=== PATIENT | male | born 1980 | race Two or more races ===

== ENCOUNTER 2023-06-01 08:22 | Inpatient (IN) | payer MEDICAID ==
[~2023-06-01] VITALS: Ht 172.7 cm; Wt 91.0 kg
[2023-06-01] MEDS ORDERED: PANTOPRAZOLE 40 MG/10 ML VIAL INJ IV ONE (08:45)
[2023-06-01] MEDS ORDERED: ONDANSETRON HCL 4 MG/2 ML VIAL IV ONE (08:45)
[2023-06-01] MEDS ORDERED: SODIUM CHLORIDE 0.9% 1,000 ML IVB ONE (08:45)
[2023-06-01] MEDS ORDERED: MORPHINE SULFATE 4 MG/ML SYR/VIAL IV ONE (08:45)
[2023-06-01 09:04] LABS: Basophils # (auto) 0.1 10 ^3/uL (0-0.2); Basophils % (auto) 0.5 % (0.0-2.0); Eosinophils # (auto) 0 10 ^3/uL (0-0.8); Eosinophils % (auto) 0.1 % (0.0-7.0); Hematocrit 43.7 % (41.0-53.0); Hemoglobin 14.5 g/dL (13.5-17.5); Lymphocytes # (auto) 0.9 10 ^3/uL (0.4-5.4); Lymphocytes % (auto) 7.3 % (10.0-50.0); Mean Corpuscular Hemoglobin 30.8 pg (28.0-32.0); Mean Corpuscular Hgb Conc. 33.2 g/dL (32.0-36.0); Monocytes # (auto) 0.7 10 ^3/uL (0-1.3); Monocytes % (auto) 5.5 % (0.0-12.0); Neutrophils # (auto) 10.5 10 ^3/uL (1.6-8.6); Neutrophils % (auto) 86.6 % (37.0-80.0); Red Cell Distribution Width 15.3 % (11.8-14.3); White Blood Cell 12.1 10^3/uL (4.4-10.8)
[2023-06-01 09:20] VITALS: PULSE 106; RESP 17; O2SAT 97
[2023-06-01 09:20] LABS: INR 1.07 (0.9-1.15); Partial Thromboplastin Time 30.1 SEC (24.5-34.5); Prothrombin Time 11.2 sec (9.3-11.8)
[2023-06-01 09:21] LABS: Alanine Aminotransferase 36 U/L (7-40); Albumin 4.3 g/dL (3.2-4.8); Alkaline Phosphatase 159 U/L (46-116); Anion Gap 7 (5-15); Aspartate Aminotransferase 29 U/L (13-40); BUN/Creatinine Ratio 16.1 (10.0-20.0); Blood Urea Nitrogen 15 mg/dL (9-23); Calcium 9.1 mg/dL (8.7-10.4); Carbon Dioxide 25 mmol/L (20-30); Chloride 107 mmol/L (98-107); Glucose 126 mg/dL (74-106); Lipase 380 U/L (12-53); Sodium 139 mmol/L (136-145)
[2023-06-01 09:22] LABS: Total Protein 7.7 g/dL (5.7-8.2)
[2023-06-01] MEDS ORDERED: HYDROmorphone HCL 2 MG/ML VL/or syr IV ONE (11:15)
[2023-06-01 11:57] LABS: Urine Bacteria FEW /hpf (None Seen); Urine Blood 2+ /uL (Negative); Urine Clarity HAZY (Clear); Urine Color Yellow (Yellow); Urine Mucus FEW (None Seen); Urine Protein, UAD 3+ (Negative); Urine Specific Gravity 1.043 (1.001-1.035); Urine WBC 10 /hpf (0 - 3); Urine pH 6.5 (5.0-8.0)
[2023-06-01] MEDS ORDERED: ONDANSETRON HCL 4 MG/2 ML VIAL IV PRN (14:00)
[2023-06-01] MEDS ORDERED: DOCUSATE SOD 100 MG CAP PO PRN (14:00)
[2023-06-01] MEDS: cefTRIAXone 1GM/50ML D5W 50 ML IV SCH (14:13)
[2023-06-01] MEDS: SODIUM CHLORIDE 0.9% 1,000 ML IV SCH ×2 (14:13→22:20)
[2023-06-01] MEDS ORDERED: LORazepam 2MG/ML-1ML VIAL IV PRN (14:15)
[2023-06-01] MEDS: metroNIDAZOLE 500MG/100ML 100 ML IV SCH ×2 (15:58→22:00)
[2023-06-01] MEDS: FOLIC ACID 1 MG, MULTIPLE VITAMIN 10 ML, MAGNESIUM SULF SDV 50% 8 MEQ, THIAMINE INJ 100... INJ SCH ×5 (16:00)
[2023-06-01] MEDS: MORPHINE SULFATE INJ 2 MG/ml SYRG IV PRN ×3 (16:00→23:46)
[2023-06-01 18:18] VITALS: PULSE 74; RESP 19; O2SAT 95
[2023-06-01 20:00] VITALS: PULSE 68; RESP 18; O2SAT 96
[2023-06-01 22:00] VITALS: BP 133/97; PULSE 68; RESP 18; TEMP 97.9; O2SAT 94
[2023-06-01] MEDS: PANTOPRAZOLE 40 MG/10 ML VIAL INJ IV SCH (23:38)
[2023-06-02] MEDS: MORPHINE SULFATE INJ 2 MG/ml SYRG IV PRN ×3 (03:42→11:40)
[2023-06-02 05:00] VITALS: BP 139/96; PULSE 75; RESP 18; TEMP 98.9; O2SAT 93
[2023-06-02] MEDS: metroNIDAZOLE 500MG/100ML 100 ML IV SCH ×3 (05:56→21:42)
[2023-06-02] MEDS: SODIUM CHLORIDE 0.9% 1,000 ML IV SCH ×3 (06:40→23:20)
[2023-06-02 07:10] LABS: Basophils # (auto) 0 10 ^3/uL (0-0.2); Basophils % (auto) 0.2 % (0.0-2.0); Eosinophils # (auto) 0 10 ^3/uL (0-0.8); Eosinophils % (auto) 0.1 % (0.0-7.0); Hemoglobin 13.6 g/dL (13.5-17.5); Lymphocytes # (auto) 0.6 10 ^3/uL (0.4-5.4); Lymphocytes % (auto) 3.9 % (10.0-50.0); Mean Corpuscular Hemoglobin 31.2 pg (28.0-32.0); Mean Corpuscular Hgb Conc. 32.5 g/dL (32.0-36.0); Mean Corpuscular Volume 96.2 fL (80.0-100.0); Monocytes # (auto) 0.9 10 ^3/uL (0-1.3); Monocytes % (auto) 5.9 % (0.0-12.0); Neutrophils # (auto) 13.7 10 ^3/uL (1.6-8.6); Neutrophils % (auto) 89.9 % (37.0-80.0); Red Blood Cells 4.37 10^6/uL (4.5-5.90); Red Cell Distribution Width 16.1 % (11.8-14.3); White Blood Cell 15.3 10^3/uL (4.4-10.8)
[2023-06-02 07:30] LABS: Alanine Aminotransferase 26 U/L (7-40); Albumin 3.9 g/dL (3.2-4.8); Alkaline Phosphatase 131 U/L (46-116); Anion Gap 9 (5-15); Aspartate Aminotransferase 26 U/L (13-40); BUN/Creatinine Ratio 9.1 (10.0-20.0); Bilirubin, Total 0.7 mg/dL (0.2-1.0); Blood Urea Nitrogen 10 mg/dL (9-23); Calcium 8.5 mg/dL (8.7-10.4); Carbon Dioxide 24 mmol/L (20-30); Chloride 106 mmol/L (98-107); Glucose 104 mg/dL (74-106); Lipase 370 U/L (12-53); Potassium 3.6 mmol/L (3.5-5.1); Sodium 139 mmol/L (136-145); Total Protein 7.3 g/dL (5.7-8.2)
[2023-06-02 09:00] VITALS: BP 132/68; PULSE 85; RESP 19; TEMP 98.5; O2SAT 95
[2023-06-02] MEDS: PANTOPRAZOLE 40 MG/10 ML VIAL INJ IV SCH ×2 (09:11→21:42)
[2023-06-02] MEDS: cefTRIAXone 1GM/50ML D5W 50 ML IV SCH (09:12)
[2023-06-02] MEDS: FOLIC ACID 1 MG, MULTIPLE VITAMIN 10 ML, MAGNESIUM SULF SDV 50% 8 MEQ, THIAMINE INJ 100... INJ SCH ×5 (12:46)
[2023-06-02 13:25] VITALS: BP 154/93; PULSE 97; RESP 20; TEMP 98.7; O2SAT 95
[2023-06-02] MEDS: HYDROmorphone HCL 2 MG/ML VL/or syr IV PRN ×3 (14:47→23:02)
[2023-06-02 17:09] VITALS: BP 124/72; PULSE 105; RESP 19; TEMP 99.1; O2SAT 93
[2023-06-02 22:00] VITALS: BP 135/93; PULSE 94; RESP 19; TEMP 99.2; O2SAT 98
[2023-06-03] MEDS: HYDROmorphone HCL 2 MG/ML VL/or syr IV PRN ×6 (03:11→23:46)
[2023-06-03 05:00] VITALS: BP 127/78; PULSE 79; RESP 18; TEMP 98.5; O2SAT 95
[2023-06-03] MEDS: metroNIDAZOLE 500MG/100ML 100 ML IV SCH ×3 (05:07→22:12)
[2023-06-03 06:46] LABS: Basophils # (auto) 0.1 10 ^3/uL (0-0.2); Basophils % (auto) 0.5 % (0.0-2.0); Eosinophils # (auto) 0 10 ^3/uL (0-0.8); Eosinophils % (auto) 0.4 % (0.0-7.0); Hematocrit 39.3 % (41.0-53.0); Lymphocytes # (auto) 0.8 10 ^3/uL (0.4-5.4); Mean Corpuscular Hemoglobin 31.4 pg (28.0-32.0); Monocytes # (auto) 0.8 10 ^3/uL (0-1.3); Monocytes % (auto) 6.5 % (0.0-12.0); Neutrophils % (auto) 85.6 % (37.0-80.0); Red Blood Cells 4.14 10^6/uL (4.5-5.90); Red Cell Distribution Width 15.4 % (11.8-14.3); White Blood Cell 11.7 10^3/uL (4.4-10.8)
[2023-06-03 07:03] LABS: Alanine Aminotransferase 24 U/L (7-40); Albumin 3.6 g/dL (3.2-4.8); Alkaline Phosphatase 142 U/L (46-116); Anion Gap 9 (5-15); Aspartate Aminotransferase 27 U/L (13-40); Blood Urea Nitrogen 11 mg/dL (9-23); Calcium 8.4 mg/dL (8.7-10.4); Carbon Dioxide 24 mmol/L (20-30); Chloride 106 mmol/L (98-107); Glucose 91 mg/dL (74-106); Lipase 90 U/L (12-53); Magnesium 1.9 mg/dL (1.6-2.6); Potassium 3.6 mmol/L (3.5-5.1); Sodium 139 mmol/L (136-145)
[2023-06-03 07:04] LABS: Bilirubin, Total 0.6 mg/dL (0.2-1.0); Total Protein 6.7 g/dL (5.7-8.2)
[2023-06-03] MEDS: SODIUM CHLORIDE 0.9% 1,000 ML IV SCH ×2 (07:40→16:00)
[2023-06-03 08:36] LABS: Triglycerides 67 mg/dL (< 150)
[2023-06-03 08:37] LABS: LDL Cholesterol 67 mg/dL (< 100)
[2023-06-03 08:38] LABS: Cholesterol 125 mg/dL (< 200); HDL Cholesterol 43 mg/dL (40-59)
[2023-06-03] MEDS: PANTOPRAZOLE 40 MG/10 ML VIAL INJ IV SCH ×2 (08:58→22:12)
[2023-06-03] MEDS: cefTRIAXone 1GM/50ML D5W 50 ML IV SCH (08:58)
[2023-06-03 09:00] VITALS: BP 130/85; PULSE 77; RESP 21; TEMP 98.5; O2SAT 94
[2023-06-03] MEDS: FOLIC ACID 1 MG, MULTIPLE VITAMIN 10 ML, MAGNESIUM SULF SDV 50% 8 MEQ, THIAMINE INJ 100... INJ SCH ×5 (11:53)
[2023-06-03 13:00] VITALS: BP 155/93; PULSE 85; RESP 20; TEMP 97.7; O2SAT 95
[2023-06-03 17:10] VITALS: BP 131/88; PULSE 71; RESP 20; TEMP 98; O2SAT 96
[2023-06-03 20:00] VITALS: RESP 18
[2023-06-03 22:00] VITALS: BP 143/93; PULSE 70; RESP 18; TEMP 98.7; O2SAT 93
[2023-06-04] MEDS: HYDROmorphone HCL 2 MG/ML VL/or syr IV PRN ×5 (04:19→22:38)
[2023-06-04] MEDS: SODIUM CHLORIDE 0.9% 1,000 ML IV SCH ×3 (04:54→17:00)
[2023-06-04 05:00] VITALS: BP 140/95; PULSE 62; RESP 18; TEMP 97.7; O2SAT 94
[2023-06-04] MEDS: metroNIDAZOLE 500MG/100ML 100 ML IV SCH ×3 (05:06→22:36)
[2023-06-04 06:18] LABS: Basophils # (auto) 0 10 ^3/uL (0-0.2); Basophils % (auto) 0.4 % (0.0-2.0); Eosinophils # (auto) 0.2 10 ^3/uL (0-0.8); Eosinophils % (auto) 2.7 % (0.0-7.0); Hematocrit 38.7 % (41.0-53.0); Hemoglobin 12.7 g/dL (13.5-17.5); Lymphocytes # (auto) 0.8 10 ^3/uL (0.4-5.4); Lymphocytes % (auto) 9.9 % (10.0-50.0); Mean Corpuscular Hemoglobin 31.2 pg (28.0-32.0); Mean Corpuscular Hgb Conc. 32.7 g/dL (32.0-36.0); Mean Corpuscular Volume 95.5 fL (80.0-100.0); Monocytes # (auto) 0.6 10 ^3/uL (0-1.3); Monocytes % (auto) 7.8 % (0.0-12.0); Neutrophils # (auto) 6.1 10 ^3/uL (1.6-8.6); Neutrophils % (auto) 79.2 % (37.0-80.0); Red Blood Cells 4.05 10^6/uL (4.5-5.90); Red Cell Distribution Width 15.4 % (11.8-14.3); White Blood Cell 7.7 10^3/uL (4.4-10.8)
[2023-06-04 06:46] LABS: Alanine Aminotransferase 18 U/L (7-40); Albumin 3.4 g/dL (3.2-4.8); Alkaline Phosphatase 122 U/L (46-116); Anion Gap 6 (5-15); Aspartate Aminotransferase 20 U/L (13-40); BUN/Creatinine Ratio 8.3 (10.0-20.0); Blood Urea Nitrogen 10 mg/dL (9-23); Calcium 8.2 mg/dL (8.7-10.4); Carbon Dioxide 24 mmol/L (20-30); Chloride 110 mmol/L (98-107); Glucose 92 mg/dL (74-106); Lipase 86 U/L (12-53); Magnesium 2.3 mg/dL (1.6-2.6); Potassium 3.3 mmol/L (3.5-5.1); Sodium 140 mmol/L (136-145)
[2023-06-04 06:47] LABS: Bilirubin, Total 0.4 mg/dL (0.2-1.0); Total Protein 6.3 g/dL (5.7-8.2)
[2023-06-04 08:50] VITALS: BP 152/86; PULSE 61; RESP 16; TEMP 97.9; O2SAT 98
[2023-06-04] MEDS: PANTOPRAZOLE 40 MG/10 ML VIAL INJ IV SCH ×2 (09:09→22:36)
[2023-06-04] MEDS: cefTRIAXone 1GM/50ML D5W 50 ML IV SCH (09:09)
[2023-06-04] MEDS ORDERED: POTASSIUM CHL 20 Meq TABLET PO ONE (10:45)
[2023-06-04 12:40] VITALS: BP_SYST 136; BP_SYST 141; BP_DIAS 88; BP_DIAS 93; PULSE 64; PULSE 86; RESP 16; RESP 18; TEMP 97.6; TEMP 98.4; O2SAT 97; O2SAT 98
[2023-06-04] MEDS: FOLIC ACID 1 MG, MULTIPLE VITAMIN 10 ML, MAGNESIUM SULF SDV 50% 8 MEQ, THIAMINE INJ 100... INJ SCH ×5 (13:30)
[2023-06-04 16:30] VITALS: BP 140/102; PULSE 67; RESP 20; TEMP 98.3; O2SAT 96
[2023-06-04 20:00] VITALS: BP 147/94; PULSE 63; RESP 17; TEMP 98.2; O2SAT 97
[2023-06-04 22:00] VITALS: BP 147/94; PULSE 63; RESP 17; TEMP 98.2; O2SAT 97
[2023-06-05] MEDS: SODIUM CHLORIDE 0.9% 1,000 ML IV SCH ×2 (01:23→09:09)
[2023-06-05] MEDS: HYDROmorphone HCL 2 MG/ML VL/or syr IV PRN ×2 (04:13→09:09)
[2023-06-05] MEDS: metroNIDAZOLE 500MG/100ML 100 ML IV SCH ×2 (05:49→14:00)
[2023-06-05 06:04] VITALS: BP_SYST 103; BP_SYST 141; BP_DIAS 78; BP_DIAS 86; PULSE 60; PULSE 66; RESP 17; TEMP 97.7; TEMP 98.3; O2SAT 96
[2023-06-05 06:36] LABS: Alanine Aminotransferase 19 U/L (7-40); Alkaline Phosphatase 109 U/L (46-116); Anion Gap 7 (5-15); BUN/Creatinine Ratio 5.7 (10.0-20.0); Blood Urea Nitrogen 7 mg/dL (9-23); Calcium 8.5 mg/dL (8.7-10.4); Carbon Dioxide 26 mmol/L (20-30); Chloride 110 mmol/L (98-107); Glucose 95 mg/dL (74-106); Lipase 114 U/L (12-53); Potassium 3.3 mmol/L (3.5-5.1); Sodium 143 mmol/L (136-145)
[2023-06-05 06:37] LABS: Albumin 3.4 g/dL (3.2-4.8); Aspartate Aminotransferase 25 U/L (13-40); Bilirubin, Total 0.4 mg/dL (0.2-1.0); Total Protein 6.3 g/dL (5.7-8.2)
[2023-06-05 09:00] VITALS: BP 131/86; PULSE 47; RESP 18; TEMP 97.6; O2SAT 97
[2023-06-05] MEDS: cefTRIAXone 1GM/50ML D5W 50 ML IV SCH (09:08)
[2023-06-05] MEDS: PANTOPRAZOLE 40 MG/10 ML VIAL INJ IV SCH (09:08)
[2023-06-05] MEDS ORDERED: POTASSIUM CHL 20 Meq TABLET PO ONE (09:15)
[2023-06-05] MEDS: FOLIC ACID 1 MG, MULTIPLE VITAMIN 10 ML, MAGNESIUM SULF SDV 50% 8 MEQ, THIAMINE INJ 100... INJ SCH ×5 (12:00)
[2023-06-05 13:00] VITALS: BP 148/88; PULSE 52; RESP 16; TEMP 98.6; O2SAT 99
[2023-06-05 15:07] VITALS: BP 148/88; PULSE 50; RESP 18; TEMP 98.6; O2SAT 99
== END 2023-06-05 16:05 | disposition home or self-care (01) | DRG 282 ==
LOC: ER 08:22 → OVERFLOW 13:55 → CENTRAL 17:37
PROVIDERS: ADMIT Nurse Practitioner Family; ATTEND Internal Medicine Geriatric Medicine
DX: K85.20 Alcohol induced acute pancreatitis without necrosis or infection (principal); K76.0 Fatty (change of) liver, not elsewhere classified; D72.829 Elevated white blood cell count, unspecified; E86.0 Dehydration; K29.00 Acute gastritis without bleeding; J45.909 Unspecified asthma, uncomplicated; K86.3 Pseudocyst of pancreas; Z90.49 Acquired absence of other specified parts of digestive tract; Z82.0 Family history of epilepsy and other diseases of the nervous system
CPT/HCPCS: 36415; 74176; 74181; 80053; 80061; 80320; 81001; 83690; 83735; 85025; 85610; 85730; C9113; G0378; J0696; J2405; J3490

== ENCOUNTER 2023-09-11 09:11 | Inpatient (IN) | payer MEDICAID ==
[~2023-09-11] VITALS: Ht 170.2 cm; Wt 87.6 kg
[2023-09-11 09:49] LABS: Basophils # (auto) 0 10 ^3/uL (0-0.2); Basophils % (auto) 0.1 % (0.0-2.0); Eosinophils # (auto) 0 10 ^3/uL (0-0.8); Eosinophils % (auto) 0.6 % (0.0-7.0); Hematocrit 43.6 % (41.0-53.0); Hemoglobin 14.3 g/dL (13.5-17.5); Lymphocytes % (auto) 12.7 % (10.0-50.0); Mean Corpuscular Hemoglobin 29.8 pg (28.0-32.0); Mean Corpuscular Hgb Conc. 32.7 g/dL (32.0-36.0); Mean Corpuscular Volume 90.9 fL (80.0-100.0); Monocytes # (auto) 0.5 10 ^3/uL (0-1.3); Neutrophils # (auto) 6.3 10 ^3/uL (1.6-8.6); Neutrophils % (auto) 80.6 % (37.0-80.0); Red Blood Cells 4.79 10^6/uL (4.5-5.90); Red Cell Distribution Width 17.9 % (11.8-14.3); White Blood Cell 7.8 10^3/uL (4.4-10.8)
[2023-09-11 10:05] LABS: Alanine Aminotransferase 62 U/L (7-40); Albumin 4.5 g/dL (3.2-4.8); Alkaline Phosphatase 114 U/L (46-116); Anion Gap 8 (5-15); Aspartate Aminotransferase 54 U/L (13-40); BUN/Creatinine Ratio 8.8 (10.0-20.0); Blood Urea Nitrogen 8 mg/dL (9-23); Carbon Dioxide 26 mmol/L (20-30); Chloride 106 mmol/L (98-107); Glucose 126 mg/dL (74-106); Lipase 555 U/L (12-53); Potassium 4.2 mmol/L (3.5-5.1); Sodium 140 mmol/L (136-145)
[2023-09-11 10:06] LABS: Bilirubin, Total 0.4 mg/dL (0.2-1.0); Total Protein 7.5 g/dL (5.7-8.2)
[2023-09-11 12:19] LABS: Urine Bacteria NONE SEEN /hpf (None Seen); Urine Blood Negative /uL (Negative); Urine Clarity Clear (Clear); Urine Color Yellow (Yellow); Urine Protein, UAD 1+ (Negative); Urine Specific Gravity 1.024 (1.001-1.035); Urine Urobilinogen Normal (Negative); Urine WBC 1 /hpf (0 - 3)
[2023-09-11] MEDS ORDERED: ONDANSETRON HCL 4 MG/2 ML VIAL IV ONE (14:00)
[2023-09-11] MEDS ORDERED: SODIUM CHLORIDE 0.9% 1,000 ML IVB ONE (14:00)
[2023-09-11] MEDS ORDERED: MORPHINE SULFATE 4 MG/ML SYR/VIAL IV ONE (14:00)
[2023-09-11] MEDS ORDERED: SODIUM CHLORIDE 0.9% 1,000 ML IV ONE (14:00)
[2023-09-11] MEDS ORDERED: DOCUSATE SOD 100 MG CAP PO PRN (16:15)
[2023-09-11] MEDS ORDERED: ONDANSETRON HCL 4 MG/2 ML VIAL IV PRN (16:15)
[2023-09-11] MEDS: SODIUM CHLORIDE 0.9% 1,000 ML IV SCH (16:25)
[2023-09-11 17:23] LABS: Triglycerides 89 mg/dL (< 150)
[2023-09-11 17:24] LABS: LDL Cholesterol 107 mg/dL (< 100)
[2023-09-11 17:25] LABS: Cholesterol 190 mg/dL (< 200); HDL Cholesterol 80 mg/dL (40-59)
[2023-09-11] MEDS: PIPERACILLIN-TAZOB 3.375GM 100 ML IV SCH (19:43)
[2023-09-11] MEDS: HYDROmorphone HCL 2 MG/ML VL/or syr IV PRN (19:43)
[2023-09-12] MEDS: PIPERACILLIN-TAZOB 3.375GM 100 ML IV SCH ×2 (00:13→06:23)
[2023-09-12] MEDS: HYDROmorphone HCL 2 MG/ML VL/or syr IV PRN ×6 (00:13→21:36)
[2023-09-12] MEDS: SODIUM CHLORIDE 0.9% 1,000 ML IV SCH ×3 (02:05→15:16)
[2023-09-12 05:00] VITALS: BP 138/94; PULSE 85; RESP 20; TEMP 98.3; O2SAT 100
[2023-09-12 06:54] LABS: Basophils # (auto) 0 10 ^3/uL (0-0.2); Basophils % (auto) 0.2 % (0.0-2.0); Eosinophils # (auto) 0 10 ^3/uL (0-0.8); Eosinophils % (auto) 0.1 % (0.0-7.0); Hematocrit 40.6 % (41.0-53.0); Hemoglobin 13.3 g/dL (13.5-17.5); Lymphocytes # (auto) 0.5 10 ^3/uL (0.4-5.4); Mean Corpuscular Hemoglobin 30.2 pg (28.0-32.0); Mean Corpuscular Hgb Conc. 32.8 g/dL (32.0-36.0); Monocytes # (auto) 0.5 10 ^3/uL (0-1.3); Monocytes % (auto) 5.7 % (0.0-12.0); Neutrophils # (auto) 8.1 10 ^3/uL (1.6-8.6); Red Blood Cells 4.41 10^6/uL (4.5-5.90); Red Cell Distribution Width 18.4 % (11.8-14.3); White Blood Cell 9.1 10^3/uL (4.4-10.8)
[2023-09-12 07:19] LABS: Alanine Aminotransferase 49 U/L (7-40); Albumin 4.4 g/dL (3.2-4.8); Alkaline Phosphatase 104 U/L (46-116); Anion Gap 6 (5-15); Aspartate Aminotransferase 39 U/L (13-40); Bilirubin, Total 0.6 mg/dL (0.2-1.0); Blood Urea Nitrogen 8 mg/dL (9-23); Calcium 8.9 mg/dL (8.7-10.4); Carbon Dioxide 30 mmol/L (20-30); Chloride 104 mmol/L (98-107); Glucose 115 mg/dL (74-106); Lipase 368 U/L (12-53); Potassium 3.9 mmol/L (3.5-5.1); Sodium 140 mmol/L (136-145)
[2023-09-12 07:20] LABS: Total Protein 7.2 g/dL (5.7-8.2)
[2023-09-12 08:45] VITALS: BP 132/89; PULSE 87; RESP 20; TEMP 98; O2SAT 96
[2023-09-12] MEDS: PANTOPRAZOLE 40 MG/10 ML VIAL INJ IV SCH (08:56)
[2023-09-12] MEDS ORDERED: THIAMINE 100mg/ml INJ (200mg/2ml VIAL) IV ONE (09:45)
[2023-09-12] MEDS: FOLIC ACID 1 MG in D5W 5% 50 ML INJ SCH (10:00)
[2023-09-12 12:32] VITALS: BP 145/96; PULSE 92; RESP 20; TEMP 99.2; O2SAT 98
[2023-09-12 17:00] VITALS: BP 128/90; PULSE 97; RESP 18; TEMP 98.5; O2SAT 95
[2023-09-12 22:00] VITALS: BP 130/77; PULSE 96; RESP 18; TEMP 99.5; O2SAT 97
[2023-09-13] VITALS (8 sets, daily range): BP systolic 132–156; BP diastolic 81–108; PULSE 81–108; RESP 15–20; TEMP 98.4–99.3; O2SAT 94–97
[2023-09-13] MEDS: SODIUM CHLORIDE 0.9% 1,000 ML IV SCH ×3 (01:35→15:51)
[2023-09-13] MEDS: HYDROmorphone HCL 2 MG/ML VL/or syr IV PRN ×5 (02:01→20:05)
[2023-09-13 06:40] LABS: Basophils # (auto) 0 10 ^3/uL (0-0.2); Basophils % (auto) 0.3 % (0.0-2.0); Eosinophils # (auto) 0.1 10 ^3/uL (0-0.8); Eosinophils % (auto) 0.9 % (0.0-7.0); Hematocrit 38.2 % (41.0-53.0); Hemoglobin 12.7 g/dL (13.5-17.5); Lymphocytes # (auto) 0.9 10 ^3/uL (0.4-5.4); Lymphocytes % (auto) 11.2 % (10.0-50.0); Mean Corpuscular Hemoglobin 30.4 pg (28.0-32.0); Mean Corpuscular Hgb Conc. 33.2 g/dL (32.0-36.0); Mean Corpuscular Volume 91.4 fL (80.0-100.0); Monocytes # (auto) 0.6 10 ^3/uL (0-1.3); Monocytes % (auto) 7.3 % (0.0-12.0); Neutrophils # (auto) 6.6 10 ^3/uL (1.6-8.6); Neutrophils % (auto) 80.3 % (37.0-80.0); Red Blood Cells 4.19 10^6/uL (4.5-5.90); Red Cell Distribution Width 18.5 % (11.8-14.3); White Blood Cell 8.2 10^3/uL (4.4-10.8)
[2023-09-13 06:48] LABS: INR 1.07 (0.9-1.15); Partial Thromboplastin Time 29.6 SEC (24.5-34.5); Prothrombin Time 11.2 sec (9.3-11.8)
[2023-09-13 06:57] LABS: Alanine Aminotransferase 39 U/L (7-40); Albumin 4.2 g/dL (3.2-4.8); Alkaline Phosphatase 98 U/L (46-116); Anion Gap 6 (5-15); Aspartate Aminotransferase 35 U/L (13-40); Blood Urea Nitrogen 9 mg/dL (9-23); Calcium 8.8 mg/dL (8.7-10.4); Carbon Dioxide 28 mmol/L (20-30); Chloride 103 mmol/L (98-107); Glucose 77 mg/dL (74-106); Lipase 89 U/L (12-53); Potassium 3.2 mmol/L (3.5-5.1); Sodium 137 mmol/L (136-145)
[2023-09-13 06:58] LABS: Bilirubin, Total 0.6 mg/dL (0.2-1.0); Total Protein 6.9 g/dL (5.7-8.2)
[2023-09-13] MEDS ORDERED: POTASSIUM CHL 20 Meq TABLET PO ONE (09:30)
[2023-09-13] MEDS: PANTOPRAZOLE 40 MG/10 ML VIAL INJ IV SCH (10:55)
[2023-09-13] MEDS: FOLIC ACID 1 MG in D5W 5% 50 ML INJ SCH (10:56)
[2023-09-14] MEDS: HYDROmorphone HCL 2 MG/ML VL/or syr IV PRN ×6 (00:21→22:29)
[2023-09-14] MEDS: SODIUM CHLORIDE 0.9% 1,000 ML IV SCH ×3 (00:34→20:41)
[2023-09-14 05:42] VITALS: BP 142/101; PULSE 90; TEMP 98.7; O2SAT 97
[2023-09-14 06:22] LABS: Basophils # (auto) 0 10 ^3/uL (0-0.2); Basophils % (auto) 0.6 % (0.0-2.0); Eosinophils # (auto) 0.2 10 ^3/uL (0-0.8); Eosinophils % (auto) 3.7 % (0.0-7.0); Hematocrit 35.3 % (41.0-53.0); Hemoglobin 11.5 g/dL (13.5-17.5); Lymphocytes % (auto) 17.7 % (10.0-50.0); Mean Corpuscular Hemoglobin 30.4 pg (28.0-32.0); Mean Corpuscular Hgb Conc. 32.7 g/dL (32.0-36.0); Mean Corpuscular Volume 92.8 fL (80.0-100.0); Monocytes # (auto) 0.5 10 ^3/uL (0-1.3); Monocytes % (auto) 8.2 % (0.0-12.0); Neutrophils # (auto) 3.9 10 ^3/uL (1.6-8.6); Neutrophils % (auto) 69.8 % (37.0-80.0); Red Blood Cells 3.81 10^6/uL (4.5-5.90); Red Cell Distribution Width 18.8 % (11.8-14.3); White Blood Cell 5.6 10^3/uL (4.4-10.8)
[2023-09-14 06:24] LABS: Anion Gap 6 (5-15); Carbon Dioxide 27 mmol/L (20-30); Chloride 104 mmol/L (98-107); Potassium 3.2 mmol/L (3.5-5.1); Sodium 137 mmol/L (136-145)
[2023-09-14 06:26] LABS: Calcium 8.4 mg/dL (8.7-10.4)
[2023-09-14 06:30] LABS: BUN/Creatinine Ratio 6.5 (10.0-20.0); Blood Urea Nitrogen 5 mg/dL (9-23); Glucose 93 mg/dL (74-106); Lipase 90 U/L (12-53)
[2023-09-14 08:00] VITALS: PULSE 54; RESP 16; O2SAT 98
[2023-09-14 09:00] VITALS: BP 117/75; PULSE 54; RESP 16; TEMP 98.4; O2SAT 98
[2023-09-14] MEDS ORDERED: POTASSIUM CHL 20 Meq TABLET PO ONE (10:00)
[2023-09-14] MEDS: PANTOPRAZOLE 40 MG/10 ML VIAL INJ IV SCH (10:37)
[2023-09-14] MEDS: FOLIC ACID 1 MG in D5W 5% 50 ML INJ SCH (11:25)
[2023-09-14 13:00] VITALS: BP 137/102; PULSE 78; RESP 18; TEMP 98.6; O2SAT 96
[2023-09-14 17:00] VITALS: BP 141/96; PULSE 87; RESP 18; TEMP 99.1; O2SAT 96
[2023-09-14 22:03] VITALS: BP 142/92; PULSE 82; RESP 16; TEMP 98.4; O2SAT 99
[2023-09-15] MEDS: HYDROmorphone HCL 2 MG/ML VL/or syr IV PRN ×2 (02:36→06:40)
[2023-09-15 05:00] VITALS: BP 133/80; PULSE 72; RESP 17; TEMP 98; O2SAT 98
[2023-09-15 05:42] LABS: Alanine Aminotransferase 61 U/L (7-40); Albumin 3.8 g/dL (3.2-4.8); Alkaline Phosphatase 91 U/L (46-116); Anion Gap 6 (5-15); Aspartate Aminotransferase 62 U/L (13-40); Calcium 8.7 mg/dL (8.7-10.4); Carbon Dioxide 27 mmol/L (20-30); Chloride 104 mmol/L (98-107); Glucose 97 mg/dL (74-106); Potassium 3.6 mmol/L (3.5-5.1); Sodium 137 mmol/L (136-145)
[2023-09-15 05:43] LABS: Bilirubin, Total 0.5 mg/dL (0.2-1.0); Total Protein 6.3 g/dL (5.7-8.2)
[2023-09-15] MEDS: SODIUM CHLORIDE 0.9% 1,000 ML IV SCH (05:45)
[2023-09-15 06:08] LABS: BUN/Creatinine Ratio 6.3 (10.0-20.0); Blood Urea Nitrogen < 5 mg/dL (9-23)
[2023-09-15 08:00] VITALS: PULSE 71; RESP 20; O2SAT 99
[2023-09-15 09:00] VITALS: BP 129/86; PULSE 71; RESP 20; TEMP 98.1; O2SAT 99
[2023-09-15] MEDS ORDERED: HYDROmorphone HCL 2 MG/ML VL/or syr IV PRN (09:15)
[2023-09-15] MEDS ORDERED: TRAM50TA2 PO (09:28)
[2023-09-15] MEDS ORDERED: PANT40TA2 PO (09:28)
[2023-09-15] MEDS ORDERED: MULT-351 PO (09:28)
[2023-09-15] MEDS: PANTOPRAZOLE 40 MG/10 ML VIAL INJ IV SCH (09:47)
[2023-09-15] MEDS: FOLIC ACID 1 MG in D5W 5% 50 ML INJ SCH (09:57)
[2023-09-15 11:18] VITALS: BP 129/86; PULSE 71; RESP 20; TEMP 98.1; O2SAT 99
[2023-09-15 13:00] VITALS: BP 136/87; PULSE 82; RESP 20; TEMP 98.1; O2SAT 96
== END 2023-09-15 13:12 | disposition home or self-care (01) | DRG 282 ==
LOC: ER 09:11 → OVERFLOW 16:04 → CENTRAL 23:59
PROVIDERS: ADMIT Nurse Practitioner Family; ATTEND Internal Medicine
DX: K85.90 Acute pancreatitis without necrosis or infection, unspecified (principal); K76.0 Fatty (change of) liver, not elsewhere classified; E66.9 Obesity, unspecified; K86.89 Other specified diseases of pancreas; E86.0 Dehydration; F10.10 Alcohol abuse, uncomplicated; E87.6 Hypokalemia; M54.50 Low back pain, unspecified; R00.0 Tachycardia, unspecified; R74.01 Elevation of levels of liver transaminase levels; J45.909 Unspecified asthma, uncomplicated; Z79.899 Other long term (current) drug therapy; Z82.0 Family history of epilepsy and other diseases of the nervous system; Z90.49 Acquired absence of other specified parts of digestive tract
CPT/HCPCS: 36415; 74176; 76705; 80048; 80053; 80061; 81001; 83605; 83690; 85025; 85610; 85730; 87040; 96361; 96374; 96375; C9113; G0378; J2405; J2543; J7060

== ENCOUNTER 2023-11-07 07:34 | Inpatient (IN) | payer SELFPAY ==
[~2023-11-07] VITALS: Ht 172.7 cm; Wt 85.8 kg
[~2023-11-07 07:34] MED LIST: MULT-351 PO; PANT40TA2 PO; TRAM50TA2 PO
[2023-11-07 08:04] LABS: Basophils # (auto) 0 10 ^3/uL (0-0.2); Basophils % (auto) 0.4 % (0.0-2.0); Eosinophils # (auto) 0.1 10 ^3/uL (0-0.8); Eosinophils % (auto) 1.3 % (0.0-7.0); Hematocrit 43.2 % (41.0-53.0); Hemoglobin 14.2 g/dL (13.5-17.5); Lymphocytes % (auto) 14.8 % (10.0-50.0); Mean Corpuscular Hgb Conc. 32.9 g/dL (32.0-36.0); Mean Corpuscular Volume 91.4 fL (80.0-100.0); Monocytes # (auto) 0.5 10 ^3/uL (0-1.3); Neutrophils # (auto) 5.3 10 ^3/uL (1.6-8.6); Neutrophils % (auto) 76.5 % (37.0-80.0); Nucleated Red Blood Cells % 0.1 %; Red Blood Cells 4.72 10^6/uL (4.5-5.90); Red Cell Distribution Width 14.4 % (11.8-14.3); White Blood Cell 6.9 10^3/uL (4.4-10.8)
[2023-11-07 08:17] LABS: Alanine Aminotransferase 58 U/L (7-40); Albumin 4.2 g/dL (3.2-4.8); Alkaline Phosphatase 105 U/L (46-116); Anion Gap 6 (5-15); Aspartate Aminotransferase 86 U/L (13-40); Bilirubin, Total 1.1 mg/dL (0.2-1.0); Blood Urea Nitrogen 10 mg/dL (9-23); Calcium 8.6 mg/dL (8.5-10.1); Carbon Dioxide 28 mmol/L (20-30); Chloride 104 mmol/L (98-107); Glucose 96 mg/dL (74-106); Potassium 3.6 mmol/L (3.5-5.1); Sodium 138 mmol/L (136-145)
[2023-11-07] MEDS: SODIUM CHLORIDE 0.9% 1,000 ML IV ONE (08:19)
[2023-11-07 08:31] LABS: Urine Bacteria NONE SEEN /hpf (None Seen); Urine Blood TRACE /uL (Negative); Urine Clarity Clear (Clear); Urine Color Yellow (Yellow); Urine Mucus FEW (None Seen); Urine Protein, UAD 1+ (Negative); Urine Specific Gravity 1.029 (1.001-1.035); Urine WBC <1 /hpf (0 - 3); Urine pH 6.5 (5.0-8.0)
[2023-11-07] MEDS: KETOROLAC TROMETH 30 MG/ML 1ML VIAL IV ONE ×2 (08:45→12:18)
[2023-11-07] MEDS: METOCLOPRAMIDE HCL 5MG/ml INJ 2ml VIAL IV ONE (08:45)
[2023-11-07 09:03] LABS: Magnesium 1.5 mg/dL (1.6-2.6)
[2023-11-07] MEDS ORDERED: ONDANSETRON HCL 4 MG/2 ML VIAL IV PRN (11:00)
[2023-11-07 11:05] LABS: Blood Alcohol < 3.0 mg/dL (<10)
[2023-11-07 11:06] LABS: Bilirubin, Direct 0.4 mg/dL (<0.3)
[2023-11-07] MEDS: SODIUM CHLORIDE 0.9% 2,000 ML IV ONE (11:11)
[2023-11-07 11:12] LABS: Amphetamine Screen, Urine Neg (NEGATIVE); Barbiturate Scree,Urine Neg (NEGATIVE); Benzodiazephine Screen, Urine Neg (NEGATIVE); Cannabinoid Screen, Urine Pos (NEGATIVE); Cocaine Screen, Urine Neg (NEGATIVE); Opiate Scree,Urine Neg (NEGATIVE); Phencyclidine Screen, Urine Neg (NEGATIVE)
[2023-11-07] MEDS: SODIUM CHLORIDE 0.9% 1,000 ML IV SCH (11:24)
[2023-11-07] MEDS ORDERED: ALBUTEROL SULF 2.5 MG/0.5ML(0.5%) NEB SOLN NEB PRN (11:45)
[2023-11-07 12:10] VITALS: O2SAT 98
[2023-11-07] MEDS: MAGNESIUM SULFATE 1GM/100ML 100 ML IV SCH (12:15)
[2023-11-07 13:28] VITALS: BP 136/83; PULSE 68; RESP 18; TEMP 98.2; O2SAT 99
[2023-11-07 16:30] VITALS: BP 143/98; PULSE 70; RESP 17; TEMP 98.2; O2SAT 97
[2023-11-07] MEDS: KETOROLAC TROMETH 30 MG/ML 1ML VIAL IV PRN (17:10)
[2023-11-07 20:25] VITALS: O2SAT 98
[2023-11-07 20:33] VITALS: O2SAT 97
[2023-11-07 22:00] VITALS: BP 131/88; PULSE 74; RESP 18; TEMP 98.1; O2SAT 98
[2023-11-07] MEDS: HYDROcodone-ACET 5/325MG TAB PO ONE (22:19)
[2023-11-08] VITALS (8 sets, daily range): BP systolic 120–154; BP diastolic 66–98; PULSE 56–70; RESP 18–20; TEMP 97.9–98.6; O2SAT 97–99
[2023-11-08 06:42] LABS: Basophils # (auto) 0 10 ^3/uL (0-0.2); Basophils % (auto) 0.8 % (0.0-2.0); Eosinophils # (auto) 0.1 10 ^3/uL (0-0.8); Eosinophils % (auto) 4.9 % (0.0-7.0); Hematocrit 37.9 % (41.0-53.0); Hemoglobin 12.5 g/dL (13.5-17.5); Lymphocytes # (auto) 0.8 10 ^3/uL (0.4-5.4); Lymphocytes % (auto) 25.5 % (10.0-50.0); Mean Corpuscular Hemoglobin 30.3 pg (28.0-32.0); Mean Corpuscular Volume 91.7 fL (80.0-100.0); Monocytes # (auto) 0.3 10 ^3/uL (0-1.3); Monocytes % (auto) 9.7 % (0.0-12.0); Neutrophils # (auto) 1.7 10 ^3/uL (1.6-8.6); Neutrophils % (auto) 59.1 % (37.0-80.0); Red Blood Cells 4.14 10^6/uL (4.5-5.90); Red Cell Distribution Width 14.3 % (11.8-14.3); White Blood Cell 2.9 10^3/uL (4.4-10.8)
[2023-11-08 07:17] LABS: Alanine Aminotransferase 50 U/L (7-40); Albumin 3.5 g/dL (3.2-4.8); Alkaline Phosphatase 98 U/L (46-116); Anion Gap 6 (5-15); Aspartate Aminotransferase 94 U/L (13-40); Blood Urea Nitrogen 6 mg/dL (9-23); Calcium 7.7 mg/dL (8.7-10.4); Carbon Dioxide 25 mmol/L (20-30); Chloride 107 mmol/L (98-107); Glucose 119 mg/dL (74-106); Potassium 3.4 mmol/L (3.5-5.1); Sodium 138 mmol/L (136-145); Total Protein 6.1 g/dL (5.7-8.2)
[2023-11-08] MEDS: PANTOPRAZOLE 40 MG TAB PO SCH (09:35)
[2023-11-08] MEDS: ENOXAPARIN SOD 40 MG/0.4 ML SYRINGE SC SCH (09:36)
[2023-11-08] MEDS: MULTIPLE VITAMINS W/ MINERALS TAB PO SCH (09:37)
[2023-11-08] MEDS: MORPHINE SULFATE INJ 2 MG/ml SYRG IV PRN (11:22)
[2023-11-08] MEDS: ACETAMINOPHEN 325 MG TAB PO PRN (14:08)
[2023-11-08] MEDS: POTASSIUM CHL 20MEQ/100ML 100 ML IV ONE (20:03)
[2023-11-08] MEDS: POTASSIUM EFFERVESENT TAB 25 MEQ PO ONE (20:10)
[2023-11-09 05:00] VITALS: BP 130/93; PULSE 62; RESP 19; TEMP 98.2; O2SAT 97
[2023-11-09 05:59] LABS: Basophils # (auto) 0 10 ^3/uL (0-0.2); Basophils % (auto) 0.7 % (0.0-2.0); Eosinophils # (auto) 0.2 10 ^3/uL (0-0.8); Eosinophils % (auto) 4.5 % (0.0-7.0); Hematocrit 36.7 % (41.0-53.0); Lymphocytes # (auto) 0.9 10 ^3/uL (0.4-5.4); Lymphocytes % (auto) 23.5 % (10.0-50.0); Mean Corpuscular Hemoglobin 30.2 pg (28.0-32.0); Mean Corpuscular Hgb Conc. 32.6 g/dL (32.0-36.0); Mean Corpuscular Volume 92.7 fL (80.0-100.0); Monocytes # (auto) 0.3 10 ^3/uL (0-1.3); Monocytes % (auto) 9.4 % (0.0-12.0); Neutrophils # (auto) 2.3 10 ^3/uL (1.6-8.6); Neutrophils % (auto) 61.9 % (37.0-80.0); Nucleated Red Blood Cells % 0.3 %; Red Blood Cells 3.96 10^6/uL (4.5-5.90); Red Cell Distribution Width 14.1 % (11.8-14.3); White Blood Cell 3.7 10^3/uL (4.4-10.8)
[2023-11-09 06:24] LABS: Alanine Aminotransferase 54 U/L (7-40); Albumin 3.6 g/dL (3.2-4.8); Alkaline Phosphatase 98 U/L (46-116); Anion Gap 7 (5-15); Aspartate Aminotransferase 123 U/L (13-40); Calcium 8.5 mg/dL (8.5-10.1); Carbon Dioxide 25 mmol/L (20-30); Chloride 107 mmol/L (98-107); Glucose 89 mg/dL (74-106); Potassium 3.9 mmol/L (3.5-5.1); Sodium 139 mmol/L (136-145)
[2023-11-09 06:25] LABS: Bilirubin, Total 0.4 mg/dL (0.2-1.0); Total Protein 6.3 g/dL (5.7-8.2)
[2023-11-09 06:31] LABS: BUN/Creatinine Ratio 6.2 (10.0-20.0); Blood Urea Nitrogen < 5 mg/dL (9-23)
[2023-11-09 07:50] VITALS: O2SAT 98
[2023-11-09 09:00] VITALS: BP 146/95; PULSE 63; RESP 18; TEMP 98; O2SAT 95
[2023-11-09 13:00] VITALS: BP 147/89; PULSE 61; RESP 16; TEMP 98.5; O2SAT 98
[2023-11-09 17:06] VITALS: BP 154/90; PULSE 75; RESP 18; TEMP 98.5; O2SAT 97
== END 2023-11-09 17:50 | disposition home or self-care (01) | DRG 440 ==
LOC: ER 07:34 → OVERFLOW 11:00 → WEST WING 15:43
PROVIDERS: ADMIT Internal Medicine Pulmonary Disease; ATTEND Internal Medicine Pulmonary Disease
DX: K85.90 Acute pancreatitis without necrosis or infection, unspecified (principal); J45.909 Unspecified asthma, uncomplicated; R74.01 Elevation of levels of liver transaminase levels; I10 Essential (primary) hypertension; E87.6 Hypokalemia
CPT/HCPCS: 36415; 74176; 76705; 80053; 80307; 80320; 81001; 82248; 83690; 83735; 85025; 96361; 96365; 96375; 96376; G0378; J1885; J3480

== ENCOUNTER 2024-02-13 15:43 | Inpatient (IN) | payer MEDICAID ==
[~2024-02-13] VITALS: Ht 172.7 cm; Wt 94.8 kg
[2024-02-13 17:15] LABS: Basophils # (auto) 0.1 10 ^3/uL (0-0.2); Basophils % (auto) 0.9 % (0.0-2.0); Eosinophils # (auto) 0.1 10 ^3/uL (0-0.8); Eosinophils % (auto) 1.1 % (0.0-7.0); Hematocrit 42.2 % (41.0-53.0); Hemoglobin 13.4 g/dL (13.5-17.5); Lymphocytes # (auto) 1.2 10 ^3/uL (0.4-5.4); Lymphocytes % (auto) 17.2 % (10.0-50.0); Mean Corpuscular Hemoglobin 27.6 pg (28.0-32.0); Mean Corpuscular Hgb Conc. 31.7 g/dL (32.0-36.0); Monocytes # (auto) 0.6 10 ^3/uL (0-1.3); Monocytes % (auto) 8.7 % (0.0-12.0); Neutrophils # (auto) 4.8 10 ^3/uL (1.6-8.6); Neutrophils % (auto) 72.1 % (37.0-80.0); Red Blood Cells 4.86 10^6/uL (4.5-5.90); Red Cell Distribution Width 16.1 % (11.8-14.3); White Blood Cell 6.7 10^3/uL (4.4-10.8)
[2024-02-13 17:22] LABS: Alanine Aminotransferase 70 U/L (7-40); Albumin 4.2 g/dL (3.2-4.8); Alkaline Phosphatase 96 U/L (46-116); Anion Gap 7 (5-15); Aspartate Aminotransferase 77 U/L (13-40); BUN/Creatinine Ratio 6.9 (10.0-20.0); Bilirubin, Total 0.9 mg/dL (0.2-1.0); Blood Urea Nitrogen 7 mg/dL (9-23); Calcium 8.8 mg/dL (8.7-10.4); Carbon Dioxide 29 mmol/L (20-30); Chloride 105 mmol/L (98-107); Glucose 111 mg/dL (74-106); Lipase 160 U/L (12-53); Potassium 3.6 mmol/L (3.5-5.1); Sodium 141 mmol/L (136-145); Total Protein 7.2 g/dL (5.7-8.2)
[2024-02-13 17:39] LABS: INR 1.13 (0.9-1.15); Partial Thromboplastin Time 25.4 SEC (24.5-34.5); Prothrombin Time 11.9 sec (9.3-11.8)
[2024-02-13 17:51] LABS: Lactic Acid w/Reflex 2.1 mmol/L (0.4-2.0)
[2024-02-13] MEDS: HYDROcodone-ACET 10/325MG TAB PO ONE (19:28)
[2024-02-13] MEDS ORDERED: ACETAMINOPHEN 325 MG TAB PO PRN (22:00)
[2024-02-13] MEDS ORDERED: DOCUSATE SOD 100 MG CAP PO PRN (22:00)
[2024-02-13] MEDS ORDERED: ONDANSETRON HCL 4 MG/2 ML VIAL IV PRN (22:00)
[2024-02-13] MEDS ORDERED: MORPHINE SULFATE INJ 2 MG/ml SYRG IV PRN (23:00)
[2024-02-13] MEDS ORDERED: NITROGLYCERIN 0.4 MG SL TAB SL PRN (23:00)
[2024-02-14] VITALS (8 sets, daily range): BP systolic 135–151; BP diastolic 92–102; PULSE 71–103; RESP 13–20; TEMP 97.7–98.8; O2SAT 95–98
[2024-02-14] MEDS: HYDROmorphone HCL 2 MG/ML VL/or syr IV ONE (00:29)
[2024-02-14] MEDS: SODIUM CHLORIDE 0.9% 1,000 ML IV ONE (00:29)
[2024-02-14] MEDS: METOCLOPRAMIDE HCL 5MG/ml INJ 2ml VIAL IV ONE (00:37)
[2024-02-14] MEDS: SODIUM CHLORIDE 0.9% 1,000 ML IVB ONE (02:27)
[2024-02-14] MEDS: HYDROmorphone HCL 2 MG/ML VL/or syr IV PRN (03:49)
[2024-02-14 06:03] LABS: Basophils # (auto) 0 10 ^3/uL (0-0.2); Basophils % (auto) 0.6 % (0.0-2.0); Eosinophils # (auto) 0.1 10 ^3/uL (0-0.8); Eosinophils % (auto) 1.1 % (0.0-7.0); Hematocrit 37.3 % (41.0-53.0); Hemoglobin 11.8 g/dL (13.5-17.5); Lymphocytes # (auto) 0.8 10 ^3/uL (0.4-5.4); Lymphocytes % (auto) 15.1 % (10.0-50.0); Mean Corpuscular Hemoglobin 27.3 pg (28.0-32.0); Mean Corpuscular Hgb Conc. 31.5 g/dL (32.0-36.0); Mean Corpuscular Volume 86.6 fL (80.0-100.0); Monocytes # (auto) 0.6 10 ^3/uL (0-1.3); Monocytes % (auto) 10.5 % (0.0-12.0); Neutrophils # (auto) 3.9 10 ^3/uL (1.6-8.6); Neutrophils % (auto) 72.7 % (37.0-80.0); Nucleated Red Blood Cells % 0.1 %; Red Blood Cells 4.31 10^6/uL (4.5-5.90); White Blood Cell 5.4 10^3/uL (4.4-10.8)
[2024-02-14 06:23] LABS: Alanine Aminotransferase 53 U/L (7-40); Albumin 3.7 g/dL (3.2-4.8); Alkaline Phosphatase 83 U/L (46-116); Anion Gap 4 (5-15); Aspartate Aminotransferase 54 U/L (13-40); Blood Urea Nitrogen 7 mg/dL (9-23); Calcium 8.1 mg/dL (8.5-10.1); Carbon Dioxide 30 mmol/L (20-30); Chloride 106 mmol/L (98-107); Glucose 115 mg/dL (74-106); Potassium 3.5 mmol/L (3.5-5.1); Sodium 140 mmol/L (136-145)
[2024-02-14 06:24] LABS: Total Protein 6.5 g/dL (5.7-8.2)
[2024-02-14 08:59] LABS: Urine Bacteria FEW /hpf (None Seen); Urine Blood Negative /uL (Negative); Urine Clarity Clear (Clear); Urine Color Light-Orange (Yellow); Urine Mucus FEW (None Seen); Urine Protein, UAD 1+ (Negative); Urine Specific Gravity 1.022 (1.001-1.035); Urine Urobilinogen 2 mg/dL (Negative); Urine WBC 2 /hpf (0 - 3); Urine pH 7.5 (5.0-9.0)
[2024-02-14] MEDS: hydrALAZINE HCL 20 MG/ML VL IV PRN (09:25)
[2024-02-14] MEDS: PANTOPRAZOLE 40 MG/10 ML VIAL INJ IV SCH (09:25)
[2024-02-14 11:06] LABS: Amphetamine Screen, Urine Neg (NEGATIVE); Barbiturate Scree,Urine Neg (NEGATIVE); Benzodiazephine Screen, Urine Neg (NEGATIVE); Cocaine Screen, Urine Neg (NEGATIVE)
[2024-02-14 11:07] LABS: Cannabinoid Screen, Urine Neg (NEGATIVE); Opiate Scree,Urine Pos (NEGATIVE); Phencyclidine Screen, Urine Neg (NEGATIVE)
[2024-02-14 12:01] LABS: Blood Alcohol < 3.0 mg/dL (<10); Triglycerides 65 mg/dL (< 150)
[2024-02-14 12:02] LABS: LDL Cholesterol 86 mg/dL (< 100); Magnesium 1.3 mg/dL (1.6-2.6)
[2024-02-14 12:03] LABS: Cholesterol 139 mg/dL (< 200); HDL Cholesterol 42 mg/dL (40-59); Phosphorus 2.3 mg/dL (2.4-5.1)
[2024-02-14 12:11] LABS: INR 1.1 (0.9-1.15); Partial Thromboplastin Time 24.4 SEC (24.5-34.5); Prothrombin Time 11.6 sec (9.3-11.8)
[2024-02-14] MEDS: LORazepam 2MG/ML-1ML VIAL IV PRN (12:11)
[2024-02-14] MEDS ORDERED: METO-158 PO (12:23)
[2024-02-14] MEDS ORDERED: ASPI-325 PO (12:23)
[2024-02-14] MEDS: MAGNESIUM SULFATE 1GM/100ML 100 ML IV ONE (18:23)
[2024-02-14] MEDS: POTASSIUM PHOSPHATE 22 MEQ in SODIUM CHL 0.9% 100 ML IV ONE (20:01)
[2024-02-15] VITALS (8 sets, daily range): BP systolic 131–156; BP diastolic 89–99; PULSE 95–122; RESP 18–20; TEMP 98.2–99.4; O2SAT 94–99
[2024-02-15 07:05] LABS: Basophils # (auto) 0 10 ^3/uL (0-0.2); Basophils % (auto) 0.3 % (0.0-2.0); Eosinophils # (auto) 0.1 10 ^3/uL (0-0.8); Eosinophils % (auto) 1.7 % (0.0-7.0); Hematocrit 36.2 % (41.0-53.0); Hemoglobin 11.6 g/dL (13.5-17.5); Lymphocytes # (auto) 0.8 10 ^3/uL (0.4-5.4); Lymphocytes % (auto) 13.9 % (10.0-50.0); Mean Corpuscular Hemoglobin 27.7 pg (28.0-32.0); Mean Corpuscular Hgb Conc. 31.9 g/dL (32.0-36.0); Mean Corpuscular Volume 86.8 fL (80.0-100.0); Monocytes # (auto) 0.6 10 ^3/uL (0-1.3); Monocytes % (auto) 9.6 % (0.0-12.0); Neutrophils # (auto) 4.4 10 ^3/uL (1.6-8.6); Neutrophils % (auto) 74.5 % (37.0-80.0); Nucleated Red Blood Cells % 0.1 %; Red Blood Cells 4.18 10^6/uL (4.5-5.90); White Blood Cell 5.9 10^3/uL (4.4-10.8)
[2024-02-15 07:21] LABS: Alanine Aminotransferase 67 U/L (7-40); Albumin 3.6 g/dL (3.2-4.8); Alkaline Phosphatase 99 U/L (46-116); Anion Gap 4 (5-15); Aspartate Aminotransferase 102 U/L (13-40); BUN/Creatinine Ratio 9.5 (10.0-20.0); Bilirubin, Total 1.3 mg/dL (0.2-1.0); Blood Urea Nitrogen 10 mg/dL (9-23); Calcium 8.4 mg/dL (8.7-10.4); Carbon Dioxide 32 mmol/L (20-30); Chloride 102 mmol/L (98-107); Glucose 120 mg/dL (74-106); Lipase 161 U/L (12-53); Potassium 3.5 mmol/L (3.5-5.1); Sodium 138 mmol/L (136-145); Total Protein 6.5 g/dL (5.7-8.2)
[2024-02-15] MEDS: COLCHICINE 0.6 MG CAP PO ONE (11:42)
[2024-02-15] MEDS: LACTATED RINGER'S 1,000 ML IV SCH (11:42)
[2024-02-15 19:26] LABS: COVID19 ANTIGEN SOFIA FIA NEGATIVE (NEGATIVE)
[2024-02-16] VITALS (8 sets, daily range): BP systolic 128–157; BP diastolic 72–108; PULSE 86–108; RESP 16–20; TEMP 98–99; O2SAT 98–100
[2024-02-16 06:06] LABS: Basophils # (auto) 0 10 ^3/uL (0-0.2); Basophils % (auto) 1.1 % (0.0-2.0); Eosinophils # (auto) 0.1 10 ^3/uL (0-0.8); Eosinophils % (auto) 2.7 % (0.0-7.0); Hematocrit 33.7 % (41.0-53.0); Hemoglobin 10.8 g/dL (13.5-17.5); Lymphocytes # (auto) 0.9 10 ^3/uL (0.4-5.4); Lymphocytes % (auto) 22.6 % (10.0-50.0); Mean Corpuscular Hemoglobin 27.7 pg (28.0-32.0); Mean Corpuscular Hgb Conc. 32.1 g/dL (32.0-36.0); Mean Corpuscular Volume 86.3 fL (80.0-100.0); Monocytes # (auto) 0.6 10 ^3/uL (0-1.3); Neutrophils # (auto) 2.5 10 ^3/uL (1.6-8.6); Neutrophils % (auto) 59.6 % (37.0-80.0); White Blood Cell 4.1 10^3/uL (4.4-10.8)
[2024-02-16 06:28] LABS: Alanine Aminotransferase 53 U/L (7-40); Albumin 3.7 g/dL (3.2-4.8); Alkaline Phosphatase 87 U/L (46-116); Anion Gap 5 (5-15); Aspartate Aminotransferase 64 U/L (13-40); BUN/Creatinine Ratio 9.2 (10.0-20.0); Bilirubin, Total 0.7 mg/dL (0.2-1.0); Blood Urea Nitrogen 8 mg/dL (9-23); Calcium 8.7 mg/dL (8.7-10.4); Carbon Dioxide 29 mmol/L (20-30); Chloride 102 mmol/L (98-107); Glucose 93 mg/dL (74-106); Lipase 106 U/L (12-53); Magnesium 1.7 mg/dL (1.6-2.6); Phosphorus 2.8 mg/dL (2.4-5.1); Potassium 3.4 mmol/L (3.5-5.1); Sodium 136 mmol/L (136-145); Total Protein 6.6 g/dL (5.7-8.2)
[2024-02-16] MEDS: COLCHICINE 0.6 MG CAP PO SCH (10:54)
[2024-02-16] MEDS: MAGNESIUM SULFATE 1GM/100ML 100 ML IV ONE (10:54)
[2024-02-16] MEDS: ERGOCALCIFEROL 50,000 UNIT(1.25MG) CAP PO SCH (11:33)
[2024-02-16] MEDS: POTASSIUM CHLORIDE 20 MEQ, LIDOCAINE 1% (LOCAL ANESTH.) 2 ML in SODIUM CHL 0.9% 100 ML IV ONE (11:42)
[2024-02-16] MEDS: HYDROcodone-ACET 5/325MG TAB PO PRN (17:08)
[2024-02-17] VITALS (8 sets, daily range): BP systolic 133–149; BP diastolic 88–102; PULSE 82–104; RESP 18–20; TEMP 97.9–98.9; O2SAT 97–99
[2024-02-17 07:10] LABS: Basophils # (auto) 0 10 ^3/uL (0-0.2); Basophils % (auto) 0.9 % (0.0-2.0); Eosinophils # (auto) 0.1 10 ^3/uL (0-0.8); Eosinophils % (auto) 3.4 % (0.0-7.0); Hematocrit 33.3 % (41.0-53.0); Hemoglobin 10.8 g/dL (13.5-17.5); Lymphocytes # (auto) 0.8 10 ^3/uL (0.4-5.4); Lymphocytes % (auto) 22.6 % (10.0-50.0); Mean Corpuscular Hemoglobin 28.1 pg (28.0-32.0); Mean Corpuscular Hgb Conc. 32.4 g/dL (32.0-36.0); Mean Corpuscular Volume 86.6 fL (80.0-100.0); Monocytes # (auto) 0.5 10 ^3/uL (0-1.3); Monocytes % (auto) 14.6 % (0.0-12.0); Neutrophils # (auto) 2.2 10 ^3/uL (1.6-8.6); Neutrophils % (auto) 58.5 % (37.0-80.0); Red Blood Cells 3.85 10^6/uL (4.5-5.90); Red Cell Distribution Width 15.7 % (11.8-14.3); White Blood Cell 3.7 10^3/uL (4.4-10.8)
[2024-02-17 07:22] LABS: Alanine Aminotransferase 63 U/L (7-40); Albumin 3.8 g/dL (3.2-4.8); Alkaline Phosphatase 92 U/L (46-116); Anion Gap 4 (5-15); Aspartate Aminotransferase 84 U/L (13-40); Carbon Dioxide 29 mmol/L (20-30); Chloride 102 mmol/L (98-107); Glucose 92 mg/dL (74-106); Magnesium 1.9 mg/dL (1.6-2.6); Potassium 3.5 mmol/L (3.5-5.1); Sodium 135 mmol/L (136-145)
[2024-02-17 07:23] LABS: Bilirubin, Total 0.6 mg/dL (0.2-1.0); Total Protein 6.6 g/dL (5.7-8.2)
[2024-02-17 07:39] LABS: BUN/Creatinine Ratio 5.8 (10.0-20.0); Blood Urea Nitrogen < 5 mg/dL (9-23)
[2024-02-17 08:45] LABS: Lipase 83 U/L (12-53)
[2024-02-17] MEDS: chlordiazePOXIDE HCL 5 MG CAP PO SCH (12:33)
[2024-02-17] MEDS: HYDROmorphone HCL 2 MG/ML VL/or syr IV PRN (14:17)
[2024-02-18 01:00] VITALS: BP 139/101; PULSE 77; RESP 20; TEMP 98; O2SAT 99
[2024-02-18 05:00] VITALS: BP 134/94; PULSE 73; RESP 20; TEMP 98.3; O2SAT 94
[2024-02-18 06:39] LABS: Basophils # (auto) 0 10 ^3/uL (0-0.2); Basophils % (auto) 1.2 % (0.0-2.0); Eosinophils # (auto) 0.1 10 ^3/uL (0-0.8); Eosinophils % (auto) 4.2 % (0.0-7.0); Hematocrit 35.5 % (41.0-53.0); Hemoglobin 11.2 g/dL (13.5-17.5); Lymphocytes # (auto) 0.8 10 ^3/uL (0.4-5.4); Lymphocytes % (auto) 28.6 % (10.0-50.0); Mean Corpuscular Hemoglobin 27.4 pg (28.0-32.0); Mean Corpuscular Hgb Conc. 31.6 g/dL (32.0-36.0); Mean Corpuscular Volume 86.8 fL (80.0-100.0); Monocytes # (auto) 0.4 10 ^3/uL (0-1.3); Monocytes % (auto) 13.5 % (0.0-12.0); Neutrophils # (auto) 1.4 10 ^3/uL (1.6-8.6); Neutrophils % (auto) 52.5 % (37.0-80.0); Nucleated Red Blood Cells % 0.1 %; Red Cell Distribution Width 16.2 % (11.8-14.3); White Blood Cell 2.6 10^3/uL (4.4-10.8)
[2024-02-18 06:51] LABS: Alanine Aminotransferase 93 U/L (7-40); Albumin 3.8 g/dL (3.2-4.8); Alkaline Phosphatase 89 U/L (46-116); Anion Gap 3 (5-15); Calcium 9.3 mg/dL (8.5-10.1); Carbon Dioxide 31 mmol/L (20-30); Chloride 104 mmol/L (98-107); Glucose 98 mg/dL (74-106); Potassium 3.6 mmol/L (3.5-5.1); Sodium 138 mmol/L (136-145)
[2024-02-18 06:52] LABS: Aspartate Aminotransferase 124 U/L (13-40); Bilirubin, Total 0.4 mg/dL (0.2-1.0); Total Protein 6.7 g/dL (5.7-8.2)
[2024-02-18 07:04] LABS: BUN/Creatinine Ratio 5.4 (10.0-20.0); Blood Urea Nitrogen < 5 mg/dL (9-23)
[2024-02-18 09:00] VITALS: BP 133/90; PULSE 70; RESP 18; TEMP 98.3; O2SAT 98
[2024-02-18 09:20] VITALS: BP 128/82; PULSE 68; RESP 18
== END 2024-02-18 11:47 | disposition home or self-care (01) | DRG 282 ==
LOC: ER 15:43 → TELE 22:47 → TELE-CENTR 02-14 09:04 → CENTRAL 02-14 18:39
PROVIDERS: ADMIT Internal Medicine Pulmonary Disease; ATTEND Internal Medicine Pulmonary Disease
DX: K85.90 Acute pancreatitis without necrosis or infection, unspecified (principal); K76.0 Fatty (change of) liver, not elsewhere classified; E66.9 Obesity, unspecified; F17.290 Nicotine dependence, other tobacco product, uncomplicated; J45.909 Unspecified asthma, uncomplicated; I10 Essential (primary) hypertension; Z20.822 Contact with and (suspected) exposure to COVID-19; F41.9 Anxiety disorder, unspecified; K86.3 Pseudocyst of pancreas; F10.139 Alcohol abuse with withdrawal, unspecified; Y90.9 Presence of alcohol in blood, level not specified; Z79.899 Other long term (current) drug therapy; Z90.49 Acquired absence of other specified parts of digestive tract; Z82.0 Family history of epilepsy and other diseases of the nervous system; Z79.82 Long term (current) use of aspirin; Z68.31 Body mass index [BMI] 31.0-31.9, adult; G47.33 Obstructive sleep apnea (adult) (pediatric); F17.210 Nicotine dependence, cigarettes, uncomplicated
CPT/HCPCS: 36415; 71045; 74176; 74181; 80053; 80061; 80307; 80320; 81001; 82140; 82306; 82607; 83036; 83605; 83690; 83735; 84100; 84443; 84484; 85025; 85379; 85610; 85730; 86141; 87040; 87426; 93306; 93970; C9113; G0378; J2001

== ENCOUNTER 2024-03-27 03:22 | Inpatient (IN) | payer MEDICAID ==
[~2024-03-27] VITALS: Ht 172.7 cm; Wt 86.8 kg
[~2024-03-27 03:22] MED LIST changes: +ASPI-325 PO; +METO-158 PO; -MULT-351 PO; -PANT40TA2 PO; -TRAM50TA2 PO
[2024-03-27] MEDS: LIDOCAINE VISCOUS 2% 15ML UD PO ONE (07:24)
[2024-03-27] MEDS: ONDANSETRON HCL 4 MG/2 ML VIAL IV ONE ×2 (07:31→12:14)
[2024-03-27] MEDS: MORPHINE SULFATE 4 MG/ML SYR/VIAL IV ONE ×2 (07:36→12:15)
[2024-03-27 08:09] LABS: Basophils # (auto) 0 10 ^3/uL (0-0.2); Eosinophils # (auto) 0.1 10 ^3/uL (0-0.8); Hemoglobin 14.3 g/dL (13.5-17.5); Lymphocytes # (auto) 0.9 10 ^3/uL (0.4-5.4); Mean Corpuscular Hemoglobin 26.5 pg (28.0-32.0); Mean Corpuscular Volume 81.7 fL (80.0-100.0); Monocytes # (auto) 0.5 10 ^3/uL (0-1.3); Neutrophils # (auto) 5.7 10 ^3/uL (1.6-8.6); Red Blood Cells 5.39 10^6/uL (4.5-5.90); White Blood Cell 7.2 10^3/uL (4.4-10.8)
[2024-03-27 08:11] LABS: Basophils % (auto) 0.4 % (0.0-2.0); Eosinophils % (auto) 1.3 % (0.0-7.0); Hematocrit 44.1 % (41.0-53.0); Lymphocytes % (auto) 12.9 % (10.0-50.0); Mean Corpuscular Hgb Conc. 32.5 g/dL (32.0-36.0); Monocytes % (auto) 6.8 % (0.0-12.0); Neutrophils % (auto) 78.6 % (37.0-80.0); Nucleated Red Blood Cells % 0.1 %; Red Cell Distribution Width 17.8 % (11.8-14.3)
[2024-03-27 08:24] LABS: Alanine Aminotransferase 265 U/L (7-40); Albumin 4.6 g/dL (3.2-4.8); Alkaline Phosphatase 122 U/L (46-116); Anion Gap 7 (5-15); Aspartate Aminotransferase 224 U/L (13-40); BUN/Creatinine Ratio 12.1 (10.0-20.0); Blood Alcohol < 3.0 mg/dL (<10); Blood Urea Nitrogen 14 mg/dL (9-23); Calcium 9.8 mg/dL (8.5-10.1); Carbon Dioxide 27 mmol/L (20-30); Chloride 103 mmol/L (98-107); Cholesterol 178 mg/dL (< 200); Glucose 107 mg/dL (74-106); INR 1.07 (0.9-1.15); LDL Cholesterol 120 mg/dL (< 100); Partial Thromboplastin Time 26.2 SEC (24.5-34.5); Potassium 3.3 mmol/L (3.5-5.1); Prothrombin Time 11.3 sec (9.3-11.8); Sodium 137 mmol/L (136-145); Triglycerides 87 mg/dL (< 150)
[2024-03-27 08:25] LABS: Bilirubin, Total 0.6 mg/dL (0.2-1.0); HDL Cholesterol 46 mg/dL (40-59); Total Protein 7.8 g/dL (5.7-8.2)
[2024-03-27 10:37] LABS: Lipase 69 U/L (12-53)
[2024-03-27 11:55] VITALS: PULSE 76; RESP 14; O2SAT 97
[2024-03-27] MEDS: diphenhdrAMINE HCL 50 MG/1 ML VL IV ONE (12:14)
[2024-03-27] MEDS: METOCLOPRAMIDE HCL 5MG/ml INJ 2ml VIAL IV ONE (12:16)
[2024-03-27] MEDS ORDERED: IOHEXOL 300 MG/ML 100ML BOTTLE IJ ONE (14:44)
[2024-03-27] MEDS: SODIUM CHLORIDE 0.9% 2,000 ML IV ONE (14:45)
[2024-03-27] MEDS ORDERED: ACETAMINOPHEN 325 MG TAB PO PRN (14:45)
[2024-03-27 16:03] VITALS: O2SAT 97
[2024-03-27 16:30] VITALS: BP 122/84; PULSE 68; RESP 20; TEMP 98; O2SAT 97
[2024-03-27] MEDS: KETOROLAC TROMETH 30 MG/ML 1ML VIAL IV ONE (16:45)
[2024-03-27] MEDS: SODIUM CHLORIDE 0.9% 1,000 ML IV SCH (16:46)
[2024-03-27] MEDS: POTASSIUM EFFERVESENT TAB 25 MEQ PO ONE (16:46)
[2024-03-27] MEDS ORDERED: ALBUTEROL SULF 2.5 MG/0.5ML(0.5%) NEB SOLN NEB PRN (18:00)
[2024-03-27 19:56] VITALS: BP 122/84; PULSE 100; RESP 16; TEMP 98; O2SAT 99
[2024-03-27 21:00] VITALS: BP 127/89; PULSE 86; RESP 16; TEMP 97.8; O2SAT 94
[2024-03-27] MEDS: MORPHINE SULFATE INJ 2 MG/ml SYRG IV PRN (21:01)
[2024-03-27] MEDS: METOPROLOL TARTRATE 50 MG TAB PO SCH (21:05)
[2024-03-28] VITALS (9 sets, daily range): BP systolic 118–136; BP diastolic 67–84; PULSE 64–91; RESP 16–18; TEMP 98–98.9; O2SAT 92–98
[2024-03-28 05:54] LABS: Basophils # (auto) 0 10 ^3/uL (0-0.2); Eosinophils # (auto) 0.1 10 ^3/uL (0-0.8); Hemoglobin 13.2 g/dL (13.5-17.5); Lymphocytes # (auto) 0.9 10 ^3/uL (0.4-5.4); White Blood Cell 6.4 10^3/uL (4.4-10.8)
[2024-03-28 05:55] LABS: Basophils % (auto) 0.3 % (0.0-2.0); Eosinophils % (auto) 1.6 % (0.0-7.0); Hematocrit 40.9 % (41.0-53.0); Lymphocytes % (auto) 13.3 % (10.0-50.0); Mean Corpuscular Hemoglobin 26.6 pg (28.0-32.0); Mean Corpuscular Hgb Conc. 32.2 g/dL (32.0-36.0); Mean Corpuscular Volume 82.6 fL (80.0-100.0); Monocytes # (auto) 0.6 10 ^3/uL (0-1.3); Monocytes % (auto) 9.9 % (0.0-12.0); Neutrophils # (auto) 4.8 10 ^3/uL (1.6-8.6); Neutrophils % (auto) 74.9 % (37.0-80.0); Nucleated Red Blood Cells % 0.1 %; Red Blood Cells 4.95 10^6/uL (4.5-5.90); Red Cell Distribution Width 17.9 % (11.8-14.3)
[2024-03-28 06:12] LABS: Alanine Aminotransferase 180 U/L (7-40); Albumin 4.1 g/dL (3.2-4.8); Alkaline Phosphatase 115 U/L (46-116); Anion Gap 7 (5-15); Aspartate Aminotransferase 106 U/L (13-40); BUN/Creatinine Ratio 13.4 (10.0-20.0); Blood Urea Nitrogen 15 mg/dL (9-23); Calcium 9.5 mg/dL (8.7-10.4); Carbon Dioxide 26 mmol/L (20-30); Chloride 103 mmol/L (98-107); Glucose 105 mg/dL (74-106); Lipase 50 U/L (12-53); Potassium 4.1 mmol/L (3.5-5.1); Sodium 136 mmol/L (136-145)
[2024-03-28 06:13] LABS: Bilirubin, Total 0.8 mg/dL (0.2-1.0); Total Protein 7.1 g/dL (5.7-8.2)
[2024-03-28] MEDS: PANTOPRAZOLE 40 MG/10 ML VIAL INJ IV SCH (09:27)
[2024-03-28 17:29] LABS: Triglycerides 72 mg/dL (< 150)
[2024-03-28 17:30] LABS: LDL Cholesterol 90 mg/dL (< 100)
[2024-03-28 17:31] LABS: Cholesterol 151 mg/dL (< 200); HDL Cholesterol 46 mg/dL (40-59)
[2024-03-28] MEDS: ONDANSETRON HCL 4 MG/2 ML VIAL IV PRN (21:42)
[2024-03-29] VITALS (10 sets, daily range): BP systolic 119–142; BP diastolic 62–94; PULSE 68–75; RESP 16–20; TEMP 97.8–98.5; O2SAT 93–99
[2024-03-29 06:25] LABS: Basophils # (auto) 0 10 ^3/uL (0-0.2); Basophils % (auto) 0.4 % (0.0-2.0); Eosinophils # (auto) 0.1 10 ^3/uL (0-0.8); Hemoglobin 12.3 g/dL (13.5-17.5); Neutrophils # (auto) 3.3 10 ^3/uL (1.6-8.6); Nucleated Red Blood Cells % 0.1 %; Red Cell Distribution Width 17.9 % (11.8-14.3)
[2024-03-29 06:28] LABS: Eosinophils % (auto) 1.3 % (0.0-7.0); Hematocrit 37.3 % (41.0-53.0); Lymphocytes % (auto) 19.1 % (10.0-50.0); Mean Corpuscular Hemoglobin 26.9 pg (28.0-32.0); Mean Corpuscular Hgb Conc. 33.1 g/dL (32.0-36.0); Mean Corpuscular Volume 81.5 fL (80.0-100.0); Monocytes # (auto) 0.8 10 ^3/uL (0-1.3); Monocytes % (auto) 14.8 % (0.0-12.0); Neutrophils % (auto) 64.4 % (37.0-80.0); Red Blood Cells 4.58 10^6/uL (4.5-5.90); White Blood Cell 5.1 10^3/uL (4.4-10.8)
[2024-03-29 06:33] LABS: Anion Gap 1 (5-15); Carbon Dioxide 29 mmol/L (20-30); Chloride 106 mmol/L (98-107); Potassium 4.3 mmol/L (3.5-5.1); Sodium 136 mmol/L (136-145)
[2024-03-29 06:34] LABS: Calcium 9.1 mg/dL (8.7-10.4)
[2024-03-29 06:39] LABS: BUN/Creatinine Ratio 5.5 (10.0-20.0); Blood Urea Nitrogen 6 mg/dL (9-23); Glucose 105 mg/dL (74-106)
[2024-03-30] VITALS (8 sets, daily range): BP systolic 102–134; BP diastolic 57–90; PULSE 57–70; RESP 16–18; TEMP 97.8–99.8; O2SAT 96–99
[2024-03-30 06:31] LABS: Basophils # (auto) 0 10 ^3/uL (0-0.2); Basophils % (auto) 0.9 % (0.0-2.0); Eosinophils # (auto) 0.1 10 ^3/uL (0-0.8); Hematocrit 36.6 % (41.0-53.0); Hemoglobin 12.2 g/dL (13.5-17.5); Lymphocytes % (auto) 22.1 % (10.0-50.0); Mean Corpuscular Hemoglobin 27.1 pg (28.0-32.0); Mean Corpuscular Hgb Conc. 33.2 g/dL (32.0-36.0); Mean Corpuscular Volume 81.4 fL (80.0-100.0); Monocytes # (auto) 0.6 10 ^3/uL (0-1.3); Monocytes % (auto) 14.3 % (0.0-12.0); Neutrophils # (auto) 2.7 10 ^3/uL (1.6-8.6); Neutrophils % (auto) 60.7 % (37.0-80.0); Red Blood Cells 4.49 10^6/uL (4.5-5.90); White Blood Cell 4.4 10^3/uL (4.4-10.8)
[2024-03-30] MEDS: PANTOPRAZOLE 40 MG TAB PO SCH (06:41)
[2024-03-30 07:11] LABS: Alanine Aminotransferase 106 U/L (7-40); Albumin 3.9 g/dL (3.2-4.8); Alkaline Phosphatase 111 U/L (46-116); Anion Gap 7 (5-15); Aspartate Aminotransferase 44 U/L (13-40); BUN/Creatinine Ratio 6.7 (10.0-20.0); Bilirubin, Total 0.6 mg/dL (0.2-1.0); Blood Urea Nitrogen 7 mg/dL (9-23); Calcium 9.5 mg/dL (8.7-10.4); Carbon Dioxide 28 mmol/L (20-30); Chloride 102 mmol/L (98-107); Glucose 129 mg/dL (74-106); Potassium 3.5 mmol/L (3.5-5.1); Sodium 137 mmol/L (136-145); Total Protein 6.7 g/dL (5.7-8.2)
[2024-03-30 07:22] LABS: Magnesium 1.7 mg/dL (1.6-2.6)
[2024-03-31 08:38] LABS: Hepatitis B Surface Antigen Negative (Negative)
[2024-03-31 08:59] LABS: Hepatitis A Ab IgM Negative; Hepatitis B Core IgM Negative
[2024-03-31 09:00] LABS: Hepatitis C Antibody Negative (Negative)
== END 2024-03-30 19:00 | disposition home or self-care (01) | DRG 282 ==
LOC: ER 03:22 → OVERFLOW 14:38 → EAST 15:44
PROVIDERS: ADMIT Nurse Practitioner Family; ATTEND Nurse Practitioner Family
DX: K86.3 Pseudocyst of pancreas (principal); I72.8 Aneurysm of other specified arteries; K76.0 Fatty (change of) liver, not elsewhere classified; E87.6 Hypokalemia; J45.909 Unspecified asthma, uncomplicated; Z90.49 Acquired absence of other specified parts of digestive tract; K85.90 Acute pancreatitis without necrosis or infection, unspecified
CPT/HCPCS: 36415; 71045; 71260; 74176; 74177; 74181; 76705; 80048; 80053; 80061; 80074; 80320; 83036; 83605; 83690; 83735; 84484; 85025; 85610; 85730; 93005; 96374; 96375; 96376; G0378; J1885; J2405; J2470

== ENCOUNTER 2024-04-27 17:31 | Inpatient (IN) | payer MEDICAID ==
[~2024-04-27] VITALS: Ht 170.2 cm; Wt 80.9 kg
[2024-04-27] MEDS: PANTOPRAZOLE 40 MG/10 ML VIAL INJ IV ONE (18:30)
[2024-04-27] MEDS: MORPHINE SULFATE 4 MG/ML SYR/VIAL IV ONE (18:30)
[2024-04-27 19:50] LABS: Eosinophils # (auto) 0.2 10 ^3/uL (0-0.8); Hematocrit 40.5 % (41.0-53.0); Lymphocytes # (auto) 1.2 10 ^3/uL (0.4-5.4); Monocytes # (auto) 0.5 10 ^3/uL (0-1.3)
[2024-04-27 19:52] LABS: Basophils # (auto) 0.1 10 ^3/uL (0-0.2); Basophils % (auto) 0.9 % (0.0-2.0); Eosinophils % (auto) 3.2 % (0.0-7.0); Hemoglobin 13.1 g/dL (13.5-17.5); Lymphocytes % (auto) 20.7 % (10.0-50.0); Mean Corpuscular Hemoglobin 26.7 pg (28.0-32.0); Mean Corpuscular Hgb Conc. 32.4 g/dL (32.0-36.0); Mean Corpuscular Volume 82.5 fL (80.0-100.0); Monocytes % (auto) 8.3 % (0.0-12.0); Neutrophils # (auto) 3.9 10 ^3/uL (1.6-8.6); Neutrophils % (auto) 66.9 % (37.0-80.0); Red Blood Cells 4.91 10^6/uL (4.5-5.90); Red Cell Distribution Width 19.7 % (11.8-14.3); White Blood Cell 5.8 10^3/uL (4.4-10.8)
[2024-04-27] MEDS ORDERED: ACETAMINOPHEN 325 MG TAB PO PRN (20:00)
[2024-04-27] MEDS ORDERED: DOCUSATE SOD 100 MG CAP PO PRN (20:00)
[2024-04-27 20:05] LABS: Alanine Aminotransferase 95 U/L (7-40); Albumin 4.3 g/dL (3.2-4.8); Alkaline Phosphatase 91 U/L (46-116); Anion Gap 4 (5-15); Aspartate Aminotransferase 42 U/L (13-40); BUN/Creatinine Ratio 7.8 (10.0-20.0); Bilirubin, Total 0.3 mg/dL (0.2-1.0); Blood Urea Nitrogen 10 mg/dL (9-23); Calcium 9.4 mg/dL (8.7-10.4); Carbon Dioxide 29 mmol/L (20-30); Chloride 104 mmol/L (98-107); Glucose 101 mg/dL (74-106); Lipase 123 U/L (12-53); Potassium 3.8 mmol/L (3.5-5.1); Sodium 137 mmol/L (136-145); Total Protein 7.4 g/dL (5.7-8.2)
[2024-04-27 21:29] LABS: Triglycerides 97 mg/dL (< 150)
[2024-04-27 21:30] LABS: LDL Cholesterol 92 mg/dL (< 100)
[2024-04-27 21:31] LABS: Cholesterol 147 mg/dL (< 200); HDL Cholesterol 38 mg/dL (40-59)
[2024-04-27] MEDS: SODIUM CHLOR 0.9% PF (SALINE LOCK) 10ML VIAL/SYR IV SCH (22:00)
[2024-04-28] MEDS: ONDANSETRON HCL 4 MG/2 ML VIAL IV ONE (03:42)
[2024-04-28] MEDS: HYDROmorphone HCL 2 MG/ML VL/or syr IV PRN (03:45)
[2024-04-28] MEDS: SODIUM CHLORIDE 0.9% 1,000 ML IVB ONE (03:47)
[2024-04-28 03:50] LABS: Basophils # (auto) 0 10 ^3/uL (0-0.2); Basophils % (auto) 0.6 % (0.0-2.0); Eosinophils # (auto) 0.2 10 ^3/uL (0-0.8); Eosinophils % (auto) 4.1 % (0.0-7.0); Hematocrit 41.3 % (41.0-53.0); Hemoglobin 13.4 g/dL (13.5-17.5); Lymphocytes # (auto) 1.3 10 ^3/uL (0.4-5.4); Mean Corpuscular Hemoglobin 26.9 pg (28.0-32.0); Mean Corpuscular Hgb Conc. 32.6 g/dL (32.0-36.0); Mean Corpuscular Volume 82.6 fL (80.0-100.0); Monocytes # (auto) 0.5 10 ^3/uL (0-1.3); Monocytes % (auto) 8.1 % (0.0-12.0); Neutrophils # (auto) 3.6 10 ^3/uL (1.6-8.6); Neutrophils % (auto) 64.2 % (37.0-80.0); Nucleated Red Blood Cells % 0.1 %; Red Cell Distribution Width 19.3 % (11.8-14.3); White Blood Cell 5.7 10^3/uL (4.4-10.8)
[2024-04-28 03:54] VITALS: PULSE 68; RESP 16; O2SAT 100
[2024-04-28 04:10] LABS: Alanine Aminotransferase 89 U/L (7-40); Albumin 4.4 g/dL (3.2-4.8); Alkaline Phosphatase 95 U/L (46-116); Anion Gap 7 (5-15); Aspartate Aminotransferase 37 U/L (13-40); BUN/Creatinine Ratio 8.4 (10.0-20.0); Bilirubin, Total 0.3 mg/dL (0.2-1.0); Blood Urea Nitrogen 10 mg/dL (9-23); Calcium 9.6 mg/dL (8.7-10.4); Carbon Dioxide 28 mmol/L (20-30); Chloride 105 mmol/L (98-107); Glucose 110 mg/dL (74-106); Potassium 4.1 mmol/L (3.5-5.1); Sodium 140 mmol/L (136-145); Total Protein 7.6 g/dL (5.7-8.2)
[2024-04-28] MEDS: LACTATED RINGER'S 1,000 ML IV ONE ×2 (06:45→20:25)
[2024-04-28 09:10] LABS: Urine Bacteria None Seen /hpf (None Seen)
[2024-04-28 09:43] LABS: Amphetamine Screen, Urine Neg (NEGATIVE); Barbiturate Scree,Urine Neg (NEGATIVE); Benzodiazephine Screen, Urine Neg (NEGATIVE); Cocaine Screen, Urine Neg (NEGATIVE); Opiate Scree,Urine Neg (NEGATIVE); Phencyclidine Screen, Urine Neg (NEGATIVE)
[2024-04-28 09:44] LABS: Cannabinoid Screen, Urine Neg (NEGATIVE)
[2024-04-28 09:50] LABS: Urine Blood Negative /uL (Negative); Urine Clarity Clear (Clear); Urine Color Yellow (Yellow); Urine Mucus FEW (None Seen); Urine Protein, UAD TRACE (Negative); Urine Specific Gravity 1.038 (1.001-1.035); Urine Urobilinogen 3 mg/dL (Negative); Urine WBC 1 /hpf (0 - 3); Urine pH 5.5 (5.0-9.0)
[2024-04-28] MEDS: ENOXAPARIN SOD 40 MG/0.4 ML SYRINGE SC SCH (10:36)
[2024-04-28] MEDS: FOLIC ACID 1 MG TAB PO SCH (10:39)
[2024-04-28] MEDS: THIAMINE HCL 100 MG TAB PO SCH (10:39)
[2024-04-28] MEDS: ONDANSETRON HCL 4 MG/2 ML VIAL IV PRN (12:05)
[2024-04-28 17:27] VITALS: BP 128/83; PULSE 45; RESP 18; TEMP 98.3; O2SAT 95
[2024-04-28 17:30] VITALS: BP 128/83; PULSE 65; RESP 16; TEMP 98.3; O2SAT 100
[2024-04-28] MEDS ORDERED: HYDROmorphone HCL 2 MG/ML VL/or syr IV PRN (17:45)
[2024-04-28] MEDS: KETOROLAC TROMETH 30 MG/ML 1ML VIAL IV ONE (18:01)
[2024-04-28] MEDS: HYDROcodone-ACET 5/325MG TAB PO PRN (20:12)
[2024-04-28 21:00] VITALS: BP 128/80; PULSE 53; RESP 18; TEMP 98; O2SAT 100
[2024-04-28] MEDS: LACTATED RINGER'S 1,000 ML IV SCH (22:43)
[2024-04-29 05:00] VITALS: BP 123/83; PULSE 60; RESP 18; TEMP 98.3; O2SAT 100
[2024-04-29 06:04] LABS: Alanine Aminotransferase 67 U/L (7-40); Albumin 3.6 g/dL (3.2-4.8); Alkaline Phosphatase 78 U/L (46-116); Anion Gap 2 (5-15); Aspartate Aminotransferase 33 U/L (13-40); BUN/Creatinine Ratio 5.7 (10.0-20.0); Bilirubin, Total 0.3 mg/dL (0.2-1.0); Blood Urea Nitrogen 6 mg/dL (9-23); Calcium 9.3 mg/dL (8.7-10.4); Carbon Dioxide 31 mmol/L (20-30); Chloride 108 mmol/L (98-107); Glucose 126 mg/dL (74-106); Potassium 4.5 mmol/L (3.5-5.1); Sodium 141 mmol/L (136-145)
[2024-04-29 06:07] LABS: Basophils # (auto) 0 10 ^3/uL (0-0.2); Basophils % (auto) 0.8 % (0.0-2.0); Eosinophils # (auto) 0.2 10 ^3/uL (0-0.8); Mean Corpuscular Hemoglobin 26.5 pg (28.0-32.0); Mean Corpuscular Hgb Conc. 32.3 g/dL (32.0-36.0); Mean Corpuscular Volume 82.1 fL (80.0-100.0); Monocytes # (auto) 0.3 10 ^3/uL (0-1.3); White Blood Cell 3.3 10^3/uL (4.4-10.8)
[2024-04-29 06:10] LABS: Eosinophils % (auto) 4.9 % (0.0-7.0); Hematocrit 37.5 % (41.0-53.0); Hemoglobin 12.1 g/dL (13.5-17.5); Lymphocytes # (auto) 0.7 10 ^3/uL (0.4-5.4); Lymphocytes % (auto) 22.8 % (10.0-50.0); Monocytes % (auto) 8.5 % (0.0-12.0); Neutrophils # (auto) 2.1 10 ^3/uL (1.6-8.6); Nucleated Red Blood Cells % 0.3 %; Red Blood Cells 4.56 10^6/uL (4.5-5.90); Red Cell Distribution Width 19.5 % (11.8-14.3)
[2024-04-29 08:00] VITALS: PULSE 60
[2024-04-29 08:47] LABS: INR 1.07 (0.9-1.15); Partial Thromboplastin Time 27.8 SEC (24.5-34.5); Prothrombin Time 11.3 sec (9.3-11.8)
[2024-04-29 09:00] VITALS: BP 123/86; PULSE 60; RESP 15; TEMP 98; O2SAT 99
[2024-04-29 09:01] LABS: Platelet Estimate Decreased
[2024-04-29] MEDS ORDERED: GADOTERATE MEG 10 MMOL/20ml INJ (0.5MMOL/ml) IV ONE (11:15)
[2024-04-29] MEDS ORDERED: OXYCODONE W/ ACETAMINOPHEN 5/325MG TABLET PO PRN (12:00)
[2024-04-29 12:31] VITALS: BP 129/93; PULSE 56; RESP 15; TEMP 97.9; O2SAT 97
[2024-04-29] MEDS ORDERED: PERCOT PO (13:50)
[2024-04-29 15:04] VITALS: BP 129/93; PULSE 60; RESP 16; TEMP 36.6; O2SAT 99
== END 2024-04-29 16:50 | disposition home or self-care (01) | DRG 282 ==
LOC: ER 17:31 → OVERFLOW 20:00 → TELE-E-ADS 04-28 17:53 → EAST 04-28 19:04
PROVIDERS: ADMIT Internal Medicine; ATTEND Nurse Practitioner Acute Care
DX: K86.3 Pseudocyst of pancreas (principal); F10.20 Alcohol dependence, uncomplicated; K85.90 Acute pancreatitis without necrosis or infection, unspecified; Z82.0 Family history of epilepsy and other diseases of the nervous system; Z90.49 Acquired absence of other specified parts of digestive tract; Z79.82 Long term (current) use of aspirin; Z79.899 Other long term (current) drug therapy
CPT/HCPCS: 36415; 74176; 74183; 80053; 80061; 80307; 81001; 83690; 85025; 85610; 85730; 86301; 87081; G0378; J1885; J2405; J2470

== ENCOUNTER 2024-05-06 00:11 | Emergency (ER) | payer MEDICAID ==
[~2024-05-06] VITALS: Ht 170.2 cm; Wt 81.2 kg
[~2024-05-06 00:11] MED LIST changes: -ASPI-325 PO; -METO-158 PO; +PERCOT PO
[2024-05-06 01:27] LABS: Basophils # (auto) 0.1 10 ^3/uL (0-0.2); Basophils % (auto) 1.5 % (0.0-2.0); Eosinophils # (auto) 0.1 10 ^3/uL (0-0.8); Eosinophils % (auto) 1.1 % (0.0-7.0); Hematocrit 43.8 % (41.0-53.0); Hemoglobin 14.3 g/dL (13.5-17.5); Lymphocytes # (auto) 1.9 10 ^3/uL (0.4-5.4); Lymphocytes % (auto) 29.8 % (10.0-50.0); Mean Corpuscular Hemoglobin 26.8 pg (28.0-32.0); Mean Corpuscular Hgb Conc. 32.6 g/dL (32.0-36.0); Mean Corpuscular Volume 82.2 fL (80.0-100.0); Monocytes # (auto) 0.3 10 ^3/uL (0-1.3); Monocytes % (auto) 4.1 % (0.0-12.0); Neutrophils # (auto) 4.1 10 ^3/uL (1.6-8.6); Neutrophils % (auto) 63.5 % (37.0-80.0); Platelet Count (auto) 329 10^3/uL (140-450); Red Blood Cells 5.34 10^6/uL (4.5-5.90); White Blood Cell 6.5 10^3/uL (4.4-10.8)
[2024-05-06 01:44] LABS: Alanine Aminotransferase 64 U/L (7-40); Albumin 4.5 g/dL (3.2-4.8); Alkaline Phosphatase 93 U/L (46-116); Anion Gap 10 (5-15); Aspartate Aminotransferase 46 U/L (13-40); BUN/Creatinine Ratio 6.5 (10.0-20.0); Bilirubin, Total 0.3 mg/dL (0.2-1.0); Blood Urea Nitrogen 8 mg/dL (9-23); Calcium 9.4 mg/dL (8.7-10.4); Carbon Dioxide 22 mmol/L (20-30); Chloride 107 mmol/L (98-107); Glucose 133 mg/dL (74-106); Lipase 86 U/L (12-53); Potassium 3.9 mmol/L (3.5-5.1); Sodium 139 mmol/L (136-145); Total Protein 7.9 g/dL (5.7-8.2)
[2024-05-06 02:45] VITALS: PULSE 101; RESP 13; O2SAT 96
[2024-05-06] MEDS: MORPHINE SULFATE 4 MG/ML SYR/VIAL IV ONE ×2 (03:58→07:42)
[2024-05-06] MEDS: ONDANSETRON HCL 4 MG/2 ML VIAL IV ONE ×2 (03:59→07:42)
[2024-05-06 07:35] VITALS: PULSE 75; RESP 16; O2SAT 96
[2024-05-06 09:05] VITALS: BP 114/76; PULSE 64; RESP 16; TEMP 98.1; O2SAT 97
== END 2024-05-06 09:17 | disposition short-term general hospital (02) ==
LOC: ER 00:11
DX: K85.90 Acute pancreatitis without necrosis or infection, unspecified (principal); I10 Essential (primary) hypertension; Z90.49 Acquired absence of other specified parts of digestive tract
CPT/HCPCS: 36415; 74176; 80053; 83690; 85025; 96374; 96375; 96376; 99285; J2270; J2405

== ENCOUNTER 2024-07-07 09:22 | Inpatient (IN) | payer MEDICAID ==
[~2024-07-07] VITALS: Ht 172.7 cm; Wt 81.1 kg
[2024-07-07 09:57] LABS: Urine Bacteria None Seen /hpf (None Seen); Urine WBC None Seen /hpf (0 - 3)
[2024-07-07 09:59] LABS: Basophils # (auto) 0 10 ^3/uL (0-0.2); Eosinophils # (auto) 0.1 10 ^3/uL (0-0.8); Eosinophils % (auto) 3.7 % (0.0-7.0); Hematocrit 35.1 % (41.0-53.0); Hemoglobin 11.4 g/dL (13.5-17.5); Lymphocytes % (auto) 27.9 % (10.0-50.0); Mean Corpuscular Hemoglobin 27.3 pg (28.0-32.0); Mean Corpuscular Hgb Conc. 32.6 g/dL (32.0-36.0); Mean Corpuscular Volume 83.8 fL (80.0-100.0); Monocytes # (auto) 0.2 10 ^3/uL (0-1.3); Monocytes % (auto) 6.7 % (0.0-12.0); Neutrophils # (auto) 2.2 10 ^3/uL (1.6-8.6); Neutrophils % (auto) 60.7 % (37.0-80.0); Platelet Count (auto) 217 10^3/uL (140-450); Red Blood Cells 4.19 10^6/uL (4.5-5.90); White Blood Cell 3.7 10^3/uL (4.4-10.8)
[2024-07-07 10:13] LABS: Chloride 104 mmol/L (98-107); Sodium 136 mmol/L (136-145)
[2024-07-07 10:14] LABS: Anion Gap 6 (5-15); Calcium 9.7 mg/dL (8.7-10.4); Carbon Dioxide 26 mmol/L (20-31)
[2024-07-07 10:19] LABS: BUN/Creatinine Ratio 6.3 (10.0-20.0); Blood Urea Nitrogen 7 mg/dL (9-23); Glucose 137 mg/dL (74-106)
[2024-07-07 10:43] LABS: Urine Blood Negative /uL (Negative); Urine Clarity Clear (Clear); Urine Color Light-Yellow (Yellow); Urine Protein, UAD Negative (Negative); Urine Urobilinogen Normal (Negative)
[2024-07-07] MEDS: IOHEXOL 350 MG/ML 100ML IJ ONE (11:11)
[2024-07-07 11:56] VITALS: PULSE 96; RESP 18; O2SAT 100
[2024-07-07] MEDS: ONDANSETRON HCL 4 MG/2 ML VIAL IV ONE (14:16)
[2024-07-07] MEDS: MORPHINE SULFATE INJ 2 MG/ml SYRG IV ONE (14:16)
[2024-07-07] MEDS ORDERED: ACETAMINOPHEN 325 MG TAB PO PRN (14:45)
[2024-07-07] MEDS ORDERED: DOCUSATE SOD 100 MG CAP PO PRN (14:45)
[2024-07-07 15:30] LABS: Triglycerides 121 mg/dL (< 150)
[2024-07-07 15:31] LABS: LDL Cholesterol 87 mg/dL (< 100)
[2024-07-07 15:32] LABS: Cholesterol 146 mg/dL (< 200); HDL Cholesterol 44 mg/dL (40-59)
[2024-07-07] MEDS: LACTATED RINGER'S 1,000 ML IV ONE (16:14)
[2024-07-07] MEDS: PANTOPRAZOLE 40 MG/10 ML VIAL INJ IV SCH (16:14)
[2024-07-07] MEDS: MORPHINE SULFATE 4 MG/ML SYR/VIAL IV ONE (20:11)
[2024-07-07] MEDS: ONDANSETRON HCL 4 MG/2 ML VIAL IV PRN (20:11)
[2024-07-07] MEDS: SODIUM CHLOR 0.9% PF (SALINE LOCK) 10ML VIAL/SYR IV SCH (21:44)
[2024-07-07 22:39] VITALS: PULSE 93; RESP 13; O2SAT 97
[2024-07-07] MEDS: HYDROcodone-ACET 5/325MG TAB PO PRN (22:41)
[2024-07-08] VITALS (10 sets, daily range): BP systolic 113–147; BP diastolic 75–99; PULSE 58–90; RESP 16–18; TEMP 97.8–98.3; O2SAT 97–100
[2024-07-08] MEDS: HYDROmorphone HCL 2 MG/ML VL/or syr IV PRN (00:43)
[2024-07-08 07:27] LABS: Basophils # (auto) 0.1 10 ^3/uL (0-0.2); Basophils % (auto) 1.3 % (0.0-2.0); Eosinophils # (auto) 0.1 10 ^3/uL (0-0.8); Eosinophils % (auto) 3.3 % (0.0-7.0); Hemoglobin 10.8 g/dL (13.5-17.5); Lymphocytes # (auto) 0.9 10 ^3/uL (0.4-5.4); Lymphocytes % (auto) 21.3 % (10.0-50.0); Mean Corpuscular Hemoglobin 27.2 pg (28.0-32.0); Mean Corpuscular Hgb Conc. 32.6 g/dL (32.0-36.0); Mean Corpuscular Volume 83.4 fL (80.0-100.0); Monocytes # (auto) 0.4 10 ^3/uL (0-1.3); Monocytes % (auto) 9.9 % (0.0-12.0); Neutrophils # (auto) 2.8 10 ^3/uL (1.6-8.6); Neutrophils % (auto) 64.2 % (37.0-80.0); Platelet Count (auto) 173 10^3/uL (140-450); Red Blood Cells 3.96 10^6/uL (4.5-5.90); Red Cell Distribution Width 19.8 % (11.8-14.3); White Blood Cell 4.4 10^3/uL (4.4-10.8)
[2024-07-08 07:47] LABS: Alanine Aminotransferase 31 U/L (7-40); Albumin 4.3 g/dL (3.2-4.8); Alkaline Phosphatase 72 U/L (46-116); Anion Gap 5 (5-15); Aspartate Aminotransferase 23 U/L (13-40); BUN/Creatinine Ratio 8.3 (10.0-20.0); Blood Urea Nitrogen 9 mg/dL (9-23); Calcium 9.9 mg/dL (8.7-10.4); Carbon Dioxide 28 mmol/L (20-31); Chloride 105 mmol/L (98-107); Glucose 100 mg/dL (74-106); Potassium 4.2 mmol/L (3.5-5.1); Sodium 138 mmol/L (136-145)
[2024-07-08 07:48] LABS: Bilirubin, Total 0.5 mg/dL (0.2-1.0); Total Protein 7.2 g/dL (5.7-8.2)
[2024-07-08 08:41] LABS: Lipase 73 U/L (12-53)
[2024-07-08 09:10] LABS: Erythrocyte Sedimentation Rate 13 mm/hr (0-20)
[2024-07-08] MEDS: ENOXAPARIN SOD 40 MG/0.4 ML SYRINGE SC SCH (09:24)
[2024-07-08 11:22] LABS: COVID19 ANTIGEN SOFIA FIA NEGATIVE (NEGATIVE)
[2024-07-08] MEDS: LACTATED RINGER'S 1,000 ML IV ONE (13:09)
[2024-07-08 13:59] LABS: INR 1.06 (0.9-1.15); Partial Thromboplastin Time 27.9 SEC (24.5-34.5); Prothrombin Time 11.2 sec (9.3-11.8)
[2024-07-08] MEDS: ERGOCALCIFEROL 50,000 UNIT(1.25MG) CAP PO SCH (18:19)
[2024-07-08] MEDS ORDERED: ALBUTEROL SULF 2.5 MG/0.5ML(0.5%) NEB SOLN NEB PRN (20:15)
[2024-07-08] MEDS: SUCRALFATE 1 GM TAB PO SCH (22:28)
[2024-07-09 01:00] VITALS: BP 136/82; PULSE 69; RESP 18; TEMP 98.1; O2SAT 99
[2024-07-09 05:00] VITALS: BP 113/77; PULSE 96; RESP 18; TEMP 98.3; O2SAT 97
[2024-07-09 07:20] VITALS: O2SAT 98
[2024-07-09 09:10] VITALS: BP 121/70; PULSE 67; RESP 20; TEMP 98; O2SAT 96
[2024-07-09 10:16] LABS: Basophils # (auto) 0 10 ^3/uL (0-0.2); Eosinophils # (auto) 0.1 10 ^3/uL (0-0.8); Eosinophils % (auto) 3.6 % (0.0-7.0); Hematocrit 33.4 % (41.0-53.0); Hemoglobin 10.9 g/dL (13.5-17.5); Lymphocytes # (auto) 0.9 10 ^3/uL (0.4-5.4); Lymphocytes % (auto) 23.3 % (10.0-50.0); Mean Corpuscular Hemoglobin 27.1 pg (28.0-32.0); Mean Corpuscular Hgb Conc. 32.7 g/dL (32.0-36.0); Mean Corpuscular Volume 82.9 fL (80.0-100.0); Monocytes # (auto) 0.4 10 ^3/uL (0-1.3); Monocytes % (auto) 9.5 % (0.0-12.0); Neutrophils # (auto) 2.5 10 ^3/uL (1.6-8.6); Neutrophils % (auto) 62.6 % (37.0-80.0); Nucleated Red Blood Cells % 0.1 %; Platelet Count (auto) 146 10^3/uL (140-450); Red Blood Cells 4.03 10^6/uL (4.5-5.90); Red Cell Distribution Width 19.6 % (11.8-14.3)
[2024-07-09] MEDS ORDERED: ACET650T12 PO (12:43)
[2024-07-09 13:18] VITALS: BP 117/79; PULSE 74; RESP 20; TEMP 98.2; O2SAT 98
[2024-07-09 14:25] VITALS: BP 117/79; PULSE 74; RESP 20; TEMP 98.2; O2SAT 98
[2024-07-10 10:07] LABS: PSA Free 0.18 ng/mL; Prostate Specific Antigen 0.3 ng/mL (0.0-4.0)
== END 2024-07-09 14:49 | disposition home or self-care (01) | DRG 282 ==
LOC: ER 09:22 → OVERFLOW 14:33 → CENTRAL 14:43
PROVIDERS: ADMIT Internal Medicine; ATTEND Emergency Medicine
DX: K86.3 Pseudocyst of pancreas (principal); K74.60 Unspecified cirrhosis of liver; D63.8 Anemia in other chronic diseases classified elsewhere; K85.10 Biliary acute pancreatitis without necrosis or infection; K80.20 Calculus of gallbladder without cholecystitis without obstruction; G47.33 Obstructive sleep apnea (adult) (pediatric); K76.0 Fatty (change of) liver, not elsewhere classified; Z20.822 Contact with and (suspected) exposure to COVID-19; K86.1 Other chronic pancreatitis; J45.909 Unspecified asthma, uncomplicated; I10 Essential (primary) hypertension; E55.9 Vitamin D deficiency, unspecified; Z82.0 Family history of epilepsy and other diseases of the nervous system; Z79.899 Other long term (current) drug therapy; Z90.49 Acquired absence of other specified parts of digestive tract; Z87.11 Personal history of peptic ulcer disease
CPT/HCPCS: 36415; 74177; 74181; 80048; 80053; 80061; 80320; 81001; 82306; 82607; 82728; 83690; 84154; 84443; 85025; 85610; 85652; 85730; 87426; 96374; 96375; G0378; J2405; J2470

== ENCOUNTER 2024-08-25 17:31 | Inpatient (IN) | payer MEDICAID ==
[~2024-08-25] VITALS: Ht 172.7 cm; Wt 86.6 kg
[~2024-08-25 17:31] MED LIST changes: +ACET650T12 PO
--- NOTE | 2024-08-25 19:18 | ED.PDOC ---
GI ASSESSMENT HPI Comments HPI: Poor Historian. 43-year-old male presents to emergency department for evaluation of abdominal pain with the associated nausea and vomiting nonbilious nonbloody could patient appears in moderate distress. Onset of symptoms earlier today. Denies any use of alcohol or drugs. Patient states having history of pancreatitis and presents with similar symptoms he says. Patient follows up with a orthopedic physical therapist Dr. Espinoza. Pain is constant. No alleviating or precipitating factors. Pain radiates to the right back area. Past Medcial History: Asthma, pancreatitis, pancreatic cyst Past Surgical History: Cholecystectomy REVIEW OF SYSTEMS: CONSTITUTIONAL: Denies acute: fever, diaphoresis, chills, generalized weakness. HEAD: Denies acute: headache, photophobia Eyes: Denies acute: Double vision, vision loss, eye pain, eye discharge. EARS: Denies acute: tinnitus, hearing loss, ear discharge, ear pain, THROAT: Denies acute: sore throat, swelling, difficulty swallowing , pain with swallowing, change in voice. NECK: Denies acute: neck pain, neck swelling, stiff neck. HEART: Denies acute : chest pain, palpitations, LUNGS: Denies acute: SOB, wheezing, cough, hemoptysis ABDOMEN: Denies acute: diarrhea, melena , hematemesis, hematochezia SKIN: Denies acute: rash, redness, lesions, itchiness. EXTREMITIES: Denies acute: calf pain, numbness, tingling, weakness, denies pain in extremity. Neuro: Denies acute: focal neurological deficit, motor or sensory focal neurological deficit, tremors, seizure like activity, confusion, dizziness, change in mental status, loss of bowel or bladder function, cauda equina like symptoms. : Denies acute: dysuria, hematuria, flank pain, increase in urinary frequency. PSYCH: Denies acute: hallucination, suicidal ideation, homicidal ideation. PHYSICAL EXAM: General: Moderate acute distress, awake and alert. Head: normocephalic, atraumatic. Neck: supple, trachea is midline, no swelling. Throat: Normal phonation. Eyes:, no erythema, no purulent discharge, no proptosis, no icterus. Heart: regular rate, regular rhythm, no significant murmur appreciated. Lungs: no apparent respiratory distress, Able to speak in full sentences. No wheezing, no rhonchi, no crackles. No stridors Clear to auscultation bilaterally. Abdomen: Generalized nonspecific tender to palpation, non distended, soft, no guarding, no rebound, + bowel sounds. Neuro: Awake, Alert, oriented to name, self, situation, follows commands GCS=15. Speech is normal. Skin: no petechia, no purpura, no cyanosis, non-pale, not jaundice. Lower extremities: --no - Pitting edema no deformity, no focal swelling, no calf TTP. Makes eye contact. moves all four extremities. Face: no apparent facial droop. Ambulating in the ED independently. Chief Complaint: Abdominal Pain Time Seen by MD: 17:50 Primary Care Provider: UNKNOWN Reviewed Notes: Nurses Notes, Medications, Allergies Allergies: Coded Allergies: NO KNOWN ALLERGIES (Unverified , 06/01/23) Home Meds Active Scripts Acetaminophen (Acetaminophen Er) 650 Mg Tab, 650 MG PO Q6HPRN PRN for 10 Days, #40 TAB Prov:VANDANA POE RESIDENT 07/09/24 Oxycodone W/ Acetaminophen (Percocet 5/325MG) 1 Tab Tb, 1 TAB PO TID for 5 Days, #15 TAB Prov:DIEGO AMOS PATIENT SERVICE COORDINATOR 04/29/24 Information Source: Patient Mode of Arrival: Ambulatory Past Medical History PAST MEDICAL HISTORY: HTN Surgical History: Cholecystectomy Family History Family History: Reviewed,noncontributory to illness Social History Smoker: Non-Smoker Alcohol: Sober Drugs: Denies Drug Use Lives In: Home X-Ray, Labs, Meds, VS Vital Signs Date Time Temp Pulse Resp B/P (MAP) Pulse Ox O2 Delivery O2 Flow Rate FiO2 08/25/24 20:22 98.7 85 16 153/86 (108) 99 98.7 08/25/24 20:22 85 16 99 Room Air* 0 21 08/25/24 20:17 153/86 08/25/24 18:54 97.6 80 19 142/97 (112) 100 Lab Test 08/25/24 20:00 Range/Units White Blood Count 6.2 4.4-10.8 10^3/uL Red Blood Count 4.81 4.5-5.90 10^6/uL Hemoglobin 11.8 L 13.5-17.5 g/dL Hematocrit 36.7 L 41.0-53.0 % Mean Corpuscular Volume 76.2 L 80.0-100.0 fL Mean Corpuscular Hemoglobin 24.5 L 28.0-32.0 pg Mean Corpuscular Hemoglobin Concent 32.2 32.0-36.0 g/dL Red Cell Distribution Width 19.8 H 11.8-14.3 % Platelet Count 210 140-450 10^3/uL Mean Platelet Volume 8.7 6.9-10.8 fL Neutrophils (%) (Auto) 74.2 37.0-80.0 % Lymphocytes (%) (Auto) 17.5 10.0-50.0 % Monocytes (%) (Auto) 5.3 0.0-12.0 % Eosinophils (%) (Auto) 2.0 0.0-7.0 % Basophils (%) (Auto) 1.0 0.0-2.0 % Neutrophils # (Auto) 4.6 1.6-8.6 10 ^3/uL Lymphocytes # (Auto) 1.1 0.4-5.4 10 ^3/uL Monocytes # (Auto) 0.3 0-1.3 10 ^3/uL Eosinophils # (Auto) 0.1 0-0.8 10 ^3/uL Basophils # (Auto) 0.1 0-0.2 10 ^3/uL Nucleated Red Blood Cells 0.0 % Sodium Level Pending Potassium Level Pending Chloride Level Pending Carbon Dioxide Level Pending Anion Gap Pending Blood Urea Nitrogen Pending Creatinine Pending Glomerular Filtration Rate Calc Pending BUN/Creatinine Ratio Pending Serum Glucose Pending Lactic Acid Level 1.1 0.4-2.0 mmol/L Calcium Level Pending Total Bilirubin Pending Aspartate Amino Transferase (AST) Pending Alanine Aminotransferase (ALT) Pending Alkaline Phosphatase Pending Troponin I High Sensitivity Pending Total Protein Pending Albumin Pending Lipase Pending Current Medications Medications (Trade) Dose Ordered Sig/Shelli Route Start Time Stop Time Status Last Admin Sodium Chloride 1,000 ml @ 1,000 mls/hr Q1H ONCE IV 08/25/24 19:15 08/25/24 20:14 DC 08/25/24 20:14 Ondansetron HCl (Zofran) 8 mg ONCE ONCE IV 08/25/24 19:15 08/25/24 19:16 DC 08/25/24 20:15 Fentanyl Citrate 100 mcg ONCE ONCE IV 08/25/24 19:15 08/25/24 19:16 DC 08/25/24 20:17 Departure 1 Departure Time of Disposition: 20:57 Impression: Primary Impression: Acute pancreatitis Disposition: ADMITTED INPATIENT Admit to: Tele Condition: Guarded Discharged With: Self KHANH CRAIG DO Aug 25, 2024 19:18
[2024-08-25] MEDS: SODIUM CHLORIDE 0.9% 1,000 ML IV ONE (20:14)
[2024-08-25] MEDS: ONDANSETRON HCL 4 MG/2 ML VIAL IV ONE (20:15)
[2024-08-25] MEDS: fentaNYL CITRATE 100 MCG/2 ML VL IV ONE (20:17)
[2024-08-25 20:22] VITALS: PULSE 85; RESP 16; O2SAT 99
[2024-08-25 20:32] LABS: Basophils # (auto) 0.1 10 ^3/uL (0-0.2); Eosinophils # (auto) 0.1 10 ^3/uL (0-0.8); Hematocrit 36.7 % (41.0-53.0); Hemoglobin 11.8 g/dL (13.5-17.5); Lymphocytes # (auto) 1.1 10 ^3/uL (0.4-5.4); Lymphocytes % (auto) 17.5 % (10.0-50.0); Mean Corpuscular Hemoglobin 24.5 pg (28.0-32.0); Mean Corpuscular Hgb Conc. 32.2 g/dL (32.0-36.0); Mean Corpuscular Volume 76.2 fL (80.0-100.0); Monocytes # (auto) 0.3 10 ^3/uL (0-1.3); Monocytes % (auto) 5.3 % (0.0-12.0); Neutrophils # (auto) 4.6 10 ^3/uL (1.6-8.6); Neutrophils % (auto) 74.2 % (37.0-80.0); Platelet Count (auto) 210 10^3/uL (140-450); Red Blood Cells 4.81 10^6/uL (4.5-5.90); Red Cell Distribution Width 19.8 % (11.8-14.3); White Blood Cell 6.2 10^3/uL (4.4-10.8)
--- NOTE | 2024-08-25 20:34 | DVH ---
Exam: CT CT AB PEL WO CON-NO ORAL OR IV History: abd pain n/v Comparison Study: CT abdomen and pelvis 07/07/2024 TECHNIQUE: Multidetector CT of the abdomen and pelvis without contrast. Axial, coronal and sagittal m ultiplanar reformats were obtained from the axial data set by the technologist. Radiation Dose Information: CT Dose: CTDI volume is 14.89 mGy. Dose-length product is 859.52 mGy*cm FINDINGS: Lung bases are clear. Partially visualized heart is unremarkable. Liver, spleen, and adrenal glands unremarkable. Status post cholecystectomy. 6 x 5.7 x 6 cm cystic structure of the pancreatic head. There is mild peripancreatic fat stranding wi th nonspecific foci of calcification of the pancreatic tail. There is additional 5.5 x 4.9 by 5 cm cy stic structure abutting the gastric fundus and spleen which appears to be connected to the pancreatic tail. The multiple small pancreatic cystic lesions are not well evaluated There is left upper abdominal and epigastric region fat stranding with trace amount of fluid adjacent to the distal esophagus. Kidneys, ureters and urinary bladder unremarkable. Measures 4 x 4.7 by 4.5 cm. Mild gastric wall thickening. Mild wall thickening of the duodenal. The remainder of the small bowel loops unremarkable. Appendix is unremarkable. Mild pancolonic wall thickening. No evidence of intraperitoneal free air. No evidence of aortic aneurysm. Multiple upper abdominal varicose veins most prominent over the left upper abdominal quadrant. The soft tissues unremarkable. No destructive osseous lesions are noted. Sclerotic focus of the bilat eral acetabulum which may represent bone [place] blastic lesions not excluded. IMPRESSION: Redemonstration of the large pancreatic head cystic lesion with a cystic lesion of the left upper abd ominal quadrant which appear slightly increased in size compared to imaging of 07/07/2024. The smalle r cystic lesions within the pancreas are not well evaluated on current noncontrast study. Mild fat stranding adjacent to the pancreas with mild fat stranding over the upper abdomen and trace amount of free fluid adjacent to the distal esophagus. Correlate with lipase for acute pancreatitis. Mild gastric and duodenal wall thickening. Correlate for possible gastro duodenitis. Pancolitis. 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
[2024-08-25 20:57] LABS: Alanine Aminotransferase 37 U/L (7-40); Albumin 4.5 g/dL (3.2-4.8); Anion Gap 6 (5-15); BUN/Creatinine Ratio 9.2 (10.0-20.0); Bilirubin, Total 0.4 mg/dL (0.2-1.0); Blood Urea Nitrogen 11 mg/dL (9-23); Calcium 9.9 mg/dL (8.7-10.4); Carbon Dioxide 25 mmol/L (20-31); Potassium 4.2 mmol/L (3.5-5.1); Sodium 139 mmol/L (136-145); Total Protein 7.5 g/dL (5.7-8.2)
[2024-08-25 20:58] LABS: Alkaline Phosphatase 130 U/L (46-116); Aspartate Aminotransferase 46 U/L (13-40); Chloride 108 mmol/L (98-107); Glucose 112 mg/dL (74-106)
[2024-08-25] MEDS ORDERED: MORPHINE SULFATE INJ 2 MG/ml SYRG IV PRN (21:15)
[2024-08-25] MEDS ORDERED: ACETAMINOPHEN 325 MG TAB PO PRN (21:15)
[2024-08-25] MEDS ORDERED: NITROGLYCERIN 0.4 MG SL TAB SL PRN (21:15)
[2024-08-25 21:18] LABS: Lipase 292 U/L (12-53)
[2024-08-25] MEDS: MORPHINE SULFATE INJ 2 MG/ml SYRG IV PRN (21:58)
[2024-08-25] MEDS: SODIUM CHLOR 0.9% PF (SALINE LOCK) 10ML VIAL/SYR IV SCH (22:01)
[2024-08-25] MEDS: PANTOPRAZOLE 40 MG/10 ML VIAL INJ IV ONE (22:19)
[2024-08-25] MEDS: LACTATED RINGER'S 1,000 ML IV SCH (22:29)
[2024-08-25 23:03] LABS: Blood Alcohol < 3.0 mg/dL (<10); Magnesium 1.9 mg/dL (1.6-2.6)
--- NOTE | 2024-08-25 23:06 | DVHHPRES ---
History of Present Illness Resident Creating Document: VETO ALEXANDRE RESIDENT History of Present Illness Patient is 43 years old male with PMHx of multiple hospitalizations from last year for acute pancreatitis, history of gallstone pancreatitis and alcoholic pancreatitis, questionable cirrhosis, history of asthma (not on inhalers), history of peptic ulcer disease, anemia, hypertension came with a complaint of abdominal pain. As per patient started he having pain yesterday around in the morning epigastric region, sudden onset, sharp, 10/10, radiating to the back, some relief with leaning forward, not good relief with pain medication [place]. Patient also endorsed nausea and vomiting almost 10 times, watery with some food but no blood. On further discussion patient also reported having diarrhea since morning around 4 times, no blood mainly watery. Patient denied any fever, dysuria, chest pain or shortness of breath, dysarthria, acute joint pain or swel ling or taking unusual food. Lab workup revealed elevated lipase 292, mildly elevated AST 46, elevated alkaline phosphatase 130, WBC 6.2, hemoglobin 11.8, platelet 210, sodium 1319, potassium 4.2, serum creatinine 1.9, blood sugar 112, lactic acid 1.1, ALT 37, negative for troponin I. CT abdomen revealed- Redemonstration of the large pancreatic head cystic lesion with a cystic lesion of the left upper abdominal quadrant which appear slightly increased in size compared to imaging of 07/07/2024. The smaller cystic lesions within the pancreas are not well evaluated on current noncontrast study. mMild fat stranding adjacent to the pancreas with mild fat stranding over the upper abdomen and trace amount of free fluid adjacent to the distal esophagus. Correlate with lipase for acute pancreatitis. Mild gastric and duodenal wall thickening. Correlate for possible gastro duodenitis. Pancolitis. 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 Patient reported that he went to [facility] for 1 before per the could not drain the pancreatic abscess as it was too small to be drained. Follow up with Dr. Espinoza for chronic care. MRI with MRCP of abdomen on 07/07/2024 revealed- Pancreas: Mildly atrophic pancreatic parenchyma. Mild dilation of the main pancreatic duct measuring up to 0.6 cm. Redemonstration of multiple cystic pancreatic lesions some of which communicate with the main pancreatic duct measuring up to 5.3 cm in the pancreatic head. There is a 3.3 cm cystic structure at the splenic hilum abut ting the gastric fundus. CT abdomen on 03/27/2024 revealed- 4 cm cystic area extending from the tail of the pancreas to the splenic hilum and compressing of the greater curvature of the stomach most likely a pancreatic pseudocyst. There is enlargement of the pancreatic head measuring 4.3 cm with dilatation of the pancreatic duct. This may represent a pseudocyst or cystic neoplasm consider further Past Medical History history of gallstone pancreatitis and alcoholic pancreatitis, questionable cirrhosis, history of asthma (not on inhalers), history of peptic ulcer disease, anemia, hypertension Past Surgical History Cholecystectomy Past Social History Patient denies smoking, sober, denies using drugs lives at home Review of Systems Review of Systems Allergy- NKDA Patient was seen today at the bedside. Cardiovascular- deny acute chest pain or shortness of breath or cough or palpitation Respiratory- denies cough or short of breath or wheezing Musculoskeletal-denies acute joint swelling or tenderness or redness Neurological- denies acute dysarthria, dysphagia, change in vision Psychiatry- denies depression or SI or HI Skin- denies acute rash or purpura Allergies: Coded Allergies: NO KNOWN ALLERGIES (Unverified , 06/01/23) Medications Current Medications Medications Dose Ordered Sig/Shelli Route Start Time Stop Time Status Last Admin Dose Admin Sodium Chloride 10 ml Q8HR IV 08/25/24 22:00 08/25/24 22:01 10 ML Acetaminophen 650 mg Q6HP PRN PO 08/25/24 21:15 Morphine Sulfate 2 mg Q4HPRN PRN IV 08/25/24 21:15 08/25/24 21:58 2 MG Nitroglycerin 0.4 mg Q5MINP PRN SL 08/25/24 21:15 Morphine Sulfate 2 mg Q30M PRN IV 08/25/24 21:15 Lactated Ringer's 1,000 ml @ 150 mls/hr Q6H40M IV 08/25/24 21:30 08/25/24 22:29 150 MLS/HR Pantoprazole Sodium 40 mg DAILY IV 08/26/24 10:00 Exam Vital Signs Vital Signs Date Time Temp Pulse Resp B/P (MAP) Pulse Ox O2 Delivery O2 Flow Rate FiO2 08/25/24 22:19 70 08/25/24 21:58 18 139/95 08/25/24 20:22 98.7 99 98.7 08/25/24 20:22 Room Air* 0 21 Exam General examination- awake, alert, oriented, conversant HEENT- PEERLA, no acute nasal discharge Cardiovascular- S1-S2 audible, rate and rhythm regular, no murmur Respiratory- CTAB, no wheeze or rhonchi Gastrointestinal-mild epigastric tenderness+, bowel sound+. Nondistended Musculoskeletal-no acute joint swelling or tenderness or redness# Lower extremity- no leg edema Neurological- cranial nerves intact, no acute dysarthria or dysphagia Psychiatry- denies depression or SI or HI Skin- no acute rash or purpura Labs/Xrays Labs Test 08/25/24 21:58 08/25/24 20:00 Range/Units Troponin I High Sensitivity < 3 L </=54 ng/L White Blood Count 6.2 4.4-10.8 10^3/uL Red Blood Count 4.81 4.5-5.90 10^6/uL Hemoglobin 11.8 L 13.5-17.5 g/dL Hematocrit 36.7 L 41.0-53.0 % Mean Corpuscular Volume 76.2 L 80.0-100.0 fL Mean Corpuscular Hemoglobin 24.5 L 28.0-32.0 pg Mean Corpuscular Hemoglobin Concent 32.2 32.0-36.0 g/dL Red Cell Distribution Width 19.8 H 11.8-14.3 % Platelet Count 210 140-450 10^3/uL Mean Platelet Volume 8.7 6.9-10.8 fL Neutrophils (%) (Auto) 74.2 37.0-80.0 % Lymphocytes (%) (Auto) 17.5 10.0-50.0 % Monocytes (%) (Auto) 5.3 0.0-12.0 % Eosinophils (%) (Auto) 2.0 0.0-7.0 % Basophils (%) (Auto) 1.0 0.0-2.0 % Neutrophils # (Auto) 4.6 1.6-8.6 10 ^3/uL Lymphocytes # (Auto) 1.1 0.4-5.4 10 ^3/uL Monocytes # (Auto) 0.3 0-1.3 10 ^3/uL Eosinophils # (Auto) 0.1 0-0.8 10 ^3/uL Basophils # (Auto) 0.1 0-0.2 10 ^3/uL Nucleated Red Blood Cells 0.0 % Sodium Level 139 136-145 mmol/L Potassium Level 4.2 3.5-5.1 mmol/L Chloride Level 108 H 98-107 mmol/L Carbon Dioxide Level 25 20-31 mmol/L Anion Gap 6 5-15 Blood Urea Nitrogen 11 9-23 mg/dL Creatinine 1.19 0.700-1.30 mg/dL Glomerular Filtration Rate Calc 79 >90 mL/min BUN/Creatinine Ratio 9.2 L 10.0-20.0 Serum Glucose 112 H 74-106 mg/dL Lactic Acid Level 1.1 0.4-2.0 mmol/L Calcium Level 9.9 8.7-10.4 mg/dL Total Bilirubin 0.4 0.2-1.0 mg/dL Aspartate Amino Transferase (AST) 46 H 13-40 U/L Alanine Aminotransferase (ALT) 37 7-40 U/L Alkaline Phosphatase 130 H 46-116 U/L Total Protein 7.5 5.7-8.2 g/dL Albumin 4.5 3.2-4.8 g/dL Lipase 292 H 12-53 U/L Thyroid Stimulating Hormone (TSH) 1.33 0.55-4.78 uIU/mL Assessment/Plan Assessment/Plan # Acute abdominal pain likely due to acute on chronic pancreatitis -lipase 292 - CT abdomen revealed-6 x 5.7 x 6 cm cystic structure of the pancreatic head. -There is mild peripancreatic fat stranding with nonspecific foci of calcification of the pancreatic tail. -There is additional 5.5 x 4.9 by 5 cm cystic structure abutting the gastric fundus and spleen which appears to be connected to the pancreatic tail. -The multiple small pancreatic cystic lesions are not well evaluated - Mild fat stranding adjacent to the pancreas with mild fat stranding over the upper abdomen and trace amount of free fluid adjacent to the distal esophagus. Correlate with lipase for acute pancreatitis. - Mild gastric and duodenal wall thickening. Correlate for possible gastro duodenitis. - Pancolitis. 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 -continue Ringer lactate solution 125 mL/hour as prescribed -continue pain medication as prescribed # Acute gastroenteritis -continue IV fluid as prescribed --continue ceftriaxone 1 g IV daily -continue metronidazole 500 mg t.i.d. #Pancolitis -continue ceftriaxone 1 g IV daily -continue metronidazole 500 mg t.i.d. # chronic pancreatitis with pancreatic cyst -continue current management #anemia, -monitor CBC -pending iron panel # hypertension -continue hydralazine 10 mg q.6h p.r.n. monitor BP #history of asthma, no acute exacerbation -nebulization p.r.n. #Peptic ulcer disease -continue pantoprazole 40 mg IV daily #history of gallstone pancreatitis and alcoholic pancreatitis -follow up outpatient #questionable cirrhosis -follow up outpatient Goals of care/advance care planning; FULL CODE; discussed with the patient >15 minutes PUD prophylaxis: Pantoprazole DVT prophylaxis: PCP-Dr. Cifuentes -motor vehicle light assembler-Dr. Espinoza Plan discussed with Dr. Vásquez, nursing staff, patient Total time spent on patient evaluation, chart review, assessment and plan, discussion discussion >30 minutes Plan discussed with: Patient Plan discussed with: Patient (RN), Other My Orders Orders - VETO ALEXANDRE RESIDENT Procedure Category Date Status Time Admit ADMIT 08/25/24 Transmitted 21:09 Code Status CODE 08/25/24 Transmitted 21:09 Sodium Chloride Lock PHA 08/25/24 In Process (Saline Lock Ns) 22:00 Complete Blood Count LAB 08/26/24 Verified 04:00 Comprehensive LAB 08/26/24 Verified Metabolic Panel 04:00 Npo (Nothing By DIET 08/26/24 Transmitted Mouth) Diet Breakfast Acetaminophen Tablet PHA 08/25/24 In Process (Tylenol Tablet) 21:15 Morphine Sulfate PHA 08/25/24 In Process Injection 21:15 Nitroglycerin PHA 08/25/24 In Process Sublingual (Ntrostat 21:15 Morphine Sulfate PHA 08/25/24 In Process Injection 21:15 Oxygen By Nasal RT 08/25/24 Transmitted Cannula 21:09 Stat Ekg For Chest LISA 08/25/24 In Process Pain 21:09 Notify Of Changes [facility] 08/25/24 In Process From Base 21:09 Space Planner For [facility] 08/25/24 In Process 24 Hours 21:09 Emergency Dysrhythmia [facility] 08/25/24 In Process Protocol 21:09 Rhythm Strips Once [facility] 08/25/24 In Process Every Shift 21:09 Drug Screen LAB 08/25/24 Logged 21:09 Blood Alcohol LAB 08/25/24 In Process 21:09 Magnesium LAB 08/25/24 In Process 21:09 Lactated Ringer's PHA 08/25/24 In Process 21:30 Pantoprazole PHA 08/26/24 In Process (Protonix) 10:00 Date of Service: Aug 25, 2024 Billing Provider: AAYUSH VÁSQUEZ MD Common Visit Codes: [id number] INP/OBS CARE (HIGH) VETO ALEXANDRE RESIDENT Aug 25, 2024 23:06 AAYUSH VÁSQUEZ MD Aug 26, 2024 08:06
[2024-08-26] MEDS: cefTRIAXone 1GM/50ML D5W 50 ML IV ONE (02:07)
[2024-08-26] MEDS: metroNIDAZOLE 500MG/100ML 100 ML IV ONE (02:40)
[2024-08-26 05:53] LABS: Basophils # (auto) 0 10 ^3/uL (0-0.2); Basophils % (auto) 0.7 % (0.0-2.0); Eosinophils # (auto) 0.1 10 ^3/uL (0-0.8); Hemoglobin 11.1 g/dL (13.5-17.5); Lymphocytes # (auto) 1.2 10 ^3/uL (0.4-5.4); Monocytes % (auto) 8.3 % (0.0-12.0); Nucleated Red Blood Cells % 0.1 %
[2024-08-26 05:54] LABS: Eosinophils % (auto) 2.3 % (0.0-7.0); Lymphocytes % (auto) 23.2 % (10.0-50.0); Mean Corpuscular Hemoglobin 24.2 pg (28.0-32.0); Mean Corpuscular Hgb Conc. 31.8 g/dL (32.0-36.0); Mean Corpuscular Volume 76.3 fL (80.0-100.0); Monocytes # (auto) 0.4 10 ^3/uL (0-1.3); Neutrophils # (auto) 3.5 10 ^3/uL (1.6-8.6); Neutrophils % (auto) 65.5 % (37.0-80.0); Platelet Count (auto) 205 10^3/uL (140-450); Red Blood Cells 4.58 10^6/uL (4.5-5.90); Red Cell Distribution Width 19.8 % (11.8-14.3); White Blood Cell 5.3 10^3/uL (4.4-10.8)
[2024-08-26 06:10] LABS: % Iron Saturation 7.4 % (20-55)
[2024-08-26 06:11] LABS: Alanine Aminotransferase 36 U/L (7-40); Albumin 4.6 g/dL (3.2-4.8); Anion Gap 10 (5-15); Aspartate Aminotransferase 37 U/L (13-40); BUN/Creatinine Ratio 8.5 (10.0-20.0); Blood Urea Nitrogen 9 mg/dL (9-23); Calcium 9.8 mg/dL (8.7-10.4); Carbon Dioxide 25 mmol/L (20-31); Chloride 106 mmol/L (98-107); Glucose 102 mg/dL (74-106); Potassium 4.2 mmol/L (3.5-5.1); Sodium 141 mmol/L (136-145)
[2024-08-26 06:12] LABS: Bilirubin, Total 0.4 mg/dL (0.2-1.0); Total Protein 7.6 g/dL (5.7-8.2)
[2024-08-26] MEDS: metroNIDAZOLE 500MG/100ML 100 ML IV SCH (06:14)
[2024-08-26 06:18] LABS: Alkaline Phosphatase 124 U/L (46-116)
--- NOTE | 2024-08-26 07:01 | ECG ---
[facility] Test Date: 2024-08-25 Test Time: 22:19:48 Pat Name: MAYRA ALBARADO Department: ED Room: [address] [place] [address] Gender: M Account Support Specialist: KATHY : 1980 Requested By: KHANH CRAIG Order Number: [id number] Reading MD: Measurements Intervals [place] Rate: 70 P: 23 GA: 161 QRS: -5 QRSD: 86 T: 29 QT: 409 QTc: 442 Interpretive Statements Sinus rhythm Please click the below link to view image of tracing.
[2024-08-26 08:01] VITALS: PULSE 65; RESP 17; O2SAT 98
[2024-08-26 09:14] LABS: Urine Bacteria FEW /hpf (None Seen); Urine Blood Negative /uL (Negative); Urine Clarity Clear (Clear); Urine Color Yellow (Yellow); Urine Protein, UAD TRACE (Negative); Urine Specific Gravity 1.025 (1.001-1.035); Urine Urobilinogen Normal (Negative); Urine WBC 2 /hpf (0 - 3)
[2024-08-26] MEDS: cefTRIAXone 1GM/50ML D5W 50 ML IV SCH (09:14)
[2024-08-26] MEDS: PANTOPRAZOLE 40 MG/10 ML VIAL INJ IV SCH (09:14)
[2024-08-26 09:25] LABS: Amphetamine Screen, Urine Neg (NEGATIVE); Barbiturate Scree,Urine Neg (NEGATIVE); Benzodiazephine Screen, Urine Neg (NEGATIVE); Cannabinoid Screen, Urine Neg (NEGATIVE); Cocaine Screen, Urine Neg (NEGATIVE); Opiate Scree,Urine Pos (NEGATIVE)
[2024-08-26 09:26] LABS: Phencyclidine Screen, Urine Neg (NEGATIVE)
[2024-08-26 14:00] VITALS: BP 124/80; PULSE 61; RESP 20; TEMP 97.7; O2SAT 99
[2024-08-26 14:50] VITALS: BP 134/87; PULSE 77; RESP 17; TEMP 98.1; O2SAT 96
[2024-08-26 17:00] VITALS: BP 121/71; PULSE 58; RESP 20; TEMP 97.8; O2SAT 97
--- NOTE | 2024-08-26 20:16 | DVHINCON2 ---
Date of service: Aug 26, [address] Aparicio Reason for Consultation Recurrent pancreatitis History of Present Illness 43-year-old male presents to emergency department for evaluation of abdominal pain with the associated nausea and vomiting nonbilious nonbloody could patient appears in moderate distress. Onset of symptoms earlier today after eating food.. Denies any use of alcohol or drugs. Patient has had previous episodes of pancreatitis with development of complex pancreatic pseudocyst. Patient is feeling better today and he was able to ambulate in the hallway. There was no nausea vomiting or abdominal pain Patient had an outpatient referral for EUS with drainage of pancreatic pseudocyst Past Medical History Past Medcial History: Asthma, pancreatitis, pancreatic cyst Gastritis Previous history of alcohol abuse Past Surgical History Past Surgical History: Cholecystectomy Recent endoscopy at [facility] for suspected GI bleed Family History: FH: Parkinson's disease G8 FATHER, Onset:Unknown Allergies: Coded Allergies: NO KNOWN ALLERGIES (Unverified , 06/01/23) Home Meds Active Scripts Acetaminophen (Acetaminophen Er) 650 Mg Tab, 650 MG PO Q6HPRN PRN for 10 Days, #40 TAB Prov:VANDANA POE RESIDENT 07/09/24 Oxycodone W/ Acetaminophen (Percocet 5/325MG) 1 Tab Tb, 1 TAB PO TID for 5 Days, #15 TAB Prov:DIEGO AMOS [employer]PORATE DIRECTOR OF PHARMACY 04/29/24 Current Medications Current Medications Medications (Trade) Dose Ordered Sig/Shelli Route PRN Reason Start Time Stop Time Status Last Admin Sodium Chloride (Saline Lock Ns) 10 ml Q8HR IV 08/25/24 22:00 08/26/24 16:35 Acetaminophen (Tylenol Tablet) 650 mg Q6HP PRN PO PAIN SCALE 1-3 OR TEMP>100.4 08/25/24 21:15 Morphine Sulfate 2 mg Q4HPRN PRN IV SEVERE PAIN (7-10 PAIN SCALE) 08/25/24 21:15 08/26/24 15:39 Nitroglycerin (Ntrostat Sublingual) 0.4 mg Q5MINP PRN SL FOR CHEST PAIN 08/25/24 21:15 Morphine Sulfate 2 mg Q30M PRN IV FOR CHEST PAIN 08/25/24 21:15 Lactated Ringer's 1,000 ml @ 150 mls/hr Q6H40M IV 08/25/24 21:30 08/26/24 17:32 Pantoprazole Sodium (Protonix) 40 mg DAILY IV 08/26/24 10:00 08/26/24 09:14 Ceftriaxone Sodium 50 ml @ 100 mls/hr DAILY@09 IV 08/26/24 09:00 08/26/24 09:14 Metronidazole 100 ml @ 100 mls/hr Q8HR IV 08/26/24 06:00 08/26/24 16:30 Vital Signs Vital Signs Date Time Temp Pulse Resp B/P (MAP) Pulse Ox O2 Delivery O2 Flow Rate FiO2 08/26/24 17:00 97.8 58 20 121/71 (88) 97 97.8 08/26/24 14:50 Room Air* 0 21 Physical Exam General examination- awake, alert, oriented, conversant; ambulatory HEENT- PEERLA, no acute nasal discharge Cardiovascular- S1-S2 audible, rate and rhythm regular, no murmur Respiratory- CTAB, no wheeze or rhonchi Gastrointestinal-mild epigastric tenderness+, bowel sound+. Nondistended Musculoskeletal-no acute joint swelling or tenderness or redness# Lower extremity- no leg edema Neurological- cranial nerves intact, no acute dysarthria or dysphagia Psychiatry- denies depression or SI or HI Skin- no acute rash or purpura Labs/Diagnostic Data Labs Test 08/26/24 05:30 08/25/24 21:58 08/25/24 20:00 08/25/24 07:59 Range/Units White Blood Count 5.3 4.4-10.8 10^3/uL Red Blood Count 4.58 4.5-5.90 10^6/uL Hemoglobin 11.1 L 13.5-17.5 g/dL Hematocrit 35.0 L 41.0-53.0 % Mean Corpuscular Volume 76.3 L 80.0-100.0 fL Mean Corpuscular Hemoglobin 24.2 L 28.0-32.0 pg Mean Corpuscular Hemoglobin Concent 31.8 L 32.0-36.0 g/dL Red Cell Distribution Width 19.8 H 11.8-14.3 % Platelet Count 205 140-450 10^3/uL Mean Platelet Volume 8.5 6.9-10.8 fL Neutrophils (%) (Auto) 65.5 37.0-80.0 % Lymphocytes (%) (Auto) 23.2 10.0-50.0 % Monocytes (%) (Auto) 8.3 0.0-12.0 % Eosinophils (%) (Auto) 2.3 0.0-7.0 % Basophils (%) (Auto) 0.7 0.0-2.0 % Neutrophils # (Auto) 3.5 1.6-8.6 10 ^3/uL Lymphocytes # (Auto) 1.2 0.4-5.4 10 ^3/uL Monocytes # (Auto) 0.4 0-1.3 10 ^3/uL Eosinophils # (Auto) 0.1 0-0.8 10 ^3/uL Basophils # (Auto) 0 0-0.2 10 ^3/uL Nucleated Red Blood Cells 0.1 % Sodium Level 141 136-145 mmol/L Potassium Level 4.2 3.5-5.1 mmol/L Chloride Level 106 98-107 mmol/L Carbon Dioxide Level 25 20-31 mmol/L Anion Gap 10 5-15 Blood Urea Nitrogen 9 9-23 mg/dL Creatinine 1.06 0.700-1.30 mg/dL Glomerular Filtration Rate Calc 90 >90 mL/min BUN/Creatinine Ratio 8.5 L 10.0-20.0 Serum Glucose 102 74-106 mg/dL Hemoglobin A1c 5.2 <5.7 % A1C Calcium Level 9.8 8.7-10.4 mg/dL Iron Level 37 L 65-175 ug/dL Total Iron Binding Capacity 502 H 250-425 ug/dL Percent Iron Saturation 7.4 L 20-55 % Ferritin 32.4 22-322 ng/mL Total Bilirubin 0.4 0.2-1.0 mg/dL Aspartate Amino Transferase (AST) 37 13-40 U/L Alanine Aminotransferase (ALT) 36 7-40 U/L Alkaline Phosphatase 124 H 46-116 U/L Total Protein 7.6 5.7-8.2 g/dL Albumin 4.6 3.2-4.8 g/dL Vitamin D 25-Hydroxy 10.3 L 30.0-100 ng/mL Troponin I High Sensitivity < 3 L </=54 ng/L Lactic Acid Level 1.1 0.4-2.0 mmol/L Magnesium Level 1.9 1.6-2.6 mg/dL Lipase 292 H 12-53 U/L Thyroid Stimulating Hormone (TSH) 1.33 0.55-4.78 uIU/mL Plasma/Serum Blood Alcohol < 3.0 <10 mg/dL Urine Color Yellow Yellow Urine Clarity Clear Clear Urine pH 5.0 5.0-9.0 Urine Specific [place] 1.025 1.001-1.035 Urine Protein Trace H Negative Urine Ketones Trace Negative Urine Blood Negative Negative /uL Urine Nitrite Negative Negative Urine Bilirubin Negative Negative Urine Urobilinogen Normal Negative mg/dL Urine Leukocyte Esterase Negative Negative /uL Urine RBC None seen 0 - 3 /hpf Urine WBC 2 0 - 3 /hpf Urine Squamous Epithelial Cells Few <5 /hpf Urine Bacteria Few H None Seen /hpf Urine Glucose Normal Normal mg/dL Urine Opiates Screen Pos NEGATIVE Urine Fentanyl Screen Pos NEGATIVE Urine Barbiturates Screen Neg NEGATIVE Urine Phencyclidine Screen Neg NEGATIVE Urine Amphetamines Screen Neg NEGATIVE Urine Benzodiazepines Screen Neg NEGATIVE Urine Cocaine Screen Neg NEGATIVE Urine Cannabinoids Screen Neg NEGATIVE CT SCAN ABD PELVIS IMPRESSION: Redemonstration of the large pancreatic head cystic lesion with a cystic lesion of the left upper abdominal quadrant which appear slightly increased in size compared to imaging of 07/07/2024. The smaller cystic lesions within the pancreas are not well evaluated on current noncontrast study. Mild fat stranding adjacent to the pancreas with mild fat stranding over the upper abdomen and trace amount of free fluid adjacent to the distal esophagus. Correlate with lipase for acute pancreatitis. Mild gastric and duodenal wall thickening. Correlate for possible gastro duodenitis. Pancolitis. 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 Problems(with codes): (1) Acute pancreatitis (2) Acute abdominal pain (3) Intractable abdominal pain (4) Elevated liver enzymes (5) Pancreatic cyst (6) Abnormal finding on GI tract imaging (7) Pancreatic pseudocyst (8) Gastritis Plan/Recommendation Plan Conservative management at this time IV fluid hydration Pain control Monitor labs Once lipase improves we will put him on a clear liquid diet Patient is already scheduled for an outpatient elective EUS with drainage of his pancreatic pseudocyst at [facility] on the Patient was advised to keep his appointment Plan discussed with: Patient YEIMI RODRIGEZ MD Aug 26, 2024 20:16
--- NOTE | 2024-08-26 20:26 | DVHPNRES ---
Progress Note Date Seen: Aug 26, 2024 Resident Creating Document: JHMinnaJJOSE BachALBAROHALEIGH RESIDENT Medical Necessity Reason Pt with a Central, PICC or Fol: No Subjective Review of Systems Patient is a 43-year-old male with a past medical history of multiple episodes of pancreatitis and pancreatic cyst came to the ED with a chief complaint of abdominal pain and vomiting. Patient reported that 1 day prior to admission he started having sudden onset epigastric abdominal pain which was radiating to the back over the flanks, sharp in character, continuous improved on sitting. He also had multiple episodes of vomiting which were mostly yellowish in color, no blood in vomitus. Patient reports that he has stopped alcohol consumption since 1 year since he was 1st diagnosed with acute pancreatitis. Patient reports having diarrhea 3 times daily with the last 3 days which is mostly watery diarrhea no associated blood. Patient does not report history of pale stools. Patient denied recent sick contacts, travel, eating food out of the ordinary. Denied recent antibiotic use. Past medical history: Patient has had multiple episodes of acute pancreatitis pancreatitis starting in August 2023, then in October, February, March, April, June 2024. Patient has a pancreatic cyst which has been increasing in size from 2.7 cm in August 2023 to 5.6 cm in June 2024. Past surgical history: None Social history: Patient denies smoking, alcohol, drug use. Home medications: None Reviewed of systems Patient was seen and examined at the bedside. Alert and oriented x4. At the time of examination patient reports mild abdominal pain, no nausea, no vomiting. Patient is NPO Patient does not report of diarrhea. Objective vital signs Vital Sign Date Time Temp Pulse Resp B/P (MAP) Pulse Ox O2 Delivery O2 Flow Rate FiO2 08/26/24 17:00 97.8 58 20 121/71 (88) 97 97.8 08/26/24 14:50 Room Air* 0 21 medications Current Medications Medications Dose Ordered Sig/Shelli Route Start Time Stop Time Status Last Admin Dose Admin Sodium Chloride 10 ml Q8HR IV 08/25/24 22:00 08/26/24 16:35 10 ML Acetaminophen 650 mg Q6HP PRN PO 08/25/24 21:15 Morphine Sulfate 2 mg Q4HPRN PRN IV 08/25/24 21:15 08/26/24 15:39 2 MG Nitroglycerin 0.4 mg Q5MINP PRN SL 08/25/24 21:15 Morphine Sulfate 2 mg Q30M PRN IV 08/25/24 21:15 Lactated Ringer's 1,000 ml @ 150 mls/hr Q6H40M IV 08/25/24 21:30 08/26/24 17:32 150 MLS/HR Pantoprazole Sodium 40 mg DAILY IV 08/26/24 10:00 08/26/24 09:14 40 MG Ceftriaxone Sodium 50 ml @ 100 mls/hr DAILY@09 IV 08/26/24 09:00 08/26/24 09:14 100 MLS/HR Metronidazole 100 ml @ 100 mls/hr Q8HR IV 08/26/24 06:00 08/26/24 16:30 100 MLS/HR Examination Physical Examination Gen - no pallor, no icterus, no cyanosis, no clubbing, no LAD, no edema . Skin - Patients skin is warm and dry.. HEENT - normocephalic, atraumatic, moist mucous membranes. Neck - full ROM, no LAD, no JVD Pulmonary - B/L vesicular breath sounds. no crackles , no wheezing, no stridor. cardiovascular - normal S1,S2 heard. no murmurs heard. peripheral pulses radial 2+, pedal 2+. capillary refill normal <2 secs. GI - soft abdomen no tenderness to palpation . no hepatospleenomegaly. Bowel sounds normoactive Neurological - Patient is A/O X 3 . Bilateral upper extremity strength 5/5, bilateral lower extremity strength 5/5, no facial droop, normal speech, no tremor, no sensory deficiets. laboratory and microbiology Laboratory Tests 08/26/24 05:30 Test 08/26/24 05:30 Range/Units Serum Glucose 102 74-106 mg/dL Problem List/Assessment/Plan Problem List/Assessment/Plan Assessment and plan # acute abdominal pain # acute pancreatitis # pancreatic cyst - serum lipase 292 - CT abdomen without contrast shows 6 X 5.7 X 6 cm cystic structure of pancreatic head, mild peripancreatic fat stranding, nonspecific foci of calcification of pancreatic tail 5.5 X 4.9 X 5 cm cystic structure abutting the gastric fundus and spleen which appears to be connected to the pancreatic tail - patient kept NPO - IV fluids - pain control - clear liquid diet started from the dinner which the patient tolerated well. - interventional Radiology consulted for drainage of the pancreatic cyst # ?acute gastroduodenitis # pancolitis - CT shows mild gastric and duodenal wall thickening Mild pancolonic wall thickening - on ceftriaxone and metronidazole IV # microcytic hypochromic anemia likely due to iron-deficiency - iron panel shows low iron and low ferritin - monitor H&H Goals of care discussed with the patient for over 33 minutes. Full code. Plan discussed with Dr. Nieves Plan discussed with: Patient My Orders My Orders Orders - KALPANA IBARRA Procedure Category Date Status Time Clear Liq Diet DIET 08/27/24 Transmitted Breakfast Date of Service: Aug 26, 2024 Billing Provider: RASHEED VIERA MD Common Visit Codes: [id number] INP/OBS CARE(HIGH) KALPANA IBARRA Aug 26, 2024 20:26 RASHEED VIERA MD Aug 27, 2024 10:09
[2024-08-26 21:00] VITALS: BP 141/86; PULSE 63; RESP 16; TEMP 97.6; O2SAT 100
[2024-08-27 01:00] VITALS: BP 125/84; PULSE 63; RESP 16; TEMP 97.9; O2SAT 98
[2024-08-27 05:00] VITALS: BP 115/76; PULSE 84; RESP 16; TEMP 97.9; O2SAT 96
[2024-08-27 06:09] LABS: Anion Gap 7 (5-15); Carbon Dioxide 27 mmol/L (20-31); Chloride 106 mmol/L (98-107); Potassium 3.8 mmol/L (3.5-5.1); Sodium 140 mmol/L (136-145)
[2024-08-27 06:10] LABS: Calcium 9.3 mg/dL (8.7-10.4)
[2024-08-27 06:15] LABS: BUN/Creatinine Ratio 6.7 (10.0-20.0); Glucose 98 mg/dL (74-106)
[2024-08-27 06:34] LABS: Blood Urea Nitrogen 6 mg/dL (9-23); Lipase 89 U/L (12-53)
[2024-08-27 08:00] VITALS: PULSE 73; RESP 19
[2024-08-27 08:49] LABS: Basophils # (auto) 0 10 ^3/uL (0-0.2); Eosinophils # (auto) 0.1 10 ^3/uL (0-0.8); Hemoglobin 9.7 g/dL (13.5-17.5); Lymphocytes # (auto) 0.6 10 ^3/uL (0.4-5.4); Monocytes # (auto) 0.2 10 ^3/uL (0-1.3); Red Blood Cells 4.08 10^6/uL (4.5-5.90)
[2024-08-27 08:52] LABS: Basophils % (auto) 0.6 % (0.0-2.0); Eosinophils % (auto) 4.6 % (0.0-7.0); Hematocrit 31.2 % (41.0-53.0); Lymphocytes % (auto) 22.2 % (10.0-50.0); Mean Corpuscular Hemoglobin 23.8 pg (28.0-32.0); Mean Corpuscular Hgb Conc. 31.1 g/dL (32.0-36.0); Mean Corpuscular Volume 76.6 fL (80.0-100.0); Monocytes % (auto) 8.1 % (0.0-12.0); Neutrophils # (auto) 1.8 10 ^3/uL (1.6-8.6); Neutrophils % (auto) 64.5 % (37.0-80.0); Nucleated Red Blood Cells % 0.2 %; Platelet Count (auto) 124 10^3/uL (140-450); Red Cell Distribution Width 19.6 % (11.8-14.3); White Blood Cell 2.8 10^3/uL (4.4-10.8)
[2024-08-27 09:00] VITALS: BP 119/74; PULSE 73; RESP 19; TEMP 98; O2SAT 96
[2024-08-27 09:07] LABS: Platelet Estimate Adequate
[2024-08-27] MEDS ORDERED: HYDR-4902 PO (11:27)
[2024-08-27] MEDS ORDERED: PANT40TA2 PO (11:56)
[2024-08-27] MEDS ORDERED: ZOFR4T PO (11:56)
[2024-08-27] MEDS ORDERED: AUG875T PO (11:56)
[2024-08-27 13:00] VITALS: BP 112/81; PULSE 73; RESP 18; TEMP 97.8; O2SAT 97
--- NOTE | 2024-08-27 14:22 | DVHPN2 ---
Progress Note - Dictate Date Seen: Aug 27, 2024 Medical Necessity Reason Pt with a Central, PICC or Fol: No Subjective No new complaints Tolerating clear liquid diet Lipase level trending down vital signs Vital Sign Date Time Temp Pulse Resp B/P (MAP) Pulse Ox O2 Delivery O2 Flow Rate FiO2 08/27/24 13:00 97.8 73 18 112/81 (91) 97 97.8 08/27/24 08:00 Room Air* 0 21 Total Intake and Output 08/26/24 08/26/24 08/27/24 15:00 23:00 07:00 Intake Total 1000 ml 200 ml 1850 ml Output Total 0 ml Balance 1000 ml 200 ml 1850 ml medications Current Medications Medications Dose Ordered Sig/Shelli Route Start Time Stop Time Status Last Admin Dose Admin Sodium Chloride 10 ml Q8HR IV 08/25/24 22:00 08/27/24 05:06 10 ML Acetaminophen 650 mg Q6HP PRN PO 08/25/24 21:15 Morphine Sulfate 2 mg Q4HPRN PRN IV 08/25/24 21:15 08/27/24 09:49 2 MG Nitroglycerin 0.4 mg Q5MINP PRN SL 08/25/24 21:15 Morphine Sulfate 2 mg Q30M PRN IV 08/25/24 21:15 Lactated Ringer's 1,000 ml @ 150 mls/hr Q6H40M IV 08/25/24 21:30 08/27/24 04:41 150 MLS/HR Pantoprazole Sodium 40 mg DAILY IV 08/26/24 10:00 08/27/24 09:47 40 MG objective General examination- awake, alert, oriented, conversant; ambulatory HEENT- PEERLA, no acute nasal discharge Cardiovascular- S1-S2 audible, rate and rhythm regular, no murmur Respiratory- CTAB, no wheeze or rhonchi Gastrointestinal-mild epigastric tenderness+, bowel sound+. Nondistended Musculoskeletal-no acute joint swelling or tenderness or redness# Lower extremity- no leg edema Neurological- cranial nerves intact, no acute dysarthria or dysphagia Psychiatry- denies depression or SI or HI Skin- no acute rash or purpura laboratory and microbiology Laboratory Tests 08/27/24 08:36 08/27/24 05:30 Test 08/27/24 05:30 Range/Units Serum Glucose 98 74-106 mg/dL Problems(with codes): (1) Intractable abdominal pain (2) Abnormal finding on GI tract imaging (3) Elevated liver enzymes (4) Pancreatic pseudocyst (5) Pancreatic cyst (6) Gastritis Prognosis Plan Advance to full liquid diet Continue to monitor labs Pain control IV fluid hydration Patient is scheduled for a endoscopic ultrasound with drainage of pancreatic cyst at [facility] next week Plan discussed with: Patient YEIMI RODRIGEZ MD Aug 27, 2024 14:22
[2024-08-27 14:36] VITALS: BP 112/81; PULSE 73; RESP 18; TEMP 97.8; O2SAT 97
--- NOTE | 2024-08-27 16:19 | DVHDSRES ---
Discharge Summary Date of Admission Resident Creating Document: KALPANA IBARRA RESIDENT Aug 25, 2024 at 21:09 Date of Discharge: Aug 27, 2024 Admitting Diagnosis # Acute abdominal pain likely due to acute on chronic pancreatitis # Acute gastroenteritis # Pancolitis # chronic pancreatitis with pancreatic cyst # anemia, # hypertension # history of asthma, no acute exacerbation # Peptic ulcer disease # history of gallstone pancreatitis and alcoholic pancreatitis # questionable cirrhosis Wounds: no wounds Labs/Diagnostic Data: Laboratory Results Test 08/27/24 08:36 08/27/24 05:30 08/26/24 05:30 08/25/24 21:58 White Blood Count 2.8 10^3/uL (4.4-10.8) Red Blood Count 4.08 10^6/uL (4.5-5.90) Hemoglobin 9.7 g/dL (13.5-17.5) Hematocrit 31.2 % (41.0-53.0) Mean Corpuscular Volume 76.6 fL (80.0-100.0) Mean Corpuscular Hemoglobin 23.8 pg (28.0-32.0) Mean Corpuscular Hemoglobin Concent 31.1 g/dL (32.0-36.0) Red Cell Distribution Width 19.6 % (11.8-14.3) Platelet Count 124 10^3/uL (140-450) Mean Platelet Volume 8.4 fL (6.9-10.8) Neutrophils (%) (Auto) 64.5 % (37.0-80.0) Lymphocytes (%) (Auto) 22.2 % (10.0-50.0) Monocytes (%) (Auto) 8.1 % (0.0-12.0) Eosinophils (%) (Auto) 4.6 % (0.0-7.0) Basophils (%) (Auto) 0.6 % (0.0-2.0) Neutrophils # (Auto) 1.8 10 ^3/uL (1.6-8.6) Lymphocytes # (Auto) 0.6 10 ^3/uL (0.4-5.4) Monocytes # (Auto) 0.2 10 ^3/uL (0-1.3) Eosinophils # (Auto) 0.1 10 ^3/uL (0-0.8) Basophils # (Auto) 0 10 ^3/uL (0-0.2) Nucleated Red Blood Cells 0.2 % Platelet Estimate Adequate Sodium Level 140 mmol/L (136-145) Potassium Level 3.8 mmol/L (3.5-5.1) Chloride Level 106 mmol/L (98-107) Carbon Dioxide Level 27 mmol/L (20-31) Anion Gap 7 (5-15) Blood Urea Nitrogen 6 mg/dL (9-23) Creatinine 0.89 mg/dL (0.700-1.30) Glomerular Filtration Rate Calc 110 mL/min (>90) BUN/Creatinine Ratio 6.7 (10.0-20.0) Serum Glucose 98 mg/dL (74-106) Calcium Level 9.3 mg/dL (8.7-10.4) Lipase 89 U/L (12-53) Hemoglobin A1c 5.2 % A1C (<5.7) Iron Level 37 ug/dL (65-175) Total Iron Binding Capacity 502 ug/dL (250-425) Percent Iron Saturation 7.4 % (20-55) Ferritin 32.4 ng/mL (22-322) Total Bilirubin 0.4 mg/dL (0.2-1.0) Aspartate Amino Transferase (AST) 37 U/L (13-40) Alanine Aminotransferase (ALT) 36 U/L (7-40) Alkaline Phosphatase 124 U/L (46-116) Total Protein 7.6 g/dL (5.7-8.2) Albumin 4.6 g/dL (3.2-4.8) Vitamin D 25-Hydroxy 10.3 ng/mL (30.0-100) Troponin I High Sensitivity < 3 ng/L (</=54) Test 08/25/24 20:00 08/25/24 07:59 Lactic Acid Level 1.1 mmol/L (0.4-2.0) Magnesium Level 1.9 mg/dL (1.6-2.6) Thyroid Stimulating Hormone (TSH) 1.33 uIU/mL (0.55-4.78) Plasma/Serum Blood Alcohol < 3.0 mg/dL (<10) Urine Color Yellow (Yellow) Urine Clarity Clear (Clear) Urine pH 5.0 (5.0-9.0) Urine Specific [place] 1.025 (1.001-1.035) Urine Protein Trace (Negative) Urine Ketones Trace (Negative) Urine Blood Negative /uL (Negative) Urine Nitrite Negative (Negative) Urine Bilirubin Negative (Negative) Urine Urobilinogen Normal mg/dL (Negative) Urine Leukocyte Esterase Negative /uL (Negative) Urine RBC None seen /hpf (0 - 3) Urine WBC 2 /hpf (0 - 3) Urine Squamous Epithelial Cells Few /hpf (<5) Urine Bacteria Few /hpf (None Seen) Urine Glucose Normal mg/dL (Normal) Urine Opiates Screen Pos (NEGATIVE) Urine Fentanyl Screen Pos (NEGATIVE) Urine Barbiturates Screen Neg (NEGATIVE) Urine Phencyclidine Screen Neg (NEGATIVE) Urine Amphetamines Screen Neg (NEGATIVE) Urine Benzodiazepines Screen Neg (NEGATIVE) Urine Cocaine Screen Neg (NEGATIVE) Urine Cannabinoids Screen Neg (NEGATIVE) Other Laboratory Tests 08/27/24 08:36 08/27/24 05:30 Brief Hx & Hospital Course: Patient is a 43-year-old male with a past medical history of multiple episodes of pancreatitis and pancreatic cyst came to the ED with a chief complaint of abdominal pain and vomiting. Patient reported that 1 day prior to admission he started having sudden onset epigastric abdominal pain which was radiating to the back over the flanks, sharp in character, continuous improved on sitting. He also had multiple episodes of vomiting which were mostly yellowish in color, no blood in vomitus. Patient reports that he has stopped alcohol consumption since 1 year since he was 1st diagnosed with acute pancreatitis. Patient reports having diarrhea 3 times daily with the last 3 days which is mostly watery diarrhea no associated blood. Patient does not report history of pale stools. Patient denied recent sick contacts, travel, eating food out of the ordinary. Denied recent antibiotic use. Past medical history: Patient has had multiple episodes of acute pancreatitis pancreatitis starting in August 2023, then in October, February, March, April, June 2024. Patient has a pancreatic cyst which has been increasing in size from 2.7 cm in August 2023 to 5.6 cm in June 2024. Past surgical history: None Social history: Patient denies smoking, alcohol, drug use. Home medications: None Hospital course Initial labs showed elevated serum lipase, patient had typical abdominal pain in the epigastrium radiating to the back, CT abdomen pelvis showed evidence of acute pancreatitis with redemonstration of large pancreatic head cystic lesion. Patient was kept NPO and IV fluids were started and was put on antiemetics p.r.n.. CT also demonstrated mild gastric and duodenal wall thickening possible for gastroduodenitis for which the patient was started on IV ceftriaxone and metronidazole. Patient was kept NPO for about 24 hours and then was started on clear liquid diet which she tolerated well. GI were consulted with Dr. Espinoza. Patient has a scheduled endoscopic ultrasound with drainage of pancreatic cyst in 1 week at the [facility]. At the time of discharge patient was stable denied nausea, vomiting, abdominal pain. Tolerating clear liquid diet well. Patient was discharged in stable condition to home advised to continue on clear-full liquid diet for 7-10 these under he gets the procedure done at the hospital. Final diagnosis # acute abdominal pain # acute pancreatitis # pancreatic cyst # ?acute gastroduodenitis # pancolitis # microcytic hypochromic anemia likely due to iron-deficiency Discharge plan Discharged home Diet- clear liquid to full liquid for 7-10 days Follow up at the [facility] on his scdeduled appointment on 03 september for pancreatic cyst drainage Follow up with the PCP in 1-2 weeks Medication: Augmentin 875 mg b.i.d. for 5 days, Zofran 4 mg p.r.n. for nausea vomiting, [place] 01/17/2025 p.r.n. for pain, Protonix 40 mg daily Consults/Reason for consult GI consultation for acute on chronic pancreatitis Operations or Procedures CT abdomen pelvis without contrast FINDINGS: Lung bases are clear. Partially visualized heart is unremarkable. Liver, spleen, and adrenal glands unremarkable. Status post cholecystectomy. 6 x 5.7 x 6 cm cystic structure of the pancreatic head. There is mild peripancreatic fat stranding with nonspecific foci of calcification of the pancreatic tail. There is additional 5.5 x 4.9 by 5 cm cystic structure abutting the gastric fundus and spleen which appears to be connected to the pancreatic tail. The multiple small pancreatic cystic lesions are not well evaluated There is left upper abdominal and epigastric region fat stranding with trace amount of fluid adjacent to the distal esophagus. Kidneys, ureters and urinary bladder unremarkable. Measures 4 x 4.7 by 4.5 cm. Mild gastric wall thickening. Mild wall thickening of the duodenal. The remainder of the small bowel loops unremarkable. Appendix is unremarkable. Mild pancolonic wall thickening. No evidence of intraperitoneal free air. No evidence of aortic aneurysm. Multiple upper abdominal varicose veins most prominent over the left upper abdominal quadrant. The soft tissues unremarkable. No destructive osseous lesions are noted. Sclerotic focus of the bilateral acetabulum which may represent bone islands blastic lesions not excluded. IMPRESSION: Redemonstration of the large pancreatic head cystic lesion with a cystic lesion of the left upper abdominal quadrant which appear slightly increased in size compared to imaging of 07/07/2024. The smaller cystic lesions within the pancreas are not well evaluated on current noncontrast study. Mild fat stranding adjacent to the pancreas with mild fat stranding over the upper abdomen and trace amount of free fluid adjacent to the distal esophagus. Correlate with lipase for acute pancreatitis. Mild gastric and duodenal wall thickening. Correlate for possible gastro duodenitis. Pancolitis. 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 Condition at Discharge: Good Final Diagnosis/Problems List # acute abdominal pain # acute pancreatitis # pancreatic cyst # ?acute gastroduodenitis # pancolitis # microcytic hypochromic anemia likely due to iron-deficiency Discharge Disposition: Home Discharge Instruct/Medications Diet: See Comment Diet comment: patient is advised to continue on the clear liquid diet for next 7-10 days. Activity: No Restrictions, As Tolerated Follow Up/Referral: Follow up at the [facility] on his scdeduled appointment on 03 september for pancreatic cyst drainage Follow up with the PCP in 1-2 weeks Follow up in the discharge clinic in 1-2 weeks Medications: as per EMR Discharge Statement: "Patient was advised to return to the ER or call 911 if any headaches, dizziness, shortness of breath, chest pain, abdominal pain, bleeding, fevers, or worsening of medical condition. Patient was counseled about treatment plan, medications, possible side effects, patientverbalized understanding. All questions were answered to the best of my ability. This discharge took greater then 30 minutes in planning, reviewing documentation, counseling the patient, and discussing with other team members." ASSESSMENT ASSESSMENT Assessment # acute abdominal pain # acute pancreatitis # pancreatic cyst # ?acute gastroduodenitis # pancolitis # microcytic hypochromic anemia likely due to iron-deficiency Date of Service: Aug 27, 2024 Billing Provider: RASHEED VIERA MD Common Visit Codes: 69852-OGD/OBS DISCH DAY >30min KALPANA IBARRA RESIDENT Aug 27, 2024 16:19 RASHEED VIERA MD Aug 28, 2024 09:22
== END 2024-08-27 16:30 | disposition home or self-care (01) | DRG 282 ==
LOC: ER 17:31 → OVERFLOW 21:09 → CENTRAL 08-26 14:46
PROVIDERS: ADMIT Student in an Organized Health Care Education/Training Program; ATTEND Emergency Medicine
DX: K85.20 Alcohol induced acute pancreatitis without necrosis or infection (principal); K74.60 Unspecified cirrhosis of liver; D50.9 Iron deficiency anemia, unspecified; I10 Essential (primary) hypertension; J45.909 Unspecified asthma, uncomplicated; F10.10 Alcohol abuse, uncomplicated; K52.9 Noninfective gastroenteritis and colitis, unspecified; Y90.9 Presence of alcohol in blood, level not specified; Z90.49 Acquired absence of other specified parts of digestive tract; Z82.0 Family history of epilepsy and other diseases of the nervous system; Z79.1 Long term (current) use of non-steroidal anti-inflammatories (NSAID); Z79.899 Other long term (current) drug therapy; K86.3 Pseudocyst of pancreas
CPT/HCPCS: 36415; 74176; 80048; 80053; 80307; 80320; 81001; 82306; 82728; 83036; 83540; 83550; 83605; 83690; 83735; 84443; 84484; 85025; 93005; 96374; 96375; G0378; J2405; J2470; J3490

== ENCOUNTER 2024-09-21 00:36 | Emergency (ER) | payer MEDICAID ==
[~2024-09-21] VITALS: Ht 172.7 cm; Wt 88.2 kg
[~2024-09-21 00:36] MED LIST changes: +AUG875T PO; +HYDR-4902 PO; +PANT40TA2 PO; +ZOFR4T PO
--- NOTE | 2024-09-21 02:55 | ED.PDOC ---
GI ASSESSMENT HPI Comments 43-year-old male came to ER due to abdominal pain. Patient has history of pancreatitis, scheduled for surgery at [facility] this September 25. Few hours ago patient started experiencing progressive abdominal pain, epigastric, sharp, radiating to his flanks and back area, associated with nausea. Patient took [place] at home but offered no relief. Chief Complaint: Abdominal Pain Time Seen by MD: 02:54 Primary Care Provider: UNKNOWN Reviewed Notes: Nurses Notes Allergies: Coded Allergies: NO KNOWN ALLERGIES (Unverified , 06/01/23) Home Meds Active Scripts Ondansetron Odt 4MG Tab (ZOFRAN PO) 4 Mg Tb, 4 MG PO TIDPRN PRN for 10 Days, #30 TAB 0 Refills ODT TAB-DISSOLVE IN MOUTH, THEN SWALLOW Prov:KALPANA IBARRA 08/27/24 Amoxicillin & Pot Clavulanate (AUGMENTIN TABLET) 875 Mg Tb, 875 MG PO BID for 5 Days, #10 TAB 0 Refills Prov:KALPANA IBARRA 08/27/24 Pantoprazole Sodium Sesquihydr (Protonix) 40 Mg Tab, 40 MG PO DAILY for 30 Days, #30 TAB 0 Refills Prov:KALPANA IBARRA 08/27/24 Hydrocodone-Acetaminophen (Hydrocodone Bitartrate/AC 5-325 mg) 1 Tab Tab, 1 TAB PO TIDPRN PRN for 5 Days, #15 TAB 0 Refills Prov:RASHEED VIERA MD 08/27/24 Acetaminophen (Acetaminophen Er) 650 Mg Tab, 650 MG PO Q6HPRN PRN for 10 Days, #40 TAB Prov:VANDANA POE 07/09/24 Oxycodone W/ Acetaminophen (Percocet 5/325MG) 1 Tab Tb, 1 TAB PO TID for 5 Days, #15 TAB Prov:DIEGO AMOS NP 04/29/24 Information Source: Patient Mode of Arrival: Ambulatory Timing: Hours Duration: Since onset Prehospital treatment: None Quality: Sharp Vomitus: None Stool: Normal Severity: Moderate Recent: Other (Pancreatitis) Recent Hx of: Abdominal Surgery, Other (Pancreatitis) Pain Location: Epigastric Modifying Factors: Nothing Associated sign and symptoms: Nausea, Abdominal Pain Past Medical History PAST MEDICAL HISTORY: HTN Past Medical History (Other): Pancreatitis Surgical History: Cholecystectomy Family History Family History: Reviewed,noncontributory to illness Social History Smoker: Non-Smoker Alcohol: Sober Drugs: Denies Drug Use Lives In: Home Constitutional: denies: chills, diaphoresis, fatigue, fever, malaise, sweats, weakness, others EENTM: denies: blurred vision, double vision, ear bleeding, ear discharge, ear drainage, ear pain, ear ringing, eye pain, eye redness, hearing loss, mouth pain, mouth swelling, nasal discharge, nose bleeding, nose congestion, nose pain, photophobia, tearing, throat pain, throat swelling, voice changes, others Respiratory: denies: cough, hemoptysis, orthopnea, SOB at rest, shortness of breath, SOB with excertion, stridor, wheezing, others Cardiovascular: denies: chest pain, dizzy spells, diaphoresis, Dyspnea on exertion, edema, irregular heart beat, left arm pain, lightheadedness, palpitations, PND, syncope, others Gastrointestinal: reports: abdominal pain, nausea; denies: abdomen distended, blood streaked bowels, constipated, diarrhea, dysphagia, difficulty swallowing, hematemesis, melena, poor appetite, poor fluid intake, rectal bleeding, rectal pain, vomiting, others Genitourinary: denies: burning, dysuria, flank pain, frequency, hematuria, incontinence, penile discharge, penile sore, pain, testicle pain, testicle swelling, urgency, others Neurological: denies: dizziness, fainting, headache, left sided numbness, left sided weakness, numbness, paresthesia, pre-existing deficit, right sided numbness, right sided weakness, seizure, speech problems, tingling, tremors, weakness, others Musculoskeletal: reports: back pain; denies: gout, joint pain, joint swelling, muscle pain, muscle stiffness, neck pain, others Integumetry: denies: bruises, change in color, change in hair/nails, dryness, laceration, lesions, lumps, rash, wounds, others Allergic/Immunocompromised: denies: Difficulty Healing, Frequent Infections, Hives, Itching, others Hematologic/Lymphatic: denies: anemia, blood clots, easy bleeding, easy bruising, swollen glands, others Endocrine: denies: excessive hunger, excessive sweating, excessive thirst, excessive urination, flushing, intolerance to cold, intolerance to heat, unexplained weight gain, unexplained weight loss, others Psychiatric: denies: anxiety, bipolar disorder, depression, hopeless, panic disorder, schizophrenia, sleepless, suicidal, others Physical Exam General Appearance: Mild Distress, Normal HEENT: Normal ENT Inspection, Pharynx Normal, TMs Normal Neck: Full Range of Motion, Non-Tender, Normal, Normal Inspection Respiratory: Chest Non-Tender, Lungs Clear, No Accessory Muscle Use, No Respiratory Distress, Normal Breath Sounds Cardiovascular: No Edema, No JVD, No Murmur, No Gallop, Normal Peripheral Pulses, Regular Rate/Rhythm Breast Exam: Deferred Gastrointestinal: No Organomegaly, No Pulsatile Mass, Normal Bowel Sounds, Soft, Other (Slight abdominal tenderness.) Genitalia: Deferred Pelvic: Deferred Rectal: Deferred Extremities: No calf tenderness, Normal capillary refill, Normal inspection, Normal range of motion, Non-tender, No pedal edema Musculoskeletal : Apperance: Normal Neurologic: Alert, explosives mixer operator II-XII nml as Tested, No Motor Deficits, Normal Affect, Normal Mood, No Sensory Deficits Cerebellar Function: Normal Reflexes: Normal Skin: Dry, Normal Color, Warm Lymphatic: No Adenopathy Was a procedure done? Was a procedure done?: No GI differential Dx Differential Diagnosis: Diverticular disease, Gastritis/PUD, Gastroenteritis, Hernia, Pancreatitis, UTI, Urolithiasis X-Ray, Labs, Meds, VS Vital Signs Date Time Temp Pulse Resp B/P (MAP) Pulse Ox O2 Delivery O2 Flow Rate FiO2 09/21/24 03:32 103 18 96 Room Air* 0 21 09/21/24 03:32 98.2 103 18 136/103 (114) 96 98.2 09/21/24 01:00 98.0 117 20 137/96 (110) 97 Lab Test 09/21/24 03:39 09/21/24 03:37 Range/Units White Blood Count 6.8 4.4-10.8 10^3/uL Red Blood Count 4.80 4.5-5.90 10^6/uL Hemoglobin 11.0 L 13.5-17.5 g/dL Hematocrit 35.1 L 41.0-53.0 % Mean Corpuscular Volume 73.1 L 80.0-100.0 fL Mean Corpuscular Hemoglobin 23.0 L 28.0-32.0 pg Mean Corpuscular Hemoglobin Concent 31.4 L 32.0-36.0 g/dL Red Cell Distribution Width 19.6 H 11.8-14.3 % Platelet Count 241 140-450 10^3/uL Mean Platelet Volume 8.2 6.9-10.8 fL Neutrophils (%) (Auto) 70.3 37.0-80.0 % Lymphocytes (%) (Auto) 22.1 10.0-50.0 % Monocytes (%) (Auto) 4.9 0.0-12.0 % Eosinophils (%) (Auto) 1.6 0.0-7.0 % Basophils (%) (Auto) 1.1 0.0-2.0 % Neutrophils # (Auto) 4.8 1.6-8.6 10 ^3/uL Lymphocytes # (Auto) 1.5 0.4-5.4 10 ^3/uL Monocytes # (Auto) 0.3 0-1.3 10 ^3/uL Eosinophils # (Auto) 0.1 0-0.8 10 ^3/uL Basophils # (Auto) 0.1 0-0.2 10 ^3/uL Nucleated Red Blood Cells 0.0 % Platelet Estimate Pending Prothrombin Time 11.3 9.3-11.8 sec Prothrombin Time INR 1.07 0.9-1.15 Activated Partial Thromboplast Time 26.2 24.5-34.5 SEC Sodium Level 141 136-145 mmol/L Potassium Level 4.0 3.5-5.1 mmol/L Chloride Level 107 98-107 mmol/L Carbon Dioxide Level 26 20-31 mmol/L Anion Gap 8 5-15 Blood Urea Nitrogen 11 9-23 mg/dL Creatinine 0.99 0.700-1.30 mg/dL Glomerular Filtration Rate Calc 98 >90 mL/min BUN/Creatinine Ratio 11.1 10.0-20.0 Serum Glucose 105 74-106 mg/dL Lactic Acid Level 1.6 0.4-2.0 mmol/L Calcium Level 9.3 8.7-10.4 mg/dL Total Bilirubin 0.3 0.2-1.0 mg/dL Aspartate Amino Transferase (AST) 42 H 13-40 U/L Alanine Aminotransferase (ALT) 44 H 7-40 U/L Alkaline Phosphatase 132 H 46-116 U/L Total Protein 7.4 5.7-8.2 g/dL Albumin 4.4 3.2-4.8 g/dL Lipase Pending Plasma/Serum Blood Alcohol 194.1 H <10 mg/dL Urine Color Light-yellow Yellow Urine Clarity Clear Clear Urine pH 6.0 5.0-9.0 Urine Specific [place] 1.017 1.001-1.035 Urine Protein Negative Negative Urine Ketones Negative Negative Urine Blood Negative Negative /uL Urine Nitrite Negative Negative Urine Bilirubin Negative Negative Urine Urobilinogen Normal Negative mg/dL Urine Leukocyte Esterase Negative Negative /uL Urine RBC 1 0 - 3 /hpf Urine WBC None seen 0 - 3 /hpf Urine Squamous Epithelial Cells None seen <5 /hpf Urine Bacteria None seen None Seen /hpf Urine Glucose Normal Normal mg/dL Urine Opiates Screen Neg NEGATIVE Urine Fentanyl Screen Neg NEGATIVE Urine Barbiturates Screen Neg NEGATIVE Urine Phencyclidine Screen Neg NEGATIVE Urine Amphetamines Screen Neg NEGATIVE Urine Benzodiazepines Screen Neg NEGATIVE Urine Cocaine Screen Neg NEGATIVE Urine Cannabinoids Screen Neg NEGATIVE Current Medications Medications (Trade) Dose Ordered Sig/Shelli Route Start Time Stop Time Status Last Admin Pantoprazole Sodium (Protonix Tablet) 40 mg ONCE ONCE PO 09/21/24 03:15 09/21/24 03:16 DC 09/21/24 03:31 Al Hydrox/Mg Hydrox/Simethicone (Maalox Plus) 30 ml ONCE ONCE PO 09/21/24 03:15 09/21/24 03:16 DC 09/21/24 03:31 Drug screen is negative fear alcohol level is 198. The patient is discharged to follow up with primary care physician. He should continue his current medications for peptic ulcers such as and acid is. Time of 1ST Reevaluation: 02:51 Reevaluation 1ST: Unchanged Patient Education/Counseling: Diagnosis, Treatment Family Education/Counseling: No Family Present Departure 1 Departure Time of Disposition: 05:17 Impression: Primary Impression: Peptic ulcer disease Additional Impression: Acute alcohol intoxication Disposition: 01 HOME / SELF CARE / HOMELESS Condition: Stable Additional Instructions: Reassessed patient, vital signs stable. Denies any new symptoms. Patient is able to tolerate PO and ambulate/be mobile at their baseline without concern. Risks and benefits of all medications given or prescribed, if any, discussed. All lab work, imaging and diagnostic studies were reviewed by me. The patient was counseled extensively on my clinical impression, diagnosis, expected course of the disease, and plan, including their follow-up care. Will discharge patient. Patient instructed to follow up with Primary Care Physician within 24-48 hours. Strict return precautions given for further exacerbation of symptoms or for new symptoms. The patient was given the opportunity to ask questions and all questions were answered by myself and the nursing/tech staff. Patient is in agreement with the care plan. The patient verbally expressed understanding of the discharge instructions, including the reasons to return to the Emergency Department. Discharged With: Self Critical Care Note Critical Care Time?: No Stability Stability form required: No Heart Score Heart Score: Heart Score Response (Comments) Value History N/A 0 EKG N/A 0 Age N/A 0 Risk Factors N/A 0 Troponin N/A 0 Total 0 I personally scribed for RICO MEJIA MD ([email or web address]) on 09/21/24 at 02:55. Electronically submitted by Eric Faye ([email or web address]). RICO MEJIA MD Sep 21, 2024 02:55
[2024-09-21] MEDS: MAALOX PLUS or MAALOX 30 ML PO ONE (03:31)
[2024-09-21] MEDS: PANTOPRAZOLE 40 MG TAB PO ONE (03:31)
[2024-09-21 03:32] VITALS: BP 136/103; PULSE 103; RESP 18; TEMP 98.2; O2SAT 96
[2024-09-21 03:57] LABS: Basophils # (auto) 0.1 10 ^3/uL (0-0.2); Eosinophils # (auto) 0.1 10 ^3/uL (0-0.8)
[2024-09-21 03:58] LABS: Basophils % (auto) 1.1 % (0.0-2.0); Eosinophils % (auto) 1.6 % (0.0-7.0); Hematocrit 35.1 % (41.0-53.0); Lymphocytes # (auto) 1.5 10 ^3/uL (0.4-5.4); Lymphocytes % (auto) 22.1 % (10.0-50.0); Mean Corpuscular Hgb Conc. 31.4 g/dL (32.0-36.0); Mean Corpuscular Volume 73.1 fL (80.0-100.0); Monocytes # (auto) 0.3 10 ^3/uL (0-1.3); Monocytes % (auto) 4.9 % (0.0-12.0); Neutrophils # (auto) 4.8 10 ^3/uL (1.6-8.6); Neutrophils % (auto) 70.3 % (37.0-80.0); Platelet Count (auto) 241 10^3/uL (140-450); Red Cell Distribution Width 19.6 % (11.8-14.3); White Blood Cell 6.8 10^3/uL (4.4-10.8)
[2024-09-21 04:43] LABS: Urine Bacteria None Seen /hpf (None Seen); Urine WBC None Seen /hpf (0 - 3)
[2024-09-21 04:47] LABS: Albumin 4.4 g/dL (3.2-4.8); Anion Gap 8 (5-15); BUN/Creatinine Ratio 11.1 (10.0-20.0); Blood Alcohol 194.1 mg/dL (<10); Blood Urea Nitrogen 11 mg/dL (9-23); Calcium 9.3 mg/dL (8.7-10.4); Carbon Dioxide 26 mmol/L (20-31); Chloride 107 mmol/L (98-107); Glucose 105 mg/dL (74-106); Sodium 141 mmol/L (136-145)
[2024-09-21 04:48] LABS: Total Protein 7.4 g/dL (5.7-8.2)
[2024-09-21 04:50] LABS: Alanine Aminotransferase 44 U/L (7-40); Alkaline Phosphatase 132 U/L (46-116); Aspartate Aminotransferase 42 U/L (13-40); Bilirubin, Total 0.3 mg/dL (0.2-1.0)
[2024-09-21 04:58] LABS: Urine Blood Negative /uL (Negative); Urine Clarity Clear (Clear); Urine Color Light-Yellow (Yellow); Urine Protein, UAD Negative (Negative); Urine Specific Gravity 1.017 (1.001-1.035); Urine Squamous Epithelial Cell None Seen /hpf (<5); Urine Urobilinogen Normal (Negative)
[2024-09-21 05:07] LABS: INR 1.07 (0.9-1.15); Partial Thromboplastin Time 26.2 SEC (24.5-34.5); Prothrombin Time 11.3 sec (9.3-11.8)
[2024-09-21 05:08] LABS: Amphetamine Screen, Urine Neg (NEGATIVE); Cocaine Screen, Urine Neg (NEGATIVE)
[2024-09-21 05:11] LABS: Barbiturate Scree,Urine Neg (NEGATIVE); Benzodiazephine Screen, Urine Neg (NEGATIVE); Cannabinoid Screen, Urine Neg (NEGATIVE); Opiate Scree,Urine Neg (NEGATIVE); Phencyclidine Screen, Urine Neg (NEGATIVE)
[2024-09-21 05:48] LABS: Lipase 53 U/L (12-53)
[2024-09-21 06:17] LABS: Anisocytosis Slight; Hypochromia Slight; Platelet Estimate Adequate
== END 2024-09-21 05:31 | disposition home or self-care (01) ==
LOC: ER 00:36
DX: K27.9 Peptic ulcer, site unspecified, unspecified as acute or chronic, without hemorrhage or perforation (principal); F10.129 Alcohol abuse with intoxication, unspecified; Z79.899 Other long term (current) drug therapy
CPT/HCPCS: 36415; 80053; 80307; 80320; 81001; 83605; 83690; 85025; 85610; 85730

== ENCOUNTER 2024-10-22 22:03 | Inpatient (IN) | payer MEDICAID ==
[~2024-10-22] VITALS: Ht 172.7 cm; Wt 89.6 kg
--- NOTE | 2024-10-22 22:25 | ED.PDOC ---
GI ASSESSMENT HPI Comments HPI: Poor Historian. 44-year-old male presents with a chief complaint of abdominal pain with associated nausea x onset yesterday. Patient states that his pain is localized to his epigastric region, radiates to his back bilaterally, and rates his pain a 9/10. Patient reports that he has a history of pancreastitis with pancreatic cysts. Patient mentions that he is scheduled to have the cysts drained "soon". Patient denies drinking any alcohol prior to onset of symptoms. PMHx: Pancreatitis, Pancreatic Cysts PSHx: Cholecystectomy Allergies: No Known Allergies Initial Vital Signs: BP: 133/90 HR: 96 Temp: SpO2: 99% RR: 18 REVIEW OF SYSTEMS: CONSTITUTIONAL: Denies acute: fever, diaphoresis, chills, generalized weakness. HEAD: Denies acute: headache, photophobia Eyes: Denies acute: Double vision, vision loss, eye pain, eye discharge. EARS: Denies acute: tinnitus, hearing loss, ear discharge, ear pain, THROAT: Denies acute: sore throat, swelling, difficulty swallowing , pain with swallowing, change in voice. NECK: Denies acute: neck pain, neck swelling, stiff neck. HEART: Denies acute : chest pain, palpitations, LUNGS: Denies acute: SOB, wheezing, cough, hemoptysis ABDOMEN: Denies acute: Vomiting, diarrhea, melena , hematemesis, hematochezia SKIN: Denies acute: rash, redness, lesions, itchiness. EXTREMITIES: Denies acute: calf pain, numbness, tingling, weakness, denies pain in extremity. Denies acute: Low back pain. Neuro: Denies acute: focal neurological deficit, motor or sensory focal neurological deficit, tremors, seizure like activity, confusion, dizziness, change in mental status, loss of bowel or bladder function, cauda equina like symptoms. : Denies acute: dysuria, hematuria, flank pain, increase in urinary frequency. PSYCH: Denies acute: hallucination, suicidal ideation, homicidal ideation. PHYSICAL EXAM: General: no acute distress, awake and alert. Head: normocephalic, atraumatic. Neck: supple, trachea is midline, no swelling. Throat: Normal phonation. Eyes:, no erythema, no purulent discharge, no proptosis, no icterus. Heart: regular rate, regular rhythm, no significant murmur appreciated. Lungs: no apparent respiratory distress, Able to speak in full sentences. No wheezing, no rhonchi, no crackles. No stridors Clear to auscultation bilaterally. Abdomen: Epigastric tender to palpation, non distended, soft, no guarding, no rebound, + bowel sounds. Neuro: Awake, Alert, oriented to name, self, situation, follows commands GCS=15. Speech is normal. Skin: no petechia, no purpura, no cyanosis, non-pale, not jaundice. Lower extremities: --no - Pitting edema no deformity, no focal swelling, no calf TTP. Makes eye contact. moves all four extremities. Face: no apparent facial droop. Ambulating in the ED independently. ED COURSE: Chief Complaint: Abdominal Pain Time Seen by MD: 22:13 Primary Care Provider: UNKNOWN Reviewed Notes: Nurses Notes, Medications, Allergies Allergies: Coded Allergies: NO KNOWN ALLERGIES (Unverified , 06/01/23) Home Meds Active Scripts Ondansetron Odt 4MG Tab (ZOFRAN PO) 4 Mg Tb, 4 MG PO TIDPRN PRN for 10 Days, #30 TAB 0 Refills ODT TAB-DISSOLVE IN MOUTH, THEN SWALLOW Prov:KALPANA IBARRA 08/27/24 Amoxicillin & Pot Clavulanate (AUGMENTIN TABLET) 875 Mg Tb, 875 MG PO BID for 5 Days, #10 TAB 0 Refills Prov:KALPANA IBARRA 08/27/24 Pantoprazole Sodium Sesquihydr (Protonix) 40 Mg Tab, 40 MG PO DAILY for 30 Days, #30 TAB 0 Refills Prov:KALPANA IBARRA 08/27/24 Hydrocodone-Acetaminophen (Hydrocodone Bitartrate/AC 5-325 mg) 1 Tab Tab, 1 TAB PO TIDPRN PRN for 5 Days, #15 TAB 0 Refills Prov:RASHEED VIERA MD 08/27/24 Acetaminophen (Acetaminophen Er) 650 Mg Tab, 650 MG PO Q6HPRN PRN for 10 Days, #40 TAB Prov:VANDANA POE 07/09/24 Oxycodone W/ Acetaminophen (Percocet 5/325MG) 1 Tab Tb, 1 TAB PO TID for 5 Days, #15 TAB Prov:DIEGO AMOS IOS PROGRAMMER 04/29/24 Information Source: Patient Mode of Arrival: Ambulatory Past Medical History PAST MEDICAL HISTORY: HTN Surgical History: Cholecystectomy Family History Family History: Reviewed,noncontributory to illness Social History Smoker: Non-Smoker Alcohol: Sober Drugs: Denies Drug Use Lives In: Home Was a procedure done? Was a procedure done?: No GI differential Dx Differential Diagnosis: Other (DDX include but not limited to diverticulitis, colitis, gastroenteritis, acute abdomen, SBO, enteritis, constipation, volvulus, appendicitis, Gallbladder disease, choledocolithiasis, ascending cholangitis, pancreatitis, intraAbdominal mass/neoplasm, hepatitis, UTI, pylonephritis, kidney stone, aneurysm, dissection, Inflammatory bowel disease, gastroparesis, ischemic bowel.) X-Ray, Labs, Meds, VS Vital Signs Date Time Temp Pulse Resp B/P (MAP) Pulse Ox O2 Delivery O2 Flow Rate FiO2 10/22/24 22:15 98.0 96 18 133/90 (104) 99 Lab Test 10/22/24 22:32 Range/Units White Blood Count 5.4 4.4-10.8 10^3/uL Red Blood Count 5.08 4.5-5.90 10^6/uL Hemoglobin 11.9 L 13.5-17.5 g/dL Hematocrit 37.5 L 41.0-53.0 % Mean Corpuscular Volume 73.9 L 80.0-100.0 fL Mean Corpuscular Hemoglobin 23.3 L 28.0-32.0 pg Mean Corpuscular Hemoglobin Concent 31.6 L 32.0-36.0 g/dL Red Cell Distribution Width 20.8 H 11.8-14.3 % Platelet Count 276 140-450 10^3/uL Mean Platelet Volume 8.5 6.9-10.8 fL Neutrophils (%) (Auto) 47.7 37.0-80.0 % Lymphocytes (%) (Auto) 40.7 10.0-50.0 % Monocytes (%) (Auto) 7.0 0.0-12.0 % Eosinophils (%) (Auto) 2.6 0.0-7.0 % Basophils (%) (Auto) 2.0 0.0-2.0 % Neutrophils # (Auto) 2.6 1.6-8.6 10 ^3/uL Lymphocytes # (Auto) 2.2 0.4-5.4 10 ^3/uL Monocytes # (Auto) 0.4 0-1.3 10 ^3/uL Eosinophils # (Auto) 0.1 0-0.8 10 ^3/uL Basophils # (Auto) 0.1 0-0.2 10 ^3/uL Nucleated Red Blood Cells 0.0 % Sodium Level 142 136-145 mmol/L Potassium Level 3.5 3.5-5.1 mmol/L Chloride Level 108 H 98-107 mmol/L Carbon Dioxide Level 23 20-31 mmol/L Anion Gap 11 5-15 Blood Urea Nitrogen 10 9-23 mg/dL Creatinine 1.09 0.700-1.30 mg/dL Glomerular Filtration Rate Calc 87 >90 mL/min BUN/Creatinine Ratio 9.2 L 10.0-20.0 Serum Glucose 103 74-106 mg/dL Lactic Acid Level 1.9 0.4-2.0 mmol/L Calcium Level 9.8 8.7-10.4 mg/dL Magnesium Level 2.1 1.6-2.6 mg/dL Total Bilirubin 0.2 0.2-1.0 mg/dL Aspartate Amino Transferase (AST) 161 H 13-40 U/L Alanine Aminotransferase (ALT) 132 H 7-40 U/L Alkaline Phosphatase 143 H 46-116 U/L Troponin I High Sensitivity 5 </=54 ng/L Total Protein 8.0 5.7-8.2 g/dL Albumin 4.8 3.2-4.8 g/dL Lipase 184 H 12-53 U/L Plasma/Serum Blood Alcohol Pending Current Medications Medications (Trade) Dose Ordered Sig/Shelli Route Start Time Stop Time Status Last Admin Ondansetron HCl (Zofran) 8 mg ONCE ONCE IV 10/22/24 22:30 10/22/24 22:31 DC 10/23/24 01:34 Sodium Chloride 1,000 ml @ 1,000 mls/hr Q1H ONCE IV 10/22/24 22:30 10/22/24 23:29 DC 10/23/24 01:27 Fentanyl Citrate 100 mcg ONCE ONCE IV 10/22/24 22:30 10/22/24 22:31 DC 10/23/24 01:29 [place] [address] Ph: [phone] DIAGNOSTIC IMAGING Diagnostic Imaging Report : [id number] Signed PATIENT: MAYRA ALBARADO ACCT: [id number] UNIT: [id number] : 1980 LOC: ER ROOM / BED: / AGE / SEX: 44 / M ADM STATUS: REG ER SERVICE 18 ORDERING PHYSICIAN: KHANH CRAIG DO PROCEDURE(s): ABPL - CT AB PEL WO CON-NO ORAL OR IV REASON: epig pain/n ORDER NUMBER(s): [id number], ACCESSION NUMBER(s): [id number] Exam: CT CT AB PEL WO CON-NO ORAL OR IV History: epig pain/n Comparison Study: CT CT AB PEL WO CON-NO ORAL OR IV on DOS: 08/25/24, CT CT AB PEL WO CON-NO ORAL OR IV on DOS: 05/06/24, CT CT AB PEL WO CON-NO ORAL OR IV on DOS: 04/27/24, CT CT AB PEL WO CON-NO ORAL OR IV on DOS: 03/27/24, CT CT AB PEL WO CON-NO ORAL OR IV on DOS: 02/13/24 Technique: Multidetector spiral CT of the abdomen was performed from lung bases to pubic symphysis. Imaging was performed without IV contrast. Axial, coronal and sagittal multiplanar reformats were obtained from the axial data set by the technologist. Radiation dose : 1. Abdomen/Pelvis: CTDIvol [CTDIvol] mGy, DLP 702.92 mGy*cm. Findings: Evaluation of solid organs is limited due to lack of intravenous contrast use. Lung Bases: No abnormality demonstrated. Liver: Liver is normal in size. No focal lesions. Gallbladder and Biliary tree: Prior cholecystectomy. No evidence of biliary ductal dilatation. Spleen: Mildly enlarged measuring up to 15.5 cm, stable compared to the prior study. No focal lesion identified. Pancreas: Punctate calcifications again noted in the distal body and tail of the pancreas presumably related to chronic pancreatitis. Redemonstrated is well- circumsribed round low-density/cystic lesion in the region of the pancreatic head measuring up to approximately 7 cm in maximum dimension with mildly thickened wall containing punctate calcification, not significantly changed compared to the prior CT scan from August 2024. Again noted is a smaller round low-density/cystic lesion abutting the gastric fundus and spleen measuring up to 4.5 cm, mildly decreased in size compared to the prior study. Mildly prominent varices again noted in the peripancreatic and perisplenic region. Adrenal Glands: No abnormality demonstrated. Kidneys: Both kidneys demonstrate mild cortical scarring. No evidence of calculus. No hydroureteronephrosis. Bladder: Non distended. Bowel: Stomach appears grossly unremarkable. No dilated or thick-walled loops of large or small bowel noted. Appendix appears unremarkable. Ascites: Absent Lymphadenopathy: No evidence of lymphadenopathy. Abdominal wall and Mesentery: Unremarkable. Vasculature: Unremarkable allowing for lack of intravenous contrast. Pelvic Organs: Unremarkable. Musculoskeletal: No aggressive bony lesions or fracture. IMPRESSION: No acute / new abnormality identified compared to the prior CT scan from 2023. Findings consistent with chronic pancreatitis with 2 low-density / cystic lesions as described above, stable to mildly decreased compared to the prior study Radiation optimization: All CT scans at this facility use at least one of these dose optimization techniques: Automated exposure control mA and/or kV adjustment per patient size (includes targeted exams where dose is matched to clinical indication) or iterative reconstruction. ATED BY: SANTHOSH FAIRBANKS MD DICTATED DATE/TIME: 10/22/242348 SIGNED BY: SANTHOSH FAIRBANKS MD SIGNED DATE/TIME: 10/22/242348 CC: Time of 1ST Reevaluation: 22:43 Reevaluation 1ST: Unchanged Patient Education/Counseling: Diagnosis, Treatment Family Education/Counseling: Diagnosis, Treatment Comments Patient presented with the above HPI.----abdominal pain--workup was initiated. patient was found with the above mentioned diagnosis. the following medications were ordered: please refer to order lists of meds and tests obtained by myself Dr. Craig. Patient ED course and VS have been stabilized. Patient has been reassessed in the ED and remained in a stable condition. Pertinent incidental findings were discussed with the patient and/or family. Patient/family voices understanding and is agreeable with plan. Patient has been observed in the ED adequate length of time to insure improvement/stability. Escalation of care considered: Consideration of escalation to observation or admission Patient was ADMITTED to the medicine team for further evaluation and treatment of their presentation. All the reports of any imaging studies that were ordered by myself were reviewed by myself. Departure 1 Departure Time of Disposition: 23:58 Impression: Primary Impression: Acute pancreatitis Additional Impressions: Elevated LFTs Abnormal finding on CT scan Disposition: ADMITTED INPATIENT Admit to: Tele Condition: Guarded Additional Instructions: [place] [address] Ph: [phone] DIAGNOSTIC IMAGING Diagnostic Imaging Report : [id number] Signed PATIENT: MAYRA ALBARADO ACCT: [id number] UNIT: [id number] : 1980 LOC: ER ROOM / BED: / AGE / SEX: 44 / M ADM STATUS: REG ER SERVICE 2219 ORDERING PHYSICIAN: KHANH CRAIG DO PROCEDURE(s): ABPL - CT AB PEL WO CON-NO ORAL OR IV REASON: epig pain/n ORDER NUMBER(s): [id number], ACCESSION NUMBER(s): [id number] Exam: CT CT AB PEL WO CON-NO ORAL OR IV History: epig pain/n Comparison Study: CT CT AB PEL WO CON-NO ORAL OR IV on DOS: 08/25/24, CT CT AB PEL WO CON-NO ORAL OR IV on DOS: 05/06/24, CT CT AB PEL WO CON-NO ORAL OR IV on DOS: 04/27/24, CT CT AB PEL WO CON-NO ORAL OR IV on DOS: 03/27/24, CT CT AB PEL WO CON-NO ORAL OR IV on DOS: 02/13/24 Technique: Multidetector spiral CT of the abdomen was performed from lung bases to pubic symphysis. Imaging was performed without IV contrast. Axial, coronal and sagittal multiplanar reformats were obtained from the axial data set by the technologist. Radiation dose : 1. Abdomen/Pelvis: CTDIvol [CTDIvol] mGy, DLP 702.92 mGy*cm. Findings: Evaluation of solid organs is limited due to lack of intravenous contrast use. Lung Bases: No abnormality demonstrated. Liver: Liver is normal in size. No focal lesions. Gallbladder and Biliary tree: Prior cholecystectomy. No evidence of biliary ductal dilatation. Spleen: Mildly enlarged measuring up to 15.5 cm, stable compared to the prior study. No focal lesion identified. Pancreas: Punctate calcifications again noted in the distal body and tail of the pancreas presumably related to chronic pancreatitis. Redemonstrated is well- circumsribed round low-density/cystic lesion in the region of the pancreatic head measuring up to approximately 7 cm in maximum dimension with mildly thickened wall containing punctate calcification, not significantly changed compared to the prior CT scan from August 2024. Again noted is a smaller round low-density/cystic lesion abutting the gastric fundus and spleen measuring up to 4.5 cm, mildly decreased in size compared to the prior study. Mildly prominent varices again noted in the peripancreatic and perisplenic region. Adrenal Glands: No abnormality demonstrated. Kidneys: Both kidneys demonstrate mild cortical scarring. No evidence of calculus. No hydroureteronephrosis. Bladder: Non distended. Bowel: Stomach appears grossly unremarkable. No dilated or thick-walled loops of large or small bowel noted. Appendix appears unremarkable. Ascites: Absent Lymphadenopathy: No evidence of lymphadenopathy. Abdominal wall and Mesentery: Unremarkable. Vasculature: Unremarkable allowing for lack of intravenous contrast. Pelvic Organs: Unremarkable. Musculoskeletal: No aggressive bony lesions or fracture. IMPRESSION: No acute / new abnormality identified compared to the prior CT scan from August 2024. Findings consistent with chronic pancreatitis with 2 low-density / cystic l esions as described above, stable to mildly decreased compared to the prior study Radiation optimization: All CT scans at this facility use at least one of these dose optimization techniques: Automated exposure control mA and/or kV adjustment per patient size (includes targeted exams where dose is matched to clinical indication) or iterative reconstruction. ATED BY: SANTHOSH FAIRBANKS MD DICTATED DATE/TIME: 10/22/242348 SIGNED BY: SANTHOSH FAIRBANKS MD SIGNED DATE/TIME: 10/22/242348 CC: Discharged With: Self Critical Care Note Critical Care Time?: Yes (35 min-critical care time only) I personally scribed for KHANH CRAIG DO ([email or web address]) on 10/22/24 at 22:25. Electronically submitted by Gordon Horn ([email or web address]). KHANH CRAIG DO Oct 22, 2024 22:25
[2024-10-22 22:57] LABS: Basophils # (auto) 0.1 10 ^3/uL (0-0.2); White Blood Cell 5.4 10^3/uL (4.4-10.8)
[2024-10-22 22:59] LABS: Eosinophils # (auto) 0.1 10 ^3/uL (0-0.8); Eosinophils % (auto) 2.6 % (0.0-7.0); Hematocrit 37.5 % (41.0-53.0); Hemoglobin 11.9 g/dL (13.5-17.5); Lymphocytes # (auto) 2.2 10 ^3/uL (0.4-5.4); Lymphocytes % (auto) 40.7 % (10.0-50.0); Mean Corpuscular Hemoglobin 23.3 pg (28.0-32.0); Mean Corpuscular Hgb Conc. 31.6 g/dL (32.0-36.0); Mean Corpuscular Volume 73.9 fL (80.0-100.0); Monocytes # (auto) 0.4 10 ^3/uL (0-1.3); Neutrophils # (auto) 2.6 10 ^3/uL (1.6-8.6); Neutrophils % (auto) 47.7 % (37.0-80.0); Platelet Count (auto) 276 10^3/uL (140-450); Red Blood Cells 5.08 10^6/uL (4.5-5.90)
[2024-10-22 23:11] LABS: Albumin 4.8 g/dL (3.2-4.8); Anion Gap 11 (5-15); BUN/Creatinine Ratio 9.2 (10.0-20.0); Blood Urea Nitrogen 10 mg/dL (9-23); Calcium 9.8 mg/dL (8.7-10.4); Carbon Dioxide 23 mmol/L (20-31); Glucose 103 mg/dL (74-106); Magnesium 2.1 mg/dL (1.6-2.6); Potassium 3.5 mmol/L (3.5-5.1); Sodium 142 mmol/L (136-145)
[2024-10-22 23:18] LABS: Red Cell Distribution Width 20.8 % (11.8-14.3)
[2024-10-22 23:19] LABS: Alanine Aminotransferase 132 U/L (7-40); Alkaline Phosphatase 143 U/L (46-116); Aspartate Aminotransferase 161 U/L (13-40); Bilirubin, Total 0.2 mg/dL (0.2-1.0); Chloride 108 mmol/L (98-107); Lipase 184 U/L (12-53)
--- NOTE | 2024-10-22 23:51 | DVH ---
Exam: CT CT AB PEL WO CON-NO ORAL OR IV History: epig pain/n Comparison Study: CT CT AB PEL WO CON-NO ORAL OR IV on DOS: 08/25/24, CT CT AB PEL WO CON-NO ORAL OR IV on DOS: 05/06/24, CT CT AB PEL WO CON-NO ORAL OR IV on DOS: 04/27/24, CT CT AB PEL WO CON-NO ORAL OR IV on DOS: 03/27/24, CT CT AB PEL WO CON-NO ORAL OR IV on DOS: 02/13/24 Technique: Multidetector spiral CT of the abdomen was performed from lung bases to pubic symphysis. Imaging was performed without IV contrast. Axial, coronal and sagittal multiplanar reformats were ob tained from the axial data set by the technologist. Radiation dose : 1. Abdomen/Pelvis: CTDIvol [CTDIvol] mGy, DLP 702.92 mGy*cm. Findings: Evaluation of solid organs is limited due to lack of intravenous contrast use. Lung Bases: No abnormality demonstrated. Liver: Liver is normal in size. No focal lesions. Gallbladder and Biliary tree: Prior cholecystectomy. No evidence of biliary ductal dilatation. Spleen: Mildly enlarged measuring up to 15.5 cm, stable compared to the prior study. No focal lesion identified. Pancreas: Punctate calcifications again noted in the distal body and tail of the pancreas presumably related to chronic pancreatitis. Redemonstrated is well-circumsribed round low-density/cystic lesion in the region of the pancreatic head measuring up to approximately 7 cm in maximum dimension with mil dly thickened wall containing punctate calcification, not significantly changed compared to the prior CT scan from August 2024. Again noted is a smaller round low-density/cystic lesion abutting the gastric fundus and spleen measuring up to 4.5 cm, mildly decreased in size compared to the prior stud y. Mildly prominent varices again noted in the peripancreatic and perisplenic region. Adrenal Glands: No abnormality demonstrated. Kidneys: Both kidneys demonstrate mild cortical scarring. No evidence of calculus. No hydroureteronep hrosis. Bladder: Non distended. Bowel: Stomach appears grossly unremarkable. No dilated or thick-walled loops of large or small bowel noted. Appendix appears unremarkable. Ascites: Absent Lymphadenopathy: No evidence of lymphadenopathy. Abdominal wall and Mesentery: Unremarkable. Vasculature: Unremarkable allowing for lack of intravenous contrast. Pelvic Organs: Unremarkable. Musculoskeletal: No aggressive bony lesions or fracture. IMPRESSION: No acute / new abnormality identified compared to the prior CT scan from August 2024. Findings consistent with chronic pancreatitis with 2 low-density / cystic lesions as described above, stable to mildly decreased compared to the prior study Radiation optimization: All CT scans at this facility use at least one of these dose optimization naomy hniques: Automated exposure control mA and/or kV adjustment per patient size (includes targeted exams where dose is matched to clinical indication) or iterative reconstruction.
--- NOTE | 2024-10-23 01:07 | DVHHPRES ---
History of Present Illness Resident Creating Document: VLADIMIR WHITE RESIDENT Reason for Visit: Abdominal pain and nausea History of Present Illness This is a 44-year-old male who presents to the ED with chief complain of abdominal pain and nausea. He has a past medical history relevant for chronic pancreatitis with pseudocyst, he was last hospitalized here in August, he was due to have an endoscopic drainage in [facility] by the end of August 2024. He has a history of heavy alcohol abuse, smoking, denies any illicit drug use. Patient states that since 24 hours ago he started having severe abdominal pain, epigastric, stabbing like, radiated to the back, associated with nausea and low appetite. Denies any chest pain, shortness of breath, lightheadedness, diarrhea, constipation. Patient currently denies any chills, fever, general malaise, any recent sick contacts. Patient states that he went to [facility] on September 09 however they stated that the pancreatic pseudocysts are diminishing in size , hence, they postponed the endoscopic drainage. The ED patient received 1 L normal saline, Zofran IV and fentanyl IV. He also had a CT abdomen without consult which revealed changes associated with chronic pancreatitis and to pancreatic cysts, which are smaller than last time. Liver enzymes are elevated, lipase is elevated at 185. He has mild anemia. Patient was admitted for further investigation and management. Smoke: <1 pack per day ALCOHOL: heavy Drugs: None Lives: with Family Review of Systems Constitutional: Yes: Malaise Eyes: No: Pain, Vision change, Conjunctivae inflammation, Eyelid inflammation, Other, Redness ENT: No: Ear pain, Ear discharge, Nose pain, Nose discharge, Nose congestion, Mouth pain, Mouth swelling, Throat pain, Throat swelling, Other Respiratory: No: Cough, Dry, Shortness of breath, SOB with excertion, Wheezing, Hemoptysis, Pleuritic Pain, Sputum, Wheezing, Other Cardiovascular: No: Chest Pain, Palpitations, Orthopnea, Paroxysmal Noc. Dyspnea, Edema, Lt Headedness, Other Gastrointestinal: Nausea, Abdominal Pain; No: Vomiting, Diarrhea, Constipation, Melena, Hematochezia, Other Genitourinary: No Dysuria, No Frequency, No Incontinence, No Hematuria, No Retention, No Other Musculoskeletal: No: other, neck pain, shoulder pain, arm pain, back pain, hand pain, leg pain, foot pain Skin: No: Rash, Lesions, Jaundice, Bruising, Other Neurological: No: Weakness, Numbness, Incoordination, Change in speech, Confusion, Seizures, Other Allergies: Coded Allergies: NO KNOWN ALLERGIES (Unverified , 06/01/23) Medications Current Medications Medications Dose Ordered Sig/Shelli Route Start Time Stop Time Status Last Admin Dose Admin Morphine Sulfate 1 mg Q4HP PRN IV 10/23/24 01:15 UNV Ondansetron HCl 4 mg Q4HPRN PRN IV 10/23/24 01:15 UNV Exam Vital Signs Vital Signs Date Time Temp Pulse Resp B/P (MAP) Pulse Ox O2 Delivery O2 Flow Rate FiO2 10/22/24 22:15 98.0 96 18 133/90 (104) 99 General Appearance: Alert, Oriented X3, Cooperative, No acute distress, moderate distress HEENT: Atraumatic, PERRLA, EOMI Respiratory: Clear to auscultation, Normal air movement Cardiovascular: Regular rate, Normal S1, Normal S2, No murmurs Abdominal: Normal bowel sounds, Soft, Other (Three tenderness to palpation in epigastric region) Extremities: No clubbing, No cyanosis, No edema, Normal pulses, No tenderness/swelling Skin: No rashes, No breakdown, No significant lesion Neuro: Normal gait, Normal speech, Strength at 5/5 X4 ext, Normal tone, Sensation intact Psych/Mental Status: Mental status NL, Mood NL Labs/Xrays Labs Test 10/22/24 22:32 Range/Units White Blood Count 5.4 4.4-10.8 10^3/uL Red Blood Count 5.08 4.5-5.90 10^6/uL Hemoglobin 11.9 L 13.5-17.5 g/dL Hematocrit 37.5 L 41.0-53.0 % Mean Corpuscular Volume 73.9 L 80.0-100.0 fL Mean Corpuscular Hemoglobin 23.3 L 28.0-32.0 pg Mean Corpuscular Hemoglobin Concent 31.6 L 32.0-36.0 g/dL Red Cell Distribution Width 20.8 H 11.8-14.3 % Platelet Count 276 140-450 10^3/uL Mean Platelet Volume 8.5 6.9-10.8 fL Neutrophils (%) (Auto) 47.7 37.0-80.0 % Lymphocytes (%) (Auto) 40.7 10.0-50.0 % Monocytes (%) (Auto) 7.0 0.0-12.0 % Eosinophils (%) (Auto) 2.6 0.0-7.0 % Basophils (%) (Auto) 2.0 0.0-2.0 % Neutrophils # (Auto) 2.6 1.6-8.6 10 ^3/uL Lymphocytes # (Auto) 2.2 0.4-5.4 10 ^3/uL Monocytes # (Auto) 0.4 0-1.3 10 ^3/uL Eosinophils # (Auto) 0.1 0-0.8 10 ^3/uL Basophils # (Auto) 0.1 0-0.2 10 ^3/uL Nucleated Red Blood Cells 0.0 % Sodium Level 142 136-145 mmol/L Potassium Level 3.5 3.5-5.1 mmol/L Chloride Level 108 H 98-107 mmol/L Carbon Dioxide Level 23 20-31 mmol/L Anion Gap 11 5-15 Blood Urea Nitrogen 10 9-23 mg/dL Creatinine 1.09 0.700-1.30 mg/dL Glomerular Filtration Rate Calc 87 >90 mL/min BUN/Creatinine Ratio 9.2 L 10.0-20.0 Serum Glucose 103 74-106 mg/dL Lactic Acid Level 1.9 0.4-2.0 mmol/L Calcium Level 9.8 8.7-10.4 mg/dL Magnesium Level 2.1 1.6-2.6 mg/dL Total Bilirubin 0.2 0.2-1.0 mg/dL Aspartate Amino Transferase (AST) 161 H 13-40 U/L Alanine Aminotransferase (ALT) 132 H 7-40 U/L Alkaline Phosphatase 143 H 46-116 U/L Troponin I High Sensitivity 5 </=54 ng/L Total Protein 8.0 5.7-8.2 g/dL Albumin 4.8 3.2-4.8 g/dL Lipase 184 H 12-53 U/L Assessment/Plan Assessment/Plan #Acute on chronic pancreatitis, likely related to alcohol abuse #Pancreatic pseudocysts (2), 1st is around 7cm, 2nd is around 4.5cm CT Abdomen reviewed Lipase at 185 NPO except ice chips Morphine 1 mg q.4 p.r.n. Zofran 4 mg q.4 p.r.n. 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 Full code Case was discussed with Dr. Banuelos Plan discussed with: Patient My Orders Orders - VLADIMIR WHITE RESIDENT Procedure Category Date Status Time Admit ADMIT 10/23/24 Transmitted 01:02 Notify Of Changes LISA 10/23/24 In Process From Base 01:02 Morphine Sulfate PHA 10/23/24 Logged Injection 01:15 Ondansetron Hcl PHA 10/23/24 Logged (Zofran) 01:15 Lactated Ringer's PHA 10/23/24 Logged 01:15 Npo Except Ice Chips ORDERS 10/23/24 Transmitted 01:02 Date of Service: Oct 23, 2024 Billing Provider: THALIA BANUELOS MD Common Visit Codes: [id number] INP/OBS CARE (HIGH) VLADIMIR WHITE RESIDENT Oct 23, 2024 01:07 THALIA BANUELOS MD Oct 26, 2024 14:51
[2024-10-23] MEDS ORDERED: MORPHINE SULFATE INJ 2 MG/ml SYRG IV PRN (01:15)
[2024-10-23] MEDS: SODIUM CHLORIDE 0.9% 1,000 ML IV ONE (01:27)
[2024-10-23] MEDS: fentaNYL CITRATE 100 MCG/2 ML VL IV ONE (01:29)
[2024-10-23] MEDS: ONDANSETRON HCL 4 MG/2 ML VIAL IV ONE (01:34)
[2024-10-23] MEDS: LACTATED RINGER'S 1,000 ML IV ONE ×2 (01:35→04:00)
--- NOTE | 2024-10-23 02:57 | DVH ---
Examination: LIVUS CLINICAL INDICATION: transaminitis COMPARISON: None. TECHNIQUE: Using real-time ultrasonic imaging, the abdomen was examined. FINDINGS: Liver: Liver measures 17.1 cm with heterogeneous coarse echotexture and subtle surface nodularity, l ikely indicative of liver parenchymal disease. No evidence of intrahepatic ductal dilatation. Hepatic veins are patent. Main portal vein shows normal hepatopetal flow. Hepatopetal flow noted in the right femoral vein. Gallbladder: Gallbladder is not visualized. Pancreas: An ill-defined cystic lesion measuring 8.1 x 6.1 x 7.0 cm is seen in the region of the carbajal creas, probable cirrhosis. Further evaluation with contrast-enhanced CT scan is suggested. Right Kidney: Measures 10.9 cm. No renal calculus or hydronephrosis. No renal mass or cyst. IMPRESSION: 1. Hepatomegaly (17.1 cm) with heterogeneous coarse echotexture and subtle surface nodularity, proba ble liver parenchymal disease. 2. Ill-defined cystic lesion in the pancreatic region (8.1 x 6.1 x 7.0 cm), probable cirrhosis. Fur ther evaluation with contrast-enhanced CT scan is recommended. 3. Gallbladder is not visualized. 4. Right kidney is normal in size, with no evidence of calculi, hydronephrosis or masses. Electronically Signed 10/23/2024 02:56 Cecilia Mahmood
[2024-10-23 03:35] LABS: Amphetamine Screen, Urine Neg (NEGATIVE); Barbiturate Scree,Urine Neg (NEGATIVE); Cannabinoid Screen, Urine Neg (NEGATIVE); Cocaine Screen, Urine Neg (NEGATIVE); Opiate Scree,Urine Neg (NEGATIVE); Phencyclidine Screen, Urine Neg (NEGATIVE)
[2024-10-23 03:36] LABS: Urine Bacteria FEW /hpf (None Seen); Urine Blood Negative /uL (Negative); Urine Clarity Clear (Clear); Urine Color Light-Yellow (Yellow); Urine Mucus FEW (None Seen); Urine Protein, UAD Negative (Negative); Urine Specific Gravity 1.018 (1.001-1.035); Urine Squamous Epithelial Cell FEW /hpf (<5); Urine Urobilinogen Normal (Negative); Urine WBC 1 /HPF (0-3)
[2024-10-23 04:04] LABS: Benzodiazephine Screen, Urine Neg (NEGATIVE)
[2024-10-23 04:34] LABS: Basophils # (auto) 0.1 10 ^3/uL (0-0.2); Basophils % (auto) 1.7 % (0.0-2.0); Eosinophils # (auto) 0.1 10 ^3/uL (0-0.8); Eosinophils % (auto) 3.5 % (0.0-7.0); Hematocrit 32.3 % (41.0-53.0); Hemoglobin 10.3 g/dL (13.5-17.5); Lymphocytes # (auto) 1.3 10 ^3/uL (0.4-5.4); Lymphocytes % (auto) 38.3 % (10.0-50.0); Mean Corpuscular Hemoglobin 23.8 pg (28.0-32.0); Mean Corpuscular Hgb Conc. 31.9 g/dL (32.0-36.0); Mean Corpuscular Volume 74.6 fL (80.0-100.0); Monocytes # (auto) 0.3 10 ^3/uL (0-1.3); Monocytes % (auto) 7.6 % (0.0-12.0); Neutrophils # (auto) 1.7 10 ^3/uL (1.6-8.6); Neutrophils % (auto) 48.9 % (37.0-80.0); Nucleated Red Blood Cells % 0.1 %; Platelet Count (auto) 173 10^3/uL (140-450); Red Blood Cells 4.34 10^6/uL (4.5-5.90); White Blood Cell 3.4 10^3/uL (4.4-10.8)
[2024-10-23 04:36] LABS: Red Cell Distribution Width 20.4 % (11.8-14.3)
[2024-10-23 04:47] LABS: Albumin 4.4 g/dL (3.2-4.8); Anion Gap 10 (5-15); BUN/Creatinine Ratio 12.2 (10.0-20.0); Blood Urea Nitrogen 11 mg/dL (9-23); Calcium 9.2 mg/dL (8.7-10.4); Carbon Dioxide 25 mmol/L (20-31); Glucose 96 mg/dL (74-106); Sodium 143 mmol/L (136-145)
[2024-10-23 04:48] LABS: Total Protein 7.2 g/dL (5.7-8.2)
[2024-10-23 04:51] LABS: Alanine Aminotransferase 122 U/L (7-40); Alkaline Phosphatase 120 U/L (46-116); Aspartate Aminotransferase 138 U/L (13-40); Bilirubin, Total 0.2 mg/dL (0.2-1.0); Chloride 108 mmol/L (98-107); Lipase 116 U/L (12-53)
[2024-10-23 07:12] LABS: INR 1.05 (0.9-1.15); Partial Thromboplastin Time 25.6 SEC (24.5-34.5); Prothrombin Time 11.1 sec (9.3-11.8)
[2024-10-23] MEDS: ONDANSETRON HCL 4 MG/2 ML VIAL IV PRN (08:32)
[2024-10-23] MEDS: PANTOPRAZOLE 40 MG/10 ML VIAL INJ IV SCH (10:37)
[2024-10-23] MEDS: MORPHINE SULFATE INJ 2 MG/ml SYRG IV PRN (10:39)
[2024-10-23 14:16] VITALS: BP 132/91; PULSE 73; RESP 22; TEMP 98.2; O2SAT 97
--- NOTE | 2024-10-23 17:20 | DVHDSRES ---
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 #Alcohol abuse #Nicotine dependence #Anemia, microcytic hypochromic, mild Wounds: none Labs/Diagnostic Data: Laboratory Results Test 10/23/24 03:43 10/23/24 01:15 10/22/24 22:32 White Blood Count 3.4 10^3/uL (4.4-10.8) Red Blood Count 4.34 10^6/uL (4.5-5.90) Hemoglobin 10.3 g/dL (13.5-17.5) Hematocrit 32.3 % (41.0-53.0) Mean Corpuscular Volume 74.6 fL (80.0-100.0) Mean Corpuscular Hemoglobin 23.8 pg (28.0-32.0) Mean Corpuscular Hemoglobin Concent 31.9 g/dL (32.0-36.0) Red Cell Distribution Width 20.4 % (11.8-14.3) Platelet Count 173 10^3/uL (140-450) Mean Platelet Volume 8.6 fL (6.9-10.8) Neutrophils (%) (Auto) 48.9 % (37.0-80.0) Lymphocytes (%) (Auto) 38.3 % (10.0-50.0) Monocytes (%) (Auto) 7.6 % (0.0-12.0) Eosinophils (%) (Auto) 3.5 % (0.0-7.0) Basophils (%) (Auto) 1.7 % (0.0-2.0) Neutrophils # (Auto) 1.7 10 ^3/uL (1.6-8.6) Lymphocytes # (Auto) 1.3 10 ^3/uL (0.4-5.4) Monocytes # (Auto) 0.3 10 ^3/uL (0-1.3) Eosinophils # (Auto) 0.1 10 ^3/uL (0-0.8) Basophils # (Auto) 0.1 10 ^3/uL (0-0.2) Nucleated Red Blood Cells 0.1 % Prothrombin Time 11.1 sec (9.3-11.8) Prothrombin Time INR 1.05 (0.9-1.15) Activated Partial Thromboplast Time 25.6 SEC (24.5-34.5) Sodium Level 143 mmol/L (136-145) Potassium Level 4.0 mmol/L (3.5-5.1) Chloride Level 108 mmol/L (98-107) Carbon Dioxide Level 25 mmol/L (20-31) Anion Gap 10 (5-15) Blood Urea Nitrogen 11 mg/dL (9-23) Creatinine 0.90 mg/dL (0.700-1.30) Glomerular Filtration Rate Calc 109 mL/min (>90) BUN/Creatinine Ratio 12.2 (10.0-20.0) Serum Glucose 96 mg/dL (74-106) Calcium Level 9.2 mg/dL (8.7-10.4) Total Bilirubin 0.2 mg/dL (0.2-1.0) Aspartate Amino Transferase (AST) 138 U/L (13-40) Alanine Aminotransferase (ALT) 122 U/L (7-40) Alkaline Phosphatase 120 U/L (46-116) Total Protein 7.2 g/dL (5.7-8.2) Albumin 4.4 g/dL (3.2-4.8) Lipase 116 U/L (12-53) Urine Color Light-yellow (Yellow) Urine Clarity Clear (Clear) Urine pH 5.0 (5.0-9.0) Urine Specific Walker 1.018 (1.001-1.035) Urine Protein Negative (Negative) Urine Ketones Negative (Negative) Urine Blood Negative /uL (Negative) Urine Nitrite Negative (Negative) Urine Bilirubin Negative (Negative) Urine Urobilinogen Normal mg/dL (Negative) Urine Leukocyte Esterase 1+ /uL (Negative) Urine RBC 1 /hpf (0 - 3) Urine Microscopic WBC 1 /HPF (0-3) Urine Squamous Epithelial Cells Few /hpf (<5) Urine Bacteria Few /hpf (None Seen) Urine Mucus Few (None Seen) Urine Glucose Normal mg/dL (Normal) Urine Opiates Screen Neg (NEGATIVE) Urine Fentanyl Screen Pos (NEGATIVE) Urine Barbiturates Screen Neg (NEGATIVE) Urine Phencyclidine Screen Neg (NEGATIVE) Urine Amphetamines Screen Neg (NEGATIVE) Urine Benzodiazepines Screen Neg (NEGATIVE) Urine Cocaine Screen Neg (NEGATIVE) Urine Cannabinoids Screen Neg (NEGATIVE) Lactic Acid Level 1.9 mmol/L (0.4-2.0) Magnesium Level 2.1 mg/dL (1.6-2.6) Troponin I High Sensitivity 5 ng/L (</=54) Plasma/Serum Blood Alcohol 251.8 mg/dL (<10) Other Laboratory Tests 10/23/24 03:43 Brief Hx & Hospital Course: HPI This is a 44-year-old male who presents to the ED with chief complain of abdominal pain and nausea. He has a past medical history relevant for chronic pancreatitis with pseudocyst, he was last hospitalized here in August, he was due to have an endoscopic drainage in [facility] by the end of August 2024. He has a history of heavy alcohol abuse, smoking, denies any illicit drug use. Patient states that since 24 hours ago he started having severe abdominal pain, epigastric, stabbing like, radiated to the back, associated with nausea and low appetite. Denies any chest pain, shortness of breath, lightheadedness, diarrhea, constipation. Patient currently denies any chills, fever, general malaise, any recent sick contacts. Patient states that he went to [facility] on September 09 however they stated that the pancreatic pseudocysts are diminishing in size , hence, they postponed the endoscopic drainage. Hospital course Patient likely has acute on chronic pancreatitis likely alcohol induced with characterstic pain in the epigastrium radiating to the back and lipase levels 3 times the upper limit of normal. patient was put NPO and fluids. patient needed further inpatient monitoring and had to be kept NPO but he Left AMA and understood the risks and was advised to call EMS or go to ER in case of severe pain. Consults/Reason for consult none Operations or Procedures CT abd pelvis without contrast Findings: Evaluation of solid organs is limited due to lack of intravenous contrast use. Lung Bases: No abnormality demonstrated. Liver: Liver is normal in size. No focal lesions. Gallbladder and Biliary tree: Prior cholecystectomy. No evidence of biliary ductal dilatation. Spleen: Mildly enlarged measuring up to 15.5 cm, stable compared to the prior study. No focal lesion identified. Pancreas: Punctate calcifications again noted in the distal body and tail of the pancreas presumably related to chronic pancreatitis. Redemonstrated is well- circumsribed round low-density/cystic lesion in the region of the pancreatic head measuring up to approximately 7 cm in maximum dimension with mildly thickened wall containing punctate calcification, not significantly changed compared to the prior CT scan from August 2024. Again noted is a smaller round low-density/cystic lesion abutting the gastric fundus and spleen measuring up to 4.5 cm, mildly decreased in size compared to the prior study. Mildly prominent varices again noted in the peripancreatic and perisplenic region. Adrenal Glands: No abnormality demonstrated. Kidneys: Both kidneys demonstrate mild cortical scarring. No evidence of calculus. No hydroureteronephrosis. Bladder: Non distended. Bowel: Stomach appears grossly unremarkable. No dilated or thick-walled loops of large or small bowel noted. Appendix appears unremarkable. Ascites: Absent Lymphadenopathy: No evidence of lymphadenopathy. Abdominal wall and Mesentery: Unremarkable. Vasculature: Unremarkable allowing for lack of intravenous contrast. Pelvic Organs: Unremarkable. Musculoskeletal: No aggressive bony lesions or fracture. IMPRESSION: No acute / new abnormality identified compared to the prior CT scan from August 2024. Findings consistent with chronic pancreatitis with 2 low-density / cystic lesions as described above, stable to mildly decreased compared to the prior study Liver US FINDINGS: Liver: Liver measures 17.1 cm with heterogeneous coarse echotexture and subtle surface nodularity, likely indicative of liver parenchymal disease. No evidence of intrahepatic ductal dilatation. Hepatic veins are patent. Main portal vein shows normal hepatopetal flow. Hepatopetal flow noted in the right femoral vein. Gallbladder: Gallbladder is not visualized. Pancreas: An ill-defined cystic lesion measuring 8.1 x 6.1 x 7.0 cm is seen in the region of the pancreas, probable cirrhosis. Further evaluation with contrast-enhanced CT scan is suggested. Right Kidney: Measures 10.9 cm. No renal calculus or hydronephrosis. No renal mass or cyst. IMPRESSION: 1. Hepatomegaly (17.1 cm) with heterogeneous coarse echotexture and subtle surface nodularity, probable liver parenchymal disease. 2. Ill-defined cystic lesion in the pancreatic region (8.1 x 6.1 x 7.0 cm), probable cirrhosis. Further evaluation with contrast-enhanced CT scan is recommended. 3. Gallbladder is not visualized. 4. Right kidney is normal in size, with no evidence of calculi, hydronephrosis or masses. 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 Patient was counseled about treatment plan, medications, possible side effects, patientverbalized understanding. All questions were answered to the best of my ability. This discharge took greater then 30 minutes in planning, reviewing documentation, counseling the patient, and discussing with other team members." ASSESSMENT ASSESSMENT Assessment Date of Service: Oct 23, 2024 Billing Provider: THALIA BANUELOS MD Common Visit Codes: [id number] DISCH DAY >30min KALPANA IBARRA RESIDENT Oct 23, 2024 17:20 THALIA BANUELOS MD Oct 26, 2024 14:52
== END 2024-10-23 14:15 | disposition left against medical advice (07) | DRG 282 ==
LOC: ER 22:03 → OVERFLOW 10-23 01:02
PROVIDERS: ADMIT Student in an Organized Health Care Education/Training Program; ATTEND Emergency Medicine
DX: K85.20 Alcohol induced acute pancreatitis without necrosis or infection (principal); D50.9 Iron deficiency anemia, unspecified; F10.10 Alcohol abuse, uncomplicated; F17.200 Nicotine dependence, unspecified, uncomplicated; I10 Essential (primary) hypertension; K86.1 Other chronic pancreatitis; R74.01 Elevation of levels of liver transaminase levels; Z53.29 Procedure and treatment not carried out because of patient's decision for other reasons; K86.3 Pseudocyst of pancreas; Y90.9 Presence of alcohol in blood, level not specified; Z90.49 Acquired absence of other specified parts of digestive tract
CPT/HCPCS: 36415; 74176; 76705; 80053; 80307; 80320; 81001; 83605; 83690; 83735; 84484; 85025; 85610; 85730; 99291; G0378; J2405; J2470

== ENCOUNTER 2025-05-20 15:27 | Inpatient (IN) | payer MEDICAID ==
[~2025-05-20] VITALS: Ht 172.7 cm; Wt 94.8 kg
--- NOTE | 2025-05-20 16:02 | ED.PDOC ---
GI ASSESSMENT HPI Comments This is a 44 year old male presenting to the ED with chief complaint of abdominal pain. Patient reports that he has been experiencing 8/10 periumbilical abdominal pain with associated nausea since this morning. Patient relays that he has history of pancreatitis from drinking about 2 months ago. Patient denies any vomiting, diarrhea, fever, chills, chest pain, or hematemesis. Chief Complaint: Abdominal Pain Time Seen by MD: 16:00 Primary Care Provider: UNKNOWN Reviewed Notes: Nurses Notes, Medications, Allergies Allergies: Coded Allergies: NO KNOWN ALLERGIES (Unverified , 06/01/23) Home Meds Active Scripts Ondansetron Odt 4MG Tab (ZOFRAN PO) 4 Mg Tb, 4 MG PO TIDPRN PRN for 10 Days, #30 TAB 0 Refills ODT TAB-DISSOLVE IN MOUTH, THEN SWALLOW Prov:KALPANA IBARRA 08/27/24 Amoxicillin & Pot Clavulanate (AUGMENTIN TABLET) 875 Mg Tb, 875 MG PO BID for 5 Days, #10 TAB 0 Refills Prov:KALPANA IBARRA 08/27/24 Pantoprazole Sodium Sesquihydr (Protonix) 40 Mg Tab, 40 MG PO DAILY for 30 Days, #30 TAB 0 Refills Prov:KALPANA IBARRA 08/27/24 Hydrocodone-Acetaminophen (Hydrocodone Bitartrate/AC 5-325 mg) 1 Tab Tab, 1 TAB PO TIDPRN PRN for 5 Days, #15 TAB 0 Refills Prov:RASHEED VIERA MD 08/27/24 Acetaminophen (Acetaminophen Er) 650 Mg Tab, 650 MG PO Q6HPRN PRN for 10 Days, #40 TAB Prov:VANDANA POE 07/09/24 Oxycodone W/ Acetaminophen (Percocet 5/325MG) 1 Tab Tb, 1 TAB PO TID for 5 Days, #15 TAB Prov:DIEGO AMOS NP 04/29/24 Information Source: Patient Mode of Arrival: Ambulatory Timing: Hours Duration: Since onset Prehospital treatment: None Quality: Sharp Vomitus: None Stool: Normal Severity: Moderate Recent: None Recent Hx of: None Pain Location: Periumbilical Modifying Factors: Nothing Associated sign and symptoms: Nausea, Abdominal Pain Past Medical History PAST MEDICAL HISTORY: HTN Past Medical History (Other): Pancreatitis Surgical History: Cholecystectomy Family History Family History: Reviewed,noncontributory to illness Social History Smoker: Non-Smoker Alcohol: Sober Drugs: Denies Drug Use Lives In: Home Constitutional: denies: chills, diaphoresis, fatigue, fever, malaise, sweats, weakness, others EENTM: denies: blurred vision, double vision, ear bleeding, ear discharge, ear drainage, ear pain, ear ringing, eye pain, eye redness, hearing loss, mouth pain, mouth swelling, nasal discharge, nose bleeding, nose congestion, nose pain, photophobia, tearing, throat pain, throat swelling, voice changes, others Respiratory: denies: cough, hemoptysis, orthopnea, SOB at rest, shortness of breath, SOB with excertion, stridor, wheezing, others Cardiovascular: denies: chest pain, dizzy spells, diaphoresis, Dyspnea on exertion, edema, irregular heart beat, left arm pain, lightheadedness, palpitations, PND, syncope, others Gastrointestinal: reports: abdominal pain, nausea; denies: abdomen distended, blood streaked bowels, constipated, diarrhea, dysphagia, difficulty swallowing, hematemesis, melena, poor appetite, poor fluid intake, rectal bleeding, rectal pain, vomiting, others Genitourinary: denies: burning, dysuria, flank pain, frequency, hematuria, incontinence, penile discharge, penile sore, pain, testicle pain, testicle swelling, urgency, others Neurological: denies: dizziness, fainting, headache, left sided numbness, left sided weakness, numbness, paresthesia, pre-existing deficit, right sided numbness, right sided weakness, seizure, speech problems, tingling, tremors, we akness, others Musculoskeletal: denies: back pain, gout, joint pain, joint swelling, muscle pain, muscle stiffness, neck pain, others Integumetry: denies: bruises, change in color, change in hair/nails, dryness, laceration, lesions, lumps, rash, wounds, others Allergic/Immunocompromised: denies: Difficulty Healing, Frequent Infections, Hives, Itching, others Hematologic/Lymphatic: denies: anemia, blood clots, easy bleeding, easy bruising, swollen glands, others Endocrine: denies: excessive hunger, excessive sweating, excessive thirst, excessive urination, flushing, intolerance to cold, intolerance to heat, unexplained weight gain, unexplained weight loss, others Psychiatric: denies: anxiety, bipolar disorder, depression, hopeless, panic disorder, schizophrenia, sleepless, suicidal, others All Other Systems: Reviewed and Negative Physical Exam General Appearance: Mild Distress, Moderate Distress, Normal HEENT: Normal ENT Inspection, Pale Conjuntivae (R), PERRL/EOMI Neck: Full Range of Motion, Non-Tender, Normal, Normal Inspection Respiratory: Chest Non-Tender, Lungs Clear, No Accessory Muscle Use, No Respiratory Distress, Normal Breath Sounds Cardiovascular: No Edema, No JVD, No Murmur, No Gallop, Normal Peripheral Pulses, Regular Rate/Rhythm Breast Exam: Deferred Gastrointestinal: Diffuse, Epigastric, Tenderness Genitalia: Deferred Pelvic: Deferred Rectal: Deferred Extremities: No calf tenderness, Normal capillary refill, Normal inspection, Normal range of motion, Non-tender, No pedal edema Neurologic: Alert, area attendant II-XII nml as Tested, No Motor Deficits, Normal Affect, Normal Mood, No Sensory Deficits Cerebellar Function: Normal Reflexes: Normal Skin: Dry, Normal Color, Warm Peripheral Pulses: 1+ carotid (R), 1+ carotid (L) Lymphatic: No Adenopathy Was a procedure done? Was a procedure done?: No GI differential Dx Differential Diagnosis: Gastritis/PUD, Pancreatitis, Dehydration, Electrolyte Imbalance, Hypovolemia X-Ray, Labs, Meds, VS Vital Signs Date Time Temp Pulse Resp B/P (MAP) Pulse Ox O2 Delivery O2 Flow Rate FiO2 05/20/25 15:31 99.0 102 18 139/94 100 99.0 Lab Test 05/20/25 16:09 Range/Units White Blood Count 8.3 4.4-10.8 10^3/uL Red Blood Count 5.61 4.5-5.90 10^6/uL Hemoglobin 11.2 L 13.5-17.5 g/dL Hematocrit 36.9 L 41.0-53.0 % Mean Corpuscular Volume 65.8 L 80.0-100.0 fL Mean Corpuscular Hemoglobin 20.0 L 28.0-32.0 pg Mean Corpuscular Hemoglobin Concent 30.4 L 32.0-36.0 g/dL Red Cell Distribution Width 20.0 H 11.8-14.3 % Platelet Count 245 140-450 10^3/uL Mean Platelet Volume 8.9 6.9-10.8 fL Neutrophils (%) (Auto) 80.4 H 37.0-80.0 % Lymphocytes (%) (Auto) 10.9 10.0-50.0 % Monocytes (%) (Auto) 7.0 0.0-12.0 % Eosinophils (%) (Auto) 1.0 0.0-7.0 % Basophils (%) (Auto) 0.7 0.0-2.0 % Neutrophils # (Auto) 6.6 1.6-8.6 10 ^3/uL Lymphocytes # (Auto) 0.9 0.4-5.4 10 ^3/uL Monocytes # (Auto) 0.6 0-1.3 10 ^3/uL Eosinophils # (Auto) 0.1 0-0.8 10 ^3/uL Basophils # (Auto) 0.1 0-0.2 10 ^3/uL Nucleated Red Blood Cells 0.0 % Sodium Level 138 136-145 mmol/L Potassium Level 4.1 3.5-5.1 mmol/L Chloride Level 102 98-107 mmol/L Carbon Dioxide Level 26 20-31 mmol/L Anion Gap 10 5-15 Blood Urea Nitrogen 11 9-23 mg/dL Creatinine 1.12 0.700-1.30 mg/dL Glomerular Filtration Rate Calc 84 >90 mL/min BUN/Creatinine Ratio 9.8 L 10.0-20.0 Serum Glucose 103 74-106 mg/dL Calcium Level 8.8 8.7-10.4 mg/dL Lipase 114 H 12-53 U/L X-Ray, Labs, Meds, VS Comment COURSE IN THE EMERGENCY DEPARTMENT EVENTFUL PATIENT CAME IN WITH A ACUTE ABDOMINAL PAIN IN HIS HISTORY OF PANCREATITIS CBC 8300 WITH 80% NEUTROPHILS H&H 11 AND 37 WITH MICROCYTOSIS LIPASE ELEVATED AT 114 PATIENT WILL BE ADMITTED FOR HYDRATION Time of 1ST Reevaluation: 17:00 Reevaluation 1ST: Improved Patient Education/Counseling: Diagnosis, Treatment Family Education/Counseling: No Family Present SEPSIS Sepsis Screen Date sepsis recognized/suspect: May 20, 2025 Time Sepsis recognized/suspect: 1533 Recent Procedure: No On Antibiotic Therapy: No Respiratory Rate >20: No Heart Rate >90: No Temp<36 C (96.8 F) or >38.3 C: No SBP <90 or MAP <65 mmHG: No New Acute Mental Status Change: No Is the patient on CPAP, BIPAP,: No Physician Orders Heplock Iv (05/20/25 15:59) 0.9% Nacl 1 Liter Bolus (05/20/25 17:30) Heplock Iv (05/20/25 17:18) 0.9% Ns 30mls/Kg (05/20/25 17:30) Vital Signs Date Time Temp Pulse Resp B/P (MAP) Pulse Ox O2 Delivery O2 Flow Rate FiO2 05/20/25 15:31 99.0 102 18 139/94 100 99.0 Laboratory Tests Test 05/20/25 16:09 White Blood Count 8.3 10^3/uL (4.4-10.8) Departure 1 Departure Time of Disposition: 17:20 Impression: Primary Impression: Intractable abdominal pain Additional Impression: Acute pancreatitis Disposition: 02 SHORT TERM HOSPITAL Admit to: Med Surg Condition: Fair Critical Care Note Critical Care Time?: No Stability Stability form required: Yes Heart Score Heart Score: Heart Score Response (Comments) Value History N/A 0 EKG N/A 0 Age <45 0 Risk Factors 1 or 2 risk factors 1 Troponin N/A 0 Total 1 I personally scribed for ANGELIA GARCIA MD ([email or web address]) on 05/20/25 at 16:02. Electronically submitted by Pop Sam ([email or web address]). ANGELIA GARCIA MD May 20, 2025 16:02
[2025-05-20 16:26] LABS: Mean Corpuscular Hemoglobin 20.0 pg (28.0-32.0); Nucleated Red Blood Cells % 0.0 %
[2025-05-20 16:28] LABS: Hematocrit 36.9 % (41.0-53.0); Hemoglobin 11.2 g/dL (13.5-17.5); Mean Corpuscular Volume 65.8 fL (80.0-100.0)
[2025-05-20 16:33] LABS: Chloride 102 mmol/L (98-107); Potassium 4.1 mmol/L (3.5-5.1); Sodium 138 mmol/L (136-145)
[2025-05-20 16:34] LABS: Anion Gap 10 (5-15); Calcium 8.8 mg/dL (8.7-10.4); Carbon Dioxide 26 mmol/L (20-31)
[2025-05-20 16:39] LABS: BUN/Creatinine Ratio 9.8 (10.0-20.0); Blood Urea Nitrogen 11 mg/dL (9-23); Glucose 103 mg/dL (74-106)
[2025-05-20 16:40] LABS: Lipase 114 U/L (12-53)
[2025-05-20] MEDS: SODIUM CHLORIDE 0.9% 1,000 ML IVB ONE (17:30)
[2025-05-20] MEDS: SODIUM CHLORIDE 0.9% 1,000 ML IV ONE (17:30)
[2025-05-20] MEDS: KETOROLAC TROMETH 30 MG/ML 1ML VIAL IV ONE (19:24)
[2025-05-20] MEDS: METOCLOPRAMIDE HCL 5MG/ml INJ 2ml VIAL IV ONE (19:25)
[2025-05-20] MEDS ORDERED: ONDANSETRON HCL 4 MG/2 ML VIAL IV PRN (20:00)
[2025-05-20] MEDS: PANTOPRAZOLE 40 MG/10 ML VIAL INJ IV ONE (21:14)
[2025-05-20] MEDS: MORPHINE SULFATE INJ 2 MG/ml SYRG IV PRN (21:15)
--- NOTE | 2025-05-20 22:04 | DVH ---
CLINICAL HISTORY: abd. pain TECHNIQUE: CT of the abdomen and pelvis was performed without IV contrast. This exam was performed ac cording to our departmental dose optimization program. Up-to-date CT equipment and radiation dose red uction techniques are utilized as appropriate. CTDI 9.5 DLP 549.2 COMPARISON: CT ABD/PEL on DOS: 01/03/25, CT CT AB PEL WO CON-NO ORAL OR IV on DOS: 10/22/24, CT CT AB PE L WO CON-NO ORAL OR IV on DOS: 08/25/24, CT CT AB PEL WO CON-NO ORAL OR IV on DOS: 05/06/24, CT CT AB P EL WO CON-NO ORAL OR IV on DOS: 04/27/24 FINDINGS: Abdomen/Pelvis: The adrenal glands, liver, spleen, kidneys, bladder, and prostate gland are grossly unremarkable. The gallbladder is absent. The pancreas demonstrates painter set parenchymal calcifications, compatible with chronic pancreatitis. T here is mild peripancreatic stranding with small amount of pancreas fluid extending into the right pe ricolic gutter. Previous pancreatic head fluid collection has resolved. Insinuating the posterior lateral margin of the stomach and medial margin of the spleen, there is an improving 3.9 cm fluid collection. The abdominal aorta is normal in course and caliber. There are no significant atherosclerotic calcifi cations. There is no free intraperitoneal air. There is no enlarged abdominal pelvic lymph node. There is no bowel wall thickening or dilatation. The appendix is normal. Other: The imaged lower thorax is unremarkable. No acute osseous abnormality is evident. Impression: Chronic pancreatitis with mild peripancreatic stranding and small amount of fluid around the pancreat ic head extending to the right pericolic gutter. Please correlate with amylase/lipase levels for supe rimposed acute pancreatitis. Resolved pseudocyst / walled off necrosis within the pancreatic head. slightly improving 3.8 cm pseud ocyst / walled off necrosis between the stomach and spleen.
--- NOTE | 2025-05-20 22:33 | DVHHP2 ---
History of Present Illness Reason for Visit: Abdominal pain History of Present Illness 44-year-old male presents for evaluation of abdominal pain. Reports a history of pancreatitis secondary to alcohol abuse. He reports being sober for more than six months. He he reports a one day history of diffuse abdominal pain with associated nausea. No fever or chills. No other Past Medical History Hypertension and pancreatitis Past Surgical History Cholecystectomy Family History Noncontributory Smoke: No ALCOHOL: none (Sober) Drugs: None Lives: with Family Review of Systems Review of Systems Review of systems are currently negative otherwise addressed in HPI. Allergies: Coded Allergies: NO KNOWN ALLERGIES (Unverified , 06/01/23) Medications Current Medications Medications Dose Ordered Sig/Shelli Route Start Time Stop Time Status Last Admin Dose Admin Sucralfate 1 gm QIDACHS PO 05/20/25 22:00 Pantoprazole Sodium 40 mg DAILY IV 05/21/25 10:00 Acetaminophen/ Hydrocodone Bitart 1 tab Q4HP PRN PO 05/20/25 20:00 Ondansetron HCl 4 mg Q4HP PRN IV 05/20/25 20:00 Acetaminophen 650 mg Q6HP PRN PO 05/20/25 20:00 Morphine Sulfate 2 mg Q4HPRN PRN IV 05/20/25 20:00 05/20/25 21:15 2 MG Exam Vital Signs Vital Signs Date Time Temp Pulse Resp B/P (MAP) Pulse Ox O2 Delivery O2 Flow Rate FiO2 05/20/25 21:15 105 16 116/86 05/20/25 18:28 100 05/20/25 15:31 99.0 99.0 Exam Gen: 44-year-old male in mild distress Skin: Warm, dry, normal color and texture, no rash. HEENT: Normocephalic atraumatic, mucous membranes moist and pink. Neck: Cervical and supraclavicular nodes normal without enlargement, trachea is midline, thyroid gland is normal without masses. Pulmonary: Clear to auscultation and percussion bilaterally. Cardiac: Regular rate and rhythm. No murmur Abdomen: Soft, diffuse tenderness, nondistended, bowel sounds present all 4 quadrants, no guarding, no rigidity, no organomegaly. Extremities: No cyanosis, clubbing, no edema Neuro: Cranial nerves II through XII grossly intact, normal affect and speech, no focal motor deficits. Labs/Xrays ORDERING PHYSICIAN: JEAN-PAUL CAMILOP PROCEDURE(s): ABPL - CT AB PEL WO CON-NO ORAL OR IV REASON: abd. pain ORDER NUMBER(s): [id number], ACCESSION NUMBER(s): [id number] CLINICAL HISTORY: abd. pain TECHNIQUE: CT of the abdomen and pelvis was performed without IV contrast. This exam was performed according to our departmental dose optimization program. Up-to-date CT equipment and radiation dose reduction techniques are utilized as appropriate. CTDI 9.5 DLP 549.2 COMPARISON: CT ABD/PEL on DOS: 01/03/25, CT CT AB PEL WO CON-NO ORAL OR IV on DOS: 10/22/24, CT CT AB PEL WO CON-NO ORAL OR IV on DOS: 08/25/24, CT CT AB PEL WO CON-NO ORAL OR IV on DOS: 05/06/24, CT CT AB PEL WO CON-NO ORAL OR IV on DOS: 04/27/24 FINDINGS: Abdomen/Pelvis: The adrenal glands, liver, spleen, kidneys, bladder, and prostate gland are grossly unremarkable. The gallbladder is absent. The pancreas demonstrates painter touch up parenchymal calcifications, compatible with chronic pancreatitis. There is mild peripancreatic stranding with small amount of pancreas fluid extending into the right pericolic gutter. Previous pancreatic head fluid collection has resolved. Insinuating the posterior lateral margin of the stomach and medial margin of the spleen, there is an improving 3.9 cm fluid collection. The abdominal aorta is normal in course and caliber. There are no significant atherosclerotic calcifications. There is no free intraperitoneal air. There is no enlarged abdominal pelvic lymph node. There is no bowel wall thickening or dilatation. The appendix is normal. Other: The imaged lower thorax is unremarkable. No acute osseous abnormality is evident. Impression: Chronic pancreatitis with mild peripancreatic stranding and small amount of fluid around the pancreatic head extending to the right pericolic gutter. Please correlate with amylase/lipase levels for superimposed acute pancreatitis. Resolved pseudocyst / walled off necrosis within the pancreatic head. slightly improving 3.8 cm pseudocyst / walled off necrosis between the stomach and spleen. Labs Test 05/20/25 16:09 Range/Units White Blood Count 8.3 4.4-10.8 10^3/uL Red Blood Count 5.61 4.5-5.90 10^6/uL Hemoglobin 11.2 L 13.5-17.5 g/dL Hematocrit 36.9 L 41.0-53.0 % Mean Corpuscular Volume 65.8 L 80.0-100.0 fL Mean Corpuscular Hemoglobin 20.0 L 28.0-32.0 pg Mean Corpuscular Hemoglobin Concent 30.4 L 32.0-36.0 g/dL Red Cell Distribution Width 20.0 H 11.8-14.3 % Platelet Count 245 140-450 10^3/uL Mean Platelet Volume 8.9 6.9-10.8 fL Neutrophils (%) (Auto) 80.4 H 37.0-80.0 % Lymphocytes (%) (Auto) 10.9 10.0-50.0 % Monocytes (%) (Auto) 7.0 0.0-12.0 % Eosinophils (%) (Auto) 1.0 0.0-7.0 % Basophils (%) (Auto) 0.7 0.0-2.0 % Neutrophils # (Auto) 6.6 1.6-8.6 10 ^3/uL Lymphocytes # (Auto) 0.9 0.4-5.4 10 ^3/uL Monocytes # (Auto) 0.6 0-1.3 10 ^3/uL Eosinophils # (Auto) 0.1 0-0.8 10 ^3/uL Basophils # (Auto) 0.1 0-0.2 10 ^3/uL Nucleated Red Blood Cells 0.0 % Sodium Level 138 136-145 mmol/L Potassium Level 4.1 3.5-5.1 mmol/L Chloride Level 102 98-107 mmol/L Carbon Dioxide Level 26 20-31 mmol/L Anion Gap 10 5-15 Blood Urea Nitrogen 11 9-23 mg/dL Creatinine 1.12 0.700-1.30 mg/dL Glomerular Filtration Rate Calc 84 >90 mL/min BUN/Creatinine Ratio 9.8 L 10.0-20.0 Serum Glucose 103 74-106 mg/dL Calcium Level 8.8 8.7-10.4 mg/dL Lipase 114 H 12-53 U/L SEPSIS Sepsis Screen Date sepsis recognized/suspect: May 20, 2025 Time Sepsis recognized/suspect: 1534 Recent Procedure: No On Antibiotic Therapy: No Respiratory Rate >20: No Heart Rate >90: No Temp<36 C (96.8 F) or >38.3 C: No SBP <90 or MAP <65 mmHG: No New Acute Mental Status Change: No Is the patient on CPAP, BIPAP,: No Physician Orders Heplock Iv (05/20/25 15:59) Heplock Iv (05/20/25 17:18) Sodium Chloride 0.9% (05/20/25 17:30) Admit (05/20/25 19:55) Ct Ab Pel Wo Con-No Oral Or Iv (05/20/25 19:55) Sucralfate Tab (Carafate Tab) (05/20/25 22:00) Pantoprazole (Protonix) (05/21/25 10:00) * [facility] [employer] (05/20/25 19:55) Hydrocodone-Acet 5/325mg Tab ([place] 5/32 (05/20/25 20:00) Ondansetron Hcl (Zofran) (05/20/25 20:00) Complete Blood Count (05/21/25 04:00) Comprehensive Metabolic Panel (05/21/25 04:00) Condition: Stable (05/20/25 19:55) Acetaminophen Tablet (Tylenol Tablet) (05/20/25 20:00) Bedrest With Bathroom Privileg (05/20/25 19:55) Morphine Sulfate Injection (05/20/25 20:00) Npo Except For Medications (05/20/25 19:55) Npo (Nothing By Mouth) Diet (05/20/25 Breakfast) Vital Signs Date Time Temp Pulse Resp B/P (MAP) Pulse Ox O2 Delivery O2 Flow Rate FiO2 05/20/25 21:15 105 16 116/86 05/20/25 18:28 95 16 140/80 (100) 100 05/20/25 15:31 99.0 102 18 139/94 100 99.0 Laboratory Tests Test 05/20/25 16:09 White Blood Count 8.3 10^3/uL (4.4-10.8) Medications Medications Dose Ordered Sig/Shelli Route Start Time Stop Time Status Last Admin Dose Admin Ketorolac Tromethamine 30 mg ONCE ONCE IV 05/20/25 16:00 05/20/25 16:02 DC 05/20/25 19:24 30 MG Metoclopramide HCl 10 mg ONCE ONCE IV 05/20/25 16:15 05/20/25 16:16 DC 05/20/25 19:25 10 MG Morphine Sulfate 2 mg Q4HPRN PRN IV 05/20/25 20:00 05/20/25 21:15 2 MG Pantoprazole Sodium 40 mg ONCE ONCE IV 05/20/25 20:00 05/20/25 20:28 DC 05/20/25 21:14 40 MG Sodium Chloride 1,000 ml @ 1,000 mls/hr Q1H ONCE IVB 05/20/25 17:30 05/20/25 18:29 DC 05/20/25 17:30 1,000 MLS/HR Assessment/Plan Assessment/Plan Assessment Acute on chronic pancreatitis Acute abdominal pain Plan Admit the patient to [facility] to the hospitalist GI consultation NPO except medications Pain management Maintenance IV fluids Continue treatment per orders. Plan discussed with: Patient My Orders Orders - JEAN-PAUL CAMILO Procedure Category Date Status Time Admit ADMIT 05/20/25 Transmitted 19:55 Ct Ab Pel Wo Con-No CT 05/20/25 Resulted Oral Or Iv 19:55 Sucralfate Tab PHA 05/20/25 In Process (Carafate Tab) 22:00 Pantoprazole PHA 05/21/25 In Process (Protonix) 10:00 * [employer] CONS 05/20/25 Transmitted 19:55 Hydrocodone-Acet PHA 05/20/25 In Process 5/325mg Tab ([place] 20:00 Ondansetron Hcl PHA 05/20/25 In Process (Zofran) 20:00 Complete Blood Count LAB 05/21/25 Verified 04:00 Comprehensive LAB 05/21/25 Verified Metabolic Panel 04:00 Condition: Stable LISA 05/20/25 In Process 19:55 Acetaminophen Tablet PHA 05/20/25 In Process (Tylenol Tablet) 20:00 Bedrest With Bathroom LISA 05/20/25 In Process Privileg 19:55 Morphine Sulfate PHA 05/20/25 In Process Injection 20:00 Npo Except For LISA 05/20/25 In Process Medications 19:55 Npo (Nothing By DIET 05/20/25 Transmitted Mouth) Diet Breakfast Date of Service: May 20, 2025 Billing Provider: JEAN-PAUL CAMILO Common Visit Codes: [id number] INP/OBS CARE (MOD) JEAN-PAUL CAMILO May 20, 2025 22:33
[2025-05-20 22:38] VITALS: PULSE 100; RESP 18; O2SAT 100
[2025-05-20] MEDS: SUCRALFATE 1 GM TAB PO SCH (22:45)
[2025-05-21] MEDS: ACETAMINOPHEN 325 MG TAB PO PRN (01:40)
[2025-05-21 05:00] VITALS: BP 106/66; PULSE 110; RESP 17; TEMP 99.4; O2SAT 98
[2025-05-21 06:19] LABS: Hemoglobin 9.5 g/dL (13.5-17.5); Nucleated Red Blood Cells % 0.1 %
[2025-05-21 06:23] LABS: Hematocrit 30.4 % (41.0-53.0); Mean Corpuscular Hemoglobin 20.5 pg (28.0-32.0); Mean Corpuscular Volume 66.0 fL (80.0-100.0)
[2025-05-21 06:38] LABS: Alanine Aminotransferase 19 U/L (7-40); Albumin 3.9 g/dL (3.2-4.8); Alkaline Phosphatase 50 U/L (46-116); Anion Gap 10 (5-15); BUN/Creatinine Ratio 12.8 (10.0-20.0); Blood Urea Nitrogen 17 mg/dL (9-23); Carbon Dioxide 25 mmol/L (20-31); Chloride 102 mmol/L (98-107); Glucose 100 mg/dL (74-106); Potassium 4.0 mmol/L (3.5-5.1); Sodium 137 mmol/L (136-145); Total Protein 6.3 g/dL (5.7-8.2)
[2025-05-21 06:39] LABS: Bilirubin, Total 0.8 mg/dL (0.2-1.0)
[2025-05-21 06:45] LABS: Calcium 7.7 mg/dL (8.7-10.4)
[2025-05-21 08:34] VITALS: BP 106/72; PULSE 103; RESP 16; TEMP 99.5; O2SAT 97
[2025-05-21] MEDS: PANTOPRAZOLE 40 MG/10 ML VIAL INJ IV SCH (09:59)
--- NOTE | 2025-05-21 12:22 | DVHINCON2 ---
GI Consult Consult Note GI consult note Date of Consultation: 05/21/2025 Chief Complaint: Pancreatitis Referring Physician: Arturo SWEET H&P: 44-year-old male admitted with complains of abdominal pain for one day. Patient has feeling of bloating. No nausea vomiting no fevers or chills. Patient admits to heavy alcohol use but has been sober for the past six months. Status post EUS at [facility] September 2024 Past Medical History: Hypertension and pancreatitis Past Surgical History: Cholecystectomy Social History: NO smoking, sober for six months Family History: Noncontributory Review of Systems: Constitutional: no fever, chill, weight loss HEENT: no eye pain, no hearing loss, no oral lesion, no scleral icterus Heart: no chest pain, no chest pressure Lung: no cough, no dyspnea with exertion Abdomen: see HPI Physical exam: General: NAD, AAOX3 Chest: lung ennis clear to auscultation Heart: RRR, no murmur Abdomen: Mild left upper quadrant tenderness to palpation, +BS Labs: Labs Test 05/21/25 05:23 05/20/25 16:09 Range/Units White Blood Count 8.9 4.4-10.8 10^3/uL Red Blood Count 4.61 4.5-5.90 10^6/uL Hemoglobin 9.5 #L 13.5-17.5 g/dL Hematocrit 30.4 #L 41.0-53.0 % Mean Corpuscular Volume 66.0 L 80.0-100.0 fL Mean Corpuscular Hemoglobin 20.5 L 28.0-32.0 pg Mean Corpuscular Hemoglobin Concent 31.1 L 32.0-36.0 g/dL Red Cell Distribution Width 19.2 H 11.8-14.3 % Platelet Count 185 140-450 10^3/uL Mean Platelet Volume 8.9 6.9-10.8 fL Neutrophils (%) (Auto) 84.2 H 37.0-80.0 % Lymphocytes (%) (Auto) 8.7 L 10.0-50.0 % Monocytes (%) (Auto) 6.8 0.0-12.0 % Eosinophils (%) (Auto) 0.0 0.0-7.0 % Basophils (%) (Auto) 0.3 0.0-2.0 % Neutrophils # (Auto) 7.5 1.6-8.6 10 ^3/uL Lymphocytes # (Auto) 0.8 0.4-5.4 10 ^3/uL Monocytes # (Auto) 0.6 0-1.3 10 ^3/uL Eosinophils # (Auto) 0 0-0.8 10 ^3/uL Basophils # (Auto) 0 0-0.2 10 ^3/uL Nucleated Red Blood Cells 0.1 % Sodium Level 137 136-145 mmol/L Potassium Level 4.0 3.5-5.1 mmol/L Chloride Level 102 98-107 mmol/L Carbon Dioxide Level 25 20-31 mmol/L Anion Gap 10 5-15 Blood Urea Nitrogen 17 9-23 mg/dL Creatinine 1.33 H 0.700-1.30 mg/dL Glomerular Filtration Rate Calc 68 >90 mL/min BUN/Creatinine Ratio 12.8 10.0-20.0 Serum Glucose 100 74-106 mg/dL Calcium Level 7.7 L 8.7-10.4 mg/dL Total Bilirubin 0.8 0.2-1.0 mg/dL Aspartate Amino Transferase (AST) 24 13-40 U/L Alanine Aminotransferase (ALT) 19 7-40 U/L Alkaline Phosphatase 50 46-116 U/L Total Protein 6.3 5.7-8.2 g/dL Albumin 3.9 3.2-4.8 g/dL Lipase 114 H 12-53 U/L Imaging: CT abdomen pelvis Impression: Chronic pancreatitis with mild peripancreatic stranding and small amount of fluid around the pancreatic head extending to the right pericolic gutter. Please correlate with amylase/lipase levels for superimposed acute pancreatitis. Resolved pseudocyst / walled off necrosis within the pancreatic head. slightly i mproving 3.8 cm pseudocyst / walled off necrosis between the stomach and spleen. Assessment: Acute on chronic pancreatitis Abdominal pain Pseudocyst pancreas History of heavy alcohol use in past Plan: Discussed with Dr. Rain IV fluids Ice chips as symptoms improve Lipase in a.m. Pain management per hospital team We will continue to monitor patient Plan discussed with patient and RN Thank you for this consult Date of Service: May 21, 2025 Billing Provider: TRACI HU Common Visit Codes: CONSULT ONLY Consultation Codes: [id number] CONSULT <60MIN TRACI HU May 21, 2025 12:22
[2025-05-21 12:32] VITALS: BP 113/72; PULSE 106; RESP 18; TEMP 99.1; O2SAT 96
--- NOTE | 2025-05-21 12:52 | DVHPN2 ---
Reviewed: Care Plan, H&P, Labs, Medications, Previous Orders, Radiology Changes from previous H/P or p: No Changes Objective Vitals Vital Signs Date Time Temp Pulse Resp B/P (MAP) Pulse Ox O2 Delivery O2 Flow Rate FiO2 05/21/25 12:32 99.1 106 18 113/72 (86) 96 99.1 05/20/25 22:38 Room Air* 0 21 Intake/Output Intake and Output 05/21/25 07:00 Intake Total 300 ml Balance 300 ml Intake Oral 300 ml # Voids 1 Medications Current Medications Medications Dose Ordered Sig/Shelli Route Start Time Stop Time Status Last Admin Dose Admin Sucralfate 1 gm QIDACHS PO 05/20/25 22:00 05/21/25 12:27 1 GM Pantoprazole Sodium 40 mg DAILY IV 05/21/25 10:00 05/21/25 09:59 40 MG Acetaminophen/ Hydrocodone Bitart 1 tab Q4HP PRN PO 05/20/25 20:00 Ondansetron HCl 4 mg Q4HP PRN IV 05/20/25 20:00 Acetaminophen 650 mg Q6HP PRN PO 05/20/25 20:00 05/21/25 01:40 650 MG Morphine Sulfate 2 mg Q4HPRN PRN IV 05/20/25 20:00 05/21/25 10:01 2 MG Laboratory Results Laboratory Tests 05/21/25 05:23 Chemistry Test 05/20/25 16:09 05/21/25 05:23 Calcium Level 8.8 mg/dL (8.7-10.4) 7.7 mg/dL (8.7-10.4) L Albumin 3.9 g/dL (3.2-4.8) Total Protein 6.3 g/dL (5.7-8.2) Lipid panel Test 05/20/25 16:09 Lipase 114 U/L (12-53) H LFT Test 05/21/25 05:23 Alanine Aminotransferase (ALT) 19 U/L (7-40) Alkaline Phosphatase 50 U/L (46-116) Aspartate Amino Transferase (AST) 24 U/L (13-40) Total Bilirubin 0.8 mg/dL (0.2-1.0) Labs and/or images reviewed: Labs reviewed by me, Image(s) reviewed by me Assessment/Plan Assessment/Plan Acute on chronic pancreatitis: GI consult by Dr. Davie Espinoza appreciated, pantoprazole sucralfate [place] Abdominal pain Pseudocyst pancreas History of heavy alcohol use in past Acute dehydration: LR 15o per hr Plan discussed with: Patient Date of Service: May 21, 2025 Billing Provider: BRICE HU MD Common Visit Codes: [id number] INP/OBS CARE(HIGH) BRICE HU MD May 21, 2025 12:52
[2025-05-21] MEDS: LACTATED RINGER'S 1,000 ML IV SCH (13:00)
[2025-05-21 16:34] VITALS: BP 137/77; PULSE 101; RESP 18; TEMP 99.2; O2SAT 95
[2025-05-21 20:00] VITALS: PULSE 117; RESP 18; O2SAT 94
[2025-05-21 21:00] VITALS: BP 116/77; PULSE 117; RESP 18; TEMP 100.2; O2SAT 94
[2025-05-22] VITALS (8 sets, daily range): BP systolic 103–135; BP diastolic 74–88; PULSE 104–125; RESP 16–18; TEMP 99.1–102; O2SAT 92–94
--- NOTE | 2025-05-22 09:23 | DVHPN2 ---
Reviewed: Care Plan, H&P, Labs, Medications, Previous Orders, Radiology Changes from previous H/P or p: No Changes Objective Vitals Vital Signs Date Time Temp Pulse Resp B/P (MAP) Pulse Ox O2 Delivery O2 Flow Rate FiO2 05/22/25 06:40 104 18 128/88 05/22/25 05:00 99.4 94 99.4 05/21/25 20:00 Room Air* 0 21 Intake/Output Intake and Output 05/22/25 07:00 Intake Total 1830 ml Balance 1830 ml Intake Oral 1830 ml # Voids 5 Medications Current Medications Medications Dose Ordered Sig/Shelli Route Start Time Stop Time Status Last Admin Dose Admin Sucralfate 1 gm QIDACHS PO 05/20/25 22:00 05/22/25 06:07 1 GM Pantoprazole Sodium 40 mg DAILY IV 05/21/25 10:00 05/21/25 09:59 40 MG Acetaminophen/ Hydrocodone Bitart 1 tab Q4HP PRN PO 05/20/25 20:00 Ondansetron HCl 4 mg Q4HP PRN IV 05/20/25 20:00 Acetaminophen 650 mg Q6HP PRN PO 05/20/25 20:00 05/22/25 00:53 650 MG Morphine Sulfate 2 mg Q4HPRN PRN IV 05/20/25 20:00 05/22/25 06:10 2 MG Lactated Ringer's 1,000 ml @ 150 mls/hr Q6H40M IV 05/21/25 13:00 05/21/25 19:40 150 MLS/HR Laboratory Results Laboratory Tests 05/21/25 05:23 Lipid panel Test 05/22/25 06:48 Lipase 293 U/L (12-53) H Labs and/or images reviewed: Labs reviewed by me, Image(s) reviewed by me Assessment/Plan Assessment/Plan Acute on chronic pancreatitis: Lipase went up to 114 to 293 , GI consult by Dr. Davie el, pantoprazole sucralfate [place] Abdominal pain Pseudocyst pancreas History of heavy alcohol use in past Acute dehydration: LR 150 ml per hr Plan discussed with: Patient My Orders Orders - BRICE HU MD Procedure Category Date Status Time Lactated Ringer's PHA 05/21/25 In Process 13:00 Date of Service: May 22, 2025 Billing Provider: BRICE HU MD Common Visit Codes: [id number] INP/OBS CARE(HIGH) BRICE HU MD May 22, 2025 09:23
[2025-05-22] MEDS: HYDROcodone-ACET 5/325MG TAB PO PRN (11:51)
[2025-05-23] VITALS (7 sets, daily range): BP systolic 113–126; BP diastolic 76–85; PULSE 84–111; RESP 15–18; TEMP 97.4–100.7; O2SAT 94–98
--- NOTE | 2025-05-23 09:38 | DVHPN2 ---
Reviewed: Care Plan, H&P, Labs, Medications, Previous Orders, Radiology Changes from previous H/P or p: No Changes Objective Vitals Vital Signs Date Time Temp Pulse Resp B/P (MAP) Pulse Ox O2 Delivery O2 Flow Rate FiO2 05/23/25 08:57 100.0 110 16 119/76 (90) 95 100.0 05/22/25 20:00 Room Air* 0 21 Intake/Output Intake and Output 05/23/25 07:00 Intake Total 2420 ml Balance 2420 ml Intake Oral 1420 ml IV Total 1000 ml # Voids 7 Medications Current Medications Medications Dose Ordered Sig/Shelli Route Start Time Stop Time Status Last Admin Dose Admin Sucralfate 1 gm QIDACHS PO 05/20/25 22:00 05/23/25 06:34 1 GM Pantoprazole Sodium 40 mg DAILY IV 05/21/25 10:00 05/22/25 09:51 40 MG Acetaminophen/ Hydrocodone Bitart 1 tab Q4HP PRN PO 05/20/25 20:00 05/22/25 11:51 1 TAB Ondansetron HCl 4 mg Q4HP PRN IV 05/20/25 20:00 Acetaminophen 650 mg Q6HP PRN PO 05/20/25 20:00 05/22/25 21:41 650 MG Morphine Sulfate 2 mg Q4HPRN PRN IV 05/20/25 20:00 05/23/25 06:34 2 MG Lactated Ringer's 1,000 ml @ 150 mls/hr Q6H40M IV 05/21/25 13:00 05/23/25 02:28 150 MLS/HR Laboratory Results Laboratory Tests 05/21/25 05:23 Labs and/or images reviewed: Labs reviewed by me, Image(s) reviewed by me Assessment/Plan Assessment/Plan Acute on chronic pancreatitis: Lipase went up to 114 to 293 , GI consult by Dr. Davie el, pantoprazole sucralfate [place] Abdominal pain Pseudocyst pancreas History of heavy alcohol use in past Acute dehydration: LR 150 ml per hr Plan discussed with: Patient My Orders Orders - BRICE HU MD Procedure Category Date Status Time Lipase LAB 05/24/25 Verified 04:00 Date of Service: May 23, 2025 Billing Provider: BRICE HU MD Common Visit Codes: [id number] INP/OBS CARE(HIGH) BRICE HU MD May 23, 2025 09:38
[2025-05-24] VITALS (7 sets, daily range): BP systolic 92–138; BP diastolic 65–90; PULSE 73–111; RESP 17–18; TEMP 98.2–100.8; O2SAT 93–100
--- NOTE | 2025-05-24 11:02 | DVHPN2 ---
Reviewed: Care Plan, H&P, Labs, Medications, Previous Orders, Radiology Changes from previous H/P or p: No Changes Objective Vitals Vital Signs Date Time Temp Pulse Resp B/P (MAP) Pulse Ox O2 Delivery O2 Flow Rate FiO2 05/24/25 09:00 98.2 107 18 132/82 (99) 93 98.2 05/24/25 08:00 Room Air* 0 21 Intake/Output Intake and Output 05/24/25 07:00 Intake Total 3900 ml Output Total 800 ml Balance 3100 ml Intake Oral 2300 ml IV Total 1600 ml Output Urine Total 800 ml # Voids 7 # Bowel Movements 4 Medications Current Medications Medications Dose Ordered Sig/Shelli Route Start Time Stop Time Status Last Admin Dose Admin Sucralfate 1 gm QIDACHS PO 05/20/25 22:00 05/24/25 09:57 1 GM Pantoprazole Sodium 40 mg DAILY IV 05/21/25 10:00 05/24/25 09:57 40 MG Acetaminophen/ Hydrocodone Bitart 1 tab Q4HP PRN PO 05/20/25 20:00 05/24/25 09:57 1 TAB Ondansetron HCl 4 mg Q4HP PRN IV 05/20/25 20:00 Acetaminophen 650 mg Q6HP PRN PO 05/20/25 20:00 05/23/25 17:12 650 MG Morphine Sulfate 2 mg Q4HPRN PRN IV 05/20/25 20:00 05/24/25 07:04 2 MG Lactated Ringer's 1,000 ml @ 150 mls/hr Q6H40M IV 05/21/25 13:00 05/24/25 07:40 150 MLS/HR Laboratory Results Laboratory Tests 05/21/25 05:23 Lipid panel Test 05/24/25 05:53 Lipase 229 U/L (12-53) H Labs and/or images reviewed: Labs reviewed by me, Image(s) reviewed by me Assessment/Plan Assessment/Plan Acute on chronic pancreatitis: Lipase went up to 114 to 293 , GI consult by Dr. Davie Espinoza appreciated, pantoprazole sucralfate , patient says morphine is not working: DC morphine, start Dilaudid Abdominal pain Pseudocyst pancreas History of heavy alcohol use in past Acute dehydration: LR 150 ml per hr Plan discussed with: Patient Date of Service: May 24, 2025 Billing Provider: BRICE HU MD Common Visit Codes: [id number] INP/OBS CARE(HIGH) BRICE HU MD May 24, 2025 11:02
[2025-05-24] MEDS: HYDROmorphone HCL 2 MG/ML VL/or syr IV PRN (12:20)
[2025-05-25] VITALS (8 sets, daily range): BP systolic 125–144; BP diastolic 81–99; PULSE 106–119; RESP 17–20; TEMP 98.1–102.1; O2SAT 91–96
--- NOTE | 2025-05-25 11:08 | DVHPN2 ---
Reviewed: Care Plan, H&P, Labs, Medications, Previous Orders, Radiology Changes from previous H/P or p: No Changes Objective Vitals Vital Signs Date Time Temp Pulse Resp B/P (MAP) Pulse Ox O2 Delivery O2 Flow Rate FiO2 05/25/25 09:00 98.1 108 17 131/81 (98) 92 98.1 05/25/25 08:20 Room Air* 0 21 Intake/Output Intake and Output 05/25/25 07:00 Intake Total 3725 ml Balance 3725 ml Intake Oral 1950 ml IV Total 1775 ml # Voids 9 # Bowel Movements 5 Medications Current Medications Medications Dose Ordered Sig/Shelli Route Start Time Stop Time Status Last Admin Dose Admin Sucralfate 1 gm QIDACHS PO 05/20/25 22:00 05/25/25 06:10 1 GM Pantoprazole Sodium 40 mg DAILY IV 05/21/25 10:00 05/25/25 09:33 40 MG Ondansetron HCl 4 mg Q4HP PRN IV 05/20/25 20:00 Acetaminophen 650 mg Q6HP PRN PO 05/20/25 20:00 05/23/25 17:12 650 MG Lactated Ringer's 1,000 ml @ 150 mls/hr Q6H40M IV 05/21/25 13:00 05/25/25 09:34 150 MLS/HR Hydromorphone HCl 2 mg Q4HPRN PRN IV 05/24/25 11:15 05/25/25 06:48 2 MG Laboratory Results Laboratory Tests 05/21/25 05:23 Labs and/or images reviewed: Labs reviewed by me, Image(s) reviewed by me Assessment/Plan Assessment/Plan Acute on chronic pancreatitis: Lipase went up to 114 to 293 , lipase is still elevated at [address] Davie Espinoza appreciated, pantoprazole sucralfate , continue Dilaudid, requested Dr. Davie Espinoza to re-evaluate Abdominal pain Pseudocyst pancreas History of heavy alcohol use in past Acute dehydration: LR 150 ml per hr Repeat CT abdomen pelvis without contrast ordered Plan discussed with: Patient My Orders Orders - BRICE HU MD Procedure Category Date Status Time * Gi Dvh Tur[employer] Operator CONS 05/25/25 Transmitted 11:02 Date of Service: May 25, 2025 Billing Provider: BRICE HU MD Common Visit Codes: [id number] INP/OBS CARE(HIGH) BRICE HU MD May 25, 2025 11:08
--- NOTE | 2025-05-25 13:44 | DVH ---
Exam: CT CT AB PEL WO CON-NO ORAL OR IV History: Pancreatitis with persisting elevated lipase Comparison Study: CT CT AB PEL WO CON-NO ORAL OR IV on DOS: 05/20/25, CT ABD/PEL W - IV on DOS: 03/29/25 , CT ABD/PEL W - IV on DOS: 03/25/25, MRI ABDOMEN W and WO on DOS: 01/05/25, CT ABD/PEL on DOS: 01/03/25 Technique: Multidetector spiral CT of the abdomen was performed from lung bases to pubic symphysis. I maging was performed without IV contrast. Axial, coronal and sagittal multiplanar reformats were obta ined from the axial data set by the technologist. Radiation Dose : 1. Abdomen/Pelvis: CTDIvol 13.44 mGy, DLP 816.93 mGy*cm. Findings: Evaluation of solid organs is limited due to lack of intravenous contrast use. Lung Bases: Emphysema. Small right pleural effusion. Right basilar subsegmental atelectasis. Liver: The liver is normal in size. No focal lesions. Gallbladder and Biliary Tree: Unremarkable Spleen: Splenomegaly. Pancreas: Mild inflammatory changes associated with the pancreas. Unchanged area of hypoattenuation i n the pancreatic head measuring 2.2 cm. Unchanged loculated fluid possibly representing resolving pseudocyst or walled-off necrosis between t he stomach and spleen measures 4.3 cm. Adrenal Glands: Unremarkable Kidneys: Kidneys are grossly normal without calculi or hydronephrosis. Bladder: Grossly unremarkable for degree of distention. Bowel: The stomach is grossly normal in appearance. Increased severe inflammatory change associated w ith the colonic loops at the hepatic flexure. The appendix is not visualized; however, no secondary f indings of acute appendicitis identified. Ascites: Absent Lymphadenopathy: No mesenteric, retroperitoneal or periportal lymphadenopathy. Abdominal Wall and Mesentery: Unremarkable. Vasculature: The visualized abdominal aorta is normal in size and caliber. Evaluation of abdominal a nd pelvic vessels is limited due to lack of intravenous contrast. Pelvic Organs: Unremarkable Musculoskeletal: No aggressive focal bony lesions, acute fractures or dislocation. IMPRESSION: Limited examination secondary to lack of intravenous contrast administration. Findings are suggestive of improving pancreatitis with new/ increased severe inflammatory changes ass ociated with colonic loops at the hepatic flexure. Findings may represent reactive inflammatory colit is . Clinical correlation advised.
[2025-05-26] VITALS (8 sets, daily range): BP systolic 130–152; BP diastolic 78–100; PULSE 92–120; RESP 17–20; TEMP 97.7–102; O2SAT 92–97
--- NOTE | 2025-05-26 08:41 | DVHPN2 ---
Reviewed: Care Plan, H&P, Labs, Medications, Previous Orders, Radiology Changes from previous H/P or p: No Changes Objective Vitals Vital Signs Date Time Temp Pulse Resp B/P (MAP) Pulse Ox O2 Delivery O2 Flow Rate FiO2 05/26/25 07:57 18 Room Air* 0 21 05/26/25 05:57 98 138/82 05/26/25 05:00 97.7 94 97.7 Intake/Output Intake and Output 05/26/25 07:00 Intake Total 2750 ml Balance 2750 ml Intake Oral 1200 ml IV Total 1550 ml # Voids 4 # Bowel Movements 1 Medications Current Medications Medications Dose Ordered Sig/Shelli Route Start Time Stop Time Status Last Admin Dose Admin Sucralfate 1 gm QIDACHS PO 05/20/25 22:00 05/26/25 06:11 1 GM Pantoprazole Sodium 40 mg DAILY IV 05/21/25 10:00 05/25/25 09:33 40 MG Ondansetron HCl 4 mg Q4HP PRN IV 05/20/25 20:00 Acetaminophen 650 mg Q6HP PRN PO 05/20/25 20:00 05/26/25 01:57 650 MG Lactated Ringer's 1,000 ml @ 150 mls/hr Q6H40M IV 05/21/25 13:00 05/26/25 06:35 150 MLS/HR Hydromorphone HCl 2 mg Q4HPRN PRN IV 05/24/25 11:15 05/26/25 05:27 2 MG Laboratory Results Laboratory Tests 05/21/25 05:23 Labs and/or images reviewed: Labs reviewed by me, Image(s) reviewed by me Assessment/Plan Assessment/Plan Acute on chronic pancreatitis: Lipase went up to 114 to 293 , lipase is still elevated at [address] Davie Espinoza appreciated, pantoprazole sucralfate , continue Dilaudid, requested Dr. Davie Espinoza to re-evaluate Abdominal pain Pseudocyst pancreas History of heavy alcohol use in past Acute dehydration: LR 150 ml per hr Repeat CT abdomen pelvis without contrast shows possible reactive colitis Plan discussed with: Patient My Orders Orders - BRICE HU MD Procedure Category Date Status Time * Gi Dvh Customer Care Professional CONS 05/25/25 Transmitted 11:02 Ct Ab Pel Wo Con-No CT 05/25/25 Resulted Oral Or Iv 11:08 Date of Service: May 26, 2025 Billing Provider: BRICE HU MD Common Visit Codes: [id number] INP/OBS CARE(HIGH) BRICE HU MD May 26, 2025 08:41
[2025-05-26 10:10] LABS: Hemoglobin 8.6 g/dL (13.5-17.5)
[2025-05-26 10:15] LABS: Hematocrit 27.3 % (41.0-53.0); Mean Corpuscular Hemoglobin 20.4 pg (28.0-32.0); Mean Corpuscular Volume 64.5 fL (80.0-100.0); Nucleated Red Blood Cells % 0.1 %
[2025-05-26 10:30] LABS: Alanine Aminotransferase 27 U/L (7-40); Albumin 3.8 g/dL (3.2-4.8); Alkaline Phosphatase 61 U/L (46-116); Anion Gap 8 (5-15); BUN/Creatinine Ratio 6.3 (10.0-20.0); Bilirubin, Total 0.4 mg/dL (0.2-1.0); Blood Urea Nitrogen 6 mg/dL (9-23); Calcium 8.5 mg/dL (8.7-10.4); Carbon Dioxide 30 mmol/L (20-31); Chloride 95 mmol/L (98-107); Glucose 123 mg/dL (74-106); Potassium 3.1 mmol/L (3.5-5.1); Sodium 133 mmol/L (136-145); Total Protein 6.4 g/dL (5.7-8.2)
--- NOTE | 2025-05-26 17:51 | DVHPN2 ---
Progress Note Date Seen: May 26, 2025 Resident Creating Document: LALITA BRANNON RESIDENT Medical Necessity Reason Pt with a Central, PICC or Fol: No Subjective Review of Systems Patient seen and examined at bedside Reports abdominal pain, however notes significant improvement from prior Denies any nausea or vomiting Tolerating diet Objective vital signs Vital Sign Date Time Temp Pulse Resp B/P (MAP) Pulse Ox O2 Delivery O2 Flow Rate FiO2 05/26/25 17:00 98.2 102 18 133/89 (104) 92 98.2 05/26/25 07:57 Room Air* 0 21 Total Intake and Output 05/25/25 05/25/25 05/26/25 15:00 23:00 07:00 Intake Total 550 ml 1600 ml 600 ml Balance 550 ml 1600 ml 600 ml medications Current Medications Medications Dose Ordered Sig/Shelli Route Start Time Stop Time Status Last Admin Dose Admin Sucralfate 1 gm QIDACHS PO 05/20/25 22:00 05/26/25 17:06 1 GM Pantoprazole Sodium 40 mg DAILY IV 05/21/25 10:00 05/26/25 09:13 40 MG Ondansetron HCl 4 mg Q4HP PRN IV 05/20/25 20:00 Acetaminophen 650 mg Q6HP PRN PO 05/20/25 20:00 05/26/25 01:57 650 MG Lactated Ringer's 1,000 ml @ 150 mls/hr Q6H40M IV 05/21/25 13:00 05/26/25 06:35 150 MLS/HR Hydromorphone HCl 2 mg Q4HPRN PRN IV 05/24/25 11:15 05/26/25 14:16 2 MG Examination General Appearance: Cooperative. Well developed. Well nourished. NAD Pulmonary/Respiratory: Chest non-tender. Equal bilateral air entry Cardiovascular/Chest: Regular rate and rhythm. No murmurs. No JVD. Abdominal Exam: Normal bowel sounds. Soft. normal abdomen, no visible veins, mild generalized tenderness to palpation No hepatospenomegaly. No masses Neuro/Mental Status: A&O x4. Coherent. Thoughts/Psych: Normal thought pattern. Appropriate mood and affect. Good judgement and insight Skin Exam: Normal inspection. Normal color. Warm. Dry laboratory and microbiology Laboratory Tests 05/26/25 09:39 Test 05/26/25 09:39 Range/Units Serum Glucose 123 H 74-106 mg/dL Labs and/or images reviewed: Labs reviewed by me, Image(s) reviewed by me Problem List/Assessment/Plan Problem List/Assessment/Plan Acute on chronic pancreatitis Acute intractable abdominal pain due to above Pancreatic pseudocysts? Hypoattenuation and pancreatic head measuring 2.2 cm History of heavy alcohol use Reactive inflammatory colitis? Plan: Continue hydration IV Protonix Continue clear liquid diet We will repeat lipase in the a.m. Follow up with GI in the outpatient clinic Discharge planning in 24-48 hours Thank you so much for the opportunity to consult on your patient. GI team will follow the patient. In case of any questions or concerns please feel free to reach out. Plan discussed with Dr. Espinoza Plan discussed with: Patient, Other (RN) Dietary Evaluation Review Comments: 1) Encourage optimal PO intake 2) Advance to cardiac diet when medically feasible 3) Refer to outpatient RD for weight management 4) Follow-up with gastroenterology and cardiology 5) Continue to monitor I&O, labs, and skin integrity Expected Outcomes/Goals: 1) appetite and labs to improve 2) diet to advance 3) GI symptoms to resolve 4) f/u in 3-5 days LALITA BRANNON RESIDENT May 26, 2025 17:51
[2025-05-27 01:00] VITALS: BP 121/74; PULSE 91; RESP 18; TEMP 98.6; O2SAT 95
[2025-05-27 05:00] VITALS: BP 141/88; PULSE 100; RESP 18; TEMP 99.6; O2SAT 94
[2025-05-27 07:53] VITALS: RESP 18
[2025-05-27 09:00] VITALS: BP 146/93; PULSE 103; RESP 20; TEMP 98.2; O2SAT 95
[2025-05-27 09:04] LABS: Hemoglobin 7.6 g/dL (13.5-17.5); Mean Corpuscular Hemoglobin 20.3 pg (28.0-32.0); Nucleated Red Blood Cells % 0.3 %
[2025-05-27 09:05] LABS: Alanine Aminotransferase 36 U/L (7-40); Albumin 3.3 g/dL (3.2-4.8); Alkaline Phosphatase 52 U/L (46-116); Anion Gap 9 (5-15); Carbon Dioxide 29 mmol/L (20-31)
[2025-05-27 09:06] LABS: BUN/Creatinine Ratio 5.5 (10.0-20.0); Bilirubin, Total 0.2 mg/dL (0.2-1.0); Blood Urea Nitrogen < 5 mg/dL (9-23); Calcium 8.2 mg/dL (8.7-10.4); Chloride 97 mmol/L (98-107); Glucose 127 mg/dL (74-106); Potassium 3.0 mmol/L (3.5-5.1); Sodium 135 mmol/L (136-145)
[2025-05-27 09:06] LABS: Hematocrit 24.3 % (41.0-53.0); Mean Corpuscular Volume 64.8 fL (80.0-100.0)
[2025-05-27 09:07] LABS: Total Protein 5.7 g/dL (5.7-8.2)
--- NOTE | 2025-05-27 09:34 | DVHPN2 ---
Reviewed: Care Plan, H&P, Labs, Medications, Previous Orders, Radiology Changes from previous H/P or p: No Changes Objective Vitals Vital Signs Date Time Temp Pulse Resp B/P (MAP) Pulse Ox O2 Delivery O2 Flow Rate FiO2 05/27/25 07:53 18 Room Air* 0 21 05/27/25 05:00 99.6 100 141/88 (105) 94 99.6 Intake/Output Intake and Output 05/27/25 07:00 Intake Total 1350 ml Balance 1350 ml Intake Oral 1350 ml # Voids 10 # Bowel Movements 1 Medications Current Medications Medications Dose Ordered Sig/Shelli Route Start Time Stop Time Status Last Admin Dose Admin Sucralfate 1 gm QIDACHS PO 05/20/25 22:00 05/27/25 06:25 1 GM Pantoprazole Sodium 40 mg DAILY IV 05/21/25 10:00 05/26/25 09:13 40 MG Ondansetron HCl 4 mg Q4HP PRN IV 05/20/25 20:00 Acetaminophen 650 mg Q6HP PRN PO 05/20/25 20:00 05/26/25 01:57 650 MG Lactated Ringer's 1,000 ml @ 150 mls/hr Q6H40M IV 05/21/25 13:00 05/27/25 03:40 150 MLS/HR Hydromorphone HCl 2 mg Q4HPRN PRN IV 05/24/25 11:15 05/27/25 03:37 2 MG Laboratory Results Laboratory Tests 05/27/25 05:39 05/27/25 05:59 Chemistry Test 05/26/25 09:39 05/27/25 05:39 Albumin 3.8 g/dL (3.2-4.8) 3.3 g/dL (3.2-4.8) Calcium Level 8.5 mg/dL (8.7-10.4) L 8.2 mg/dL (8.7-10.4) L Total Protein 6.4 g/dL (5.7-8.2) 5.7 g/dL (5.7-8.2) Lipid panel Test 05/27/25 05:39 Lipase 52 U/L (12-53) LFT Test 05/26/25 09:39 05/27/25 05:39 Alanine Aminotransferase (ALT) 27 U/L (7-40) 36 U/L (7-40) Alkaline Phosphatase 61 U/L (46-116) 52 U/L (46-116) Aspartate Amino Transferase (AST) 28 U/L (13-40) 41 U/L (13-40) H Total Bilirubin 0.4 mg/dL (0.2-1.0) 0.2 mg/dL (0.2-1.0) Labs and/or images reviewed: Labs reviewed by me, Image(s) reviewed by me Assessment/Plan Assessment/Plan Acute on chronic pancreatitis: Lipase went up to 114 to 293 , lipase is still elevated at [address] Davie Espinoza appreciated, pantoprazole sucralfate , continue Dilaudid, requested Dr. Davie Espinoza to re-evaluate, lipase down to 52 Abdominal pain Pseudocyst pancreas History of heavy alcohol use in past Acute dehydration: LR 150 ml per hr Repeat CT abdomen pelvis without contrast shows possible reactive colitis Patient feels better with stable vital signs and wants to go home Plan discussed with: Patient Date of Service: May 27, 2025 Billing Provider: BRICE HU MD Common Visit Codes: [id number] INP/OBS CARE(HIGH) BRICE HU MD May 27, 2025 09:34
[2025-05-27] MEDS ORDERED: PANT40T PO (09:35)
[2025-05-27] MEDS ORDERED: HYDR-4902 PO (09:35)
--- NOTE | 2025-05-27 09:53 | DVHPN2 ---
Reviewed: Care Plan, H&P, Labs, Medications, Previous Orders, Radiology Changes from previous H/P or p: No Changes Objective Vitals Vital Signs Date Time Temp Pulse Resp B/P (MAP) Pulse Ox O2 Delivery O2 Flow Rate FiO2 05/27/25 07:53 18 Room Air* 0 21 05/27/25 05:00 99.6 100 141/88 (105) 94 99.6 Intake/Output Intake and Output 05/27/25 07:00 Intake Total 1350 ml Balance 1350 ml Intake Oral 1350 ml # Voids 10 # Bowel Movements 1 Medications Current Medications Medications Dose Ordered Sig/Shelli Route Start Time Stop Time Status Last Admin Dose Admin Sucralfate 1 gm QIDACHS PO 05/20/25 22:00 05/27/25 06:25 1 GM Pantoprazole Sodium 40 mg DAILY IV 05/21/25 10:00 05/26/25 09:13 40 MG Ondansetron HCl 4 mg Q4HP PRN IV 05/20/25 20:00 Acetaminophen 650 mg Q6HP PRN PO 05/20/25 20:00 05/26/25 01:57 650 MG Lactated Ringer's 1,000 ml @ 150 mls/hr Q6H40M IV 05/21/25 13:00 05/27/25 03:40 150 MLS/HR Hydromorphone HCl 2 mg Q4HPRN PRN IV 05/24/25 11:15 05/27/25 03:37 2 MG Laboratory Results Laboratory Tests 05/27/25 05:39 05/27/25 05:59 Chemistry Test 05/27/25 05:39 Albumin 3.3 g/dL (3.2-4.8) Calcium Level 8.2 mg/dL (8.7-10.4) L Total Protein 5.7 g/dL (5.7-8.2) Lipid panel Test 05/27/25 05:39 Lipase 52 U/L (12-53) LFT Test 05/27/25 05:39 Alanine Aminotransferase (ALT) 36 U/L (7-40) Alkaline Phosphatase 52 U/L (46-116) Aspartate Amino Transferase (AST) 41 U/L (13-40) H Total Bilirubin 0.2 mg/dL (0.2-1.0) Labs and/or images reviewed: Labs reviewed by me, Image(s) reviewed by me Assessment/Plan Assessment/Plan Acute on chronic pancreatitis: Lipase went up to 114 to 293 , lipase is still elevated at [address] Davie Espinoza appreciated, pantoprazole sucralfate , continue Dilaudid, requested Dr. Davie Espinoza to re-evaluate, lipase down to 52 Abdominal pain Pseudocyst pancreas History of heavy alcohol use in past Acute dehydration: LR 150 ml per hr Repeat CT abdomen pelvis without contrast shows possible reactive colitis Patient feels better with stable vital signs and wants to go home Plan discussed with: Patient Date of Service: May 27, 2025 Billing Provider: BRICE HU MD Common Visit Codes: [id number] INP/OBS CARE(HIGH) BRICE HU MD May 27, 2025 09:53
--- NOTE | 2025-05-27 10:01 | DVHDS2 ---
Discharge Summary Date of Admission May 20, 2025 at 19:55 Date of Discharge: May 27, 2025 Admitting Diagnosis Acute abdominal pain Wounds: None Labs/Diagnostic Data: Laboratory Results Test 05/27/25 05:59 05/27/25 05:39 White Blood Count 6.2 10^3/uL (4.4-10.8) Red Blood Count 3.75 10^6/uL (4.5-5.90) Hemoglobin 7.6 g/dL (13.5-17.5) Hematocrit 24.3 % (41.0-53.0) Mean Corpuscular Volume 64.8 fL (80.0-100.0) Mean Corpuscular Hemoglobin 20.3 pg (28.0-32.0) Mean Corpuscular Hemoglobin Concent 31.4 g/dL (32.0-36.0) Red Cell Distribution Width 18.5 % (11.8-14.3) Platelet Count 170 10^3/uL (140-450) Mean Platelet Volume 8.7 fL (6.9-10.8) Neutrophils (%) (Auto) 78.8 % (37.0-80.0) Lymphocytes (%) (Auto) 10.1 % (10.0-50.0) Monocytes (%) (Auto) 8.2 % (0.0-12.0) Eosinophils (%) (Auto) 2.2 % (0.0-7.0) Basophils (%) (Auto) 0.7 % (0.0-2.0) Neutrophils # (Auto) 4.8 10 ^3/uL (1.6-8.6) Lymphocytes # (Auto) 0.6 10 ^3/uL (0.4-5.4) Monocytes # (Auto) 0.5 10 ^3/uL (0-1.3) Eosinophils # (Auto) 0.1 10 ^3/uL (0-0.8) Basophils # (Auto) 0 10 ^3/uL (0-0.2) Nucleated Red Blood Cells 0.3 % Sodium Level 135 mmol/L (136-145) Potassium Level 3.0 mmol/L (3.5-5.1) Chloride Level 97 mmol/L (98-107) Carbon Dioxide Level 29 mmol/L (20-31) Anion Gap 9 (5-15) Blood Urea Nitrogen < 5 mg/dL (9-23) Creatinine 0.91 mg/dL (0.700-1.30) Glomerular Filtration Rate Calc 108 mL/min (>90) BUN/Creatinine Ratio 5.5 (10.0-20.0) Serum Glucose 127 mg/dL (74-106) Calcium Level 8.2 mg/dL (8.7-10.4) Total Bilirubin 0.2 mg/dL (0.2-1.0) Aspartate Amino Transferase (AST) 41 U/L (13-40) Alanine Aminotransferase (ALT) 36 U/L (7-40) Alkaline Phosphatase 52 U/L (46-116) Total Protein 5.7 g/dL (5.7-8.2) Albumin 3.3 g/dL (3.2-4.8) Lipase 52 U/L (12-53) Other Laboratory Tests 05/27/25 05:59 05/27/25 05:39 Brief Hx & Hospital Course: 44-year-old male with a history of pancreatitis came in for abdominal pain found to have flare-up of pancreatitis. Lipase 114 went up to 293 and came back to 52 at the time of discharge GI consult by Dr. Davie Espinoza. The patient feels better history of alcohol abuse advised to quit alcohol. Vital signs are stable afebrile and tolerating soft diet att the time of discharge. Consults/Reason for consult GI Dr. Davie Espinoza Operations or Procedures CT abdomen pelvis without contrast Condition at Discharge: Poor Final Diagnosis/Problems List Acute on chronic pancreatitis resolved Abdominal pain Pseudocyst pancreas History of heavy alcohol use in past Acute dehydration: Resolved Discharge Disposition: Home Discharge Instruct/Medications Diet: Regular Activity: No Restrictions, As Tolerated Follow Up/Referral: Follow up with your primary Dr in one week Medications: Ullin Pantoprazole [facility]uled Pantoprazole Sodium Sesquihydr (Pantoprazole Sodium), 40 MG PO BID Scheduled PRN Hydrocodone-Acetaminophen (Hydrocodone Bitartrate/AC 5-325 mg), 1 TAB PO QID PRN 39 (Time taken for discharge summary 39 mts) Discharge Statement: "Patient was advised to return to the ER or call 911 if any headaches, dizziness, shortness of breath, chest pain, abdominal pain, bleeding, fevers, or worsening of medical condition. Patient was counseled about treatment plan, medications, possible side effects, patientverbalized understanding. All questions were answered to the best of my ability. This discharge took greater then 30 minutes in planning, reviewing documentation, counseling the patient, and discussing with other team members." ASSESSMENT ASSESSMENT Hospital Course Uneventful Assessment Acute on chronic pancreatitis resolved Abdominal pain Pseudocyst pancreas History of heavy alcohol use in past Acute dehydration: Resolved Date of Service: May 27, 2025 Billing Provider: BRICE HU MD Common Visit Codes: 48237-CQH/OBS DISCH DAY >30min BRICE HU MD May 27, 2025 10:01
[2025-05-27] MEDS: POTASSIUM EFFERVESENT TAB 25 MEQ PO ONE (13:29)
[2025-05-27 13:37] VITALS: BP 173/94; PULSE 77; RESP 18
== END 2025-05-27 13:50 | disposition home or self-care (01) | DRG 282 ==
LOC: ER 15:27 → OVERFLOW 19:55 → CENTRAL 23:51
PROVIDERS: ADMIT Family Medicine; ATTEND Family Medicine
DX: K85.90 Acute pancreatitis without necrosis or infection, unspecified (principal); N17.0 Acute kidney failure with tubular necrosis; E86.0 Dehydration; K86.1 Other chronic pancreatitis; K86.3 Pseudocyst of pancreas; I10 Essential (primary) hypertension; Z79.2 Long term (current) use of antibiotics; Z79.899 Other long term (current) drug therapy; Z90.49 Acquired absence of other specified parts of digestive tract
CPT/HCPCS: 36415; 74176; 80048; 80053; 83690; 85025; 96361; 96374; 96375; G0378; J1885; J2470

== ENCOUNTER 2025-06-15 05:59 | Inpatient (IN) | payer MEDICAID ==
[~2025-06-15] VITALS: Ht 172.7 cm; Wt 79.8 kg
[~2025-06-15 05:59] MED LIST changes: -ACET650T12 PO; -AUG875T PO; +PANT40T PO; -PANT40TA2 PO; -PERCOT PO; -ZOFR4T PO
--- NOTE | 2025-06-15 06:28 | ED.PDOC ---
GI ASSESSMENT HPI Comments 44 year old male presents to the ED via EMS with a chief complaint of abdominal pain onset today (06/15/25) around 3 hours prior to ED arrival. Patient states he has PMHx pancreatitis, woke up around 3 hours ago experiencing diffused abdominal pain as well as nausea, vomiting. Denies fever, chills, diarrhea, constipation, dizziness, chest pain, shortness of breath, blurred vision. No other symptoms or modifying factors present at this time. Chief Complaint: Abdominal Pain Time Seen by MD: 06:15 Primary Care Provider: UNKNOWN Reviewed Notes: Medications, Allergies Allergies: Coded Allergies: NO KNOWN ALLERGIES (Unverified , 06/01/23) Home Meds Active Scripts Pantoprazole Sodium Sesquihydr (Pantoprazole Sodium) 40 Mg Tab, 40 MG PO BID, #30 TAB Prov:BRICE HU MD 05/27/25 Hydrocodone-Acetaminophen (Hydrocodone Bitartrate/AC 5-325 mg) 1 Tab Tab, 1 TAB PO QID PRN, #30 TAB Prov:BRICE HU MD 05/27/25 Information Source: Patient, Emergency Med Personnel Mode of Arrival: EMS Timing: Hours Duration: Since onset Prehospital treatment: None Quality: Sharp Severity: Moderate Recent: None Recent Hx of: None Pain Location: Diffuse Modifying Factors: Nothing Associated sign and symptoms: Nausea, Vomiting, Abdominal Pain Past Medical History PAST MEDICAL HISTORY: HTN Past Medical History (Other): pancreatitis Surgical History: Cholecystectomy Family History Family History: Reviewed,noncontributory to illness Social History Smoker: Non-Smoker Alcohol: Sober Drugs: Denies Drug Use Lives In: Home EENTM: denies: blurred vision, double vision, ear bleeding, ear discharge, ear drainage, ear pain, ear ringing, eye pain, eye redness, hearing loss, mouth pain, mouth swelling, nasal discharge, nose bleeding, nose congestion, nose pain, photophobia, tearing, throat pain, throat swelling, voice changes, others Respiratory: denies: cough, hemoptysis, orthopnea, SOB at rest, shortness of breath, SOB with excertion, stridor, wheezing, others Cardiovascular: denies: chest pain, dizzy spells, diaphoresis, Dyspnea on exertion, edema, irregular heart beat, left arm pain, lightheadedness, palpitations, PND, syncope, others Gastrointestinal: reports: abdominal pain, nausea, vomiting; denies: abdomen distended, blood streaked bowels, constipated, diarrhea, dysphagia, difficulty swallowing, hematemesis, melena, poor appetite, poor fluid intake, rectal bleeding, rectal pain, others Genitourinary: denies: burning, dysuria, flank pain, frequency, hematuria, incontinence, penile discharge, penile sore, pain, testicle pain, testicle swelling, urgency, others Neurological: denies: dizziness, fainting, headache, left sided numbness, left sided weakness, numbness, paresthesia, pre-existing deficit, right sided numbness, right sided weakness, seizure, speech problems, tingling, tremors, weakness, others Musculoskeletal: denies: back pain, gout, joint pain, joint swelling, muscle pain, muscle stiffness, neck pain, others Integumetry: denies: bruises, change in color, change in hair/nails, dryness, laceration, lesions, lumps, rash, wounds, others Allergic/Immunocompromised: denies: Difficulty Healing, Frequent Infections, Hives, Itching, others Hematologic/Lymphatic: denies: anemia, blood clots, easy bleeding, easy bruising, swollen glands, others Endocrine: denies: excessive hunger, excessive sweating, excessive thirst, excessive urination, flushing, intolerance to cold, intolerance to heat, unexplained weight gain, unexplained weight loss, others Psychiatric: denies: anxiety, bipolar disorder, depression, hopeless, panic disorder, schizophrenia, sleepless, suicidal, others All Other Systems: Reviewed and Negative Physical Exam General Appearance: Moderate Distress, Normal HEENT: Normal ENT Inspection, Pharynx Normal, TMs Normal Neck: Full Range of Motion, Non-Tender, Normal, Normal Inspection Respiratory: Chest Non-Tender, Lungs Clear, No Accessory Muscle Use, No Respiratory Distress, Normal Breath Sounds Cardiovascular: No Edema, No JVD, No Murmur, No Gallop, Normal Peripheral Pulses, Regular Rate/Rhythm Breast Exam: Deferred Gastrointestinal: Diffuse, No Organomegaly, No Pulsatile Mass, Normal Bowel Sounds, Soft Genitalia: Deferred Pelvic: Deferred Rectal: Deferred Extremities: No calf tenderness, Normal capillary refill, Normal inspection, Normal range of motion, Non-tender, No pedal edema Musculoskeletal : Apperance: Normal Neurologic: Alert, lacquer coater II-XII nml as Tested, No Motor Deficits, Normal Affect, Normal Mood, No Sensory Deficits Cerebellar Function: NOT DONE Reflexes: NOT DONE Skin: Dry, Normal Color, Warm Peripheral Pulses: 3+ Radial (R), 3+ Radial (L) Lymphatic: No Adenopathy Was a procedure done? Was a procedure done?: No GI differential Dx Differential Diagnosis: Constipation, Diverticular disease, Esophagitis, Gastritis/PUD, Gastroenteritis X-Ray, Labs, Meds, VS Vital Signs Date Time Temp Pulse Resp B/P (MAP) Pulse Ox O2 Delivery O2 Flow Rate FiO2 06/15/25 07:34 97.9 90 18 127/84 (98) 98 97.9 06/15/25 07:34 90 18 98 Room Air 06/15/25 06:04 98.2 74 18 144/89 98 98.2 Lab Test 06/15/25 06:42 Range/Units White Blood Count 12.8 H 4.4-10.8 10^3/uL Red Blood Count 5.19 4.5-5.90 10^6/uL Hemoglobin 10.6 L 13.5-17.5 g/dL Hematocrit 33.8 L 41.0-53.0 % Mean Corpuscular Volume 65.2 L 80.0-100.0 fL Mean Corpuscular Hemoglobin 20.4 L 28.0-32.0 pg Mean Corpuscular Hemoglobin Concent 31.2 L 32.0-36.0 g/dL Red Cell Distribution Width 18.9 H 11.8-14.3 % Platelet Count 285 140-450 10^3/uL Mean Platelet Volume 8.0 6.9-10.8 fL Neutrophils (%) (Auto) 88.5 H 37.0-80.0 % Lymphocytes (%) (Auto) 7.4 L 10.0-50.0 % Monocytes (%) (Auto) 2.9 0.0-12.0 % Eosinophils (%) (Auto) 0.7 0.0-7.0 % Basophils (%) (Auto) 0.5 0.0-2.0 % Neutrophils # (Auto) 11.3 H 1.6-8.6 10 ^3/uL Lymphocytes # (Auto) 0.9 0.4-5.4 10 ^3/uL Monocytes # (Auto) 0.4 0-1.3 10 ^3/uL Eosinophils # (Auto) 0.1 0-0.8 10 ^3/uL Basophils # (Auto) 0.1 0-0.2 10 ^3/uL Nucleated Red Blood Cells 0.0 % Sodium Level 141 136-145 mmol/L Potassium Level 4.5 3.5-5.1 mmol/L Chloride Level 106 98-107 mmol/L Carbon Dioxide Level 24 20-31 mmol/L Anion Gap 11 5-15 Blood Urea Nitrogen 7 L 9-23 mg/dL Creatinine 1.14 0.700-1.30 mg/dL Glomerular Filtration Rate Calc 82 >90 mL/min BUN/Creatinine Ratio 6.1 L 10.0-20.0 Serum Glucose 125 H 74-106 mg/dL Calcium Level 9.5 8.7-10.4 mg/dL Lipase 320 H 12-53 U/L Current Medications Medications (Trade) Dose Ordered Sig/Shelli Route Start Time Stop Time Status Last Admin Sodium Chloride 1,000 ml @ 1,000 mls/hr Q1H ONCE IVB 06/15/25 06:45 06/15/25 07:44 DC 06/15/25 07:30 Patient alert. Complaining of abdominal pain. Vitals stable. Answering questions. Had his gallbladder surgery. Establish intravenous access. Was given fluids. Was given Rocephin. Was given Flagyl. Was given morphine. Was given Zofran. WBC elevated. Explained to the patient. Continue monitoring. [place] [id number] Ph: [phone] DIAGNOSTIC IMAGING Diagnostic Imaging Report : [id number] Signed PATIENT: MAYRA ALBARADO ACCT: [id number] UNIT: [id number] : 1980 LOC: ER ROOM / BED: / AGE / SEX: 44 / M ADM STATUS: REG ER SERVICE [id number] ORDERING PHYSICIAN: PAUL LUCERO MD PROCEDURE(s): ABPL - CT AB PEL WO CON-NO ORAL OR IV REASON: pancreas ORDER NUMBER(s): [id number], ACCESSION NUMBER(s): [id number] CLINICAL INFORMATION: Pancreas. No other clinical information provided. Indication on prior CT exam was pancreatitis. TECHNIQUE: Axial CT images of the abdomen and pelvis were obtained without IV contrast. Coronal and sagittal reformatted images were obtained, reviewed, and stored. Evaluation of the parenchymal organs is limited without IV contrast. Evaluation of the bowel and mesentery is limited without oral contrast. All CT scans at this medical facility are performed using dose modulation techniques as appropriate to a performed exam including the following: Automated exposure control was utilized; adjustment of the MA and/or KV according to patient size; and use of iterative reconstruction technique. CTDIvol = 8.87 mGy DLP = 533.2 mGy-cm COMPARISON: CT CT AB PEL WO CON-NO ORAL OR IV on DOS: 05/25/25, CT CT AB PEL WO CON-NO ORAL OR IV on DOS: 05/20/25, CT ABD/PEL W - IV on DOS: 03/29/25 FINDINGS: Lung bases: Lung bases are clear. Liver: Grossly unremarkable in its noncontrast enhanced appearance. No abnormal density or focal lesion identified. Biliary: Cholecystectomy. Spleen: Spleen is enlarged, measuring up to 16.5 cm in greatest dimension. Pancreas: Marked inflammatory stranding again noted near the pancreatic head and extending to the adjacent gastric antrum and duodenum. Focal fluid collection measuring up to 3.1 cm in greatest dimension within the area of inflammatory stranding, along the course of the duodenum, possibly within the duodenum, appears to be present on the prior exam, minimally changed. Previously seen fluid collection at the pancreatic head has completely or near completely resolved since the prior exam. Prominent calcifications in the pancreas consistent with sequela of chronic pancreatitis. Inflammatory stranding extending to the hepatic flexure of the colon has improved compared to the prior exam with mild residual inflammatory stranding in this location. There is a fluid collection interposed between the spleen and body of the stomach measuring up to 5.0 cm, previously measured 5.8 cm. Adrenal glands: Unremarkable. No mass. Kidneys: No hydronephrosis. No renal or ureteral calculi. Aorta/Vascular: No aneurysm or significant calcification. Lymph nodes: Prominent interaortocaval lymph nodes measuring up to 1.2 x 0.8 cm, previously measured up to 1.8 x 0.8 cm, likely reactive. Additional prominent lymph nodes in the right hemiabdomen are seen measuring up to 1.1 x 0.9 cm, also most likely reactive given the adjacent inflammatory changes. Bowel/mesentery: Small hiatal hernia. No small bowel obstruction. Appendix is not visualized. No free air. Small amount of inflammatory free fluid in the abdomen and pelvis. Pelvic organs: Grossly unremarkable. Bladder: Unremarkable. No mass. Abdominal wall: No mass or hernia. Bones: No acute fracture or suspicious intraosseous lesion. IMPRESSION: 1. Inflammatory stranding in the right upper abdomen, including adjacent to the pancreatic head, gastric antrum, duodenum, and hepatic flexure of the colon as detailed above, with improvement in some areas compared to the prior exam. 2. Fluid collection along the course of the duodenum appears minimally changed. Fluid collections interposed between the spleen in the body of the stomach has not significantly changed. Fluid collection of the pancreatic head has completely or near completely resolved. 3. Unchanged splenomegaly. 4. Additional findings as described above. ATED BY: CHEMO MART DO DICTATED DATE/TIME: 06/15/25733 SIGNED BY: CHEMO MART DO SIGNED DATE/TIME: 06/15/25733 CC: Time of 1ST Reevaluation: 06:45 Reevaluation 1ST: Unchanged Patient Education/Counseling: Diagnosis, Treatment, Prognosis Family Education/Counseling: No Family Present SEPSIS Sepsis Screen Date sepsis recognized/suspect: Jun 15, 2025 Time Sepsis recognized/suspect: 601 Recent Procedure: No On Antibiotic Therapy: No Respiratory Rate >20: No Heart Rate >90: No Temp<36 C (96.8 F) or >38.3 C: No SBP <90 or MAP <65 mmHG: No New Acute Mental Status Change: No Is the patient on CPAP, BIPAP,: No Physician Orders Ct Ab Pel Wo Con-No Oral Or Iv (06/15/25 06:33) Blood Culture (06/15/25 07:49) Lactic Acid W/ Reflex Order (06/15/25 07:49) Ceftriaxone 1gm/50ml (Rocephin) (06/15/25 08:00) Metronidazole 500mg/100ml (Flagyl 500mg/ (06/15/25 08:00) Sodium Chloride 0.9% (06/15/25 08:00) Sodium Chloride 0.9% (06/15/25 08:00) Vital Signs Date Time Temp Pulse Resp B/P (MAP) Pulse Ox O2 Delivery O2 Flow Rate FiO2 06/15/25 07:34 97.9 90 18 127/84 (98) 98 97.9 06/15/25 07:34 90 18 98 Room Air 06/15/25 06:04 98.2 74 18 144/89 98 98.2 Laboratory Tests Test 06/15/25 06:42 White Blood Count 12.8 10^3/uL (4.4-10.8) H Medications Medications Dose Ordered Sig/Shelli Route Start Time Stop Time Status Last Admin Dose Admin Sodium Chloride 1,000 ml @ 1,000 mls/hr Q1H ONCE IVB 06/15/25 06:45 06/15/25 07:44 DC 06/15/25 07:30 Departure 1 Departure Time of Disposition: 07:58 Impression: Primary Impression: Acute abdominal pain Additional Impressions: Acute pancreatitis Qualified Codes: K85.90 - Acute pancreatitis without necrosis or infection, unspecified Sepsis, unspecified organism Qualified Codes: A41.9 - Sepsis, unspecified organism Disposition: ADMITTED INPATIENT Admit to: Med Surg Condition: Guarded Critical Care Note Critical Care Time?: Yes (90 min-critical care time only) Stability Stability form required: No Heart Score Heart Score: Heart Score Response (Comments) Value History N/A 0 EKG N/A 0 Age N/A 0 Risk Factors N/A 0 Troponin N/A 0 Total 0 I personally scribed for PAUL LUCERO MD ([email or web address]) on 06/15/25 at 06:28. Electronically submitted by Jackelin Alvarez ([email or web address]). I personally scribed for PAUL LUCERO MD ([email or web address]) on 06/15/25 at 07:59. Electronically submitted by Jackelin Alvarez ([email or web address]). PAUL LUCERO MD Jun 15, 2025 06:28
[2025-06-15 07:05] LABS: Hemoglobin 10.6 g/dL (13.5-17.5); Nucleated Red Blood Cells % 0.0 %
[2025-06-15 07:09] LABS: Hematocrit 33.8 % (41.0-53.0); Mean Corpuscular Hemoglobin 20.4 pg (28.0-32.0); Mean Corpuscular Volume 65.2 fL (80.0-100.0)
[2025-06-15 07:11] LABS: Chloride 106 mmol/L (98-107); Potassium 4.5 mmol/L (3.5-5.1); Sodium 141 mmol/L (136-145)
[2025-06-15 07:12] LABS: Anion Gap 11 (5-15); Calcium 9.5 mg/dL (8.7-10.4); Carbon Dioxide 24 mmol/L (20-31)
[2025-06-15 07:17] LABS: BUN/Creatinine Ratio 6.1 (10.0-20.0)
[2025-06-15 07:18] LABS: Blood Urea Nitrogen 7 mg/dL (9-23); Glucose 125 mg/dL (74-106); Lipase 320 U/L (12-53)
[2025-06-15] MEDS: SODIUM CHLORIDE 0.9% 1,000 ML IVB ONE (07:30)
--- NOTE | 2025-06-15 07:36 | DVH ---
CLINICAL INFORMATION: Pancreas. No other clinical information provided. Indication on prior CT exam was pancreatitis. TECHNIQUE: Axial CT images of the abdomen and pelvis were obtained without IV contrast. Coronal and s agittal reformatted images were obtained, reviewed, and stored. Evaluation of the parenchymal organs is limited without IV contrast. Evaluation of the bowel and mesentery is limited without oral contras t. All CT scans at this medical facility are performed using dose modulation techniques as appropriat e to a performed exam including the following: Automated exposure control was utilized; adjustment of the MA and/or KV according to patient size; and use of iterative reconstruction technique. CTDIvol = 8.87 mGy DLP = 533.2 mGy-cm COMPARISON: CT CT AB PEL WO CON-NO ORAL OR IV on DOS: 05/25/25, CT CT AB PEL WO CON-NO ORAL OR IV on DO S: 05/20/25, CT ABD/PEL W - IV on DOS: 03/29/25 FINDINGS: Lung bases: Lung bases are clear. Liver: Grossly unremarkable in its noncontrast enhanced appearance. No abnormal density or focal lesi on identified. Biliary: Cholecystectomy. Spleen: Spleen is enlarged, measuring up to 16.5 cm in greatest dimension. Pancreas: Marked inflammatory stranding again noted near the pancreatic head and extending to the adj acent gastric antrum and duodenum. Focal fluid collection measuring up to 3.1 cm in greatest dimensio n within the area of inflammatory stranding, along the course of the duodenum, possibly within the du odenum, appears to be present on the prior exam, minimally changed. Previously seen fluid collection at the pancreatic head has completely or near completely resolved since the prior exam. Prominent yamil cifications in the pancreas consistent with sequela of chronic pancreatitis. Inflammatory stranding e xtending to the hepatic flexure of the colon has improved compared to the prior exam with mild residu al inflammatory stranding in this location. There is a fluid collection interposed between the spleen and body of the stomach measuring up to 5.0 cm, previously measured 5.8 cm. Adrenal glands: Unremarkable. No mass. Kidneys: No hydronephrosis. No renal or ureteral calculi. Aorta/Vascular: No aneurysm or significant calcification. Lymph nodes: Prominent interaortocaval lymph nodes measuring up to 1.2 x 0.8 cm, previously measured up to 1.8 x 0.8 cm, likely reactive. Additional prominent lymph nodes in the right hemiabdomen are se en measuring up to 1.1 x 0.9 cm, also most likely reactive given the adjacent inflammatory changes. Bowel/mesentery: Small hiatal hernia. No small bowel obstruction. Appendix is not visualized. No free air. Small amount of inflammatory free fluid in the abdomen and pelvis. Pelvic organs: Grossly unremarkable. Bladder: Unremarkable. No mass. Abdominal wall: No mass or hernia. Bones: No acute fracture or suspicious intraosseous lesion. IMPRESSION: 1. Inflammatory stranding in the right upper abdomen, including adjacent to the pancreatic head, tavia jessica antrum, duodenum, and hepatic flexure of the colon as detailed above, with improvement in some ar eas compared to the prior exam. 2. Fluid collection along the course of the duodenum appears minimally changed. Fluid collections in terposed between the spleen in the body of the stomach has not significantly changed. Fluid collectio n of the pancreatic head has completely or near completely resolved. 3. Unchanged splenomegaly. 4. Additional findings as described above.
[2025-06-15] MEDS: MORPHINE SULFATE 4 MG/ML SYR/VIAL IV ONE (08:03)
[2025-06-15] MEDS: ONDANSETRON HCL 4 MG/2 ML VIAL IV ONE (08:03)
[2025-06-15] MEDS: SODIUM CHLORIDE 0.9% 1,000 ML IV ONE ×2 (08:21)
[2025-06-15] MEDS ORDERED: DOCUSATE SOD 100 MG CAP PO PRN (08:45)
[2025-06-15] MEDS: SODIUM CHLORIDE 0.9% 1,000 ML IV SCH (08:45)
[2025-06-15] MEDS ORDERED: ACETAMINOPHEN 325 MG TAB PO PRN (08:45)
[2025-06-15] MEDS ORDERED: HYDROcodone-ACET 5/325MG TAB PO PRN (08:45)
[2025-06-15] MEDS ORDERED: MORPHINE SULFATE 4 MG/ML SYR/VIAL IV PRN (09:30)
--- NOTE | 2025-06-15 09:37 | DVHHP2 ---
History of Present Illness Reason for Visit: Abdominal pain History of Present Illness Jacob Cox is a 44-year-old male with past medical history of GERD and pancreatitis, who came to the hospital due to abdominal pain. Patient states he was woken up suddenly this morning about 0300 with abdominal pain, nausea, and vomiting. He has a history of pancreatitis, and was recently admitted here and treated for this. He states he had been doing better, but he suddenly worsened. He states he quite drinking about 8 months ago and he does not know why this keeps happening. GI: GERD Past Surgical History: Cholecystectomy (2020) Smoke: No ALCOHOL: none (quite 8 months ago) Drugs: None Lives: with Family Domestic Violence: Neg Review of Systems Constitutional: No: Fever, Chills, Sweats, Weakness, Malaise, Other Eyes: No: Pain, Vision change, Conjunctivae inflammation, Eyelid inflammation, Other, Redness ENT: No: Ear pain, Ear discharge, Nose pain, Nose discharge, Nose congestion, Mouth pain, Mouth swelling, Throat pain, Throat swelling, Other Respiratory: No: Cough, Dry, Shortness of breath, SOB with excertion, Wheezing, Hemoptysis, Pleuritic Pain, Sputum, Wheezing, Other Cardiovascular: No: Chest Pain, Palpitations, Orthopnea, Paroxysmal Noc. Dyspnea, Edema, Lt Headedness, Other Gastrointestinal: Nausea, Vomiting, Abdominal Pain; No: Diarrhea, Constipation, Melena, Hematochezia, Other Genitourinary: No Dysuria, No Frequency, No Incontinence, No Hematuria, No Retention, No Other Musculoskeletal: No: other, neck pain, shoulder pain, arm pain, back pain, hand pain, leg pain, foot pain Skin: No: Rash, Lesions, Jaundice, Bruising, Other Neurological: No: Weakness, Numbness, Incoordination, Change in speech, Confusion, Seizures, Other Allergies: Coded Allergies: NO KNOWN ALLERGIES (Unverified , 06/01/23) Medications Current Medications Medications Dose Ordered Sig/Shelli Route Start Time Stop Time Status Last Admin Dose Admin Sodium Chloride 1,000 ml @ 120 mls/hr Q8H20M IV 06/15/25 08:45 UNV Acetaminophen/ Hydrocodone Bitart 1 tab Q4HP PRN PO 06/15/25 08:45 UNV Ondansetron HCl 4 mg Q4HP PRN IV 06/15/25 08:45 UNV Docusate Sodium 100 mg BIDPRN PRN PO 06/15/25 08:45 UNV Acetaminophen 650 mg Q6HP PRN PO 06/15/25 08:45 UNV Morphine Sulfate 2 mg Q4HPRN PRN IV 06/15/25 08:45 UNV Exam Vital Signs Vital Signs Date Time Temp Pulse Resp B/P (MAP) Pulse Ox O2 Delivery O2 Flow Rate FiO2 06/15/25 08:03 83 17 108/45 06/15/25 08:00 98.2 97 98.2 06/15/25 07:34 Room Air General Appearance: Alert, Oriented X3, Cooperative, moderate distress HEENT: Atraumatic, PERRLA, Other (mucous membr dry) Respiratory: Clear to auscultation, Normal air movement Cardiovascular: Regular rate, Normal S1, Normal S2 Abdominal: Normal bowel sounds, Soft, Other (Tenderness on palpitation) Extremities: No clubbing, No cyanosis, No edema, Normal pulses, No tenderness/swelling Skin: No rashes, No breakdown, No significant lesion Neuro: Normal gait, Normal speech, Strength at 5/5 X4 ext Psych/Mental Status: Mental status NL, Mood NL Labs/Xrays Labs Test 06/15/25 07:45 06/15/25 06:42 Range/Units Lactic Acid Level 0.9 0.4-2.0 mmol/L White Blood Count 12.8 H 4.4-10.8 10^3/uL Red Blood Count 5.19 4.5-5.90 10^6/uL Hemoglobin 10.6 L 13.5-17.5 g/dL Hematocrit 33.8 L 41.0-53.0 % Mean Corpuscular Volume 65.2 L 80.0-100.0 fL Mean Corpuscular Hemoglobin 20.4 L 28.0-32.0 pg Mean Corpuscular Hemoglobin Concent 31.2 L 32.0-36.0 g/dL Red Cell Distribution Width 18.9 H 11.8-14.3 % Platelet Count 285 140-450 10^3/uL Mean Platelet Volume 8.0 6.9-10.8 fL Neutrophils (%) (Auto) 88.5 H 37.0-80.0 % Lymphocytes (%) (Auto) 7.4 L 10.0-50.0 % Monocytes (%) (Auto) 2.9 0.0-12.0 % Eosinophils (%) (Auto) 0.7 0.0-7.0 % Basophils (%) (Auto) 0.5 0.0-2.0 % Neutrophils # (Auto) 11.3 H 1.6-8.6 10 ^3/uL Lymphocytes # (Auto) 0.9 0.4-5.4 10 ^3/uL Monocytes # (Auto) 0.4 0-1.3 10 ^3/uL Eosinophils # (Auto) 0.1 0-0.8 10 ^3/uL Basophils # (Auto) 0.1 0-0.2 10 ^3/uL Nucleated Red Blood Cells 0.0 % Sodium Level 141 136-145 mmol/L Potassium Level 4.5 3.5-5.1 mmol/L Chloride Level 106 98-107 mmol/L Carbon Dioxide Level 24 20-31 mmol/L Anion Gap 11 5-15 Blood Urea Nitrogen 7 L 9-23 mg/dL Creatinine 1.14 0.700-1.30 mg/dL Glomerular Filtration Rate Calc 82 >90 mL/min BUN/Creatinine Ratio 6.1 L 10.0-20.0 Serum Glucose 125 H 74-106 mg/dL Calcium Level 9.5 8.7-10.4 mg/dL Amylase Level 231 H 30-118 U/L Lipase 320 H 12-53 U/L TECHNIQUE: Axial CT images of the abdomen and pelvis were obtained without IV contrast. COMPARISON: CT CT AB PEL WO CON-NO ORAL OR IV on DOS: 05/25/25, CT CT AB PEL WO CON-NO ORAL OR IV on DOS: 05/20/25, CT ABD/PEL W - IV on DOS: 03/29/25 FINDINGS: Lung bases: Lung bases are clear. Liver: Grossly unremarkable in its noncontrast enhanced appearance. No abnormal density or focal lesion identified. Biliary: Cholecystectomy. Spleen: Spleen is enlarged, measuring up to 16.5 cm in greatest dimension. Pancreas: Marked inflammatory stranding again noted near the pancreatic head and extending to the adjacent gastric antrum and duodenum. Focal fluid collection measuring up to 3.1 cm in greatest dimension within the area of inflammatory stranding, along the course of the duodenum, possibly within the duodenum, appears to be present on the prior exam, minimally changed. Previously seen fluid collection at the pancreatic head has completely or near completely resolved since the prior exam. Prominent calcifications in the pancreas consistent with sequela of chronic pancreatitis. Inflammatory stranding extending to the hepatic flexure of the colon has improved compared to the prior exam with mild residual inflammatory stranding in this location. There is a fluid collection interposed between the spleen and body of the stomach measuring up to 5.0 cm, previously measured 5.8 cm. Adrenal glands: Unremarkable. No mass. Kidneys: No hydronephrosis. No renal or ureteral calculi. Aorta/Vascular: No aneurysm or significant calcification. Lymph nodes: Prominent interaortocaval lymph nodes measuring up to 1.2 x 0.8 cm, previously measured up to 1.8 x 0.8 cm, likely reactive. Additional prominent lymph nodes in the right hemiabdomen are seen measuring up to 1.1 x 0.9 cm, also most likely reactive given the adjacent inflammatory changes. Bowel/mesentery: Small hiatal hernia. No small bowel obstruction. Appendix is not visualized. No free air. Small amount of inflammatory free fluid in the abdomen and pelvis. Pelvic organs: Grossly unremarkable. Bladder: Unremarkable. No mass. Abdominal wall: No mass or hernia. Bones: No acute fracture or suspicious intraosseous lesion. IMPRESSION: 1. Inflammatory stranding in the right upper abdomen, including adjacent to the pancreatic head, gastric antrum, duodenum, and hepatic flexure of the colon as detailed above, with improvement in some areas compared to the prior exam. 2. Fluid collection along the course of the duodenum appears minimally changed. Fluid collections interposed between the spleen in the body of the stomach has not significantly changed. Fluid collection of the pancreatic head has completely or near completely resolved. 3. Unchanged splenomegaly. 4. Additional findings as described above. SEPSIS Sepsis Screen Date sepsis recognized/suspect: Jun 15, 2025 Time Sepsis recognized/suspect: 06 Recent Procedure: No On Antibiotic Therapy: No Respiratory Rate >20: No Heart Rate >90: No Temp<36 C (96.8 F) or >38.3 C: No SBP <90 or MAP <65 mmHG: No New Acute Mental Status Change: No Is the patient on CPAP, BIPAP,: No Physician Orders Ct Ab Pel Wo Con-No Oral Or Iv (06/15/25 06:33) Blood Culture (06/15/25 07:49) Metronidazole 500mg/100ml (Flagyl 500mg/ (06/15/25 08:00) Sodium Chloride 0.9% (06/15/25 08:00) Sodium Chloride 0.9% (06/15/25 08:00) Admit (06/15/25 08:37) Code Status (06/15/25 08:37) Sodium Chloride 0.9% (06/15/25 08:45) Hydrocodone-Acet 5/325mg Tab ([place] 32 (06/15/25 08:45) Ondansetron Hcl (Zofran) (06/15/25 08:45) Docusate Sodium Capsule (Colace Capsule) (06/15/25 08:45) Complete Blood Count (06/16/25 04:00) Comprehensive Metabolic Panel (06/16/25 04:00) Npo (Nothing By Mouth) Diet (06/15/25 Breakfast) Condition: Serious (06/15/25 08:37) Acetaminophen Tablet (Tylenol Tablet) (06/15/25 08:45) Morphine Sulfate Injection (06/15/25 08:45) Vital Signs Date Time Temp Pulse Resp B/P (MAP) Pulse Ox O2 Delivery O2 Flow Rate FiO2 06/15/25 08:03 83 17 108/45 06/15/25 08:00 98.2 83 17 108/45 (66) 97 98.2 06/15/25 07:34 97.9 90 18 127/84 (98) 98 97.9 06/15/25 07:34 90 18 98 Room Air 06/15/25 06:04 98.2 74 18 144/89 98 98.2 Laboratory Tests Test 06/15/25 06:42 06/15/25 07:45 White Blood Count 12.8 10^3/uL (4.4-10.8) H Lactic Acid Level 0.9 mmol/L (0.4-2.0) Medications Medications Dose Ordered Sig/Shelli Route Start Time Stop Time Status Last Admin Dose Admin Ceftriaxone Sodium 50 ml @ 100 mls/hr ONCE ONCE IV 06/15/25 08:00 06/15/25 08:29 DC 06/15/25 08:06 100 MLS/HR Metronidazole 100 ml @ 100 mls/hr ONCE ONCE IV 06/15/25 08:00 06/15/25 08:59 06/15/25 08:29 100 MLS/HR Morphine Sulfate 4 mg ONCE ONCE IV 06/15/25 06:45 06/15/25 06:46 DC 06/15/25 08:03 4 MG Ondansetron HCl 4 mg ONCE ONCE IV 06/15/25 06:45 06/15/25 06:46 DC 06/15/25 08:03 4 MG Sodium Chloride 1,000 ml @ 1,000 mls/hr Q1H ONCE IV 06/15/25 08:00 06/15/25 08:59 06/15/25 08:21 1,000 MLS/HR Sodium Chloride 1,000 ml @ 1,000 mls/hr Q1H ONCE IVB 06/15/25 06:45 06/15/25 07:44 DC 06/15/25 07:30 1,000 MLS/HR Assessment/Plan Assessment/Plan Assessment: Acute pancreatitis, Leukocytosis, Dehydration, GERD, Plan: Admit to Med-Surg, IV antibiotics, IV hydration, NPO, Consider GI consult if symptoms worsen, Home medications reconciled, Plan discussed with: Patient My Orders Orders - JUAN RAMON CHAVIS Procedure Category Date Status Time Admit ADMIT 06/15/25 Transmitted 08:37 Code Status CODE 06/15/25 Transmitted 08:37 Sodium Chloride 0.9% PHA 06/15/25 Logged 08:45 Hydrocodone-Acet PHA 06/15/25 Logged 5/325mg Tab ([place] 08:45 Ondansetron Hcl PHA 06/15/25 Logged (Zofran) 08:45 Docusate Sodium PHA 06/15/25 Logged Capsule (Colace 08:45 Complete Blood Count LAB 06/16/25 Verified 04:00 Comprehensive LAB 06/16/25 Verified Metabolic Panel 04:00 Npo (Nothing By DIET 06/15/25 Transmitted Mouth) Diet Breakfast Condition: Serious LISA 06/15/25 In Process 08:37 Acetaminophen Tablet PHA 06/15/25 Logged (Tylenol Tablet) 08:45 Morphine Sulfate PHA 06/15/25 Logged Injection 08:45 Date of Service: Jun 15, 2025 Billing Provider: JUAN RAMON CHAVIS Common Visit Codes: [id number] INP/OBS CARE (MOD) JUAN RAMON CHAVIS Jun 15, 2025 09:37
[2025-06-15] MEDS: KETOROLAC TROMETH 30 MG/ML 1ML VIAL IV PRN (11:01)
[2025-06-15] MEDS: PANTOPRAZOLE 40 MG/10 ML VIAL INJ IV ONE (11:11)
[2025-06-15] MEDS: ONDANSETRON HCL 4 MG/2 ML VIAL IV PRN (11:11)
[2025-06-15 11:34] VITALS: PULSE 80; RESP 18; O2SAT 98
--- NOTE | 2025-06-15 12:45 | DVH ---
Date: 06/15/2025 12:06 PM Examination: XY KUB ABDOMEN SINGLE VIEW History: portable, upright kub, for abd pain, r/o pneumoperitoneum Comparison: CT CT AB PEL WO CON-NO ORAL OR IV on DOS: 06/15/25, CT CT AB PEL WO CON-NO ORAL OR IV on D OS: 05/25/25, CT CT AB PEL WO CON-NO ORAL OR IV on DOS: 05/20/25, CT ABD/PEL W - IV on DOS: 03/29/25, CT A BD/PEL W - IV on DOS: 03/25/25 TECHNIQUE: Frontal views of the abdomen was obtained. FINDINGS: Bowel gas pattern is unremarkable. Surgical clips project over right upper quadrant. Largeate stool b urden. The lung bases are unremarkable. No acute osseous abnormality identified. IMPRESSION: Nonobstructive bowel gas pattern. Large stool burden.
[2025-06-15 13:00] VITALS: BP 102/69; PULSE 67; TEMP 98; O2SAT 96
[2025-06-15 13:13] LABS: Alanine Aminotransferase 27.0 U/L (7-40); Albumin 4.0 g/dL (3.2-4.8); Alkaline Phosphatase 71.0 U/L (46-116); Bilirubin, Direct 0.1 mg/dL (<0.3); Bilirubin, Total 0.3 mg/dL (0.2-1.0); Total Protein 7.0 g/dL (5.7-8.2)
[2025-06-15 13:14] LABS: Alanine Aminotransferase 28 U/L (7-40); Albumin 4.0 g/dL (3.2-4.8); Alkaline Phosphatase 71 U/L (46-116); Anion Gap 9 (5-15); BUN/Creatinine Ratio 6.0 (10.0-20.0); Bilirubin, Total 0.3 mg/dL (0.2-1.0); Blood Urea Nitrogen 7 mg/dL (9-23); Calcium 8.9 mg/dL (8.7-10.4); Carbon Dioxide 25 mmol/L (20-31); Chloride 108 mmol/L (98-107); Glucose 113 mg/dL (74-106); Potassium 4.6 mmol/L (3.5-5.1); Sodium 142 mmol/L (136-145); Total Protein 7.0 g/dL (5.7-8.2)
[2025-06-15] MEDS: MORPHINE SULFATE 4 MG/ML SYR/VIAL IV PRN (14:53)
[2025-06-15 15:37] LABS: Triglycerides 61 mg/dL (< 150)
[2025-06-15 15:39] LABS: Cholesterol 138 mg/dL (< 200); HDL Cholesterol 45 mg/dL (40-59)
--- NOTE | 2025-06-15 16:34 | DVHPN2 ---
Reviewed: H&P Changes from previous H/P or p: No Changes General: Per HPI Eyes: No Pain, No Vision change, No Conjunctivae inflammation, No Eyelid inflammation, No Other, No Redness ENT: No Ear pain, No Ear discharge, No Nose pain, No Nose discharge, No Nose congestion, No Mouth pain, No Mouth swelling, No Throat pain, No Throat swelling, No Other Cardiovascular: No Chest Pain, No Palpitations, No Orthopnea, No Paroxysmal Noc. Dyspnea, No Edema, No Lt Headedness, No Other Respiratory: No Cough, No Dry, No Shortness of breath, No SOB with excertion, No Wheezing, No Hemoptysis, No Pleuritic Pain, No Sputum, No Other Gastrointestinal: Nausea, Vomiting, Abdominal Pain; No Diarrhea, No Constipation, No Melena, No Hematochezia, No Other Genitourinary: No Dysuria, No Frequency, No Incontinence, No Hematuria, No Retention, No Other Musculoskeletal: No other, No neck pain, No shoulder pain, No arm pain, No back pain, No hand pain, No leg pain, No foot pain Skin: No Rash, No Lesions, No Jaundice, No Bruising, No Other Objective Vitals Vital Signs Date Time Temp Pulse Resp B/P (MAP) Pulse Ox O2 Delivery O2 Flow Rate FiO2 06/15/25 15:23 79 20 131/87 06/15/25 13:00 98.0 96 98.0 06/15/25 11:34 Room Air* 0 21 Exam GEN: Was appears to be in acute distress HEENT: NC/AT; MMM. CV: RRR, no m/r/g. LUNGS: CTAB, no w/r/c. ABD: Epigastrium tenderness, no distention no no guarding EXT: skin Warm, well perfused. no rashes. No clubbing, cyanosis, or edema. NEURO: Ambulating with no limitations. No focal deficits. Medications Current Medications Medications Dose Ordered Sig/Shelli Route Start Time Stop Time Status Last Admin Dose Admin Sodium Chloride 1,000 ml @ 120 mls/hr Q8H20M IV 06/15/25 08:45 06/15/25 14:04 120 MLS/HR Acetaminophen/ Hydrocodone Bitart 1 tab Q4HP PRN PO 06/15/25 08:45 Hold Ondansetron HCl 4 mg Q4HP PRN IV 06/15/25 08:45 06/15/25 11:11 4 MG Docusate Sodium 100 mg BIDPRN PRN PO 06/15/25 08:45 Acetaminophen 650 mg Q6HP PRN PO 06/15/25 08:45 Ceftriaxone Sodium 50 ml @ 100 mls/hr DAILY@09 IV 06/16/25 09:00 Metronidazole 100 ml @ 100 mls/hr Q8HR IV 06/15/25 14:00 06/15/25 14:04 100 MLS/HR Pantoprazole Sodium 40 mg DAILY IV 06/16/25 10:00 Ketorolac Tromethamine 15 mg Q6HPRN PRN IV 06/15/25 11:00 06/20/25 10:59 06/15/25 11:01 15 MG Morphine Sulfate 2 mg Q2HPRN PRN IV 06/15/25 12:00 06/15/25 14:53 2 MG Laboratory Results Laboratory Tests 06/15/25 06:42 06/15/25 12:45 Chemistry Test 06/15/25 06:42 06/15/25 12:45 Calcium Level 9.5 mg/dL (8.7-10.4) 8.9 mg/dL (8.7-10.4) Albumin 4.0 g/dL (3.2-4.8) Total Protein 7.0 g/dL (5.7-8.2) Lipid panel Test 06/15/25 06:42 Cholesterol Level 138 mg/dL (< 200) HDL Cholesterol 45 mg/dL (40-59) Lipase 320 U/L (12-53) H Triglycerides Level 61 mg/dL (< 150) LFT Test 06/15/25 12:45 Alanine Aminotransferase (ALT) 28 U/L (7-40) Alkaline Phosphatase 71 U/L (46-116) Aspartate Amino Transferase (AST) 23 U/L (13-40) Direct Bilirubin 0.1 mg/dL (<0.3) Total Bilirubin 0.3 mg/dL (0.2-1.0) Labs and/or images reviewed: Labs reviewed by me, Image(s) reviewed by me Assessment/Plan Assessment/Plan 44-year-old male with past medical history of GERD and pancreatitis, who came to the hospital due to abdominal pain. Patient states he was woken up suddenly this morning about 0300 with abdominal pain, nausea, and vomiting. He has a history of pancreatitis, and was recently admitted here and treated for this. He states he had been doing better, but he suddenly worsened. He states he quite drinking about 8 months ago and he does not know why this keeps happening. Diagnosis: Acute pancreatitis, Leukocytosis, Dehydration, GERD, Ruled out obstructive choledocholithiasis Ruled out hypertriglyceridemia Plan: NPO, IV fluids, IV antibiotics ceftriaxone metronidazole, IV fluids, Protonix IV 40 daily Pain control Tylenol, Toradol, morphine,. Med surge Full code Plan discussed with: Patient My Orders Orders - RASHEED VIERA MD Procedure Category Date Status Time Ketorolac Injection PHA 06/15/25 In Process (Toradol Injection) 11:00 Morphine Sulfate PHA 06/15/25 In Process Injection 12:00 Urinalysis LAB 06/15/25 Logged 11:53 Kub Abdomen Single XY 06/15/25 Resulted View 12:00 Drug Screen LAB 06/15/25 Logged 14:37 Date of Service: Jun 15, 2025 Billing Provider: RASHEED VIERA MD Common Visit Codes: [id number] INP/OBS CARE(HIGH) RASHEED VIERA MD Jun 15, 2025 16:34
[2025-06-15 20:39] VITALS: BP 119/77; PULSE 75; RESP 17; TEMP 99.1; O2SAT 96
[2025-06-16] VITALS (8 sets, daily range): BP systolic 118–132; BP diastolic 77–98; PULSE 68–78; RESP 16–20; TEMP 97.3–99.7; O2SAT 94–98
[2025-06-16 06:17] LABS: Hematocrit 30.1 % (41.0-53.0); Hemoglobin 9.4 g/dL (13.5-17.5); Mean Corpuscular Hemoglobin 20.7 pg (28.0-32.0); Mean Corpuscular Volume 66.4 fL (80.0-100.0); Nucleated Red Blood Cells % 0.0 %
[2025-06-16 06:40] LABS: Alanine Aminotransferase 21 U/L (7-40); Albumin 3.6 g/dL (3.2-4.8); Alkaline Phosphatase 64 U/L (46-116); Anion Gap 9 (5-15); BUN/Creatinine Ratio 6.7 (10.0-20.0); Bilirubin, Total 0.5 mg/dL (0.2-1.0); Blood Urea Nitrogen 7 mg/dL (9-23); Calcium 8.5 mg/dL (8.7-10.4); Carbon Dioxide 26 mmol/L (20-31); Chloride 104 mmol/L (98-107); Glucose 108 mg/dL (74-106); Potassium 4.1 mmol/L (3.5-5.1); Sodium 139 mmol/L (136-145); Total Protein 6.3 g/dL (5.7-8.2)
[2025-06-16] MEDS: PANTOPRAZOLE 40 MG/10 ML VIAL INJ IV SCH (08:30)
--- NOTE | 2025-06-16 11:36 | DVHPN2 ---
Reviewed: H&P Changes from previous H/P or p: No Changes General: Per HPI Eyes: No Pain, No Vision change, No Conjunctivae inflammation, No Eyelid inflammation, No Other, No Redness ENT: No Ear pain, No Ear discharge, No Nose pain, No Nose discharge, No Nose congestion, No Mouth pain, No Mouth swelling, No Throat pain, No Throat swelling, No Other Cardiovascular: No Chest Pain, No Palpitations, No Orthopnea, No Paroxysmal Noc. Dyspnea, No Edema, No Lt Headedness, No Other Respiratory: No Cough, No Dry, No Shortness of breath, No SOB with excertion, No Wheezing, No Hemoptysis, No Pleuritic Pain, No Sputum, No Other Gastrointestinal: Nausea, Vomiting, Abdominal Pain; No Diarrhea, No Constipation, No Melena, No Hematochezia, No Other Genitourinary: No Dysuria, No Frequency, No Incontinence, No Hematuria, No Retention, No Other Musculoskeletal: No other, No neck pain, No shoulder pain, No arm pain, No back pain, No hand pain, No leg pain, No foot pain Skin: No Rash, No Lesions, No Jaundice, No Bruising, No Other Objective Vitals Vital Signs Date Time Temp Pulse Resp B/P (MAP) Pulse Ox O2 Delivery O2 Flow Rate FiO2 06/16/25 09:00 99.7 68 18 122/77 (92) 94 99.7 06/16/25 08:00 Room Air* 0 21 Intake/Output Intake and Output 06/16/25 06:59 Intake Total 3350 ml Balance 3350 ml Intake IV Total 3350 ml Exam GEN: Was appears to be in acute distress HEENT: NC/AT; MMM. CV: RRR, no m/r/g. LUNGS: CTAB, no w/r/c. ABD: Epigastrium tenderness, no distention no no guarding EXT: skin Warm, well perfused. no rashes. No clubbing, cyanosis, or edema. NEURO: Ambulating with no limitations. No focal deficits. Medications Current Medications Medications Dose Ordered Sig/Shelli Route Start Time Stop Time Status Last Admin Dose Admin Sodium Chloride 1,000 ml @ 120 mls/hr Q8H20M IV 06/15/25 08:45 06/16/25 04:17 120 MLS/HR Acetaminophen/ Hydrocodone Bitart 1 tab Q4HP PRN PO 06/15/25 08:45 Hold Ondansetron HCl 4 mg Q4HP PRN IV 06/15/25 08:45 06/16/25 08:39 4 MG Docusate Sodium 100 mg BIDPRN PRN PO 06/15/25 08:45 Acetaminophen 650 mg Q6HP PRN PO 06/15/25 08:45 Ceftriaxone Sodium 50 ml @ 100 mls/hr DAILY@09 IV 06/16/25 09:00 06/16/25 08:30 100 MLS/HR Metronidazole 100 ml @ 100 mls/hr Q8HR IV 06/15/25 14:00 06/16/25 04:47 100 MLS/HR Pantoprazole Sodium 40 mg DAILY IV 06/16/25 10:00 06/16/25 08:30 40 MG Ketorolac Tromethamine 15 mg Q6HPRN PRN IV 06/15/25 11:00 06/20/25 10:59 06/15/25 19:42 15 MG Morphine Sulfate 2 mg Q2HPRN PRN IV 06/15/25 12:00 06/16/25 08:29 2 MG Laboratory Results Laboratory Tests 06/16/25 05:42 Chemistry Test 06/15/25 12:45 06/16/25 05:42 Albumin 4.0 g/dL (3.2-4.8) 3.6 g/dL (3.2-4.8) Calcium Level 8.9 mg/dL (8.7-10.4) 8.5 mg/dL (8.7-10.4) L Total Protein 7.0 g/dL (5.7-8.2) 6.3 g/dL (5.7-8.2) LFT Test 06/15/25 12:45 06/16/25 05:42 Alanine Aminotransferase (ALT) 28 U/L (7-40) 21 U/L (7-40) Alkaline Phosphatase 71 U/L (46-116) 64 U/L (46-116) Aspartate Amino Transferase (AST) 23 U/L (13-40) 18 U/L (13-40) Direct Bilirubin 0.1 mg/dL (<0.3) Total Bilirubin 0.3 mg/dL (0.2-1.0) 0.5 mg/dL (0.2-1.0) Microbiology Microbiology Date/Time Source Procedure Growth Status 06/15/25 08:00 Blood Blood Culture - Preliminary NO GROWTH AFTER 24 HOURS OF INCUBATION. Resulted Labs and/or images reviewed: Labs reviewed by me, Image(s) reviewed by me Assessment/Plan Assessment/Plan 44-year-old male with past medical history of GERD and pancreatitis, who came to the hospital due to abdominal pain. Patient states he was woken up suddenly this morning about 0300 with abdominal pain, nausea, and vomiting. He has a history of pancreatitis, and was recently admitted here and treated for this. He states he had been doing better, but he suddenly worsened. He states he quite drinking about 8 months ago and he does not know why this keeps happening. 06/16: Patient continues to have pain, nausea improving. quill machine tender epigastrium, bowel sounds hypoactive. We will increase morphine dose keep it q.4, trial of steroids, patient has multiple visits pancreatitis from alcohol, this is likely chronic acute on chronic pancreatitis, continue IV fluids,, continue IV analgesia. Diagnosis: Acute pancreatitis, Leukocytosis, Dehydration, GERD, Ruled out obstructive choledocholithiasis Ruled out hypertriglyceridemia Plan: NPO, IV fluids, IV antibiotics ceftriaxone metronidazole, IV fluids, Protonix IV 40 daily Pain control Tylenol, Toradol, morphine,. Med surge Full code Plan discussed with: Patient My Orders Orders - RASHEED VIERA MD Procedure Category Date Status Time Morphine Sulfate PHA 06/15/25 In Process Injection 12:00 Urinalysis LAB 06/15/25 Logged 11:53 Kub Abdomen Single XY 06/15/25 Resulted View 12:00 Drug Screen LAB 06/15/25 Logged 14:37 Clear Liq Diet DIET 06/15/25 Transmitted Dinner Date of Service: Jun 16, 2025 Billing Provider: RASHEED VIERA MD Common Visit Codes: [id number] INP/OBS CARE(HIGH) RASHEED VIERA MD Jun 16, 2025 11:36
[2025-06-16] MEDS: methylPREDNISolone SOD SUCC 40 MG/ML VL IV ONE (12:57)
[2025-06-16] MEDS: MORPHINE SULFATE 4 MG/ML SYR/VIAL IV PRN (12:58)
[2025-06-17] VITALS (7 sets, daily range): BP systolic 118–148; BP diastolic 84–88; PULSE 66–76; RESP 16–20; TEMP 97.3–98.3; O2SAT 95–97
[2025-06-17 06:20] LABS: Alanine Aminotransferase 18 U/L (7-40); Albumin 3.5 g/dL (3.2-4.8); Alkaline Phosphatase 59 U/L (46-116); Anion Gap 11 (5-15); Bilirubin, Total 0.3 mg/dL (0.2-1.0); Carbon Dioxide 24 mmol/L (20-31); Chloride 104 mmol/L (98-107); Potassium 3.9 mmol/L (3.5-5.1); Sodium 139 mmol/L (136-145); Total Protein 6.3 g/dL (5.7-8.2)
[2025-06-17 06:36] LABS: BUN/Creatinine Ratio 5.3 (10.0-20.0); Blood Urea Nitrogen < 5 mg/dL (9-23); Calcium 8.5 mg/dL (8.7-10.4); Glucose 144 mg/dL (74-106); Lipase 229 U/L (12-53)
--- NOTE | 2025-06-17 13:41 | DVHPN2 ---
Subjective Patient reports mild abdominal cramping. Reviewed: H&P Changes from previous H/P or p: Changes General: Per HPI Eyes: No Pain, No Vision change, No Conjunctivae inflammation, No Eyelid inflammation, No Other, No Redness ENT: No Ear pain, No Ear discharge, No Nose pain, No Nose discharge, No Nose congestion, No Mouth pain, No Mouth swelling, No Throat pain, No Throat swelling, No Other Cardiovascular: No Chest Pain, No Palpitations, No Orthopnea, No Paroxysmal Noc. Dyspnea, No Edema, No Lt Headedness, No Other Respiratory: No Cough, No Dry, No Shortness of breath, No SOB with excertion, No Wheezing, No Hemoptysis, No Pleuritic Pain, No Sputum, No Other Gastrointestinal: Nausea, Vomiting, Abdominal Pain; No Diarrhea, No Constipation, No Melena, No Hematochezia, No Other Genitourinary: No Dysuria, No Frequency, No Incontinence, No Hematuria, No Retention, No Other Musculoskeletal: No other, No neck pain, No shoulder pain, No arm pain, No back pain, No hand pain, No leg pain, No foot pain Skin: No Rash, No Lesions, No Jaundice, No Bruising, No Other Objective Vitals Vital Signs Date Time Temp Pulse Resp B/P (MAP) Pulse Ox O2 Delivery O2 Flow Rate FiO2 06/17/25 12:48 98.3 66 17 125/85 (98) 97 98.3 06/17/25 08:20 Room Air* 0 21 Intake/Output Intake and Output 06/17/25 07:00 Intake Total 3080 ml Balance 3080 ml Intake Oral 1620 ml IV Total 1460 ml # Voids 11 # Bowel Movements 1 General Appearance: Alert, Oriented X3, Cooperative, mild distress HEENT: Atraumatic Cardiovascular: Normal S1, Normal S2 Abdomen: Normal bowel sounds, Soft, No tenderness, No hepatospenomegaly Back: Flank Tenderness, Midline Tenderness Musculoskeletal: Normal sensory function, Normal motor function Neuro: Normal gait, Normal speech Skin: Dry, Intact Psych/Mental Status: Mental status NL, Mood NL Medications Current Medications Medications Dose Ordered Sig/Shelli Route Start Time Stop Time Status Last Admin Dose Admin Acetaminophen/ Hydrocodone Bitart 1 tab Q4HP PRN PO 06/15/25 08:45 Hold Ondansetron HCl 4 mg Q4HP PRN IV 06/15/25 08:45 06/16/25 08:39 4 MG Docusate Sodium 100 mg BIDPRN PRN PO 06/15/25 08:45 Acetaminophen 650 mg Q6HP PRN PO 06/15/25 08:45 Ceftriaxone Sodium 50 ml @ 100 mls/hr DAILY@09 IV 06/16/25 09:00 06/17/25 09:53 100 MLS/HR Metronidazole 100 ml @ 100 mls/hr Q8HR IV 06/15/25 14:00 06/17/25 05:18 100 MLS/HR Pantoprazole Sodium 40 mg DAILY IV 06/16/25 10:00 06/17/25 09:52 40 MG Ketorolac Tromethamine 15 mg Q6HPRN PRN IV 06/15/25 11:00 06/20/25 10:59 06/15/25 19:42 15 MG Morphine Sulfate 3 mg Q2HPRN PRN IV 06/16/25 12:30 06/17/25 09:54 3 MG Lactated Ringer's 1,000 ml @ 75 mls/hr [id number] IV 06/17/25 13:45 Laboratory Results Laboratory Tests 06/16/25 05:42 06/17/25 05:38 Chemistry Test 06/17/25 05:38 Albumin 3.5 g/dL (3.2-4.8) Calcium Level 8.5 mg/dL (8.7-10.4) L Total Protein 6.3 g/dL (5.7-8.2) Lipid panel Test 06/17/25 05:38 Lipase 229 U/L (12-53) H LFT Test 06/17/25 05:38 Alanine Aminotransferase (ALT) 18 U/L (7-40) Alkaline Phosphatase 59 U/L (46-116) Aspartate Amino Transferase (AST) 18 U/L (13-40) Total Bilirubin 0.3 mg/dL (0.2-1.0) Microbiology Microbiology Date/Time Source Procedure Growth Status 06/15/25 08:00 Blood Blood Culture - Preliminary NO GROWTH AFTER 48 HOURS OF INCUBATION. Resulted Labs and/or images reviewed: Labs reviewed by me, Image(s) reviewed by me Assessment/Plan Assessment/Plan Impression: -acute pancreatitis, alcohol related -alcoholism -sirs -GERD Plan: -advanced to full liquid diet -change IV fluids to lactated Ringer's -continue antibiotic therapy, consider discontinuation tomorrow -PPI -pain management Total time spent with patient discussing and formulating plan of care: 35 minutes. This medical document was created using an electronic medical record system with [employer] dictation system. Although this document has been carefully reviewed, there may still be some phonetic and typographical errors. These areas are purely typographical due to imperfections of the software programs, and do not reflect any compromise in the patient's medical care. Plan discussed with: Patient, Other (RN) My Orders Orders - DIEGO AMOS NP Procedure Category Date Status Time Full Liq Diet DIET 06/17/25 Transmitted Dinner Lactated Ringer's PHA 06/17/25 In Process 13:45 Date of Service: Jun 17, 2025 Billing Provider: DIEGO AMOS NP Common Visit Codes: [id number] INP/OBS CARE(HIGH) DIEGO AMOS NP Jun 17, 2025 13:40
[2025-06-17] MEDS: LACTATED RINGER'S 1,000 ML IV SCH (15:41)
[2025-06-17] MEDS: MORPHINE SULFATE 4 MG/ML SYR/VIAL IV PRN (18:06)
[2025-06-18 01:00] VITALS: BP 133/86; PULSE 72; RESP 16; TEMP 97.7; O2SAT 98
[2025-06-18 05:00] VITALS: BP 132/66; PULSE 80; RESP 16; TEMP 98; O2SAT 96
[2025-06-18 08:00] VITALS: PULSE 82; RESP 18; O2SAT 95
[2025-06-18 09:00] VITALS: BP 135/86; PULSE 71; RESP 18; TEMP 99; O2SAT 95
[2025-06-18 13:00] VITALS: BP 121/80; PULSE 56; RESP 17; TEMP 98.6; O2SAT 96
[2025-06-18] MEDS ORDERED: HYDR-4902 PO (13:17)
[2025-06-18] MEDS ORDERED: ZOFR4T PO (13:17)
--- NOTE | 2025-06-18 13:22 | DVHDS2 ---
Discharge Summary Date of Admission Jun 15, 2025 at 08:37 Date of Discharge: Jun 18, 2025 Labs/Diagnostic Data: Laboratory Results Test 06/17/25 05:38 06/16/25 05:42 06/15/25 12:45 06/15/25 07:45 Sodium Level 139 mmol/L (136-145) Potassium Level 3.9 mmol/L (3.5-5.1) Chloride Level 104 mmol/L (98-107) Carbon Dioxide Level 24 mmol/L (20-31) Anion Gap 11 (5-15) Blood Urea Nitrogen < 5 mg/dL (9-23) Creatinine 0.94 mg/dL (0.700-1.30) Glomerular Filtration Rate Calc 104 mL/min (>90) BUN/Creatinine Ratio 5.3 (10.0-20.0) Serum Glucose 144 mg/dL (74-106) Calcium Level 8.5 mg/dL (8.7-10.4) Total Bilirubin 0.3 mg/dL (0.2-1.0) Aspartate Amino Transferase (AST) 18 U/L (13-40) Alanine Aminotransferase (ALT) 18 U/L (7-40) Alkaline Phosphatase 59 U/L (46-116) Total Protein 6.3 g/dL (5.7-8.2) Albumin 3.5 g/dL (3.2-4.8) Lipase 229 U/L (12-53) White Blood Count 7.5 10^3/uL (4.4-10.8) Red Blood Count 4.53 10^6/uL (4.5-5.90) Hemoglobin 9.4 g/dL (13.5-17.5) Hematocrit 30.1 % (41.0-53.0) Mean Corpuscular Volume 66.4 fL (80.0-100.0) Mean Corpuscular Hemoglobin 20.7 pg (28.0-32.0) Mean Corpuscular Hemoglobin Concent 31.2 g/dL (32.0-36.0) Red Cell Distribution Width 19.0 % (11.8-14.3) Platelet Count 172 10^3/uL (140-450) Mean Platelet Volume 7.9 fL (6.9-10.8) Neutrophils (%) (Auto) 84.1 % (37.0-80.0) Lymphocytes (%) (Auto) 9.4 % (10.0-50.0) Monocytes (%) (Auto) 5.9 % (0.0-12.0) Eosinophils (%) (Auto) 0.5 % (0.0-7.0) Basophils (%) (Auto) 0.1 % (0.0-2.0) Neutrophils # (Auto) 6.3 10 ^3/uL (1.6-8.6) Lymphocytes # (Auto) 0.7 10 ^3/uL (0.4-5.4) Monocytes # (Auto) 0.4 10 ^3/uL (0-1.3) Eosinophils # (Auto) 0 10 ^3/uL (0-0.8) Basophils # (Auto) 0 10 ^3/uL (0-0.2) Nucleated Red Blood Cells 0.0 % Direct Bilirubin 0.1 mg/dL (<0.3) Plasma/Serum Blood Alcohol < 3.0 mg/dL (<10) Lactic Acid Level 0.9 mmol/L (0.4-2.0) Test 06/15/25 06:42 Triglycerides Level 61 mg/dL (< 150) Cholesterol Level 138 mg/dL (< 200) LDL Cholesterol 91 mg/dL (< 100) HDL Cholesterol 45 mg/dL (40-59) Amylase Level 231 U/L (30-118) Other Laboratory Tests 06/17/25 05:38 06/16/25 05:42 Brief Hx & Hospital Course: 44-year-old male with past medical history of GERD and pancreatitis, who came to the hospital due to abdominal pain. Patient states he was woken up suddenly this morning about 0300 with abdominal pain, nausea, and vomiting. He has a history of pancreatitis, and was recently admitted here and treated for this. He states he had been doing better, but he suddenly worsened. He states he quite drinking about 8 months ago and he does not know why this keeps happening. 06/16: Patient continues to have pain, nausea improving. 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 We will increase morphine dose keep it q.4, trial of steroids, patient has multiple visits pancreatitis from alcohol, this is likely chronic acute on chronic pancreatitis, continue IV fluids,, continue IV analgesia. 06/18: Patient pain tolerable with p.o. pain pills/narcotic, patient tolerating diet. Vital signs stable. Acute episode of pancreatitis resolving, vital signs stable stable for discharge as per plan below Diagnosis: Acute pancreatitis, history chronic, due to alcohol dependence Alcohol dependence, in remission Leukocytosis, Dehydration, GERD, Ruled out obstructive choledocholithiasis Ruled out hypertriglyceridemia Discharge plan: - full Liquid diet 1 week -For pain take 1st line Tylenol, second-line ibuprofen, 3rd line resistant [place] 5 up to 4 times daily as needed only, -Take Zofran for any nausea, -Hydrate well, -Follow up with PCP to review discharge. -Continue other home medications not mentioned above -Need to abstain from alcohol use. Condition at Discharge: Fair Final Diagnosis/Problems List Acute pancreatitis, history chronic, due to alcohol dependence Alcohol dependence, in remission Leukocytosis, Dehydration, GERD, Ruled out obstructive choledocholithiasis Ruled out hypertriglyceridemia Discharge Disposition: Home Discharge Instruct/Medications Scheduled Pantoprazole Sodium Sesquihydr (Pantoprazole Sodium), 40 MG PO BID Scheduled PRN Hydrocodone-Acetaminophen (Hydrocodone Bitartrate/AC 5-325 mg), 1 TAB PO QID PRN Discharge Statement: "Patient was advised to return to the ER or call 911 if any headaches, dizziness, shortness of breath, chest pain, abdominal pain, bleeding, fevers, or worsening of medical condition. Patient was counseled about treatment plan, medications, possible side effects, patientverbalized understanding. All questions were answered to the best of my ability. This discharge took greater then 30 minutes in planning, reviewing documentation, counseling the patient, and discussing with other team members." ASSESSMENT ASSESSMENT Assessment Date of Service: Jun 18, 2025 Billing Provider: RASHEED VIERA MD Common Visit Codes: [id number] DISCH DAY >30min RASHEED VIERA MD Jun 18, 2025 13:22
[2025-06-18 14:21] VITALS: BP 119/76; PULSE 54; RESP 17; TEMP 98.2; O2SAT 99
== END 2025-06-18 14:50 | disposition home or self-care (01) | DRG 282 ==
LOC: ER 05:59 → EDBD 05:59 → OVERFLOW 08:37 → EAST 18:46
PROVIDERS: ADMIT Student in an Organized Health Care Education/Training Program; ATTEND Student in an Organized Health Care Education/Training Program
DX: K85.20 Alcohol induced acute pancreatitis without necrosis or infection (principal); E86.0 Dehydration; K21.9 Gastro-esophageal reflux disease without esophagitis; R65.10 Systemic inflammatory response syndrome (SIRS) of non-infectious origin without acute organ dysfunction; K86.1 Other chronic pancreatitis; I10 Essential (primary) hypertension; F10.21 Alcohol dependence, in remission; Z79.899 Other long term (current) drug therapy; Z90.49 Acquired absence of other specified parts of digestive tract; Y90.9 Presence of alcohol in blood, level not specified
CPT/HCPCS: 36415; 74018; 74176; 80048; 80053; 80061; 80076; 80320; 82150; 83605; 83690; 85025; 87040; 96365; 96375; 99291; G0378; J1885; J2405; J2470; J3490

== ENCOUNTER 2025-06-21 17:22 | Inpatient (IN) | payer MEDICAID ==
[~2025-06-21] VITALS: Ht 170.2 cm; Wt 78.3 kg
[~2025-06-21 17:22] MED LIST changes: +ZOFR4T PO
--- NOTE | 2025-06-21 19:18 | ED.PDOC ---
History of Present Illness HPI Comments 44 y/o M presents with c/c of abdominal pain and nausea. Significant history of chronic pancreatitis - alcohol induced, cholecystectomy, GERD, and HTN. Patient endorses on ongoing pain following previous hospital admission for acute chronic pancreatitis, last week, at [facility]. Denies any vomiting, diarrhea, constipation, or further associated symptoms. Chief Complaint: Abdominal Pain Time Seen by MD: 18:30 Primary Care Provider: UNKNOWN Reviewed Notes: Nurses Notes, Medications, Allergies Allergies: Coded Allergies: NO KNOWN ALLERGIES (Unverified , 06/01/23) Home Meds Active Scripts Ondansetron Odt 4MG Tab (ZOFRAN PO) 4 Mg Tb, 4 MG PO TIDPRN PRN for 7 Days, #21 TAB 0 Refills ODT TAB-DISSOLVE IN MOUTH, THEN SWALLOW Prov:RASHEED VIERA MD 06/18/25 Hydrocodone-Acetaminophen (Hydrocodone Bitartrate/AC 5-325 mg) 1 Tab Tab, 1 TAB PO TIDP PRN for 7 Days, #21 TAB 0 Refills Prov:RASHEED VIERA MD 06/18/25 Pantoprazole Sodium Sesquihydr (Pantoprazole Sodium) 40 Mg Tab, 40 MG PO BID, #30 TAB Prov:BRICE HU MD 05/27/25 Hydrocodone-Acetaminophen (Hydrocodone Bitartrate/AC 5-325 mg) 1 Tab Tab, 1 TAB PO QID PRN, #30 TAB Prov:BRICE HU MD 05/27/25 Information Source: Patient Mode of Arrival: Ambulatory Severity: Moderate Timing: Days Duration: Since onset Prehospital treatment: Other (See HPI) Past Medical History PAST MEDICAL HISTORY: GERD, HTN Past Medical History (Other): Chronic pancreatitis - alcohol induced Surgical History: Cholecystectomy Family History Family History: Reviewed,noncontributory to illness Social History Smoker: Non-Smoker Alcohol: Sober Drugs: Denies Drug Use Lives In: Home All Other Systems: Reviewed and Negative (Comprehensive systems review obtained and negative except for what is stated in the HPI.) Physical Exam General Appearance: Moderate Distress HEENT: Normal ENT Inspection, Pharynx Normal, TMs Normal Neck: Full Range of Motion, Non-Tender, Normal, Normal Inspection Respiratory: Chest Non-Tender, Lungs Clear, No Accessory Muscle Use, No Respiratory Distress, Normal Breath Sounds Cardiovascular: No Edema, No JVD, No Murmur, No Gallop, Normal Peripheral Pulses, Regular Rate/Rhythm Breast Exam: Deferred Gastrointestinal: Diffuse Genitalia: Deferred Pelvic: Deferred Rectal: Deferred Extremities: No calf tenderness, Normal capillary refill, Normal inspection, Normal range of motion, Non-tender, No pedal edema Musculoskeletal : Apperance: Normal Neurologic: Alert, 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 Was a procedure done?: No Differential Dx Considerations may include: acute pancreatitis, gastritis, gastroenteritis, GERD, cholelithiasis, ch olecystitis, diverticulitis, viral syndrome, UTI, among others X-Ray, Labs, Meds, VS Vital Signs Date Time Temp Pulse Resp B/P (MAP) Pulse Ox O2 Delivery O2 Flow Rate FiO2 06/21/25 23:14 96 16 141/97 (112) 99 06/21/25 23:11 96 16 141/97 06/21/25 20:06 105 16 136/68 06/21/25 19:54 99.1 105 16 136/68 (90) 98 99.1 06/21/25 19:54 105 16 98 Room Air* 0 21 06/21/25 17:31 99.6 103 18 133/92 95 99.6 Lab Test 06/21/25 19:04 Range/Units White Blood Count 13.0 #H 4.4-10.8 10^3/uL Red Blood Count 5.21 4.5-5.90 10^6/uL Hemoglobin 10.9 #L 13.5-17.5 g/dL Hematocrit 34.6 #L 41.0-53.0 % Mean Corpuscular Volume 66.5 L 80.0-100.0 fL Mean Corpuscular Hemoglobin 20.9 L 28.0-32.0 pg Mean Corpuscular Hemoglobin Concent 31.5 L 32.0-36.0 g/dL Red Cell Distribution Width 22.4 H 11.8-14.3 % Platelet Count 273 # 140-450 10^3/uL Mean Platelet Volume 8.9 6.9-10.8 fL Neutrophils (%) (Auto) 83.8 H 37.0-80.0 % Lymphocytes (%) (Auto) 8.7 L 10.0-50.0 % Monocytes (%) (Auto) 7.0 0.0-12.0 % Eosinophils (%) (Auto) 0.2 0.0-7.0 % Basophils (%) (Auto) 0.3 0.0-2.0 % Neutrophils # (Auto) 10.8 H 1.6-8.6 10 ^3/uL Lymphocytes # (Auto) 1.1 0.4-5.4 10 ^3/uL Monocytes # (Auto) 0.9 0-1.3 10 ^3/uL Eosinophils # (Auto) 0 0-0.8 10 ^3/uL Basophils # (Auto) 0 0-0.2 10 ^3/uL Nucleated Red Blood Cells 0.0 % Platelet Estimate Adequate Hypochromasia (manual) Moderate Anisocytosis (manual) Slight Microcytosis Marked Sodium Level 135 L 136-145 mmol/L Potassium Level 4.0 3.5-5.1 mmol/L Chloride Level 98 98-107 mmol/L Carbon Dioxide Level 27 20-31 mmol/L Anion Gap 10 5-15 Blood Urea Nitrogen 8 L 9-23 mg/dL Creatinine 1.06 0.700-1.30 mg/dL Glomerular Filtration Rate Calc 90 >90 mL/min BUN/Creatinine Ratio 7.5 L 10.0-20.0 Serum Glucose 108 H 74-106 mg/dL Calcium Level 9.2 8.7-10.4 mg/dL Total Bilirubin 0.6 0.2-1.0 mg/dL Aspartate Amino Transferase (AST) 16 13-40 U/L Alanine Aminotransferase (ALT) 14 7-40 U/L Alkaline Phosphatase 70 46-116 U/L Total Protein 7.7 5.7-8.2 g/dL Albumin 4.4 3.2-4.8 g/dL Lipase 188 H 12-53 U/L Current Medications Medications (Trade) Dose Ordered Sig/Shelli Route Start Time Stop Time Status Last Admin Ondansetron HCl (Zofran) 4 mg ONCE ONCE IV 06/21/25 19:00 06/21/25 19:01 DC 06/21/25 20:06 Sodium Chloride 1,000 ml @ 1,000 mls/hr Q1H ONCE IVB 06/21/25 19:00 06/21/25 19:59 DC 06/21/25 20:07 Morphine Sulfate 4 mg ONCE ONCE IV 06/21/25 19:00 06/21/25 19:01 DC 06/21/25 20:06 Pantoprazole Sodium (Protonix) 40 mg ONCE ONCE IV 06/21/25 22:30 06/21/25 22:36 DC 06/21/25 22:57 Ceftriaxone Sodium 50 ml @ 100 mls/hr ONCE ONCE IV 06/21/25 22:30 06/21/25 22:59 DC 06/21/25 22:57 Acetaminophen/ Hydrocodone Bitart ([place] 5/325MG Tab) 1 tab Q4HP PRN PO 06/21/25 22:30 06/21/25 23:10 Ondansetron HCl (Zofran) 4 mg Q4HP PRN IV 06/21/25 22:30 06/21/25 23:10 Patient alert. Complaining of abdominal pain. Lipase elevated. Vitals stable. Answering questions. Establish intravenous access. Was given fluids. Was given morphine. Was given Zofran. Was given Rocephin. Explained to the patient. Continue monitoring. Time of 1ST Reevaluation: 18:30 Reevaluation 1ST: Unchanged Patient Education/Counseling: Diagnosis, Treatment Family Education/Counseling: No Family Present SEPSIS Sepsis Screen Date sepsis recognized/suspect: Jun 21, 2025 Time Sepsis recognized/suspect: 1729 Recent Procedure: No Respiratory Rate >20: No Heart Rate >90: Yes Temp<36 C (96.8 F) or >38.3 C: No SBP <90 or MAP <65 mmHG: No New Acute Mental Status Change: No Is the patient on CPAP, BIPAP,: No Physician Orders Pantoprazole (Protonix) (06/22/25 10:00) Ceftriaxone 1gm/50ml (Rocephin) (06/22/25 21:00) Allergies (06/21/25 22:25) Code Status (06/21/25 22:25) Sodium Chloride 0.9% (06/21/25 22:30) Oxygen Per Hour (06/21/25 22:25) Hydrocodone-Acet 5/325mg Tab ([place] 5/32 (06/21/25 22:30) Ondansetron Hcl (Zofran) (06/21/25 22:30) Docusate Sodium Capsule (Colace Capsule) (06/21/25 22:30) Complete Blood Count (06/22/25 04:00) Comprehensive Metabolic Panel (06/22/25 04:00) Condition: Serious (06/21/25 22:25) Acetaminophen Tablet (Tylenol Tablet) (06/21/25 22:30) Clear Liq Diet (06/22/25 Breakfast) Bedrest With Bathroom Privileg (06/21/25 22:25) Morphine Sulfate Injection (06/21/25 22:30) Sequential Compression Device (06/21/25 ) Admit (06/21/25 23:18) Nitroglycerin Sublingual (Ntrostat Subli (06/21/25 23:30) Morphine Sulfate Injection (06/21/25 23:30) Notify Md Of Changes From Base (06/21/25 23:18) Emergency Dysrhythmia Protocol (06/21/25 23:18) Oxygen By Nasal Cannula (06/21/25 23:18) Vital Signs Date Time Temp Pulse Resp B/P (MAP) Pulse Ox O2 Delivery O2 Flow Rate FiO2 06/21/25 23:14 96 16 141/97 (112) 99 06/21/25 23:11 96 16 141/97 06/21/25 20:06 105 16 136/68 06/21/25 19:54 99.1 105 16 136/68 (90) 98 99.1 06/21/25 19:54 105 16 98 Room Air* 0 21 06/21/25 17:31 99.6 103 18 133/92 95 99.6 Laboratory Tests Test 06/21/25 19:04 White Blood Count 13.0 10^3/uL (4.4-10.8) #H Medications Medications Dose Ordered Sig/Shelli Route Start Time Stop Time Status Last Admin Dose Admin Acetaminophen/ Hydrocodone Bitart 1 tab Q4HP PRN PO 06/21/25 22:30 06/21/25 23:10 Ceftriaxone Sodium 50 ml @ 100 mls/hr ONCE ONCE IV 06/21/25 22:30 06/21/25 22:59 DC 06/21/25 22:57 Morphine Sulfate 4 mg ONCE ONCE IV 06/21/25 19:00 06/21/25 19:01 DC 06/21/25 20:06 Ondansetron HCl 4 mg ONCE ONCE IV 06/21/25 19:00 06/21/25 19:01 DC 06/21/25 20:06 Ondansetron HCl 4 mg Q4HP PRN IV 06/21/25 22:30 06/21/25 23:10 Pantoprazole Sodium 40 mg ONCE ONCE IV 06/21/25 22:30 06/21/25 22:36 DC 06/21/25 22:57 Sodium Chloride 1,000 ml @ 1,000 mls/hr Q1H ONCE IVB 06/21/25 19:00 06/21/25 19:59 DC 06/21/25 20:07 Departure 1 Departure Time of Disposition: 23:28 Impression: Primary Impression: Acute pancreatitis Qualified Codes: K85.20 - Alcohol induced acute pancreatitis without necrosis or infection Disposition: ADMITTED INPATIENT Admit to: Med Surg Condition: Guarded Critical Care Note Critical Care Time?: Yes (90 min-critical care time only) Stability Stability form required: No Heart Score Heart Score: Heart Score Response (Comments) Value History N/A 0 EKG N/A 0 Age N/A 0 Risk Factors N/A 0 Troponin N/A 0 Total 0 I personally scribed for PAUL LUCERO MD ([email or web address]) on 06/21/25 at 19:18. Electronically submitted by Herb Hodge ([email or web address]). PAUL LUCERO MD Jun 21, 2025 19:18
[2025-06-21 19:27] LABS: Hemoglobin 10.9 g/dL (13.5-17.5); Nucleated Red Blood Cells % 0.0 %
[2025-06-21 19:29] LABS: Hematocrit 34.6 % (41.0-53.0); Mean Corpuscular Hemoglobin 20.9 pg (28.0-32.0); Mean Corpuscular Volume 66.5 fL (80.0-100.0)
[2025-06-21 19:46] LABS: Alanine Aminotransferase 14 U/L (7-40); Albumin 4.4 g/dL (3.2-4.8); Alkaline Phosphatase 70 U/L (46-116); Anion Gap 10 (5-15); BUN/Creatinine Ratio 7.5 (10.0-20.0); Bilirubin, Total 0.6 mg/dL (0.2-1.0); Calcium 9.2 mg/dL (8.7-10.4); Carbon Dioxide 27 mmol/L (20-31); Chloride 98 mmol/L (98-107); Potassium 4.0 mmol/L (3.5-5.1); Total Protein 7.7 g/dL (5.7-8.2)
[2025-06-21 19:48] LABS: Blood Urea Nitrogen 8 mg/dL (9-23); Glucose 108 mg/dL (74-106); Lipase 188 U/L (12-53); Sodium 135 mmol/L (136-145)
[2025-06-21 19:54] VITALS: PULSE 105; RESP 16; O2SAT 98
[2025-06-21] MEDS: ONDANSETRON HCL 4 MG/2 ML VIAL IV ONE (20:06)
[2025-06-21] MEDS: MORPHINE SULFATE 4 MG/ML SYR/VIAL IV ONE (20:06)
[2025-06-21] MEDS: SODIUM CHLORIDE 0.9% 1,000 ML IVB ONE (20:07)
[2025-06-21 20:08] LABS: Anisocytosis Slight
[2025-06-21] MEDS ORDERED: ACETAMINOPHEN 325 MG TAB PO PRN (22:30)
[2025-06-21] MEDS: SODIUM CHLORIDE 0.9% 1,000 ML IV SCH (22:30)
[2025-06-21] MEDS ORDERED: DOCUSATE SOD 100 MG CAP PO PRN (22:30)
[2025-06-21] MEDS: PANTOPRAZOLE 40 MG/10 ML VIAL INJ IV ONE (22:57)
[2025-06-21] MEDS: HYDROcodone-ACET 5/325MG TAB PO PRN (23:10)
[2025-06-21] MEDS: ONDANSETRON HCL 4 MG/2 ML VIAL IV PRN (23:10)
--- NOTE | 2025-06-21 23:22 | DVHHP2 ---
History of Present Illness Reason for Visit: Acute pancreatitis History of Present Illness The patient is a 44-year-old male with past medical history of alcohol-induced chronic pancreatitis, GERD, and hypertension who presented to [facility] ED with complaint of abdominal pain. Patient reports he has been having ongoing abdominal pain associated with nausea for the past months. Patient was seen and evaluated in the ED, laboratory data shows WBC 13.0, hemoglobin 10.9, hematocrit 34.6, platelets 273, sodium 135, potassium 4.0, BUN 8, creatinine 1.06, glucose 108, lipase 188, blood pressure 136/68, heart rate 104, temperature 99.1 F, O2 saturation 98% on room air. Please see medication orders section in the computer. On my assessment, patient denied chest pain, no headache, diaphoresis, no shortness of breaths, no diarrhea, nausea or vomiting, no fever, no chills. Patient was admitted for further evaluation and medical management. Past Medical History GERD, HTN, Chronic pancreatitis - alcohol induced Past Surgical History Cholecystectomy Family History Reviewed, noncontributory to the management of this case. Past Social History The patient lives at home, denies smoking, sober alcohol, no illicit drugs abuse. Review of Systems Constitutional: No: Fever, Chills, Sweats, Weakness, Malaise, Other Eyes: No: Pain, Vision change, Conjunctivae inflammation, Eyelid inflammation, Other, Redness ENT: No: Ear pain, Ear discharge, Nose pain, Nose discharge, Nose congestion, Mouth pain, Mouth swelling, Throat pain, Throat swelling, Other Respiratory: No: Cough, Dry, Shortness of breath, SOB with excertion, Wheezing, Hemoptysis, Pleuritic Pain, Sputum, Wheezing, Other Cardiovascular: No: Chest Pain, Palpitations, Orthopnea, Paroxysmal Noc. Dyspnea, Edema, Lt Headedness, Other Gastrointestinal: Nausea, Abdominal Pain; No: Vomiting, Diarrhea, Constipation, Melena, Hematochezia, Other Genitourinary: No Dysuria, No Frequency, No Incontinence, No Hematuria, No Retention, No Other Musculoskeletal: No: other, neck pain, shoulder pain, arm pain, back pain, hand pain, leg pain, foot pain Skin: No: Rash, Lesions, Jaundice, Bruising, Other Neurological: No: Weakness, Numbness, Incoordination, Change in speech, Confusion, Seizures, Other Allergies: Coded Allergies: NO KNOWN ALLERGIES (Unverified , 06/01/23) Medications Current Medications Medications Dose Ordered Sig/Shelli Route Start Time Stop Time Status Last Admin Dose Admin Pantoprazole Sodium 40 mg DAILY IV 06/22/25 10:00 Ceftriaxone Sodium 50 ml @ 100 mls/hr DAILY@2100 IV 06/22/25 21:00 Sodium Chloride 1,000 ml @ 60 mls/hr [id number] IV 06/21/25 22:30 Acetaminophen/ Hydrocodone Bitart 1 tab Q4HP PRN PO 06/21/25 22:30 06/21/25 23:10 1 TAB Ondansetron HCl 4 mg Q4HP PRN IV 06/21/25 22:30 06/21/25 23:10 4 MG Docusate Sodium 100 mg BIDPRN PRN PO 06/21/25 22:30 Acetaminophen 650 mg Q6HP PRN PO 06/21/25 22:30 Morphine Sulfate 2 mg Q4HPRN PRN IV 06/21/25 22:30 Exam Vital Signs Vital Signs Date Time Temp Pulse Resp B/P (MAP) Pulse Ox O2 Delivery O2 Flow Rate FiO2 06/21/25 23:14 96 16 141/97 (112) 99 06/21/25 19:54 99.1 99.1 06/21/25 19:54 Room Air* 0 21 General Appearance: Alert, Oriented X3, Cooperative, No acute distress HEENT: Atraumatic, PERRLA, EOMI, Mucous membr. moist/pink Respiratory: Normal air movement Cardiovascular: Regular rate, Normal S1, Normal S2, No murmurs Abdominal: Normal bowel sounds, Soft, No hepatospenomegaly, No masses, Other (Reports tenderness) Extremities: No clubbing, No cyanosis, No edema, Normal pulses, No tenderness/swelling Skin: No rashes, No breakdown, No significant lesion Neuro: Normal gait, Normal speech, Strength at 5/5 X4 ext, Normal tone, Sensation intact, Cranial nerves 3-12 NL, Reflexes 2+ Psych/Mental Status: Mental status NL, Mood NL Labs/Xrays Labs Test 06/21/25 19:04 Range/Units White Blood Count 13.0 #H 4.4-10.8 10^3/uL Red Blood Count 5.21 4.5-5.90 10^6/uL Hemoglobin 10.9 #L 13.5-17.5 g/dL Hematocrit 34.6 #L 41.0-53.0 % Mean Corpuscular Volume 66.5 L 80.0-100.0 fL Mean Corpuscular Hemoglobin 20.9 L 28.0-32.0 pg Mean Corpuscular Hemoglobin Concent 31.5 L 32.0-36.0 g/dL Red Cell Distribution Width 22.4 H 11.8-14.3 % Platelet Count 273 # 140-450 10^3/uL Mean Platelet Volume 8.9 6.9-10.8 fL Neutrophils (%) (Auto) 83.8 H 37.0-80.0 % Lymphocytes (%) (Auto) 8.7 L 10.0-50.0 % Monocytes (%) (Auto) 7.0 0.0-12.0 % Eosinophils (%) (Auto) 0.2 0.0-7.0 % Basophils (%) (Auto) 0.3 0.0-2.0 % Neutrophils # (Auto) 10.8 H 1.6-8.6 10 ^3/uL Lymphocytes # (Auto) 1.1 0.4-5.4 10 ^3/uL Monocytes # (Auto) 0.9 0-1.3 10 ^3/uL Eosinophils # (Auto) 0 0-0.8 10 ^3/uL Basophils # (Auto) 0 0-0.2 10 ^3/uL Nucleated Red Blood Cells 0.0 % Platelet Estimate Adequate Hypochromasia (manual) Moderate Anisocytosis (manual) Slight Microcytosis Marked Sodium Level 135 L 136-145 mmol/L Potassium Level 4.0 3.5-5.1 mmol/L Chloride Level 98 98-107 mmol/L Carbon Dioxide Level 27 20-31 mmol/L Anion Gap 10 5-15 Blood Urea Nitrogen 8 L 9-23 mg/dL Creatinine 1.06 0.700-1.30 mg/dL Glomerular Filtration Rate Calc 90 >90 mL/min BUN/Creatinine Ratio 7.5 L 10.0-20.0 Serum Glucose 108 H 74-106 mg/dL Calcium Level 9.2 8.7-10.4 mg/dL Total Bilirubin 0.6 0.2-1.0 mg/dL Aspartate Amino Transferase (AST) 16 13-40 U/L Alanine Aminotransferase (ALT) 14 7-40 U/L Alkaline Phosphatase 70 46-116 U/L Total Protein 7.7 5.7-8.2 g/dL Albumin 4.4 3.2-4.8 g/dL Lipase 188 H 12-53 U/L SEPSIS Sepsis Screen Date sepsis recognized/suspect: Jun 21, 2025 Time Sepsis recognized/suspect: 1953 Recent Procedure: No On Antibiotic Therapy: No Respiratory Rate >20: No Heart Rate >90: No Temp<36 C (96.8 F) or >38.3 C: No SBP <90 or MAP <65 mmHG: No New Acute Mental Status Change: No Is the patient on CPAP, BIPAP,: No Physician Orders Pantoprazole (Protonix) (06/22/25 10:00) Ceftriaxone 1gm/50ml (Rocephin) (06/22/25 21:00) Allergies (06/21/25:25) Code Status (06/21/25 22:25) Sodium Chloride 0.9% (06/21/25 22:30) Oxygen Per Hour (06/21/25:25) Hydrocodone-Acet 5/325mg Tab (Howard (06/21/25 22:30) Ondansetron Hcl (Zofran) (06/21/25 22:30) Docusate Sodium Capsule (Colace Capsule) (06/21/25 22:30) Complete Blood Count (06/22/25 04:00) Comprehensive Metabolic Panel (06/22/25 04:00) Condition: Serious (06/21/25 22:25) Acetaminophen Tablet (Tylenol Tablet) (06/21/25 22:30) Clear Liq Diet (06/22/25 Breakfast) Bedrest With Bathroom Privileg (06/21/25 22:25) Morphine Sulfate Injection (06/21/25 22:30) Sequential Compression Device (06/21/25 ) Vital Signs Date Time Temp Pulse Resp B/P (MAP) Pulse Ox O2 Delivery O2 Flow Rate FiO2 06/21/25 23:14 96 16 141/97 (112) 99 06/21/25 23:11 96 16 141/97 06/21/25 20:06 105 16 136/68 06/21/25 19:54 99.1 105 16 136/68 (90) 98 99.1 06/21/25 19:54 105 16 98 Room Air* 0 21 06/21/25 17:31 99.6 103 18 133/92 95 99.6 Laboratory Tests Test 06/21/25 19:04 White Blood Count 13.0 10^3/uL (4.4-10.8) #H Medications Medications Dose Ordered Sig/Shelli Route Start Time Stop Time Status Last Admin Dose Admin Acetaminophen/ Hydrocodone Bitart 1 tab Q4HP PRN PO 06/21/25 22:30 06/21/25 23:10 1 TAB Ceftriaxone Sodium 50 ml @ 100 mls/hr ONCE ONCE IV 06/21/25 22:30 06/21/25 22:59 DC 06/21/25 22:57 100 MLS/HR Morphine Sulfate 4 mg ONCE ONCE IV 06/21/25 19:00 06/21/25 19:01 DC 06/21/25 20:06 4 MG Ondansetron HCl 4 mg ONCE ONCE IV 06/21/25 19:00 06/21/25 19:01 DC 06/21/25 20:06 4 MG Ondansetron HCl 4 mg Q4HP PRN IV 06/21/25 22:30 06/21/25 23:10 4 MG Pantoprazole Sodium 40 mg ONCE ONCE IV 06/21/25 22:30 06/21/25 22:36 DC 06/21/25 22:57 40 MG Sodium Chloride 1,000 ml @ 1,000 mls/hr Q1H ONCE IVB 06/21/25 19:00 06/21/25 19:59 DC 06/21/25 20:07 1,000 MLS/HR Assessment/Plan Assessment/Plan Acute pancreatitis Acute abdominal pain Alcohol induced acute pancreatitis without necrosis or infection Leukocytosis, unspecified Plan 1. Admit to med surge unit 2. Breathing treatment 3. Pain control management 4. IV antibiotic management 5. Management of fluids and electrolytes 6. Consultation for hospitalist 7. Diagnostic test abdomen/pelvis CT 8. DVT prophylaxis-on SCDs 9. Repeat labs CBC, CMP in a.m. 10. Home medication reviewed and reconciled 11. Continue with current medical management 12. Treatment plan discussed with patient and RN. Patient verbalized understanding. Plan discussed with: Patient, Other (RN) My Orders Orders - TRAMAINE PALACIOS DNP Procedure Category Date Status Time Pantoprazole PHA 06/22/25 In Process (Protonix) 10:00 Ceftriaxone 1gm/50ml PHA 06/22/25 In Process (Rocephin) 21:00 Allergies LISA 06/21/25 In Process 22:25 Code Status CODE 06/21/25 Transmitted 22:25 Sodium Chloride 0.9% PHA 06/21/25 In Process 22:30 Oxygen Per Hour RT 06/21/25 Transmitted 22:25 Hydrocodone-Acet PHA 06/21/25 In Process 5/325mg Tab (Howard 22:30 Ondansetron Hcl PHA 06/21/25 In Process (Zofran) 22:30 Docusate Sodium PHA 06/21/25 In Process Capsule (Colace 22:30 Complete Blood Count LAB 06/22/25 Verified 04:00 Comprehensive LAB 06/22/25 Verified Metabolic Panel 04:00 Condition: Serious LISA 06/21/25 In Process 22:25 Acetaminophen Tablet PHA 06/21/25 In Process (Tylenol Tablet) 22:30 Clear Liq Diet DIET 06/22/25 Transmitted Breakfast Bedrest With Bathroom LISA 06/21/25 In Process Privileg 22:25 Morphine Sulfate PHA 06/21/25 In Process Injection 22:30 Sequential LISA 06/21/25 In Process Compression Device Problem List: (1) Acute pancreatitis (2) Acute abdominal pain (3) Alcohol induced acute pancreatitis without necrosis or infection (4) Leukocytosis, unspecified Date of Service: Jun 21, 2025 Billing Provider: TRAMAINE PALACIOS DNP Common Visit Codes: [id number] INP/OBS CARE (HIGH) TRAMAINE PALACISO DNP Jun 21, 2025 23:22
[2025-06-21] MEDS ORDERED: MORPHINE SULFATE INJ 2 MG/ml SYRG IV PRN (23:30)
[2025-06-21] MEDS ORDERED: NITROGLYCERIN 0.4 MG SL TAB SL PRN (23:30)
[2025-06-22 04:07] LABS: Alanine Aminotransferase 13 U/L (7-40); Albumin 3.9 g/dL (3.2-4.8); Alkaline Phosphatase 68 U/L (46-116); Anion Gap 10 (5-15); BUN/Creatinine Ratio 9.5 (10.0-20.0); Carbon Dioxide 27 mmol/L (20-31); Chloride 100 mmol/L (98-107); Glucose 105 mg/dL (74-106); Sodium 137 mmol/L (136-145); Total Protein 6.9 g/dL (5.7-8.2)
[2025-06-22 04:09] LABS: Bilirubin, Total 0.3 mg/dL (0.2-1.0); Blood Urea Nitrogen 9 mg/dL (9-23); Calcium 8.5 mg/dL (8.7-10.4); Potassium 3.3 mmol/L (3.5-5.1)
[2025-06-22 04:10] LABS: Hematocrit 31.9 % (41.0-53.0); Hemoglobin 10.1 g/dL (13.5-17.5); Mean Corpuscular Hemoglobin 21.1 pg (28.0-32.0); Mean Corpuscular Volume 66.7 fL (80.0-100.0); Nucleated Red Blood Cells % 0.0 %
[2025-06-22] MEDS: MORPHINE SULFATE INJ 2 MG/ml SYRG IV PRN (08:13)
[2025-06-22] MEDS: MORPHINE SULFATE 4 MG/ML SYR/VIAL ONE (08:26)
[2025-06-22] MEDS: PANTOPRAZOLE 40 MG/10 ML VIAL INJ IV SCH (09:00)
[2025-06-22 09:05] VITALS: BP 119/76; PULSE 77; PULSE 80; RESP 16; RESP 18; TEMP 98; O2SAT 98; O2SAT 99
[2025-06-22 13:00] VITALS: BP 123/89; PULSE 77; RESP 20; TEMP 98.3; O2SAT 100
[2025-06-22] MEDS: HYDROmorphone HCL 2 MG/ML VL/or syr IV PRN (13:00)
[2025-06-22 15:50] VITALS: BP 132/84; PULSE 80; RESP 16; TEMP 98.1; O2SAT 99
--- NOTE | 2025-06-22 16:40 | DVHPN2 ---
Subjective Patient is here for acute on chronic pancreatitis. Changes from previous H/P or p: No Changes Eyes: No Pain, No Vision change, No Conjunctivae inflammation, No Eyelid inflammation, No Other, No Redness ENT: No Ear pain, No Ear discharge, No Nose pain, No Nose discharge, No Nose congestion, No Mouth pain, No Mouth swelling, No Throat pain, No Throat swelling, No Other Cardiovascular: No Chest Pain, No Palpitations, No Orthopnea, No Paroxysmal Noc. Dyspnea, No Edema, No Lt Headedness, No Other Respiratory: No Cough, No Dry, No Shortness of breath, No SOB with excertion, No Wheezing, No Hemoptysis, No Pleuritic Pain, No Sputum, No Other Gastrointestinal: Nausea; No Vomiting; Abdominal Pain; No Diarrhea, No Constipation, No Melena, No Hematochezia, No Other Genitourinary: No Dysuria, No Frequency, No Incontinence, No Hematuria, No Retention, No Other Musculoskeletal: No other, No neck pain, No shoulder pain, No arm pain, No back pain, No hand pain, No leg pain, No foot pain Skin: No Rash, No Lesions, No Jaundice, No Bruising, No Other Objective Vitals Vital Signs Date Time Temp Pulse Resp B/P (MAP) Pulse Ox O2 Delivery O2 Flow Rate FiO2 06/22/25 13:30 77 20 123/89 06/22/25 13:00 98.3 100 98.3 06/22/25 08:00 Room Air* 0 21 Exam HEENT pupils are reactive Neck is supple CV is S1-S2 regular rate and rhythm Respiratory diminished breath sound bases GI posterior bowel sounds soft mildly tender in the epigastrium and left upper quadrant with minimal guarding no rigidity 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 Medications Current Medications Medications Dose Ordered Sig/Shelli Route Start Time Stop Time Status Last Admin Dose Admin Pantoprazole Sodium 40 mg DAILY IV 06/22/25 10:00 06/22/25 09:00 40 MG Ceftriaxone Sodium 50 ml @ 100 mls/hr DAILY@2100 IV 06/22/25 21:00 Sodium Chloride 1,000 ml @ 60 mls/hr [id number] IV 06/21/25 22:30 06/22/25 09:02 60 MLS/HR Acetaminophen/ Hydrocodone Bitart 1 tab Q4HP PRN PO 06/21/25 22:30 06/22/25 05:48 1 TAB Ondansetron HCl 4 mg Q4HP PRN IV 06/21/25 22:30 06/22/25 15:41 4 MG Docusate Sodium 100 mg BIDPRN PRN PO 06/21/25 22:30 Acetaminophen 650 mg Q6HP PRN PO 06/21/25 22:30 Nitroglycerin 0.4 mg Q5MINP PRN SL 06/21/25 23:30 Morphine Sulfate 2 mg Q30M PRN IV 06/21/25 23:30 Hydromorphone HCl 0.5 mg Q4HR PRN IV 06/22/25 12:30 06/22/25 13:00 0.5 MG Laboratory Results Laboratory Tests 06/22/25 03:17 Chemistry Test 06/21/25 19:04 06/22/25 03:17 Albumin 4.4 g/dL (3.2-4.8) 3.9 g/dL (3.2-4.8) Calcium Level 9.2 mg/dL (8.7-10.4) 8.5 mg/dL (8.7-10.4) L Total Protein 7.7 g/dL (5.7-8.2) 6.9 g/dL (5.7-8.2) Lipid panel Test 06/21/25 19:04 Lipase 188 U/L (12-53) H LFT Test 06/21/25 19:04 06/22/25 03:17 Alanine Aminotransferase (ALT) 14 U/L (7-40) 13 U/L (7-40) Alkaline Phosphatase 70 U/L (46-116) 68 U/L (46-116) Aspartate Amino Transferase (AST) 16 U/L (13-40) 12 U/L (13-40) L Total Bilirubin 0.6 mg/dL (0.2-1.0) 0.3 mg/dL (0.2-1.0) Assessment/Plan Assessment/Plan 44-year-old male with a known history of alcohol-induced per chronic pancreatitis, hypertension, GERD presented to the hospital with the abdominal pain found to have 1. Abdominal pain with the nausea suspected acute on chronic pancreatitis 2. Acute on chronic pancreatitis 4. GERD -pain meds as needed diet as tolerated . Plan discussed with: Patient My Orders Orders - KATHI REYES MD Procedure Category Date Status Time Hydromorphone PHA 06/22/25 In Process Injection (Dilaudid 12:30 Amylase LAB 06/23/25 Verified 04:00 Lipase LAB 06/23/25 Verified 04:00 Date of Service: Jun 22, 2025 Billing Provider: KATHI REYES MD Common Visit Codes: [id number] INP/OBS CARE(MOD) KATHI REYES MD Jun 22, 2025 16:40
[2025-06-22 16:52] VITALS: BP 129/84; PULSE 79; RESP 15; TEMP 98; O2SAT 99
[2025-06-22 20:49] VITALS: BP 129/90; PULSE 85; RESP 20; TEMP 98; O2SAT 96
[2025-06-23] VITALS (7 sets, daily range): BP systolic 125–142; BP diastolic 82–99; PULSE 73–86; RESP 14–18; TEMP 98–99.2; O2SAT 94–98
[2025-06-23 06:30] LABS: Amylase 179 U/L (30-118); Lipase 158 U/L (12-53)
--- NOTE | 2025-06-23 17:56 | DVHPN2 ---
Subjective Complaining of epigastric pain. Changes from previous H/P or p: No Changes Eyes: No Pain, No Vision change, No Conjunctivae inflammation, No Eyelid inflammation, No Other, No Redness ENT: No Ear pain, No Ear discharge, No Nose pain, No Nose discharge, No Nose congestion, No Mouth pain, No Mouth swelling, No Throat pain, No Throat swelling, No Other Cardiovascular: No Chest Pain, No Palpitations, No Orthopnea, No Paroxysmal Noc. Dyspnea, No Edema, No Lt Headedness, No Other Respiratory: No Cough, No Dry, No Shortness of breath, No SOB with excertion, No Wheezing, No Hemoptysis, No Pleuritic Pain, No Sputum, No Other Gastrointestinal: Nausea; No Vomiting; Abdominal Pain; No Diarrhea, No Constipation, No Melena, No Hematochezia, No Other Genitourinary: No Dysuria, No Frequency, No Incontinence, No Hematuria, No Retention, No Other Musculoskeletal: No other, No neck pain, No shoulder pain, No arm pain, No back pain, No hand pain, No leg pain, No foot pain Skin: No Rash, No Lesions, No Jaundice, No Bruising, No Other Objective Vitals Vital Signs Date Time Temp Pulse Resp B/P (MAP) Pulse Ox O2 Delivery O2 Flow Rate FiO2 06/23/25 16:54 98.1 85 18 140/90 (107) 97 98.1 06/23/25 07:40 Room Air* 0 21 Intake/Output Intake and Output 06/23/25 07:00 Intake Total 815 ml Balance 815 ml Intake Oral 815 ml # Voids 1 Exam HEENT pupils are reactive Neck is supple CV is S1-S2 regular rate and rhythm Has been by clear GI posterior bowel sound 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 Medications Current Medications Medications Dose Ordered Sig/Shelli Route Start Time Stop Time Status Last Admin Dose Admin Pantoprazole Sodium 40 mg DAILY IV 06/22/25 10:00 06/23/25 09:38 40 MG Ceftriaxone Sodium 50 ml @ 100 mls/hr DAILY@2100 IV 06/22/25 21:00 06/22/25 21:11 100 MLS/HR Sodium Chloride 1,000 ml @ 60 mls/hr [id number] IV 06/21/25 22:30 06/22/25 09:02 60 MLS/HR Acetaminophen/ Hydrocodone Bitart 1 tab Q4HP PRN PO 06/21/25 22:30 06/23/25 17:26 1 TAB Ondansetron HCl 4 mg Q4HP PRN IV 06/21/25 22:30 06/22/25 15:41 4 MG Docusate Sodium 100 mg BIDPRN PRN PO 06/21/25 22:30 Acetaminophen 650 mg Q6HP PRN PO 06/21/25 22:30 Nitroglycerin 0.4 mg Q5MINP PRN SL 06/21/25 23:30 Morphine Sulfate 2 mg Q30M PRN IV 06/21/25 23:30 Hydromorphone HCl 0.5 mg Q4HR PRN IV 06/22/25 12:30 06/23/25 14:03 0.5 MG Laboratory Results Laboratory Tests 06/22/25 03:17 Lipid panel Test 06/23/25 05:16 Lipase 158 U/L (12-53) H Assessment/Plan Assessment/Plan 44-year-old male with a known history of alcohol-induced per chronic pancreatitis, hypertension, GERD presented to the hospital with the abdominal pain found to have 1. Abdominal pain with the nausea suspected acute on chronic pancreatitis 2. Acute on chronic pancreatitis 4. GERD -pain meds as needed diet as tolerated Plan discussed with: Patient My Orders Orders - KATHI REYES MD Procedure Category Date Status Time Amylase LAB 06/24/25 Verified 05:00 Lipase LAB 06/24/25 Verified 05:00 Date of Service: Jun 23, 2025 Billing Provider: KATHI REYES MD Common Visit Codes: [id number] INP/OBS CARE(MOD) KATHI REYES MD Jun 23, 2025 17:56
[2025-06-24 06:41] LABS: Lipase 170 U/L (12-53)
[2025-06-24 06:43] LABS: Amylase 196 U/L (30-118)
[2025-06-24 08:00] VITALS: PULSE 82; RESP 18
[2025-06-24 09:00] VITALS: BP 140/92; PULSE 82; RESP 18; TEMP 98.4; O2SAT 96
[2025-06-24 13:00] VITALS: BP 128/90; PULSE 73; RESP 18; TEMP 98.1; O2SAT 93
--- NOTE | 2025-06-24 16:35 | DVHPN2 ---
Subjective Complaining of epigastric pain. Changes from previous H/P or p: No Changes Eyes: No Pain, No Vision change, No Conjunctivae inflammation, No Eyelid inflammation, No Other, No Redness ENT: No Ear pain, No Ear discharge, No Nose pain, No Nose discharge, No Nose congestion, No Mouth pain, No Mouth swelling, No Throat pain, No Throat swelling, No Other Cardiovascular: No Chest Pain, No Palpitations, No Orthopnea, No Paroxysmal Noc. Dyspnea, No Edema, No Lt Headedness, No Other Respiratory: No Cough, No Dry, No Shortness of breath, No SOB with excertion, No Wheezing, No Hemoptysis, No Pleuritic Pain, No Sputum, No Other Gastrointestinal: Nausea; No Vomiting; Abdominal Pain; No Diarrhea, No Constipation, No Melena, No Hematochezia, No Other Genitourinary: No Dysuria, No Frequency, No Incontinence, No Hematuria, No Retention, No Other Musculoskeletal: No other, No neck pain, No shoulder pain, No arm pain, No back pain, No hand pain, No leg pain, No foot pain Skin: No Rash, No Lesions, No Jaundice, No Bruising, No Other Objective Vitals Vital Signs Date Time Temp Pulse Resp B/P (MAP) Pulse Ox O2 Delivery O2 Flow Rate FiO2 06/24/25 12:52 82 18 140/92 06/24/25 09:00 98.4 96 98.4 06/24/25 08:00 Room Air* 0 21 Intake/Output Intake and Output 06/24/25 07:00 Intake Total 500 ml Balance 500 ml Intake Oral 500 ml # Voids 10 # Bowel Movements 1 Exam HEENT pupils are reactive Neck is supple CV is S1-S2 regular rate and rhythm Has been by clear GI posterior bowel sound 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 Current Medications Medications Dose Ordered Sig/Shelli Route Start Time Stop Time Status Last Admin Dose Admin Pantoprazole Sodium 40 mg DAILY IV 06/22/25 10:00 06/24/25 09:02 40 MG Ceftriaxone Sodium 50 ml @ 100 mls/hr DAILY@2100 IV 06/22/25 21:00 06/23/25 21:16 100 MLS/HR Sodium Chloride 1,000 ml @ 60 mls/hr [id number] IV 06/21/25 22:30 06/24/25 00:30 60 MLS/HR Acetaminophen/ Hydrocodone Bitart 1 tab Q4HP PRN PO 06/21/25 22:30 06/24/25 15:09 1 TAB Ondansetron HCl 4 mg Q4HP PRN IV 06/21/25 22:30 06/23/25 23:55 4 MG Docusate Sodium 100 mg BIDPRN PRN PO 06/21/25 22:30 Acetaminophen 650 mg Q6HP PRN PO 06/21/25 22:30 Nitroglycerin 0.4 mg Q5MINP PRN SL 06/21/25 23:30 Morphine Sulfate 2 mg Q30M PRN IV 06/21/25 23:30 Hydromorphone HCl 0.5 mg Q4HR PRN IV 06/22/25 12:30 06/24/25 12:22 0.5 MG Laboratory Results Laboratory Tests 06/22/25 03:17 Lipid panel Test 06/24/25 05:10 Lipase 170 U/L (12-53) H Assessment/Plan Assessment/Plan 44-year-old male with a known history of alcohol-induced per chronic pancreatitis, hypertension, GERD presented to the hospital with the abdominal pain found to have 1. Abdominal pain with the nausea suspected acute on chronic pancreatitis 2. Acute on chronic pancreatitis 4. GERD -pain meds as needed diet as tolerated Plan discussed with: Patient My Orders Orders - KATHI REYES MD Procedure Category Date Status Time Lipase LAB 06/25/25 Verified 15:16 Amylase LAB 06/25/25 Verified 15:16 Date of Service: Jun 24, 2025 Billing Provider: KATHI REYES MD Common Visit Codes: [id number] INP/OBS CARE(MOD) KATHI REYES MD Jun 24, 2025 16:35
[2025-06-24 17:00] VITALS: BP 137/93; PULSE 85; RESP 20; TEMP 97.5; O2SAT 96
[2025-06-24 20:00] VITALS: PULSE 82; RESP 18; O2SAT 94
[2025-06-24 21:00] VITALS: BP 132/87; PULSE 82; RESP 18; TEMP 98.8; O2SAT 94
[2025-06-25 01:00] VITALS: BP 134/89; PULSE 77; RESP 18; TEMP 98.2; O2SAT 94
[2025-06-25 05:00] VITALS: BP_SYST 130; BP_SYST 144; BP_DIAS 83; BP_DIAS 89; PULSE 65; PULSE 78; RESP 18; TEMP 97.2; TEMP 97.6; O2SAT 95
[2025-06-25 08:00] VITALS: PULSE 55; RESP 20; O2SAT 97
[2025-06-25 09:00] VITALS: BP 134/95; PULSE 55; RESP 20; TEMP 98.3; O2SAT 97
[2025-06-25 13:00] VITALS: BP 133/99; PULSE 75; RESP 20; TEMP 98.1; O2SAT 97
[2025-06-25 14:58] LABS: Amylase 212 U/L (30-118); Lipase 178 U/L (12-53)
[2025-06-25] MEDS ORDERED: ZOFR4T PO (16:15)
[2025-06-25] MEDS ORDERED: PANT40T PO (16:15)
[2025-06-25] MEDS ORDERED: HYDR-4902 PO (16:15)
--- NOTE | 2025-06-25 16:23 | DVHDS2 ---
Discharge Summary Date of Admission Jun 21, 2025 at 23:18 Date of Discharge: Jun 25, 2025 Labs/Diagnostic Data: Laboratory Results Test 06/25/25 14:11 06/22/25 03:17 06/21/25 19:04 Amylase Level 212 U/L (30-118) Lipase 178 U/L (12-53) White Blood Count 9.9 10^3/uL (4.4-10.8) Red Blood Count 4.78 10^6/uL (4.5-5.90) Hemoglobin 10.1 g/dL (13.5-17.5) Hematocrit 31.9 % (41.0-53.0) Mean Corpuscular Volume 66.7 fL (80.0-100.0) Mean Corpuscular Hemoglobin 21.1 pg (28.0-32.0) Mean Corpuscular Hemoglobin Concent 31.7 g/dL (32.0-36.0) Red Cell Distribution Width 22.5 % (11.8-14.3) Platelet Count 227 10^3/uL (140-450) Mean Platelet Volume 8.9 fL (6.9-10.8) Neutrophils (%) (Auto) 81.5 % (37.0-80.0) Lymphocytes (%) (Auto) 9.4 % (10.0-50.0) Monocytes (%) (Auto) 8.1 % (0.0-12.0) Eosinophils (%) (Auto) 0.7 % (0.0-7.0) Basophils (%) (Auto) 0.3 % (0.0-2.0) Neutrophils # (Auto) 8.1 10 ^3/uL (1.6-8.6) Lymphocytes # (Auto) 0.9 10 ^3/uL (0.4-5.4) Monocytes # (Auto) 0.8 10 ^3/uL (0-1.3) Eosinophils # (Auto) 0.1 10 ^3/uL (0-0.8) Basophils # (Auto) 0 10 ^3/uL (0-0.2) Nucleated Red Blood Cells 0.0 % Sodium Level 137 mmol/L (136-145) Potassium Level 3.3 mmol/L (3.5-5.1) Chloride Level 100 mmol/L (98-107) Carbon Dioxide Level 27 mmol/L (20-31) Anion Gap 10 (5-15) Blood Urea Nitrogen 9 mg/dL (9-23) Creatinine 0.95 mg/dL (0.700-1.30) Glomerular Filtration Rate Calc 102 mL/min (>90) BUN/Creatinine Ratio 9.5 (10.0-20.0) Serum Glucose 105 mg/dL (74-106) Calcium Level 8.5 mg/dL (8.7-10.4) Total Bilirubin 0.3 mg/dL (0.2-1.0) Aspartate Amino Transferase (AST) 12 U/L (13-40) Alanine Aminotransferase (ALT) 13 U/L (7-40) Alkaline Phosphatase 68 U/L (46-116) Total Protein 6.9 g/dL (5.7-8.2) Albumin 3.9 g/dL (3.2-4.8) Platelet Estimate Adequate Hypochromasia (manual) Moderate Anisocytosis (manual) Slight Microcytosis Marked Other Laboratory Tests 06/22/25 03:17 Brief Hx & Hospital Course: 44-year-old male with a known history of 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 Patient was kept NPO and started on liquid diet. Patient kept asking for narcotics. Patient probably has narcotic dependency now. 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 Patient is being discharged under stable condition today. Condition at Discharge: Stable Final Diagnosis/Problems List 44-year-old male with a known history of alcohol-induced per chronic pancreatitis, hypertension, GERD presented to the hospital with the abdominal pain found to have 1. Abdominal pain with the nausea suspected acute on chronic pancreatitis 2. Acute on chronic pancreatitis 3. GERD 4. Chronic narcotic dependency Discharge Disposition: Home SNF Discharge Will this Physician continue t: No Discharge Instruct/Medications Diet: Cardiac 2g Na,low cholest Activity: See Comment Activity comment: No driving, no signing of legal documents, no planning on machinery while on narcotics. Follow Up/Referral: Follow up with the PCP in 1-2 weeks Medications: Resume medication has been described New Medications: Hydrocodone-Acetaminophen (Hydrocodone Bitartrate/AC 5-325 mg) 1 Tab Tab 1 TAB PO Q8HP PRN, #14 TAB Continued Medications: Ondansetron Odt 4MG Tab (Zofran Po) 4 Mg Tb 4 MG PO TIDPRN PRN for 7 Days, #21 TAB 0 Refills (This prescription has been renewed) ODT TAB-DISSOLVE IN MOUTH, THEN SWALLOW Pantoprazole Sodium Sesquihydr (Pantoprazole Sodium) 40 Mg Tab 40 MG PO BID, #30 TAB (This prescription has been renewed) Discontinued Medications: Hydrocodone-Acetaminophen (Hydrocodone Bitartrate/AC 5-325 mg) 1 Tab Tab 1 TAB PO QID PRN, #30 TAB Hydrocodone-Acetaminophen (Hydrocodone Bitartrate/AC 5-325 mg) 1 Tab Tab 1 TAB PO TIDP PRN for 7 Days, #21 TAB 0 Refills Scheduled Pantoprazole Sodium Sesquihydr (Pantoprazole Sodium), 40 MG PO BID Scheduled PRN Hydrocodone-Acetaminophen (Hydrocodone Bitartrate/AC 5-325 mg), 1 TAB PO QID PRN Hydrocodone-Acetaminophen (Hydrocodone Bitartrate/AC 5-325 mg), 1 TAB PO TIDP PRN Hydrocodone-Acetaminophen (Hydrocodone Bitartrate/AC 5-325 mg), 1 TAB PO Q8HP PRN Ondansetron Odt 4MG Tab (Zofran Po), 4 MG PO TIDPRN PRN Discharge Statement: "Patient was advised to return to the ER or call 911 if any headaches, dizziness, shortness of breath, chest pain, abdominal pain, bleeding, fevers, or worsening of medical condition. Patient was counseled about treatment plan, medications, possible side effects, patientverbalized understanding. All questions were answered to the best of my ability. This discharge took greater then 30 minutes in planning, reviewing documentation, counseling the patient, and discussing with other team members." ASSESSMENT ASSESSMENT Assessment 44-year-old male with a known history of alcohol-induced per chronic pancreatitis, hypertension, GERD presented to the hospital with the abdominal pain found to have 1. Abdominal pain with the nausea suspected acute on chronic pancreatitis 2. Acute on chronic pancreatitis 3. GERD 4. Chronic narcotic dependency Date of Service: Jun 25, 2025 Billing Provider: KATHI REYES MD Common Visit Codes: 18083-SVP/OBS DISCH DAY >30min KATHI RYEES MD Jun 25, 2025 16:23
[2025-06-25 16:31] VITALS: BP 134/88; PULSE 74; RESP 16; TEMP 98.6; O2SAT 97
== END 2025-06-25 18:40 | disposition home or self-care (01) | DRG 282 ==
LOC: ER 17:22 → OVERFLOW 23:18 → WEST WING 06-22 16:01
PROVIDERS: ADMIT Internal Medicine; ATTEND Internal Medicine
DX: K85.20 Alcohol induced acute pancreatitis without necrosis or infection (principal); F11.20 Opioid dependence, uncomplicated; K21.9 Gastro-esophageal reflux disease without esophagitis; K86.1 Other chronic pancreatitis; I10 Essential (primary) hypertension; Z90.49 Acquired absence of other specified parts of digestive tract; Z79.899 Other long term (current) drug therapy
CPT/HCPCS: 36415; 80053; 82150; 83690; 85025; 96365; 96375; 99291; 99292; G0378; J2405; J2470

== ENCOUNTER 2025-08-22 06:53 | Emergency (ER) | payer MEDICAID ==
[~2025-08-22] VITALS: Ht 172.7 cm; Wt 85.8 kg
--- NOTE | 2025-08-22 07:24 | ED.PDOC ---
History of Present Illness HPI Comments 44-year-old male presents here with pain right in front of his left ear which radiates down as left neck left shoulder left arm left chest and left abdomen. He reports a sharp shooting pain with numbness tingling. Denies any weakness in any one site. He states it feels like when he had sciatica to his legs. Denies any injury. Patient has not been ill recently. No recent cough cold runny nose fever or chills. Patient states he took ibuprofen at home helped up 1st. He states he can be doing anything resting walking when this pain comes on suddenly and lasts for few sec. denies any tooth pain jaw pain. Chief Complaint: Face pain Time Seen by MD: 06:56 Primary Care Provider: UNKNOWN Allergies: Coded Allergies: NO KNOWN ALLERGIES (Unverified , 06/01/23) Home Meds Active Scripts Hydrocodone-Acetaminophen (Hydrocodone Bitartrate/AC 5-325 mg) 1 Tab Tab, 1 TAB PO Q8HP PRN, #14 TAB Prov:KATHI REYES MD 06/25/25 Ondansetron Odt 4MG Tab (ZOFRAN PO) 4 Mg Tb, 4 MG PO TIDPRN PRN for 7 Days, #21 TAB 0 Refills ODT TAB-DISSOLVE IN MOUTH, THEN SWALLOW Prov:KATHI REYES MD 06/25/25 Pantoprazole Sodium Sesquihydr (Pantoprazole Sodium) 40 Mg Tab, 40 MG PO BID, #30 TAB Prov:KATHI REYES MD 06/25/25 Mode of Arrival: Ambulatory Past Medical History PAST MEDICAL HISTORY: GERD, HTN Past Medical History (Other): Pancreatitis Surgical History: Cholecystectomy Family History Family History: Reviewed,noncontributory to illness Social History Smoker: Non-Smoker Alcohol: Sober Drugs: Denies Drug Use Lives In: Home All Other Systems: Reviewed and Negative Physical Exam General Appearance: No Apparent Distress, Normal HEENT: Normal ENT Inspection, Pharynx Normal, TMs Normal Neck: Full Range of Motion, Non-Tender, Normal, Normal Inspection Respiratory: Chest Non-Tender, Lungs Clear, No Accessory Muscle Use, No Respiratory Distress, Normal Breath Sounds Cardiovascular: No Edema, No JVD, No Murmur, No Gallop, Normal Peripheral P ulses, Regular Rate/Rhythm Breast Exam: Deferred Gastrointestinal: No Organomegaly, Non Tender, No Pulsatile Mass, Normal Bowel Sounds, Soft Genitalia: Deferred Pelvic: Deferred Rectal: Deferred Extremities: No calf tenderness, Normal capillary refill, Normal inspection, Normal range of motion, Non-tender, No pedal edema Musculoskeletal : Apperance: Normal Neurologic: Alert, No Motor Deficits, Normal Affect, Normal Mood, No Sensory Deficits, Other (Axial loading to the head with the head facing patient's left reproduces patient's pain) Cerebellar Function: Normal Reflexes: Normal Skin: Dry, Normal Color, Warm Lymphatic: No Adenopathy Was a procedure done? Was a procedure done?: No Differential Dx Considerations may include: Trigeminal neuralgia, radiculopathy, neck sprain, arms sprain, tooth infection,jaw infection X-Ray, Labs, Meds, VS Vital Signs Date Time Temp Pulse Resp B/P (MAP) Pulse Ox O2 Delivery O2 Flow Rate FiO2 08/22/25 06:55 98.0 110 16 129/82 100 98.0 44-year-old male presents here with numbness tingling and sharp pain that are starts from just in front of his left ear radiates down to his left neck left shoulder down the left arm down the left chest and abdomen. Denies any injury. I am able to reproduce his pain with left-sided axial loading to his head. At this time suspect radiculopathy. Patient states last time he had sciatica he was given a shot and some muscle relaxer which really helped. I have given him Toradol in the ER which he is feeling better. I prescribed him both baclofen and gabapentin. I advised him to sweet pickle maker the baclofen from the pharmacy 1st tried out for 3-4 days and if it does not help then only sweet pickle maker the gabapentin and start that. Advised him not to mix the medications. I advised him if he starts the gabapentin to stop the baclofen. Patient agreeable. Patient well- appearing on my examination. Low suspicion for emergent pathology. Advised patient to follow up with PCP in 2-3 days and return to ER has been worsening persists. Time of 1ST Reevaluation: 07:31 Reevaluation 1ST: Unchanged Patient Education/Counseling: Diagnosis, Treatment Family Education/Counseling: No Family Present SEPSIS Sepsis Screen Date sepsis recognized/suspect: Aug 22, 2025 Time Sepsis recognized/suspect: 655 Recent Procedure: No On Antibiotic Therapy: No Respiratory Rate >20: No Heart Rate >90: No Temp<36 C (96.8 F) or >38.3 C: No SBP <90 or MAP <65 mmHG: No New Acute Mental Status Change: No Is the patient on CPAP, BIPAP,: No Vital Signs Date Time Temp Pulse Resp B/P (MAP) Pulse Ox O2 Delivery O2 Flow Rate FiO2 08/22/25 06:55 98.0 110 16 129/82 100 98.0 Departure 1 Departure Time of Disposition: 07:31 Impression: Primary Impression: Radiculopathy affecting upper extremity Disposition: HOME / SELF CARE / HOMELESS Condition: Stable Additional Instructions: I have given two prescriptions. Please sweet pickle maker the baclofen 1st from the pharmacy. Take the medicine for 3-4 days as prescribed. If it does not help, then stop the baclofen and start gabapentin. Her symptoms worsen or persist please return back to the ER. Please avoid any jerky movements and heavy lifting to avoid further exacerbation of the pain e-Prescriptions Gabapentin (Gabapentin) 300 Mg Cap 1 CAP PO TID, #90 CAP 1 Refill Take one tablet at bedtime on day one. Then take one tablet 2 times a day on day two. Then take one tablet 3 times a day on day three and continue this dose. Prov: CARINE DE LA ROSA MD 08/22/25 Baclofen (Baclofen) 5 Mg Tab 5 MG PO TID for 10 Days, #30 TAB Prov: CARINE DE LA ROSA MD 08/22/25 Discharged With: Self Critical Care Note Critical Care Time?: No Stability Stability form required: No Heart Score Heart Score: Heart Score Response (Comments) Value History N/A 0 EKG N/A 0 Age N/A 0 Risk Factors N/A 0 Troponin N/A 0 Total 0 I personally scribed for CARINE DE LA ROSA MD ([email or web address]) on 08/22/25 at 07:24. Electronically submitted by Edith Saleh ([facility]). CARINE DE LA ROSA MD Aug 22, 2025 07:24
[2025-08-22] MEDS ORDERED: BACL5TAB2 PO (07:40)
[2025-08-22] MEDS ORDERED: GABA-1250 PO (07:40)
[2025-08-22] MEDS: KETOROLAC TROMETH 60MG/2ML VIAL IM ONE (08:15)
[2025-08-22 08:37] VITALS: BP 148/96; PULSE 76; RESP 18; TEMP 99; O2SAT 100
== END 2025-08-22 08:41 | disposition home or self-care (01) ==
LOC: ER 06:53
DX: M54.10 Radiculopathy, site unspecified (principal); I10 Essential (primary) hypertension; H92.02 Otalgia, left ear; Z79.899 Other long term (current) drug therapy; Z87.19 Personal history of other diseases of the digestive system; Z90.49 Acquired absence of other specified parts of digestive tract
CPT/HCPCS: 96372; 99283; J1100; J1885